=== PATIENT | female | born 1945 | race Caucasian/White ===

== ENCOUNTER 2020-11-15 20:36 | Inpatient (IN) | payer OTHER, SELFPAY ==
--- OUTSIDE RECORDS SUMMARY | 2020-11-15 20:37 | XMS REPORT | Continuity of Care Document ---
:1945 Author Organization [facility] t Address [address] [place] [address] Care Team Providers Name Role Phone Aide MENJIVAR, T Attending Clinician Unavailable Yohan RN Attending Clinician Unavailable Lab, Fam Pob I Attending Clinician Unavailable Problems This patient has no known problems. Allergies, Adverse Reactions, Alerts This patient has no known allergies or adverse reactions. Medications This patient has no known medications. Procedures This patient has no known procedures. Encounters Start End Encounter Admission Attending Care Care Encounter Source Date/Time Date/Time Type Type Clinicians Facility Department ID 2020-07-27 2020-07-27 Letter MEENAKSHI Noble [id number] 00:00:00 00:00:00 (Out) Madison Cabrera [facility] [id number] [facility] [id number] 2020-07-26 2020-07-26 Telephone MEENAKSHI Almanzar [id number] 00:00:00 00:00:00 Eze HENDERSON [id number] [facility] [id number] 2020-07-24 2020-07-24 Laboratory Lab, [facility] [id number] 14:48:41 15:08:41 Only Fam [facility] [id number] [place] [id number] [facility] [id number] [address] One Results This patient has no known results.
[2020-11-15] MEDS ORDERED: ALBUTEROL INHALER 60 PUFF/8 GM IH ONE (21:44)
[2020-11-15 21:50] LABS: Arterial Blood Carboxyhemoglob 8.3 % (0-1.5); Blood Gas Oxyhemoglobin 80.2 % (94-97); Blood O2 Saturation 88.3 % (92-98.5)
[2020-11-15 22:32] LABS: Absolute Lymphocytes (CBC) 0.7 K/uL (0.7-4.9); Basophils % 1.1 % (0-1.3); Hematocrit 50.4 % (36.0-45.0); MPV 8.8 fL (7.6-11.3); RBC Red Blood Cell Count 5.61 M/uL (3.86-4.86)
[2020-11-15 22:33] LABS: Protime INR 1.06
[2020-11-15 22:45] LABS: ALT/SGPT 51 U/L (12-78); AST/SGOT 37 U/L (15-37); Albumin 3.7 g/dL (3.4-5.0); Alkaline Phosphatase 94 U/L (45-117); BUN Blood Urea Nitrogen 11 mg/dL (7-18); Bicarbonate 37 mmol/L (21-32); Bilirubin Direct 0.2 mg/dL (0-0.2); Bilirubin Total 0.5 mg/dL (0.2-1.0); Glucose Level 193 mg/dL (74-106); Magnesium 2.4 mg/dL (1.8-2.4); NT PRO-BNP 2622 pg/mL (<125); Potassium 4.6 mmol/L (3.5-5.1); Protein, Total 7.5 g/dL (6.4-8.2); Sodium Level 136 mmol/L (136-145); Troponin (Emerg Dept Use Only) < 0.02 ng/mL (0.0-0.045)
[2020-11-15] MEDS ORDERED: FUROSEMIDE 20 MG/ 2ML VIAL ONE (23:32)
[2020-11-15 23:39] LABS: Urine Blood NEGATIVE (NEG); Urine Glucose NEGATIVE (NEG); Urine Protein 2+ (NEG); Urine Specific Gravity 1.025 (1.005-1.030); Urine pH 5.5 (5.0-7.0)
[2020-11-16] MEDS ORDERED: AZITHROMYCIN 500 MG INJ IVPB ONE (01:04)
[2020-11-16] MEDS ORDERED: NA CHLORIDE 0.9% 250 ML ONE (01:04)
[2020-11-16] MEDS ORDERED: CEFTRIAXONE/SWI 1gm 1 GM/10 ML SYR ONE (01:04)
--- NOTE | 2020-11-16 01:14 | ER ---
Nurse's Notes [facility] Name: Marcie Paul Age: 75 yrs Sex: Female : 1945 Arrival Date: 11/15/2020 Time: 20:38 Bed 20 Private MD: GENA WEBSTER Diagnosis: Pleural Effusion;CHF Exacerbation;Hypoxia Presentation: 11/15 20:44 Chief complaint: Patient states: SOB for 10 days. Low grade fever at home. She was ll1 exposed to covid, so Dr. Webster started her on medications. + ALMAGUER's. O2 sat 68% RA at home per patient. Coronavirus screen: Client denies travel out of the [place] in the last 14 days. cough unrelated to allergies, difficulty breathing, fatigue, fever, headache, shortness of breath, Client presents with at least one sign or symptom that may indicate coronavirus-19. Standard/surgical mask placed on the client. Ebola Screen: Patient denies travel to an Ebola-affected area in the 21 days before illness onset. 20:44 Method Of Arrival: Wheelchair ll 20:48 Initial Sepsis Screen: Does the patient meet any 2 criteria? RR > 20 per min. No. ll1 Patient's initial sepsis screen is negative. Does the patient have a suspected source of infection? Yes: Productive cough/pneumonia. Risk Assessment: Do you want to hurt yourself or someone else? Patient reports no desire to harm self or others. Onset of symptoms was November 05, 2020. 20:48 Acuity: JOAQUINA 2 ll1 Triage Assessment: 21:25 Respiratory: Onset: The symptoms/episode began/occurred gradually, the patient has mild rr5 shortness of breath. Historical: - Allergies: 20:50 No Known Allergies; ll1 - PMHx: 20:50 Atrial Fib; Diabetes - NIDDM; Myocardial infarction; Hyperlipidemia; Hypertension; ll1 COPD; Hypothyroidism; - PSHx: 20:50 Hysterectomy; Heart stents; Cholecystectomy; ankle; skin CA spot removed from neck; ll1 - Immunization history:: Flu vaccine is not up to date. - Social history:: Smoking status: Patient reports the use of cigarette tobacco products, smokes one-half pack cigarettes per day. Screenin:20 Abuse screen: Denies threats or abuse. Denies injuries from another. Nutritional rr5 screening: No deficits noted. Tuberculosis screening: No symptoms or risk factors identified. Fall Risk IV access (20 points). Mental Status- Oriented to own ability (0 pts). Total Ballard Fall Scale indicates No Risk (0-24 pts). Assessment: 21:25 General: Appears in no apparent distress. uncomfortable, Behavior is calm, cooperative, rr5 appropriate for age. 21:25 Pain: Denies pain. Neuro: Level of Consciousness is awake, alert, obeys commands, rr5 Oriented to person, place, time, situation. Cardiovascular: Capillary refill < 3 seconds Patient's skin is warm and dry. Rhythm is atrial fibrillation. Respiratory: Reports shortness of breath Airway is patent Respiratory effort is even, unlabored, Respiratory pattern is regular, symmetrical, tachypnea Breath sounds with crackles. GI: No signs and/or symptoms were reported involving the gastrointestinal system. : No signs and/or symptoms were reported regarding the genitourinary system. EENT: No signs and/or symptoms were reported regarding the EENT system. Derm: Skin is intact, is healthy with good turgor, Skin temperature is warm. Musculoskeletal: Circulation, motion, and sensation intact. Capillary refill < 3 seconds. 22:29 Reassessment: Patient appears in no apparent distress at this time. Patient is alert, rr5 oriented x 3, equal unlabored respirations, skin warm/dry/pink. Patient states symptoms have improved. 23:30 Reassessment: Patient appears in no apparent distress at this time. Patient and/or rr5 family updated on plan of care and expected duration. Pain level reassessed. Patient is alert, oriented x 3, equal unlabored respirations, skin warm/dry/pink. for CT angio. 11/16 00:20 Reassessment: Patient appears in no apparent distress at this time. Patient is alert, rr5 oriented x 3, equal unlabored respirations, skin warm/dry/pink. awaiting for CT result. positive post lasix output. 01:50 Reassessment: Patient appears in no apparent distress at this time. Patient is alert, rr5 oriented x 3, equal unlabored respirations, skin warm/dry/pink. for admission awaiting for covid result. 03:00 Reassessment: Patient appears in no apparent distress at this time. resting eyes closed rr5 breathing spontaneously with oxygen support at 3 liters via nasal cannula. Vital Signs: 11/15 20:44 BP 155 / 87; Pulse 82; Resp 28; Temp 97.6(O); Pulse Ox 82% on R/A; Weight 86.18 kg; ll1 Height 5 ft. 8 in. (172.72 cm); Pain 310; 20:44 Pulse Ox 91% on 2 lpm NC; ll1 22:24 BP 135 / 89; Pulse 85; Resp 22; Pulse Ox 92% on 2 lpm NC; rr5 23:30 BP 152 / 109; Pulse 80; Resp 24; Pulse Ox 90% on 3 lpm NC; rr5 11/16 00:23 BP 129 / 82; Pulse 73; Resp 25; Pulse Ox 91% on 3 lpm NC; rr5 01:50 BP 143 / 90; Pulse 89; Resp 27; Pulse Ox 93% on 3 lpm NC; rr5 02:30 BP 120 / 88; Pulse 69; Resp 22; Temp 97.9; Pulse Ox 93% on 3 lpm NC; rr5 11/15 20:44 Body Mass Index 28.89 (86.18 kg, 172.72 cm) ll1 ED Course: 11/15 20:38 Patient arrived in ED. am2 20:38 GENA WEBSTER is Private Physician. am2 20:49 Triage completed. ll1 20:51 Arm band placed on Patient placed in an exam room, on a stretcher. ll1 20:55 Nico Thomas MD is Attending Physician. mh7 21:20 Patient has correct armband on for positive identification. Bed in low position. Call rr5 light in reach. athletic monitor on. Pulse ox on. NIBP on. 21:25 Jose Pugh, TIARA is Primary Nurse. rr5 21:30 Oxygen administration via nasal cannula \T\ 2L/min Response to oxygen therapy: symptoms rr5 improved. 21:38 XRAY Chest (1 view) In Process Unspecified. EDMS 22:00 COVID swab sent to lab. Flu and/or RSV swab sent to lab. rr5 22:10 Inserted saline lock: 20 gauge in right forearm, using aseptic technique. Blood rr5 collected. 22:10 First set of blood cultures drawn by me. rr5 22:20 EKG done, by ED staff, reviewed by Nico Thomas MD. rr5 11/16 00:14 CT Chest For PE Angio In Process Unspecified. EDMS 00:26 No provider procedures requiring assistance completed. rr5 01:13 Mauricio Fitzgerald MD is Hospitalizing Provider. [facility] 02:49 Patient admitted, IV remains in place. intact, No redness/swelling at site. rr5 Administered Medications: 11/15 21:40 Drug: Albuterol HFA Inhaler 2 puffs Route: Inhalation; rr5 22:40 Follow up: Response: No adverse reaction rr5 23:19 Drug: Lasix 20 mg Route: IVP; Site: right forearm; rr5 11/16 00:26 Follow up: Response: No adverse reaction rr5 00:50 Drug: Rocephin - (cefTRIAXone) 1 grams Route: IVPB; Infused Over: 30 mins; Site: right rr5 forearm; 01:18 Follow up: Response: No adverse reaction; IV Status: Completed infusion; IV Intake: 49qmqu2 01:20 Dru mg of (AZITHromycin 500 mg, NS 0.9% 250 ml) Route: IVPB; Infused Over: 1 hrs; rr5 Site: right forearm; 02:25 Follow up: Response: No adverse reaction; IV Status: Completed infusion; IV Intake: rr5 250ml Intake: 01:18 IV: 50ml; Total: 50ml. rr5 02:25 IV: 250ml; Total: 300ml. rr5 Output: 00:23 Urine: 250ml (Voided); Total: 250ml. rr5 01:50 Urine: 600ml (Voided); Total: 850ml. rr5 Outcome: 01:13 Decision to Hospitalize by Provider. [facility] 02:49 Admitted to Med/surg accompanied by nurse, via stretcher, room 209, Report called to rr5 navya 02:49 Condition: stable 02:49 Instructed on the need for admit. 03:13 Patient left the ED. rr5 Signatures: Dispatcher [employer] EDMS Kandy Tomlinson am2 Jose Pugh RN RN rr5 Sumanth Martinez RN RN ll1 Nico Thomas MD MD [facility]
--- NOTE | 2020-11-16 01:14 | EDPHYS ---
Physician Documentation [facility] Name: Marcie Paul Age: 75 yrs Sex: Female : 1945 Arrival Date: 11/15/2020 Time: 20:38 Bed 20 Private MD: GENA WEBSTER ED Physician Nico Thomas HPI: 11/15 21:20 This 75 yrs old Female presents to ER via Wheelchair with complaints of mh7 Shortness Of Breath. 21:20 The patient has shortness of breath at rest. Onset: The symptoms/episode began/occurred mh7 1 week(s) ago, and became worse today. Duration: The symptoms are continuous, and are steadily getting worse. The patient's shortness of breath is aggravated by coughing, light activity, is alleviated by nothing. Associated signs and symptoms: Pertinent positives: non-productive cough, fever, Pertinent negatives: chest pain, productive cough, diaphoresis, dizziness, hemoptysis, loss of consciousness, nausea, numbness in extremities, visual changes, vomiting. Severity of symptoms: At their worst the symptoms were moderate today, in the emergency department the symptoms have improved mildly. Historical: - Allergies: 20:50 No Known Allergies; ll1 - PMHx: 20:50 Atrial Fib; Diabetes - NIDDM; Myocardial infarction; Hyperlipidemia; Hypertension; ll1 COPD; Hypothyroidism; - PSHx: 20:50 Hysterectomy; Heart stents; Cholecystectomy; ankle; skin CA spot removed from neck; ll1 - Immunization history:: Flu vaccine is not up to date. - Social history:: Smoking status: Patient reports the use of cigarette tobacco products, smokes one-half pack cigarettes per day. ROS: 21:20 Eyes: Negative for injury, pain, redness, and discharge, ENT: Negative for injury, mh7 pain, and discharge, Neck: Negative for injury, pain, and swelling, Cardiovascular: Negative for chest pain, palpitations, and edema, Abdomen/GI: Negative for abdominal pain, nausea, vomiting, diarrhea, and constipation, Back: Negative for injury and pain, : Negative for injury, bleeding, discharge, and swelling, MS/Extremity: Negative for injury and deformity, Skin: Negative for injury, rash, and discoloration, Neuro: Negative for headache, weakness, numbness, tingling, and seizure, Psych: Negative for depression, anxiety, suicide ideation, homicidal ideation, and hallucinations, Allergy/Immunology: Negative for hives, rash, and allergies, Endocrine: Negative for neck swelling, polydipsia, polyuria, polyphagia, and marked weight changes, Hematologic/Lymphatic: Negative for swollen nodes, abnormal bleeding, and unusual bruising. Exam: 21:20 Constitutional: This is a well developed, well nourished patient who is awake, alert, mh7 and in no acute distress. Head/Face: Normocephalic, atraumatic. Eyes: Pupils equal round and reactive to light, extra-ocular motions intact. Lids and lashes normal. Conjunctiva and sclera are non-icteric and not injected. Cornea within normal limits. Periorbital areas with no swelling, redness, or edema. Neck: Trachea midline, no thyromegaly or masses palpated, and no cervical lymphadenopathy. Supple, full range of motion without nuchal rigidity, or vertebral point tenderness. No Meningismus. Chest/axilla: Normal chest wall appearance and motion. Nontender with no deformity. No lesions are appreciated. Cardiovascular: Regular rate and rhythm with a normal S1 and S2. No gallops, murmurs, or rubs. Normal PMI, no JVD. No pulse deficits. 21:20 Abdomen/GI: Soft, non-tender, with normal bowel sounds. No distension or tympany. No guarding or rebound. No evidence of tenderness throughout. Back: No spinal tenderness. No costovertebral tenderness. Full range of motion. Skin: Warm, dry with normal turgor. Normal color with no rashes, no lesions, and no evidence of cellulitis. MS/ Extremity: Pulses equal, no cyanosis. Neurovascular intact. Full, normal range of motion. Neuro: Awake and alert, GCS 15, oriented to person, place, time, and situation. Cranial nerves II-XII grossly intact. Motor strength 5/5 in all extremities. Sensory grossly intact. Cerebellar exam normal. Normal gait. Psych: Awake, alert, with orientation to person, place and time. Behavior, mood, and affect are within normal limits. 21:20 Respiratory: mild respiratory distress is noted, Respirations: prolonged exhalation, that is mild, Breath sounds: rhonchi, that are moderate, are scattered, Respiratory rate: 28 Vital Signs: 20:44 BP 155 / 87; Pulse 82; Resp 28; Temp 97.6(O); Pulse Ox 82% on R/A; Weight 86.18 kg; ll1 Height 5 ft. 8 in. (172.72 cm); Pain 3/10; 20:44 Pulse Ox 91% on 2 lpm NC; ll1 22:24 BP 135 / 89; Pulse 85; Resp 22; Pulse Ox 92% on 2 lpm NC; rr5 23:30 BP 152 / 109; Pulse 80; Resp 24; Pulse Ox 90% on 3 lpm NC; rr5 11/16 00:23 BP 129 / 82; Pulse 73; Resp 25; Pulse Ox 91% on 3 lpm NC; rr5 01:50 BP 143 / 90; Pulse 89; Resp 27; Pulse Ox 93% on 3 lpm NC; rr5 02:30 BP 120 / 88; Pulse 69; Resp 22; Temp 97.9; Pulse Ox 93% on 3 lpm NC; rr5 11/15 20:44 Body Mass Index 28.89 (86.18 kg, 172.72 cm) ll1 MDM: 01:11 Differential diagnosis: Anemia Anxiety Reaction asthma, Bronchitis CHF exacerbation, mh7 Chronic Obstructive Pulmonary Disease Myocardial Infarction pneumonia, Pneumothorax pulmonary edema, Pulmonary Embolism reactive airway disease. Data reviewed: vital signs, nurses notes, old medical records, lab test result(s), cardiac enzymes, CBC, electrolytes, Flu: urinalysis, EKG, radiologic studies, CT scan, plain films. Data interpreted: Pulse oximetry: on room air is 91 %. Interpretation: hypoxia. Plan: O2 by NC applied. Counseling: I had a detailed discussion with the patient and/or guardian regarding: the historical points, exam findings, and any diagnostic results supporting the discharge/admit diagnosis, lab results, radiology results, the need for further work-up and treatment in the hospital. Response to treatment: the patient's symptoms have markedly improved after treatment. 01:13 Patient medically screened. [facility] 11/15 21:15 Order name: Basic Metabolic Panel; Complete Time: 22:56 [facility] 11/15 21:15 Order name: CBC with Diff; Complete Time: 22:56 [facility] 11/15 21:15 Order name: LFT's; Complete Time: 22:56 [facility] 11/15 21:15 Order name: Magnesium; Complete Time: 22:56 [facility] 11/15 21:15 Order name: NT PRO-BNP; Complete Time: 22:56 [facility] 11/15 21:15 Order name: PT-INR; Complete Time: 22:56 [facility] 11/15 21:15 Order name: Troponin (emerg Dept Use Only); Complete Time: 22:56 [facility] 11/15 21:15 Order name: Blood Culture Adult (2) [facility] 11/15 21:15 Order name: Influenza Screen (a \T\ B); Complete Time: 00:42 [facility] 11/15 21:16 Order name: Lactate; Complete Time: 00:42 [facility] 11/15 21:16 Order name: Procalcitonin; Complete Time: 00:42 [facility] 11/15 21:24 Order name: Arterial Blood Gas; Complete Time: 22:10 [facility] 11/15 23:36 Order name: Urine Dipstick--Ancillary (enter results); Complete Time: 00:42 [facility] 11/15 21:15 Order name: XRAY Chest (1 view) [facility] 11/15 21:15 Order name: EKG; Complete Time: 21:16 [facility] 11/15 21:15 Order name: Cardiac monitoring; Complete Time: 22:18 [facility] 11/15 21:15 Order name: EKG - Nurse/Tech; Complete Time: 22:18 [facility] 11/15 21:15 Order name: IV Saline Lock; Complete Time: 22:18 [facility] 11/15 21:15 Order name: Labs collected and sent; Complete Time: 22:18 [facility] 11/15 21:15 Order name: O2 Per Protocol; Complete Time: 22:18 [facility] 11/15 21:15 Order name: O2 Sat Monitoring; Complete Time: 22:18 [facility] 11/15 21:16 Order name: Urine Dipstick-Ancillary (obtain specimen); Complete Time: 00:26 [facility] 11/15 22:57 Order name: CT Chest For PE Angio [facility] 11/16 01:51 Order name: SARS-COV-2 RT PCR EDMS Administered Medications: 11/15 21:40 Drug: Albuterol HFA Inhaler 2 puffs Route: Inhalation; rr5 22:40 Follow up: Response: No adverse reaction rr5 23:19 Drug: Lasix 20 mg Route: IVP; Site: right forearm; rr5 11/16 00:26 Follow up: Response: No adverse reaction rr5 00:50 Drug: Rocephin - (cefTRIAXone) 1 grams Route: IVPB; Infused Over: 30 mins; Site: right rr5 forearm; 01:18 Follow up: Response: No adverse reaction; IV Status: Completed infusion; IV Intake: [id number] 01:20 Dru mg of (AZITHromycin 500 mg, NS 0.9% 250 ml) Route: IVPB; Infused Over: 1 hrs; rr5 Site: right forearm; 02:25 Follow up: Response: No adverse reaction; IV Status: Completed infusion; IV Intake: rr5 250ml Disposition: 11/16/20 01:13 Hospitalization ordered by Mauricio Fitzgerald for Inpatient Admission. Preliminary diagnosis are Pleural Effusion, CHF Exacerbation, Hypoxia. - Bed requested for Telemetry/MedSurg (Inpatient). - Status is Inpatient Admission. rr5 - Condition is Stable. - Problem is an acute exacerbation. - Symptoms have improved. Signatures: Dispatcher [facility] Em Newby RN RN mw Jose Pugh RN RN rr5 Sumanth Martinez RN RN ll1 Nico Thomas MD MD mh7 Corrections: (The following items were deleted from the chart) 01:10 11/15 21:16 CORONAVIRUS+MR.LAB.BRZ ordered. [facility] 11/16 02:12 01:13 Hospitalization Ordered by Mauricio Fitzgerald MD for Inpatient Admission. Preliminary mw diagnosis is Pleural Effusion; CHF Exacerbation; Hypoxia. Bed requested for Telemetry/MedSurg (Inpatient). Status is Inpatient Admission. Condition is Stable. Problem is an acute exacerbation. Symptoms have improved. mh7 03:13 02:12 11/16/2020 01:13 Hospitalization Ordered by Mauricio Fitzgerald MD for Inpatient rr5 Admission. Preliminary diagnosis is Pleural Effusion; CHF Exacerbation; Hypoxia. Bed requested for Telemetry/MedSurg (Inpatient). Status is Inpatient Admission. Condition is Stable. Problem is an acute exacerbation. Symptoms have improved. mw
[2020-11-16] MEDS ORDERED: NA CHLORIDE 0.9% 50 ML ONE (01:34)
[2020-11-16] MEDS ORDERED: ACETAMINOPHEN 500 MG TAB PO PRN (01:49)
[2020-11-16] MEDS ORDERED: ALBUTEROL 2.5 MG/3 ML NEB SOL NEB PRN (01:49)
[2020-11-16] MEDS ORDERED: MORPHINE 2 MG/ML SYR IV PRN (01:49)
[2020-11-16] MEDS ORDERED: ONDANSETRON 4 MG/2 ML VIAL IV PRN (01:49)
[2020-11-16] MEDS ORDERED: guaiFENesin 100 MG/5 ML UCUP PO PRN (01:57)
[2020-11-16] MEDS ORDERED: HYDRALAZINE HCL 20 MG/ML VIAL IV PRN (01:57)
--- NOTE | 2020-11-16 02:06 | P.HP ---
Certification for Inpatient With expected LOS: >2 Midnights Patient will require the following post-hospital care: None Practitioner: I am a practitioner with admitting privileges, knowledge of patient current condition, hospital course, and medical plan of care. Services: Services provided to patient in accordance with Admission requirements found in Title 42 Section 412.3 of the Code of Federal Regulations Patient History Date of Service: 11/16/20 Reason for admission: SOB History of Present Illness: 75-year-old female with history of COPD on chronic steroids, HTN,DM, HLD, atrial fib previously on anticoagulation but developing tolerance currently on aspirin, follow with Dr. Bryant, CAD status post PCI, diastolic CHF with last echo from 2017 showing EF of 54% but moderate TR and MR and pulmonary hypertension, follows with Cardiology, admitted because of worsening shortness of breath since the last 1 week patient admit to intermittent cough but denies a [place] fever. She denies any cough contact. She admits to worsening but the swelling. She states she is on diuretic but unable to tell wall dose of diuretics she is taking. Also has history of hypothyroidism and currently on levothyroxine. On presentation she was noted with low O2 sats in the 80s on room air. She is satting 90s now with supplemental oxygen. Chest x-ray shows extensive right pleural effusion with compressive atelectasis and possibly right lower lobe infiltrate. She has been admitted for symptomatic pleural effusion CHF exacerbation. ABG shows pCO2 of 74 with a pH of 7.33. Allergies No Known Allergies Allergy (Verified 01/06/17 10:48) Home medications list reviewed: Yes Home Medications: Amiodarone HCl 200 mg PO BID 01/05/17 Atorvastatin Calcium [Lipitor*] 20 mg PO BEDTIME 01/05/17 Glipizide 5 mg PO BID 01/05/17 Metformin HCl 500 mg PO SEECOM 01/05/17 Montelukast [Singulair*] 10 mg PO DAILY 01/05/17 Thyroid,Pork [[place] Thyroid] 15 mg PO SEECOM 01/05/17 Thyroid,Pork [[place] Thyroid] 120 mg PO SEECOM 01/05/17 lisinopriL [Lisinopril] 1 tab PO DAILY 01/05/17 Metoprolol Tartrate [Lopressor*] 25 mg PO BID #60 tab 01/09/17 Benzonatate 200 mg PO Q6HR PRN 02/08/17 Fluticasone [Flonase 50MCG Nasal [place]*] 2 sprays NS BID 02/08/17 Hydroxyzine HCl [Atarax] 10 mg PO BID 02/08/17 Nitroglycerin [Nitrostat*] 1 tab SL SEECOM PRN 02/08/17 Pantoprazole Sodium 40 mg PO DAILY 02/08/17 Selenium 200 mcg PO DAILY PRN 02/08/17 Tramadol HCl [Ultram] 50 mg PO DAILY PRN 02/08/17 Cefuroxime Axetil [Ceftin] 500 mg PO BID #14 tablet 02/11/17 Clopidogrel Bisulfate [Plavix*] 75 mg PO DAILY #30 tablet 02/11/17 Doxycycline Hyclate [Vibramycin] 100 mg PO BID #14 capsule 02/11/17 Fluticasone/Salmeterol [Advair 250-50 Diskus] 1 each IH BID #1 blst.w.dev 02/11/17 Oseltamivir [Tamiflu*] 75 mg PO BID #2 cap 02/11/17 Tiotropium [place] [Spiriva] 18 mcg IH DAILY #30 cap.w.dev 02/11/17 predniSONE [Deltasone*] 10 mg PO SEECOM #16 tab 02/11/17 - Past Medical/Surgical History Diabetic: Yes -: Hypothyroidism -: Hyperlipedemia -: AFIB -: NIDDM -: [place] -: COPD -: heart stents -: Hysterectomy -: Ankle surg -: Cholecystectomy - Social History Smoking Status: Current every day smoker Counseled patient to stop smoking for: more than 10 minutes Smoking therapy provided: Yes Patient receptive to therapy: Yes Alcohol use: No CD- Drugs: No Caffeine use: Yes Place of Residence: Home Review of Systems 10-point ROS is otherwise unremarkable General: Unremarkable Eyes: Unremarkable ENT: Unremarkable Respiratory: Cough, Shortness of Breath Cardiovascular: Orthopnea, Paroxysmal Noc. Dyspnea, Edema Gastrointestinal: Unremarkable Genitourinary: Unremarkable Musculoskeletal: Unremarkable Integumentary: Unremarkable Neurological: Unremarkable Physical Examination - Physical Exam General: Alert, In no apparent distress, Oriented x3, Cooperative, Obese HEENT: Atraumatic, Normocephalic, PERRLA Neck: Supple, 2+ carotid pulse no bruit, JVD not distended Respiratory: Diminished, Crackles/rales Cardiovascular: Regular rate/rhythm, Normal S1 S2, Abnormal S3, Edema, Irregular heart rate/rhythm Gastrointestinal: Normal bowel sounds, Soft and benign, Non-distended, No tenderness, No masses Musculoskeletal: No erythema, Swelling Integumentary: No rashes, No breakdown Neurological: Normal gait, Normal speech, Normal strength at 5/5 x4 extr, Normal tone External genitalia: Edema - Studies Laboratory Data (last 24 hrs) 11/15/20 22:05: PT 12.5, INR 1.06 11/15/20 22:05: WBC 4.7, Hgb 16.3 H, Hct 50.4 H, Plt Count 129 L 11/15/20 22:05: Sodium 136, Potassium 4.6, BUN 11, Creatinine 0.87, Glucose 193 H, Magnesium 2.4, Total Bilirubin 0.5, AST 37, ALT 51, Alkaline Phosphatase 94 Microbiology Data (last 24 hrs): 11/15/20 21:35 Nasopharnyx Influenza Type A Antigen Screen - Final 11/15/20 21:35 Nasopharnyx Influenza Type B Antigen Screen - Final Assessment and Plan - Problems (Diagnosis) (1) Pleural effusion Current Visit: Yes Status: Acute (2) Acute exacerbation of chronic obstructive pulmonary disease Onset Date: 02/10/17 Current Visit: No Status: Acute (3) COPD (chronic obstructive pulmonary disease) Current Visit: No Status: Acute Qualifiers: Emphysema type: unspecified (4) Non-insulin dependent type 2 diabetes mellitus Onset Date: 02/10/17 Current Visit: No Status: Acute (5) Pedal edema Onset Date: 01/05/17 Current Visit: No Status: Acute (6) Atrial fibrillation Onset Date: 02/10/17 Current Visit: No Status: Chronic Qualifiers: Atrial fibrillation type: persistent (7) Hypertension Onset Date: 02/10/17 Current Visit: No Status: Chronic Qualifiers: Hypertension type: essential hypertension Qualified Code(s): I10 - Essential (primary) hypertension - Advance Directives Does patient have a Living Will: No Does patient have a Durable POA for Healthcare: No - Code Status/Comfort Care Code Status: Full Code Physician Review: Patient Assessed, Agree with Above Assessment and Plan Physician Review Additional Text: # compressive right pleural effusion-may be due to CHF -will consult IR for thoracocentesis today -start gentle diureses Obtain fluid for cell counts for analysis # diastolic CHF with acute exacerbation-start Bumex 1 mg Q 12 Monitor intake and output Low salt intake advice Follow daily weight #COPD exacerbation-with mild respiratory acidosis/hypercarbia Start duo nebs Q 6 Would not do more steroids now has expected CO2 retention to improve with management of pleural effusion CO2 retention Continue home regimen #Hypertension-controlled, resume home meds #Diabetes mellitus that resume regimen to insulin sliding scale with Accu-Cheks #DVT prophylaxis-subcutaneous heparin post thoracocentesis next #Disposition possible hospital stay for more than 48 hr. # Advanced directive-discussed with patient she wishes to be full code #Chronic tobacco use-patient still actively smoking, we had to nicotine patch, counseling on cessation. Time Spent Managing Pts Care (In Minutes): 70
[2020-11-16] MEDS ORDERED: D50W 25 GM/50 ML SYRINGE IV PRN (02:07)
[2020-11-16] MEDS ORDERED: GLUCAGON 1 MG/VIAL IM PRN (02:07)
[2020-11-16 03:13] VITALS: BMI 29.7
[2020-11-16 03:32] LABS: Albumin 3.2 g/dL (3.4-5.0); Glucose Level 179 mg/dL (74-106); Protein, Total 6.6 g/dL (6.4-8.2); Troponin I < 0.02 ng/mL (0.0-0.045)
[2020-11-16] MEDS: IPRATROPIUM BROM 0.5MG/2.5ML NEB SCH ×4 (03:50→19:45)
[2020-11-16] MEDS: INSULIN -REGULAR HUMAN 50 UNIT/0.5 ML ML SQ SCH ×4 (07:30→21:09)
--- NOTE | 2020-11-16 07:35 | EKG ---
Test Date: 2020-11-15 Test Time: 22:13:00 Brazing Machine Operator Automatic: RR MEASUREMENT RESULTS: Intervals: Rate: 72 HI: QRSD: 90 QT: 412 QTc: 451 [place]: P: HI: QRS: 156 T: 86 INTERPRETIVE STATEMENTS: Atrial fibrillation Right axis deviation Right ventricular hypertrophy Nonspecific ST abnormality, probably digitalis effect Abnormal ECG Compared to ECG 02/08/2017 09:08:46 Right-axis deviation now present Right ventricular hypertrophy now present ST (T wave) deviation now present Ventricular premature complex(es) no longer present Left posterior fascicular block no longer present Myocardial infarct finding no longer present Electronically Signed On 11-16-20 07:34:13 COMMUNITY LIAISON OFFICER by Amador Bryant
--- NOTE | 2020-11-16 08:00 | RAD REPORT ---
EXAM DESCRIPTION: Uriel Single View11/15/2020 9:37 pm CLINICAL HISTORY: And shortness of breath COMPARISON: 2017 FINDINGS: Moderate right pleural effusion with basilar atelectasis. With mild interstitial pulmonary edema is suspected. The heart is moderately enlarged
[2020-11-16] MEDS ORDERED: PNEUMOCOCCAL VACCINE 0.5 ML IMVAC ONE (09:00)
[2020-11-16] MEDS: HEPARIN 5000 UNIT/ML 1 ML VIAL SQ SCH ×2 (09:00→21:03)
[2020-11-16] MEDS ORDERED: INFLUENZA VACCINE (for 3y+) 0.5 ML DOSE IMVAC ONE (09:00)
[2020-11-16] MEDS: NICOTINE 21 MG/PAT TD SCH (09:00)
[2020-11-16] MEDS ORDERED: CEFTRIAXONE 1 GM/NS 50 ML 1 GM/50 ML BAG IV SCH (09:00)
--- NOTE | 2020-11-16 09:51 | P.PN ---
Date of Service: 11/16/20 Patient seen and examined. She states she feels much better. On lung auscultation, the sounds significantly decreased on the right. Patient scheduled for thoracentesis. Acute on chronic diastolic heart failure. Pleural effusion COPD Atrial fibrillation. Plan: Patient scheduled for thoracentesis today She is on bronchodilators On IV Bumex On amiodarone and metoprolol for AFib.
[2020-11-16] MEDS: lisinopriL 5 MG TAB PO SCH (10:02)
[2020-11-16] MEDS: AMIODARONE HCL 200 MG TAB PO SCH ×2 (10:03→21:14)
[2020-11-16] MEDS: CLOPIDOGREL 75 MG TABLET PO SCH (10:03)
[2020-11-16] MEDS: BUMETANIDE 1 MG/4 ML VIAL IV SCH ×2 (10:04→21:00)
[2020-11-16] MEDS: METOPROLOL TAR 25 MG TAB PO SCH ×2 (10:05→21:00)
--- NOTE | 2020-11-16 10:20 | RAD REPORT ---
EXAM DESCRIPTION: RAD - Chest Single View - 11/16/2020 9:48 am CLINICAL HISTORY: Thoracentesis IMPRESSION: No pneumothorax status post right thoracentesis
[2020-11-16 10:25] LABS: Body Fluid WBC 473 /mm^3
--- NOTE | 2020-11-16 11:18 | RAD REPORT ---
EXAM DESCRIPTION: CT - Chest For Pe Angio - 11/16/2020 3:47 am CLINICAL HISTORY: 75 years Female SOB COMPARISON: None TECHNIQUE: Images were obtained in the axial, sagittal, and coronal planes. Intravenous contrast was administered. 3-D MIP imaging was performed. This exam was performed according to our departmental dose-optimization program which includes use of Automated Exposure Control, adjustment of the mA and/or kV according to patient size and/or use o f iterative reconstruction technique. FINDINGS: No filling defects pulmonary arteries bilaterally. No aortic dissection or dilatation. Enlarged heart. No pericardial effusion. Large right pleural effusion. Trace left pleural effusion. N o adenopathy. Moderate centrilobular emphysema. Increased pulmonary vascularity with thickening of the interlobular septa. Airspace attenuation right lower lobe and right middle lobe consistent with compressive atele ctatic change and infiltrate. Minimal air space attenuation medial left lower lobe likely atelectatic change. No pneumothorax. No abnormality of the abdomen. No acute osseous abnormality. IMPRESSION: No evidence for pulmonary embolus. No aortic dissection or dilatation. Enlarged heart with large right pleural effusion and trace left pleural effusion. Interstitial edema and pulmonary congestion. COPD. Compressive atelectatic change right lower lobe and right middle lobe with possible underlying infilt rate. Electronically signed by: Amber Bradley MD 11/16/2020 12:32 AM OUTSIDE PARTS SALESMAN Due to temporary technical issues with the PACS/Fluency reporting system, reports are being signed by the in house radiologist without review as a courtesy to ensure prompt reporting. The interpreting r adiologist is fully responsible for the content of the report.
[2020-11-16 11:33] LABS: Appearance CLEAR (CLEAR); Body Fluid Source PLEURAL; Color of fluid Yellow (COLORLESS)
--- NOTE | 2020-11-16 12:07 | P.CNS ---
Date of Consult: 11/06/20 Reason for Consult: Pleural effusion COPD exacerbation Chief Complaint: SOB History of Present Illness: Patient is 75 years of age heavy smoker admitted with progressive dyspnea worse over the past 2 weeks active smoker hypoxic hypercapnic respiratory failure history of COPD no change since admission she had right-sided pleural effusion Allergies No Known Allergies Allergy (Verified 01/06/17 10:48) Home Medications: Amiodarone HCl [Cordarone*] 1 tab PO BID 11/16/20 Atorvastatin Calcium [Lipitor*] 1 tab PO BEDTIME 11/16/20 Clopidogrel Bisulfate [Plavix] 1 tab PO DAILY 11/16/20 Doxycycline Hyclate [Vibramycin] 1 tab PO BID 11/16/20 Fluticasone [Flonase 50MCG Nasal [place]*] 2 sprays NS BID 11/16/20 Hydroxyzine HCl [Atarax] 1 tab PO BID 11/16/20 Lisinopril [Zestril] 1 tab PO DAILY 11/16/20 Metformin HCl 2 tab PO SEECOM 11/16/20 Metformin HCl 3 tab PO BEDTIME 11/16/20 Metoprolol Tartrate 1 tab PO BID 11/16/20 Montelukast [Singulair*] 1 tab PO DAILY 11/16/20 Pantoprazole [Protonix Tab*] 1 tab PO DAILY 11/16/20 Thyroid,Pork [[place] Thyroid] 1 tab PO BEDTIME 11/16/20 Thyroid,Pork [[place] Thyroid] 2 tab PO SEECOM 11/16/20 Tiotropium [place] [Spiriva] 1 puff IH DAILY 11/16/20 Tramadol HCl [Ultram] 1 tab PO DAILY PRN 11/16/20 glipiZIDE [Glipizide] 1 tab PO TID 11/16/20 predniSONE [Deltasone*] 1 tab PO DAILY 11/16/20 - Past Medical/Surgical History Diabetic: Yes -: Hypothyroidism -: Hyperlipedemia -: AFIB -: NIDDM -: [place] -: COPD -: heart stents -: Hysterectomy -: Ankle surg -: Cholecystectomy - Family History Father History Unknown: Yes Mother History Unknown: Yes Notes: pt is adopted - Social History Smoking Status: Current every day smoker Alcohol use: No CD- Drugs: No Caffeine use: Yes Place of Residence: Home Review of Systems 10-point ROS is otherwise unremarkable General: Weakness Respiratory: Cough, Shortness of Breath Physical Examination Temp Pulse Resp BP Pulse Ox 97 F 71 20 138/69 92 11/16/20 08:00 11/16/20 10:05 11/16/20 08:00 11/16/20 10:05 11/16/20 08:00 General: Alert, Oriented x3, Mild distress Respiratory: Diminished (Diminished air), Expiratory wheezes Cardiovascular: No edema, Regular rate/rhythm, Normal S1 S2 Gastrointestinal: Normal bowel sounds, Non-distended Laboratory Data (last 24 hrs) 11/15/20 22:05: PT 12.5, INR 1.06 11/15/20 22:05: WBC 4.7, Hgb 16.3 H, Hct 50.4 H, Plt Count 129 L 11/15/20 22:05: Sodium 136, Potassium 4.6, BUN 11, Creatinine 0.87, Glucose 193 H, Magnesium 2.4, Total Bilirubin 0.5, AST 37, ALT 51, Alkaline Phosphatase 94 - Problems (1) Respiratory failure Current Visit: Yes Status: Acute Plan: Patient is 75 years of age admitted with progressive dyspnea suspect that she has severe COPD hypoxic hypercapnic in addition to right basilar effusion thoracentesis has been done NO EVIDENCE OF SEPSIS I have added bronchodilators steroids high risk for cancer may be a malignant effusion change to p.o. Augmentin and prednisone possible discharge she will need long-acting bronchodilators at home evaluate for home O2 Qualifiers: Chronicity: acute on chronic
--- NOTE | 2020-11-16 13:08 | RAD REPORT ---
EXAM DESCRIPTION: US - Thoracentesis w/ US Guide - 11/16/2020 11:18 am CLINICAL HISTORY: Right pleural effusion TECHNIQUE: The risks, benefits alternatives to the procedure were explained to the patient and infor med consent obtained. Skiin ,subcutaneous tissues and pleura anesthetized with lidocaine. Under sonographic guidance, an 8 [place] catheter was placed into the posterior lower right pleural sp prasanna. 1100 milliliters of yellowish fluid removed given to the laboratory. Patient experienced no immediate complication IMPRESSION: Thoracentesis
[2020-11-16] MEDS: predniSONE 20 MG TAB PO SCH ×2 (13:17→21:03)
--- NOTE | 2020-11-16 16:55 | CON ---
Date of Consultation: 11/16/2020 Reason For Consultation: Heart failure. History Of Present Illness: This is a 75-year-old female with history COPD, on chronic steroids, hyp ertension, diabetes, dyslipidemia, atrial fibrillation, coronary artery disease, diastolic heart fail ure. Presented with shortness of breath, orthopnea, lower extremity edema building over a week. Past Medical History: As outlined above in the HPI. Medications: Refer to reconciliation sheet for detailed list. Allergies: NO KNOWN DRUG ALLERGIES. Family History: No premature coronary artery disease or cancer. Social History: Does not smoke or drink. Does not use any drugs. Review of Systems: All systems were reviewed and they were negative except what mentioned in the HPI. Physical Examination: Vital Signs: Temperature is 97.0, pulse 54, breathing 18, blood pressure is 138/69, saturating 90% w ith 3 L. General: Pleasant elderly female, in no distress. Head and Neck: Pupils are equal, reactive to light. Intact eye movements. Positive JVD. No cervic al lymphadenopathy. Neck: Supple. Thyroid is not enlarged. Lungs: Decreased breathing sounds on the right with crackles in both lung juares. No accessory musc le use or muscle retraction. Heart: Regular rate and rhythm. No extra sounds. Abdomen: Soft, nontender. Bowel sounds positive. No organomegaly. No masses or hernia. No rigidi ty or rebound. Extremities: 3+ pitting edema. No clubbing, cyanosis. Intact pulses. Skin: No rashes. Neurologic: Alert, awake, oriented x3. No acute focal deficit appreciated. Investigations: Sodium 136, creatinine 0.87. Troponin less than 0.02 x2. NT-proBNP is 2622. TSH i s 25. White blood cell count is 6.3. Chest x-ray, moderate right pleural effusion with pulmonary ed quinn. Assessment And Plan: 1.Acute on chronic diastolic heart failure exacerbation. Recommend IV diuretics. Continue Bumex 1 mg IV b.i.d. Monitor urine output, daily weight and low-salt diet and to see a set of cardiac enzyme s. 2.Large right pleural effusion. Pulmonary on board for possible thoracentesis. We will follow the patient with you. SR/JAYLENL Voice ID: [id number] Report ID: [id number]
[2020-11-16] MEDS: ARFORMOTEROL TARTRATE 15 MCG/2 ML VIAL.NEB NEB SCH (19:45)
[2020-11-16] MEDS ORDERED: CEFTRIAXONE/SWI 1gm 1 GM/10 ML SYR IV SCH (21:00)
[2020-11-16] MEDS: AMOX/K CLAV 500 MG TAB PO SCH (21:03)
[2020-11-16] MEDS: ATORVASTATIN 20 MG TAB PO SCH (21:03)
--- NOTE | 2020-11-16 21:30 | RAD REPORT ---
EXAM DESCRIPTION: RAD - Chest Single View - 11/16/2020 9:23 pm CLINICAL HISTORY: oxygen desaturation Chest pain. COMPARISON: Chest Single View dated 11/16/2020; Chest Single View dated 11/15/2020; Chest Single Vie w dated 02/10/2017; Chest Single View dated 02/08/2017; Thoracentesis w/ US Guide dated 11/16/2020; Ada st For Pe Angio dated 11/15/2020 FINDINGS: Portable technique limits examination quality. Small bilateral pleural effusions are seen. Mild pulmonary edema suspected. The heart is moderately e nlarged in size. No displaced fractures. IMPRESSION: Moderate CHF versus volume overload pattern.
[2020-11-17] MEDS: IPRATROPIUM BROM 0.5MG/2.5ML NEB SCH ×4 (01:35→19:40)
[2020-11-17 06:08] LABS: Absolute Lymphocytes (CBC) 0.5 K/uL (0.7-4.9); Basophils % 0.5 % (0-1.3); Hematocrit 45.6 % (36.0-45.0); Lymphocytes % 13.4 % (15.3-44.8); MPV 8.9 fL (7.6-11.3); RBC Red Blood Cell Count 5.02 M/uL (3.86-4.86)
[2020-11-17 06:28] LABS: Bilirubin Total 0.4 mg/dL (0.2-1.0); Magnesium 2.2 mg/dL (1.8-2.4); Potassium 4.7 mmol/L (3.5-5.1); Protein, Total 6.3 g/dL (6.4-8.2)
[2020-11-17] MEDS: INSULIN -REGULAR HUMAN 50 UNIT/0.5 ML ML SQ SCH ×4 (07:30→21:00)
--- NOTE | 2020-11-17 07:50 | RAD REPORT ---
EXAM DESCRIPTION: Uriel Single View11/17/2020 6:30 am CLINICAL HISTORY: Shortness of breath COMPARISON: November 16, 2020 FINDINGS: The right pleural effusion has decreased in size status post thoracentesis. Small left pl eural effusion Bilateral interstitial lung opacities. The heart remains enlarged IMPRESSION: These findings probably indicate CHF
[2020-11-17] MEDS: predniSONE 20 MG TAB PO SCH ×2 (08:18→21:33)
[2020-11-17] MEDS: BUMETANIDE 1 MG/4 ML VIAL IV SCH ×2 (08:18→21:36)
[2020-11-17] MEDS: AMOX/K CLAV 500 MG TAB PO SCH (08:18)
[2020-11-17] MEDS: AMIODARONE HCL 200 MG TAB PO SCH ×2 (08:18→21:35)
[2020-11-17] MEDS: CLOPIDOGREL 75 MG TABLET PO SCH (08:19)
[2020-11-17] MEDS: METOPROLOL TAR 25 MG TAB PO SCH ×2 (08:20→21:34)
[2020-11-17] MEDS: HEPARIN 5000 UNIT/ML 1 ML VIAL SQ SCH ×2 (08:20→21:34)
--- NOTE | 2020-11-17 08:20 | ECHO ---
HEIGHT: 5 ft 8 in WEIGHT: 196 lb 0 oz DATE OF STUDY: 11/16/[address]: Mauricio Fitzgerald MD 2-DIMENSIONAL: YES M.MODE: YES DOPPLER: YES COLOR FLOW: YES TDS: NO PORTABLE: NO DEFINITY: NO BUBBLE STUDY: NO DIAGNOSIS: CEREBRAL VASCULAR ACCIDENT CARDIAC HISTORY: CATHERIZATION: SURGERY: PROSTHETIC VALVE: PACEMAKER: MEASUREMENTS (cm) DIASTOLIC (NORMALS) SYSTOLIC (NORMALS) IVSd 1.3 (0.6-1.2) LA Diam 3.8 (1.9-4.0) LVEF 57% LVIDd 4.0 (3.5-5.7) LVIDs 2.8 (2.0-3.5) %FS 30% LVPWd 1.4 (0.6-1.2) Ao Diam 3.1 (2.0-3.7) 2 DIMENSIONAL ASSESSMENT: RIGHT ATRIUM: NORMAL LEFT ATRIUM: NORMAL RIGHT VENTRICLE: NORMAL LEFT VENTRICLE: NORMAL TRICUSPID VALVE: MITRAL VALVE: PULMONIC VALVE: NORMAL AORTIC VALVE: PERICARDIAL EFFUSION: NONE AORTIC ROOT: NORMAL LEFT VENTRICULAR WALL MOTION: NORMAL DOPPLER/COLOR FLOW: MODERATE PULMONARY HYPERTENSION. COMMENTS: NORMAL LEFT VENTRICULAR EJECTION FRACTION 55-60% WITH MILD LEFT VENTRICULAR HYPERTROPHY. NORMAL WALL MOTION. MILD TRICUSPID AND MITRAL REGURGITATION. AT LEAST MILD AORTIC STENOSIS. MODERATE PULMONARY HYPERTENSION WITH RIGHT VENTRICULAR SYSTOLIC PRESSURE OF 50-55 mmHg WITH DIASTOLIC DYSFUNCTION. TECHNOLOGIST: Baron SEAMAN
[2020-11-17] MEDS: NICOTINE 21 MG/PAT TD SCH (08:21)
[2020-11-17] MEDS: lisinopriL 5 MG TAB PO SCH (08:21)
[2020-11-17] MEDS: ARFORMOTEROL TARTRATE 15 MCG/2 ML VIAL.NEB NEB SCH ×2 (08:28→19:40)
--- NOTE | 2020-11-17 12:04 | P.PN ---
Subjective Date of Service: 11/17/20 Chief Complaint: SOB Subjective: Improving (feeling better after thoracentesis, still requring oxygen) Review of Systems 10-point ROS is otherwise unremarkable Physical Examination - Vital Signs Temperature: 97.6 F Blood Pressure: 110/73 Pulse: 61 Respirations: 20 Pulse Ox (%): 93 - Physical Exam General: Alert, In no apparent distress HEENT: Sclerae nonicteric Respiratory: Diminished, Crackles/rales (at bases bilaterally) Cardiovascular: Edema (1+ pitting RLE, 2+ pitting LLE), Irregular heart rate/rhythm Gastrointestinal: Soft and benign, No tenderness Musculoskeletal: No tenderness Neurological: Normal speech, Normal affect Assessment & Plan Physician Review Additional Text: R pleural effusion, s/p thoracentesis acute on chronic Diastolic CHF Acute on Chronic COPD exacerbation HTN DM2 Hypothyroid chronic tobacco use R pleural effusion, s/p thoracentesis acute on chronic Diastolic CHF Acute on Chronic COPD exacerbation -s/p thoracentesis -breathing more comfortably, still requiring O2; may need home O2 -likely due to acute CHF, path negative for malignant cells -continue IV diuresis -cardiology consulted, I/Os, low salt diet -pulmonology consulted, continue nebs / brovana, started on augmentin for concern of parapneumonic effusion Hypothyroidism -pt reports long history, non-functioning, missed a few doses lately due to feeling sick -TSH elevated, needs higher dose HTN DM2 -stable, continue home meds, SSI Dispo: anticipate dc home in ~24hrs Time Spent Managing Pts Care (In Minutes): 35
[2020-11-17] MEDS: ATORVASTATIN 20 MG TAB PO SCH (21:34)
[2020-11-18] MEDS: IPRATROPIUM BROM 0.5MG/2.5ML NEB SCH ×3 (00:25→13:15)
[2020-11-18 06:05] LABS: Absolute Lymphocytes (CBC) 0.7 K/uL (0.7-4.9); Basophils % 0.8 % (0-1.3); Hematocrit 44.1 % (36.0-45.0); Lymphocytes % 15.4 % (15.3-44.8); MPV 8.8 fL (7.6-11.3); RBC Red Blood Cell Count 4.95 M/uL (3.86-4.86)
[2020-11-18 06:17] LABS: Magnesium 2.2 mg/dL (1.8-2.4); Potassium 4.5 mmol/L (3.5-5.1)
[2020-11-18] MEDS: NICOTINE 21 MG/PAT TD SCH (09:00)
[2020-11-18] MEDS ORDERED: ACETAZOLAMIDE 500 MG IV IV SCH ×2 (09:00→12:30)
[2020-11-18] MEDS ORDERED: POTASSIUM CL SA 10 MEQ TAB PO ONE (09:00)
[2020-11-18] MEDS: CLOPIDOGREL 75 MG TABLET PO SCH (09:04)
[2020-11-18] MEDS: INSULIN -REGULAR HUMAN 50 UNIT/0.5 ML ML SQ SCH ×2 (09:04→11:30)
[2020-11-18] MEDS: predniSONE 20 MG TAB PO SCH (09:04)
[2020-11-18] MEDS: lisinopriL 5 MG TAB PO SCH (09:04)
[2020-11-18] MEDS: HEPARIN 5000 UNIT/ML 1 ML VIAL SQ SCH (09:07)
[2020-11-18] MEDS: AMIODARONE HCL 200 MG TAB PO SCH (09:07)
[2020-11-18] MEDS: METOPROLOL TAR 25 MG TAB PO SCH (09:07)
[2020-11-18] MEDS: ARFORMOTEROL TARTRATE 15 MCG/2 ML VIAL.NEB NEB SCH (09:50)
[2020-11-18 09:57] VITALS: O2SAT 91
--- NOTE | 2020-11-18 11:09 | RAD REPORT ---
EXAM DESCRIPTION: RAD - Chest Single View - 11/18/2020 11:01 am CLINICAL HISTORY: SOB, pleural effusion COMPARISON: Portable November 17 TECHNIQUE: AP portable chest image was obtained 11/18/2020 11:01 am . FINDINGS: Chronic interstitial opacification is present matching comparison. No new mass or consolid ation. Moderate right-side pleural effusion again noted and similar to comparison. Minimal left costo phrenic angle blunting could be new minimal effusion or artifact of portable imaging. . Cardiomegaly is present similar to comparison. Central vasculature is slightly improved. No pneumothorax. No acute bony abnormality seen. No acute aortic findings suspected. IMPRESSION: Moderate right pleural effusion not substantially different from comparison. Central pulmonary vasculature has decreased slightly. Cardiomegaly is still present.
[2020-11-18 11:47] LABS: Arterial Blood Carboxyhemoglob 1.4 % (0-1.5); Blood Gas Oxyhemoglobin 90.9 % (94-97); Blood O2 Saturation 93.3 % (92-98.5)
[2020-11-18 14:15] VITALS: BP 134/63; TEMP 96.9
--- NOTE | 2020-11-18 14:40 | P.DS ---
Admission Date: 11/16/20 Discharge Date: 11/18/20 Disposition: ROUTINE DISCHARGE Discharge Condition: GOOD Reason for Admission: SOB Consultations: Pulmonary - Dr. Borden Cardiology - Dr. Chavez Procedures: CXR (11/15): Moderate right pleural effusion with basilar atelectasis. With mild interstitial pulmonary edema is suspected. The heart is moderately enlarged CTA Chest (11/15): No PE. Enlarged heart with large right pleural effusion and trace left pleural effusion. Interstitial edema and pulmonary congestion. COPD. Compressive atelectatic change right lower lobe and right middle lobe with possible underlying infiltrate. U/S Thoracentesis (11/16): 1100 milliliters of yellowish fluid removed given to the laboratory. CXR (11/16): No pneumothorax status post right thoracentesis CXR (11/16): Small bilateral pleural effusions are seen. Mild pulmonary edema suspected. The heart is moderately enlarged in size. No displaced fractures. CXR (11/17): right pleural effusion has decreased in size status post thoracentesis. Small left pleural effusion. Bilateral interstitial lung opacities. CXR (11/18): Moderate R pleural effusion, not substantially different from comparison. Problem List: R pleural effusion, s/p thoracentesis acute on chronic Diastolic CHF Acute on Chronic COPD exacerbation HTN DM2 Hypothyroid chronic tobacco use Brief History of Present Illness: 75yo F, PMH: COPD on chronic steroids, HTN, DM2, HLD, Afib on anticoagulation but developed tolerance currently on aspirin, CAD s/p PCI, chronic D-CHF (last echo 2017 EF:54% moderate TR/MR and pulmonary hypertension. Presented to ED due to worsening SOB over the last 1 week, associated with intermittent cough, but denies fever. Also with worsening of lower extremity swelling. She states she is on diuretic but unable to tell wall dose of diuretics she is taking. Also has history of hypothyroidism and currently on levothyroxine. On presentation she was noted with low O2 sats in the 80s on room air. She is satting 90s now with supplemental oxygen. Chest x-ray shows extensive right pleural effusion with compressive atelectasis and possibly right lower lobe infiltrate. She has been admitted for symptomatic pleural effusion CHF exacerbation. ABG shows pCO2 of 74 with a pH of 7.33. Hospital Course: Patient underwent thoracentesis by radiology with 1100ml removed. She had i mprovement in her breathing. Pulmonology and Cardiology were consulted. Patient was diuresed with IV Bumex. She had improvement of her lower extremity edema and breathing, however she was still requiring 2-3 L nasal cannula. She also had increase in her bicarb, which was partly due to her COPD (chronic), and partly due to loop diuretic use. She was set up with home oxygen and discharged home to continue Diamox and avoid loop diuretics for now - per pulmonology recommendations. Her TSH was noted to be 25 and free T4: 0.18. She stated she was treated with armour thyroid and was advised to f/u with PCP in the next week. She was given a short course of prednisone and to continue her Trelegy inhaler at home. She is to f/u with Dr. Borden in the next week, she may need outpatient non-invasive ventilator for chronic CO2 retention. Pleural fluid was not infectious and serologies are still pending at time of discharge. Vital Signs/Physical Exam: Temp Pulse Resp BP Pulse Ox 97.1 F 67 20 133/63 91 11/18/20 08:00 11/18/20 09:07 11/18/20 08:00 11/18/20 09:07 11/18/20 08:00 General: Alert, In no apparent distress HEENT: Sclerae nonicteric Respiratory: Diminished (at bases bilaterally; non-labored on 2 L NC) Cardiovascular: Edema (1+ RLE, 2+ LLE), Irregular heart rate/rhythm Gastrointestinal: Soft and benign, No tenderness Musculoskeletal: No tenderness Integumentary: No rashes Neurological: Normal speech, Normal affect Laboratory Data at Discharge: WBC 4.6 K/uL (4.3-10.9) D 11/18/20 05:37 Hgb 14.5 g/dL (12.0-15.0) 11/18/20 05:37 Hct 44.1 % (36.0-45.0) 11/18/20 05:37 Plt Count 116 K/uL (152-406) L 11/18/20 05:37 PT 12.5 SECONDS (9.5-12.5) 11/15/20 22:05 INR 1.06 11/15/20 22:05 Sodium 137 mmol/L (136-145) 11/18/20 05:37 Potassium 4.5 mmol/L (3.5-5.1) 11/18/20 05:37 BUN 18 mg/dL (7-18) 11/18/20 05:37 Creatinine 0.95 mg/dL (0.55-1.3) 11/18/20 05:37 Glucose 211 mg/dL (74-106) H 11/18/20 05:37 Magnesium 2.2 mg/dL (1.8-2.4) 11/18/20 05:37 Total Bilirubin 0.4 mg/dL (0.2-1.0) 11/17/20 05:42 AST 23 U/L (15-37) 11/17/20 05:42 ALT 38 U/L (12-78) 11/17/20 05:42 Alkaline Phosphatase 73 U/L (45-117) 11/17/20 05:42 Troponin I < 0.02 ng/mL (0.0-0.045) 11/16/20 05:46 Home Medications: Amiodarone HCl [Cordarone*] 1 tab PO BID 11/16/20 Atorvastatin Calcium [Lipitor*] 1 tab PO BEDTIME 11/16/20 Clopidogrel Bisulfate [Plavix] 1 tab PO DAILY 11/16/20 Fluticasone [Flonase 50MCG Nasal [place]*] 2 sprays NS BID 11/16/20 Hydroxyzine HCl [Atarax] 1 tab PO BID 11/16/20 Lisinopril [Zestril] 1 tab PO DAILY 11/16/20 Metformin HCl 2 tab PO SEECOM 11/16/20 Metformin HCl 3 tab PO BEDTIME 11/16/20 Metoprolol Tartrate 1 tab PO BID 11/16/20 Montelukast [Singulair*] 1 tab PO DAILY 11/16/20 Pantoprazole [Protonix Tab*] 1 tab PO DAILY 11/16/20 Thyroid,Pork [[place]ne Thyroid] 1 tab PO BEDTIME 11/16/20 Thyroid,Pork [[place] Thyroid] 2 tab PO SEECOM 11/16/20 Tiotropium [place] [Spiriva] 1 puff IH DAILY 11/16/20 Tramadol HCl [Ultram] 1 tab PO DAILY PRN 11/16/20 glipiZIDE [Glipizide] 1 tab PO TID 11/16/20 acetaZOLAMIDE [Diamox*] 250 mg PO DAILY 30 Days #30 tab 11/18/20 predniSONE [Deltasone*] 10 mg PO BID 7 Days #14 tab 11/18/20 New Medications: predniSONE [Deltasone*] 10 mg PO BID 7 Days #14 tab acetaZOLAMIDE [Diamox*] 250 mg PO DAILY 30 Days #30 tab Patient Discharge Instructions: Follow up with Dr. Borden in 1-2 weeks. Follow up with PCP and Cardiology in the near future. Continue Trelegy inhaler. New prescriptions on discharge: Diamox (Acetazolamide) 250mg once a day (for your fluid). Prednisone 10mg twice a day for 7 days. Diet: ADA Activity: Ad manuel Followup: Cayetano Borden MD [ACTIVE - CAN ADMIT] - Amador Bryant MD [ACTIVE - CAN ADMIT] - Trey Raman MD [Primary Care Provider] - Time spent managing pt's care (in minutes): 40
--- NOTE | 2020-11-18 14:52 | P.PN ---
Subjective Date of Service: 11/18/20 Chief Complaint: COPD exacerbation Subjective: Improving (Patient is doing well has now home oxygen no new complaints status post thoracentesis) Review of Systems General: Weakness Respiratory: Shortness of Breath Physical Examination - Vital Signs Temperature: 96.9 F Blood Pressure: 134/63 Pulse: 63 Respirations: 20 Pulse Ox (%): 94 - Physical Exam General: Alert, Oriented x3 Respiratory: Diminished Cardiovascular: No edema, Normal S1 S2 Assessment & Plan - Problems (Diagnosis) (1) Respiratory failure Status: Acute Plan: Patient has chronic respiratory failure secondary to COPD is also hypercapnic with elevated bicarbonate advice patient to continue using a trilogy discharged home on low-dose prednisone and Diamox ovoid loop diuretics patient does have a lymphocytic predominant effusion on the right side status post thoracentesis chemistries pending no evidence of an infection in the pleural fluid are malignancy if the symptoms continue to persist despite optimal bronchodilator therapy may consider noninvasive ventilator as an outpatient Qualifiers: Chronicity: acute on chronic Physician Review: Patient Assessed, Agree with Above Assessment and Plan
[2020-11-18] MEDS ORDERED: acetaZOLAMIDE 250 MG TAB PO SCH (21:00)
--- NOTE | 2020-11-22 11:32 | PN ---
Date of Progress Note: 11/17/2020 Ms. Paul is 75, who was admitted to Dr. Salguero and seen by Dr. Chavez for COPD, hypertension, atri al fibrillation, coronary artery disease, diastolic congestive heart failure, diabetes, and dyslipide jg. She has a large black pleural effusion. Her TSH was 25 and that needs to be dealt with. Pulmo nary consultation has been noted. The patient has been diuresing. She is on bronchodilator, prednis one, antibiotic. Home oxygen is being considered. No further cardiac workup at this point. Echocar diogram is pending. She is improved since admission. She can go home from our standpoint, and we wi ll see her in the office in the next 2 weeks. NORA/BENTLEY Voice ID: [id number] Report ID: [id number]
--- NOTE | 2020-12-03 20:30 | P.OP ---
Date of Service: 12/17/20 (R thoracentesis) Findings and Operative Technique PTis 73 AW R sided effusion. Thoracentesis was done using US guidance, Safe T centesis catheter. 1 l Straw colored fluid was drained. Pt tolerated procedure well Informed consent was obtained- risk bleeding , infectionand lung collapse
== END 2020-11-18 14:41 | disposition home or self-care (01) | DRG 291 ==
LOC: ER 20:36 → ERHOLD 11-16 02:03 → 2ND 11-16 02:44
PROVIDERS: ADMIT Internal Medicine; ATTEND Hospitalist
PROC: 0W993ZZ Drainage of Right Pleural Cavity, Percutaneous Approach (ICD-10-PCS; principal; 2020-11-16)
PROC: 5A09457 Assistance with Respiratory Ventilation, 24-96 Consecutive Hours, Continuous Positive Airway Pressure (ICD-10-PCS; 2020-11-18)
DX: I11.0 Hypertensive heart disease with heart failure (principal); J96.21 Acute and chronic respiratory failure with hypoxia; J96.22 Acute and chronic respiratory failure with hypercapnia; I48.19 Other persistent atrial fibrillation; I50.33 Acute on chronic diastolic (congestive) heart failure; J43.9 Emphysema, unspecified; E78.5 Hyperlipidemia, unspecified; I25.10 Atherosclerotic heart disease of native coronary artery without angina pectoris; E11.9 Type 2 diabetes mellitus without complications; F17.210 Nicotine dependence, cigarettes, uncomplicated; E03.9 Hypothyroidism, unspecified; I25.2 Old myocardial infarction; Z90.710 Acquired absence of both cervix and uterus; Z95.5 Presence of coronary angioplasty implant and graft; Z90.49 Acquired absence of other specified parts of digestive tract; Z79.890 Hormone replacement therapy; Z79.84 Long term (current) use of oral hypoglycemic drugs; Z79.899 Other long term (current) drug therapy; Z79.02 Long term (current) use of antithrombotics/antiplatelets; Z79.52 Long term (current) use of systemic steroids; Z20.828 Contact with and (suspected) exposure to other viral communicable diseases
CPT/HCPCS: 32555; 36415; 71045; 71275; 80048; 80053; 80076; 81003; 82040; 82805; 82947; 83605; 83615; 83735; 83880; 84145; 84155; 84439; 84443; 84484; 85025; 85610; 87015; 87040; 87070; 87102; 87116; 87206; 87804; 88108; 88305; 89050; 93005; 93306; 96365; 96367; 96375; 99285; J0456; J0696; J1120; J1644; J1940; J7050; J7512; J7605; Q9967; U0003

== ENCOUNTER 2021-04-05 08:08 | Day surgery (SDC) | payer OTHER ==
[2021-02-23 14:05] VITALS: BMI 26.6
[2021-02-23 14:55] LABS: Absolute Lymphocytes (CBC) 1.6 K/uL (0.7-4.9); Basophils % 1.4 % (0-1.3); Hematocrit 42.9 % (36.0-45.0); Lymphocytes % 25.3 % (15.3-44.8); MPV 8.7 fL (7.6-11.3); RBC Red Blood Cell Count 4.51 M/uL (3.86-4.86)
[2021-02-23 15:10] LABS: BUN Blood Urea Nitrogen 9 mg/dL (7-18); Bicarbonate 31 mmol/L (21-32); Glucose Level 61 mg/dL (74-106); Potassium 4.2 mmol/L (3.5-5.1); Sodium Level 146 mmol/L (136-145)
[2021-02-23 15:16] LABS: Protime INR 0.97
--- NOTE | 2021-02-24 17:03 | EKG ---
Test Date: 2021-02-23 Test Time: 13:23:51 Appeals Board Referee: RIAZ MEASUREMENT RESULTS: Intervals: Rate: 81 CT: QRSD: 82 QT: 350 QTc: 406 Snyder: P: CT: QRS: 107 T: 50 INTERPRETIVE STATEMENTS: Atrial fibrillation Rightward axis Septal infarct, age undetermined Abnormal ECG Compared to ECG 11/15/2020 22:13:00 Myocardial infarct finding now present Right ventricular hypertrophy no longer present ST (T wave) deviation no longer present Electronically Signed On 02-24-21 17:00:40 CDT by Amador Bryant
--- NOTE | 2021-04-02 10:46 | EKG ---
Test Date: 2021-04-02 Test Time: 09:30:24 Construction Lineman: JOSIAS MEASUREMENT RESULTS: Intervals: Rate: 115 DE: QRSD: 88 QT: 322 QTc: 445 [place]: P: DE: QRS: 107 T: 73 INTERPRETIVE STATEMENTS: Atrial fibrillation with rapid ventricular response Rightward axis Abnormal ECG Compared to ECG 02/23/2021 13:23:51 Myocardial infarct finding no longer present Electronically Signed On 04-02-21 10:46:30 CDT by Amador Bryant
[2021-04-02 11:11] LABS: Absolute Lymphocytes (CBC) 1.1 K/uL (0.7-4.9); BUN Blood Urea Nitrogen 15 mg/dL (7-18); Basophils % 0.5 % (0-1.3); Bicarbonate 28 mmol/L (21-32); Glucose Level 156 mg/dL (74-106); Hematocrit 41.1 % (36.0-45.0); Lymphocytes % 18.7 % (15.3-44.8); MPV 9.5 fL (7.6-11.3); Potassium 3.9 mmol/L (3.5-5.1); RBC Red Blood Cell Count 4.24 M/uL (3.86-4.86); Sodium Level 144 mmol/L (136-145)
[2021-04-02 11:15] LABS: Protime INR 1.14
--- NOTE | 2021-04-02 11:18 | RAD REPORT ---
EXAM DESCRIPTION: Uriel Pa And Lat (2 Views)04/02/2021 10:45 am CLINICAL HISTORY: Preop for cardiac catheterization COMPARISON: October 2020 FINDINGS: Small bilateral pleural effusions with mild bibasilar atelectasis. Upper lobe vessels are prominent indicative of pulmonary venous hypertension. The heart is mildly to moderately enlarged.
[2021-04-05] MEDS ORDERED: NA CHLORIDE 0.9% 500 ML ONE (08:35)
[2021-04-05] MEDS ORDERED: ATROPINE SULF 1 MG/10 ML SYR IV ONE (09:54)
[2021-04-05] MEDS ORDERED: MIDAZOLAM HCL 2 MG/2 ML INJ ONE (09:54)
[2021-04-05] MEDS ORDERED: NA CHLORIDE 0.9% 0 ML ONE (09:54)
[2021-04-05] MEDS ORDERED: FENTANYL CITR 100 MCG/2 ML ONE (09:54)
[2021-04-05] MEDS ORDERED: HEPA 1000U/500MLS 1,000 UNIT/500 ML BAG IV ONE (10:28)
[2021-04-05 11:50] VITALS: TEMP 97.1
[2021-04-05 12:48] VITALS: BP 128/67; O2SAT 96
--- NOTE | 2021-04-05 13:02 | OP ---
Date of Procedure: 04/05/2021 Surgeon: Amador Bryant MD Program Production Specialist: Mr. Melquiades Gomes. Procedures: Left heart catheterization with selective coronary arteriogram. Indication: Abnormal stress test, chest pain, coronary artery disease. Procedure In Detail: Ms. Paul is 75, was brought to the label drier today as an outpatient, prepped and draped in routine sterile fashion. Given Versed and fentanyl for sedation. A 6-Portuguese sheath in troduced in the right common femoral artery successfully. That was done using the Seldinger techniqu e and 10 mL of Xylocaine. Beulah catheter left and right were used to do the heart catheterization. She was found to have a completely occluded RCA with collaterals to the PDA and the posterolateral from the circ and LAD. Her LAD stent and circumflex stents were all open. Left main was normal. e patient tolerated the procedure well. There were no complications. Total blood loss was 5 mL. Final Diagnosis: Severe coronary artery disease. Plan: Plan is for medical therapy to continue. An Angio-Seal was used to close the right groin. An giography there was normal. She will be at bedrest for 2 hours and go home, and she will see me in t he office in 2 weeks. Anesthesia: Total conscious sedation was 45 minutes. NORA/BENTLEY Voice ID: [id number] Report ID: [id number]
== END 2021-04-05 11:40 | disposition home or self-care (01) ==
LOC: CCL 08:08
DX: I25.10 Atherosclerotic heart disease of native coronary artery without angina pectoris (principal); I25.82 Chronic total occlusion of coronary artery; I48.91 Unspecified atrial fibrillation; I35.0 Nonrheumatic aortic (valve) stenosis; I10 Essential (primary) hypertension; E78.5 Hyperlipidemia, unspecified; E11.9 Type 2 diabetes mellitus without complications; Z95.5 Presence of coronary angioplasty implant and graft; Z87.891 Personal history of nicotine dependence; Z20.822 Contact with and (suspected) exposure to COVID-19
CPT/HCPCS: 93005; 85025 ×2; 80048 ×2; 36415 ×2; 85610 ×2; 82947 ×2; 85730 ×2; 71046; 93454; U0003 ×2; C1893; C1760; J2250; J3010; J7040; J1644; J0583

== ENCOUNTER 2021-09-01 12:22 | Inpatient (IN) | payer OTHER ==
--- NOTE | 2021-09-01 13:25 | RAD REPORT ---
EXAM DESCRIPTION: RAD - Chest Single View - 09/01/2021 1:18 pm CLINICAL HISTORY: SOB Chest pain. COMPARISON: Chest Pa And Lat (2 Views) dated 04/02/2021; Chest Single View dated 11/18/2020; Chest Sin gle View dated 11/17/2020; Chest Single View dated 11/16/2020 FINDINGS: Portable technique limits examination quality. Mild pulmonary edema is suspected. Moderate right pleural effusion and small left pleural. The heart moderately enlarged. No displaced fractures. IMPRESSION: Moderate CHF versus volume overload pattern.
[2021-09-01 13:36] LABS: Protime INR 1.09
[2021-09-01 13:50] LABS: ALT/SGPT 16 U/L (12-78); AST/SGOT 12 U/L (15-37); Albumin 3.7 g/dL (3.4-5.0); Alkaline Phosphatase 80 U/L (45-117); BUN Blood Urea Nitrogen 8 mg/dL (7-18); Bicarbonate 37 mmol/L (21-32); Bilirubin Direct 0.2 mg/dL (0-0.2); Bilirubin Total 0.5 mg/dL (0.2-1.0); Glucose Level 199 mg/dL (74-106); Magnesium 1.7 mg/dL (1.8-2.4); NT PRO-BNP 5805 pg/mL (<125); Protein, Total 7.4 g/dL (6.4-8.2); Sodium Level 141 mmol/L (136-145); Troponin (Emerg Dept Use Only) < 0.02 ng/mL (0.0-0.045)
[2021-09-01] MEDS ORDERED: FUROSEMIDE 20 MG/ 2ML VIAL ONE (13:52)
[2021-09-01] MEDS ORDERED: LEVALBUTEROL 1.25 MG/3 ML NEB ONE (13:52)
[2021-09-01 14:10] LABS: Absolute Lymphocytes (CBC) 0.6 K/uL (0.7-4.9); Hematocrit 41.3 % (36.0-45.0); Lymphocytes % 14.2 % (15.3-44.8); MPV 8.8 fL (7.6-11.3); RBC Red Blood Cell Count 4.52 M/uL (3.86-4.86)
--- NOTE | 2021-09-01 15:02 | EDPHYS ---
Physician Documentation [facility] Name: Marcie Paul Age: 75 yrs Sex: Female : 1945 Arrival Date: 09/01/2021 Time: 12:22 Bed 18 Private MD: SHAWANDA Physician Eze Guardado HPI: 09/01 12:49 This 75 yrs old Female presents to ER via Wheelchair with complaints of jmm Shortness Of Breath. 12:49 The patient has shortness of breath at rest. Onset: The symptoms/episode began/occurred jmm gradually, 2 day(s) ago. Duration: The symptoms are continuous. The patient's shortness of breath is aggravated by nothing, is alleviated by nothing. Associated signs and symptoms: Pertinent negatives: fever. The patient has experienced similar episodes in the past. Historical: - Allergies: 12:53 No Known Allergies; jl7 - Home Meds: 12:53 [place] Thyroid 120 mg Oral tab 3 tabs in the morning [Active]; montelukast 10 mg Oral jl7 tab 1 tab once daily [Active]; metformin take 500mg 2 tabs morning and 500mg 3 tabs at night Oral tab [Active]; metoprolol tartrate 25 mg Oral tab 1 tab 2 times per day [Active]; Glipizide Oral 5mg in the morning and at night [Active]; hydrochlorothiazide 12.5 mg Oral cap 1 cap once daily [Active]; atorvastatin 20 mg oral tab [Active]; pantoprazole 40 mg Oral TbEC 1 tab once daily [Active]; lisinopril 5 mg Oral tab once daily [Active]; Plavix 75 mg Oral tab 1 tab once daily [Active]; aspirin 325 mg Oral tab [Active]; Betamethasone Valerate Topical [Active]; Flonase Nasal for seasonal allergies [Active]; Spiriva with HandiHaler 18 mcg inhalation CpDv [Active]; Advair Diskus 250-50 mcg/dose Inhl dsdv [Active]; Ventolin Nebulizer [Active]; - PMHx: 12:53 Atrial Fib; COPD; Diabetes - NIDDM; Hyperlipidemia; Hypertension; Hypothyroidism; jl7 Myocardial infarction; - Immunization history:: Adult Immunizations up to date. - Social history:: Smoking status: Patient reports the use of cigarette tobacco products, smokes one-half pack cigarettes per day. ROS: 12:49 Constitutional: Negative for fever, chills, and weight loss, Cardiovascular: Negative [facility] for chest pain, palpitations, and edema. 12:49 Respiratory: Positive for shortness of breath. 12:49 All other systems are negative. Exam: 12:49 Constitutional: This is a well developed, well nourished patient who is awake, alert, jmm and in no acute distress. Head/Face: atraumatic. Eyes: EOMI, no conjunctival erythema appreciated ENT: Moist Mucus Membranes Neck: Trachea midline, Supple Chest/axilla: Normal chest wall appearance and motion. Cardiovascular: Regular rate and rhythm. No edema appreciated Abdomen/GI: Non distended, soft 12:49 Skin: General appearance color normal MS/ Extremity: Moves all extremities, no obvious deformities appreciated, no edema noted to the lower extremities 12:49 Respiratory: mild respiratory distress is noted, Respirations: labored breathing, that is mild, Breath sounds: rales, that are moderate, are heard diffusely. 12:49 Neuro: Orientation: is normal, Mentation: is normal, Motor: is normal. 12:49 Psych: Behavior/mood is pleasant, cooperative. Vital Signs: 12:52 BP 130 / 62; Pulse 88; Resp 19; Temp 97.1; Pulse Ox 87% on R/A; Weight 81.65 kg; Height jl7 5 ft. 8 in. (172.72 cm); Pain 0/10; 13:33 BP 109 / 70; Pulse 75; Pulse Ox 98% on 5 lpm NC; ap3 14:33 BP 121 / 84; Pulse 79; Pulse Ox 91% on 4 lpm NC; ap3 15:15 BP 110 / 95; Pulse 111; Pulse Ox 93% on 4 lpm NC; ap3 16:31 BP 111 / 66; Pulse 69; Pulse Ox 95% on 4 lpm NC; ap3 16:31 BP 121 / 42; Pulse 71; Pulse Ox 95% on 3 lpm NC; ap3 12:52 Body Mass Index 27.37 (81.65 kg, 172.72 cm) jl7 MDM: 12:57 Patient medically screened. nolan 14:59 Data reviewed: vital signs, nurses notes. Counseling: I had a detailed discussion with sonu the patient and/or guardian regarding: the historical points, exam findings, and any diagnostic results supporting the discharge/admit diagnosis, lab results, radiology results, the need for further work-up and treatment in the hospital. ED course: I discussed the patient with PATRICK Salazar whom accepted the patient to Dr. Salguero's service. . 09/01 12:49 Order name: Basic Metabolic Panel; Complete Time: 14:03 [facility] 09/01 12:49 Order name: CBC with Diff; Complete Time: 14:16 [facility] 09/01 12:49 Order name: LFT's; Complete Time: 14:03 [facility] 09/01 12:49 Order name: Magnesium; Complete Time: 14:03 [facility] 09/01 12:49 Order name: NT PRO-BNP; Complete Time: 14:03 [facility] 09/01 12:49 Order name: PT-INR; Complete Time: 13:49 [facility] 09/01 12:49 Order name: Troponin (emerg Dept Use Only); Complete Time: 14:03 [facility] 09/01 13:12 Order name: Blood Culture Adult (2) ap3 09/01 13:12 Order name: Lactate; Complete Time: 13:49 3 09/01 13:47 Order name: SARS-COV-2 RT PCR; Complete Time: 14:45 [facility] 09/01 16:00 Order name: Lipid Profile [facility] 09/01 16:00 Order name: Basic Metabolic Panel [facility] 09/01 16:00 Order name: Basic Metabolic Panel [facility] 09/01 12:49 Order name: XRAY Chest (1 view); Complete Time: 13:33 [facility] 09/01 12:49 Order name: EKG; Complete Time: 12:49 [facility] 09/01 12:49 Order name: EKG - Nurse/Tech; Complete Time: 12:58 [facility] 09/01 12:49 Order name: IV Saline Lock; Complete Time: 13:18 [facility] 09/01 12:49 Order name: Labs collected and sent; Complete Time: 13:18 [facility] 09/01 12:49 Order name: O2 Per Protocol; Complete Time: 12:57 [facility] 09/01 16:00 Order name: NT PRO-BNP [facility] 09/01 16:00 Order name: NT PRO-BNP [facility] 09/01 16:00 Order name: 60g Consistent Carbohydrate (ADA 1800/2000) [facility] 09/01 16:00 Order name: T4 Free [facility] 09/01 16:00 Order name: Thyroid Stimulating Hormone [facility] 09/01 16:00 Order name: Troponin I [facility] 09/01 20:22 Order name: Glucose, Ancillary Testing [facility] 09/01 12:49 Order name: O2 Sat Monitoring; Complete Time: 12:57 [facility] Administered Medications: 13:32 Drug: Lasix (furosemide) 20 mg Route: IVP; Site: right wrist; ap3 13:32 Drug: Xopenex (levalbuterol) (3) 1.25 mg Route: Inhalation; ap3 Disposition: 09/02 07:57 Co-signature as Attending Physician, Eze Guardado MD I agree with the assessment and nolan plan of care. Disposition Summary: 09/01/21 15:02 Hospitalization Ordered Hospitalization Status: Inpatient Admission [facility] Provider: Maximus Salguero Location: Telemetry/MedSurg (Inpatient) jm Condition: Stable jm Problem: an acute exacerbation jm Symptoms: are unchanged [facility] Bed/Room Type: Standard [facility] Room Assignment: [id number](09/01/21 20:33) rd1 Diagnosis - Acute on chronic combined systolic (congestive) and diastolic (congestive) heart [facility] failure Forms: - Medication Reconciliation Form [facility] - SBAR form [facility] Signatures: Dispatcher [employer] SHAWANDAWV Eze Guardado MD MD cha Mickail, Joel, PA PA [facility] Ana María Perez RN RN jl7 Kandy Jerome RN RN ap3 Corie Orozco RN RN rd1 Corrections: (The following items were deleted from the chart) 09/01 12:58 12:53 Home Meds: metoprolol 50mg BID; jl7 jl7 13:48 12:50 CORONAVIRUS+MRVishalLAB.BRZ ordered. [facility] 20:33 15:02 jmm rd1
--- NOTE | 2021-09-01 15:02 | ER ---
Nurse's Notes [facility] Name: Marcie Paul Age: 75 yrs Sex: Female : 1945 Arrival Date: 09/01/2021 Time: 12:22 Bed 18 Private MD: Diagnosis: Acute on chronic combined systolic (congestive) and diastolic (congestive) heart failure Presentation: 09/01 12:52 Chief complaint: Patient states: Shortness of breath, reports O2 at home this morning jl7 was 58%. Coronavirus screen: Vaccine status: Patient reports receiving the 2nd dose of the covid vaccine. Pfizer cough unrelated to allergies, shortness of breath, Client presents with at least one sign or symptom that may indicate coronavirus-19. Standard/surgical mask placed on the client. Provider contacted for isolation considerations. Ebola Screen: No symptoms or risks identified at this time. Initial Sepsis Screen: Does the patient meet any 2 criteria? No. Patient's initial sepsis screen is negative. Does the patient have a suspected source of infection? No. Patient's initial sepsis screen is negative. Risk Assessment: Do you want to hurt yourself or someone else? Patient reports no desire to harm self or others. Onset of symptoms is unknown. Care prior to arrival: None. 12:52 Method Of Arrival: Wheelchair jl7 12:52 Acuity: JOAQUINA 2 jl7 Triage Assessment: 12:53 General: Appears in no apparent distress. uncomfortable, Behavior is calm, cooperative, jl7 appropriate for age. Pain: Denies pain. Respiratory: Reports shortness of breath cough that is productive, x years Onset: The symptoms/episode began/occurred gradually, the patient has moderate shortness of breath. Historical: - Allergies: 12:53 No Known Allergies; jl7 - Home Meds: 12:53 [place] Thyroid 120 mg Oral tab 3 tabs in the morning [Active]; montelukast 10 mg Oral jl7 tab 1 tab once daily [Active]; metformin take 500mg 2 tabs morning and 500mg 3 tabs at night Oral tab [Active]; metoprolol tartrate 25 mg Oral tab 1 tab 2 times per day [Active]; Glipizide Oral 5mg in the morning and at night [Active]; hydrochlorothiazide 12.5 mg Oral cap 1 cap once daily [Active]; atorvastatin 20 mg oral tab [Active]; pantoprazole 40 mg Oral TbEC 1 tab once daily [Active]; lisinopril 5 mg Oral tab once daily [Active]; Plavix 75 mg Oral tab 1 tab once daily [Active]; aspirin 325 mg Oral tab [Active]; Betamethasone Valerate Topical [Active]; Flonase Nasal for seasonal allergies [Active]; Spiriva with HandiHaler 18 mcg inhalation CpDv [Active]; Advair Diskus 250-50 mcg/dose Inhl dsdv [Active]; Ventolin Nebulizer [Active]; - PMHx: 12:53 Atrial Fib; COPD; Diabetes - NIDDM; Hyperlipidemia; Hypertension; Hypothyroidism; jl7 Myocardial infarction; - Immunization history:: Adult Immunizations up to date. - Social history:: Smoking status: Patient reports the use of cigarette tobacco products, smokes one-half pack cigarettes per day. Screenin:33 Abuse screen: Denies threats or abuse. Nutritional screening: No deficits noted. ap3 Tuberculosis screening: No symptoms or risk factors identified. Fall Risk No fall in past 12 months (0 pts). No secondary diagnosis (0 pts). IV access (20 points). Ambulatory Aid- Crutches/Cane/Walker (15 pts). Gait- Weak (10 pts.). Mental Status- Oriented to own ability (0 pts). Total Ballard Fall Scale indicates High Risk Score (45 or more points). Fall prevention measures have been instituted. Side Rails Up X 2 Placed Close to Nursing Station Frequent Obs/Assessments Occuring As available patient and family educated on Fall Prevention Program and Strategies. Assessment: 13:00 General: Appears distressed, Behavior is cooperative, appropriate for age. Pain: Denies ap3 pain. Neuro: Level of Consciousness is awake, alert, obeys commands, Oriented to person, place, time, situation, Appropriate for age Speech is normal. Cardiovascular: Denies chest pain, Rhythm is atrial fibrillation. Respiratory: Airway is patent Respiratory effort is labored, Breath sounds with crackles bilaterally. Parent/caregiver reports the patient having shortness of breath. 13:45 Reassessment: patient provided with bedside commode. ap3 14:33 Reassessment: Patient and/or family updated on plan of care and expected duration. Pain ap3 level reassessed. Patient is alert, oriented x 3, equal unlabored respirations, skin warm/dry/pink. 21:11 Reassessment: report given to Nehemias MENJIVAR. sj1 Vital Signs: 12:52 BP 130 / 62; Pulse 88; Resp 19; Temp 97.1; Pulse Ox 87% on R/A; Weight 81.65 kg; Height jl7 5 ft. 8 in. (172.72 cm); Pain 0/10; 13:33 BP 109 / 70; Pulse 75; Pulse Ox 98% on 5 lpm NC; ap3 14:33 BP 121 / 84; Pulse 79; Pulse Ox 91% on 4 lpm NC; ap3 15:15 BP 110 / 95; Pulse 111; Pulse Ox 93% on 4 lpm NC; ap3 16:31 BP 111 / 66; Pulse 69; Pulse Ox 95% on 4 lpm NC; ap3 16:31 BP 121 / 42; Pulse 71; Pulse Ox 95% on 3 lpm NC; ap3 12:52 Body Mass Index 27.37 (81.65 kg, 172.72 cm) jl7 ED Course: 12:22 Patient arrived in ED. as 12:48 Armen Gallo PA is PHCP. m 12:48 Eze Guardado MD is Attending Physician. jmm 12:53 Triage completed. jl7 12:53 Arm band placed on right wrist. jl7 12:57 Kandy Jerome, TIARA is Primary Nurse. ap3 13:00 Inserted saline lock: 20 gauge in right wrist, using aseptic technique. ap3 13:17 XRAY Chest (1 view) In Process Unspecified. EDMS 13:33 Patient has correct armband on for positive identification. Bed in low position. Call ap3 light in reach. Side rails up X2. Pulse ox on. NIBP on. Door closed. Noise minimized. 15:01 Maximus Salguero is Hospitalizing Provider. jmm 17:15 Admitting physician to see patient. ap3 Administered Medications: 13:32 Drug: Lasix (furosemide) 20 mg Route: IVP; Site: right wrist; ap3 13:32 Drug: Xopenex (levalbuterol) (3) 1.25 mg Route: Inhalation; ap3 Outcome: 15:02 Decision to Hospitalize by Provider. jmm 21:42 Patient left the ED. 1 Signatures: Dispatcher [employer] Armen Judd PA PA jmm Martinez, Amelia as Leal, Jahala, RN RN jl7 Kandy Jerome RN RN ap3 Brittanie Paul RN RN sj1 Corrections: (The following items were deleted from the chart) 12:58 12:53 Home Meds: metoprolol 50mg BID; jl7 jl7
[2021-09-01] MEDS ORDERED: LABETALOL 20 MG/4ML SYRINGE IV PRN (15:52)
[2021-09-01] MEDS ORDERED: HYDROCODONE/APAP 5/325 MG TAB PO PRN (15:55)
[2021-09-01] MEDS ORDERED: ONDANSETRON 4 MG/2 ML VIAL IV PRN (15:59)
[2021-09-01] MEDS ORDERED: ACETAMINOPHEN 500 MG TAB PO PRN (15:59)
[2021-09-01] MEDS ORDERED: TRAMADOL HCL 50 MG TAB PO PRN (15:59)
[2021-09-01] MEDS ORDERED: THYROID PORK 180 MG PO SCH (16:00)
[2021-09-01] MEDS ORDERED: D50W 25 GM/50 ML SYRINGE IV PRN (16:02)
[2021-09-01] MEDS ORDERED: GLUCAGON 1 MG/VIAL IM PRN (16:02)
--- NOTE | 2021-09-01 16:05 | P.HP ---
Certification for Inpatient Patient admitted to: Inpatient With expected LOS: >2 Midnights Patient will require the following post-hospital care: None Practitioner: I am a practitioner with admitting privileges, knowledge of patient current condition, hospital course, and medical plan of care. Services: Services provided to patient in accordance with Admission requirements found in Title 42 Section 412.3 of the Code of Federal Regulations Patient History Date of Service: 09/01/21 Reason for admission: SOB History of Present Illness: Patient is a 75-year-old female with a past medical history significant for hypothyroidism, DM 2,AIBF, HLD, GERD, COPD, nicotine dependence, [place] who presents with complaint of shortness of breath has been ongoing for the past 2 days. Patient reported that she is on O2 therapy at night at home. Patient denies any other signs or symptoms. Symptoms are aggravated by exertion relieved by nothing. Patient decided to present to the hospital due to worsening symptoms. Allergies No Known Allergies Allergy (Verified 04/02/21 10:19) Home Medications: Amiodarone HCl [Cordarone*] 1 tab PO BID 11/16/20 Atorvastatin Calcium [Lipitor*] 1 tab PO BEDTIME 11/16/20 Clopidogrel Bisulfate [Plavix] 1 tab PO DAILY 11/16/20 Fluticasone [Flonase 50MCG Nasal [place]*] 2 sprays NS BID 11/16/20 Hydroxyzine HCl [Atarax] 1 tab PO BID 11/16/20 Lisinopril [Zestril] 1 tab PO DAILY 11/16/20 Metformin HCl 2 tab PO SEECOM 11/16/20 Metformin HCl 3 tab PO BEDTIME 11/16/20 Metoprolol Tartrate 1 tab PO BID 11/16/20 Montelukast [Singulair*] 1 tab PO DAILY 11/16/20 Pantoprazole [Protonix Tab*] 1 tab PO DAILY 11/16/20 Thyroid,Pork [[place] Thyroid] 1 tab PO BEDTIME 11/16/20 Thyroid,Pork [[place] Thyroid] 2 tab PO SEECOM 11/16/20 Tiotropium [place] [Spiriva] 1 puff IH DAILY 11/16/20 Tramadol HCl [Ultram] 1 tab PO DAILY PRN 11/16/20 glipiZIDE [Glipizide] 1 tab PO TID 11/16/20 acetaZOLAMIDE [Diamox*] 250 mg PO DAILY 30 Days #30 tab 11/18/20 predniSONE [Deltasone*] 10 mg PO BID 7 Days #14 tab 11/18/20 - Past Medical/Surgical History Diabetic: Yes -: Hypothyroidism -: Hyperlipedemia -: AFIB -: NIDDM -: [place] -: COPD -: heart stents -: Hysterectomy -: Ankle surg -: Cholecystectomy - Family History Mother Notes: pt is adopted - Social History Smoking Status: Current every day smoker Counseled patient to stop smoking for: less than 10 minutes Smoking therapy provided: Yes Patient receptive to therapy: Yes Alcohol use: No CD- Drugs: No Caffeine use: Yes Review of Systems General: Malaise, As per HPI, Unremarkable Eyes: Unremarkable ENT: Unremarkable Respiratory: Shortness of Breath, SOB with Excertion Cardiovascular: Unremarkable Gastrointestinal: Unremarkable Genitourinary: Unremarkable Musculoskeletal: Unremarkable Integumentary: Unremarkable Neurological: Unremarkable Lymphatics: Unremarkable Physical Examination - Physical Exam General: Alert, In no apparent distress, Mild distress HEENT: Atraumatic, PERRLA, Mucous membr. moist/pink, EOMI, Sclerae nonicteric Neck: Supple, 2+ carotid pulse no bruit, No LAD, Without JVD or thyroid abnormality Respiratory: Diminished, Expiratory wheezes Cardiovascular: Regular rate/rhythm, Normal S1 S2 Capillary refill: <2 Seconds Gastrointestinal: Normal bowel sounds, No tenderness Musculoskeletal: No tenderness Integumentary: No rashes Neurological: Normal gait, Normal speech, Normal strength at 5/5 x4 extr, Normal tone, Normal affect Lymphatics: No axilla or inguinal lymphadenopathy External genitalia: Deferred Rectal: Deferred - Studies Laboratory Data (last 24 hrs) 09/01/21 13:09: PT 12.5, INR 1.09 09/01/21 13:09: WBC 4.30, Hgb 13.3, Hct 41.3, Plt Count 147 L 09/01/21 13:09: Sodium 141, Potassium 4.0, BUN 8, Creatinine 0.64, Glucose 199 H, Magnesium 1.7 L D, Total Bilirubin 0.5, AST 12 L, ALT 16, Alkaline P hosphatase 80 Assessment and Plan - Plan --Acute on chronic COPD exacerbation. Continue Neb treatment with albuterol. Continue O2 therapy and home medications. --Acute respiratory failure with hypoxia. Continue current treatment regimen. --Hypothyroidism. Continue home medications. --Hypertension. Stable. Continue home medication. --Hx of Afib. Continue amiodaron --GERD. Continue Protonix. --Nicotine dependence. Patient counseled on tobacco cessation. Refused nicotine patch. --DM2. BS monitoring with sliding scale insulin. --HLD. Continue statin. --History of TN. Continue aspirin, Plavix and statin --DVT prophylaxis with heparin subQ I have had discussion about advanced directives with the patient during this hospital admission. Addressed code status and goals of care. Spent more than 30 minutes. Case discussed withpatient and nurse. The following document was completed using voice recognition software. This can produce dishwasher preparer errors that can at times significantly distort words and phrases. Please interpret any aspect of the note that is nonsensical in light of this fact. Discharge Plan: Home Plan to discharge in: 48 Hours - Advance Directives Does patient have a Living Will: No Does patient have a Durable POA for Healthcare: No - Code Status/Comfort Care Code Status Assessed: Yes Code Status: Full Code Physician Review: Patient Assessed, Agree with Above Assessment and Plan Critical Care: No
[2021-09-01] MEDS: INSULIN -REGULAR HUMAN 50 UNIT/0.5 ML ML SQ SCH ×2 (16:30→20:25)
[2021-09-01] MEDS: FUROSEMIDE 40 MG/4 ML VIAL IV SCH (17:00)
[2021-09-01 17:09] LABS: Troponin I < 0.02 ng/mL (0.0-0.045)
[2021-09-01 17:25] VITALS: BMI 30.9
[2021-09-01] MEDS: METOPROLOL TAR 25 MG TAB PO SCH (20:18)
[2021-09-01] MEDS: ATORVASTATIN 20 MG TAB PO SCH (20:25)
[2021-09-01] MEDS: HEPARIN 5000 UNIT/ML 1 ML VIAL SQ SCH (20:26)
[2021-09-01] MEDS: predniSONE 10 MG TAB PO SCH (20:26)
[2021-09-01] MEDS: AMIODARONE HCL 200 MG TAB PO SCH (20:26)
[2021-09-01] MEDS ORDERED: HEPARIN 5000 UNIT/ML 1 ML VIAL ONE (20:46)
[2021-09-01] MEDS ORDERED: AMIODARONE HCL 200 MG TAB ONE (20:47)
[2021-09-01] MEDS ORDERED: ATORVASTATIN 20 MG TAB ONE (20:47)
[2021-09-01] MEDS ORDERED: predniSONE 10 MG TAB ONE (20:47)
[2021-09-01] MEDS ORDERED: INSULIN -REGULAR HUMAN 50 UNIT/0.5 ML ML ONE (20:48)
[2021-09-01] MEDS ORDERED: HOME MED 1 EA UNK (Hydroxyzine Hcl [Atarax] 10 MG Tablet) PO SCH (21:00)
[2021-09-01] MEDS ORDERED: HOME MED 1 EA UNK (Thyroid,Pork [Armour Thyroid] 60 MG Tablet) PO SCH (21:00)
[2021-09-02 03:59] LABS: Absolute Lymphocytes (CBC) 0.6 K/uL (0.7-4.9); Basophils % 0.7 % (0-1.3); Hematocrit 38.5 % (36.0-45.0); Lymphocytes % 13.7 % (15.3-44.8); MPV 8.4 fL (7.6-11.3); RBC Red Blood Cell Count 4.21 M/uL (3.86-4.86)
[2021-09-02 04:19] LABS: BUN Blood Urea Nitrogen 10 mg/dL (7-18); Bicarbonate 40 mmol/L (21-32); Glucose Level 162 mg/dL (74-106); HDL Cholesterol 68 mg/dL (40-60); LDL Cholesterol, Calculated 61 (<130); NT PRO-BNP 4568 pg/mL (<125); Potassium 3.8 mmol/L (3.5-5.1); Sodium Level 145 mmol/L (136-145)
[2021-09-02] MEDS ORDERED: Magnesium Sulfate 2gm IVPB 2 G/50 ML BAG IV ONE (08:00)
[2021-09-02] MEDS: ASPIRIN 81 MG CHEWABLE TABLET PO SCH (08:47)
[2021-09-02] MEDS: CLOPIDOGREL 75 MG TABLET PO SCH (08:47)
[2021-09-02] MEDS: lisinopriL 20 MG TAB PO SCH (08:47)
[2021-09-02] MEDS: AMIODARONE HCL 200 MG TAB PO SCH ×2 (08:47→20:52)
[2021-09-02] MEDS: FUROSEMIDE 40 MG/4 ML VIAL IV SCH ×2 (08:47→17:17)
[2021-09-02] MEDS: METOPROLOL TAR 25 MG TAB PO SCH ×2 (08:47→20:50)
[2021-09-02] MEDS: PANTOPRAZOLE 40MG TABLET PO SCH (08:47)
[2021-09-02] MEDS: predniSONE 10 MG TAB PO SCH ×2 (08:47→20:52)
[2021-09-02] MEDS: HEPARIN 5000 UNIT/ML 1 ML VIAL SQ SCH ×2 (08:48→20:52)
[2021-09-02] MEDS: INSULIN -REGULAR HUMAN 50 UNIT/0.5 ML ML SQ SCH ×4 (08:50→20:52)
[2021-09-02] MEDS: MONTELUKAST 10 MG TAB PO SCH (08:55)
[2021-09-02] MEDS ORDERED: TIOTROPIUM 5 SPRAYS/INHALER IH SCH (09:00)
[2021-09-02] MEDS ORDERED: POTASSIUM 25 MEQ EFFERV TAB PO ONE (09:00)
--- NOTE | 2021-09-02 16:36 | P.PN ---
Subjective Date of Service: 09/02/21 Chief Complaint: SOB Patient states she feels better than yesterday. She reports some shortness of breath. Physical Examination - Vital Signs Temperature: 96.9 F Blood Pressure: 112/55 Pulse: 61 Respirations: 20 Pulse Ox (%): 91 - Physical Exam General: Alert, In no apparent distress, Oriented x3 HEENT: Mucous membr. moist/pink Neck: JVD not distended Respiratory: Expiratory wheezes (Mild scattered inspiratory wheezes.), Other (No crackles) Cardiovascular: Regular rate/rhythm, Edema (Bilateral lower extremities), Systolic murmur Gastrointestinal: Soft and benign, Non-distended, No tenderness Musculoskeletal: No clubbing, No swelling Assessment And Plan - Current Problems (Diagnosis) (1) Acute on chronic diastolic heart failure Current Visit: Yes Status: Acute (2) Tobacco use Current Visit: Yes Status: Acute (3) Acute and chronic respiratory failure with hypoxia Current Visit: Yes Status: Acute (4) Acute exacerbation of chronic obstructive pulmonary disease Onset Date: 02/10/17 Current Visit: No Status: Acute (5) Hypertension Onset Date: 02/10/17 Current Visit: No Status: Chronic Qualifiers: Hypertension type: essential hypertension Qualified Code(s): I10 - Essential (primary) hypertension (6) Type 2 diabetes mellitus Current Visit: No Status: Chronic Qualifiers: Diabetes mellitus shelter insulin use: with shelter use Diabetes mellitus complication status: without complication Qualified Code(s): E11.9 - Type 2 diabetes mellitus without complications; Z79.4 - [facility] (current) use of insulin - Plan Increase steroid dose. Scheduled bronchodilators. IV Lasix for CHF exacerbation. Cardiology input appreciated. Echocardiogram report critical aortic stenosis. Monitor blood pressure closely. Dr. Chavez input appreciated. Patient will require aortic valve surgery. Patient will need to be transferred if she does not become compensated for CHF. Smoking cessation advised. Continue amiodarone for atrial fibrillation. Pulmonary consult. Physician Review: Patient Assessed, Agree with Above Assessment and Plan
--- NOTE | 2021-09-02 19:02 | CON ---
Date of Consultation: 09/02/2021 Reason For Consultation: Shortness of breath. History Of Present Illness: This is a 75-year-old female with history of diabetes, AFib, hyperlipide jg, acid reflux, COPD, presented with shortness of breath, lower extremity edema, orthopnea and she takes oxygen at home and symptoms are getting worse. Past Medical History: As outlined above in HPI. Medications: Refer to reconciliation sheet for detailed list. Allergies: NO KNOWN DRUG ALLERGIES. Family History: No premature coronary artery disease or cancer. Social History: She is a smoker, half to 1 pack per day. Does not drink, use any drugs. Review of Systems: All systems reviewed and they were negative except for what mentioned in the HPI. Physical Examination: Vital Signs: Reviewed. Head and Neck: Pupils are equal, reactive to light. Intact eye movements. No JVD. No cervical lym phadenopathy. Neck: Supple. Thyroid is not enlarged. Lungs: Decreased breathing sounds with faint crackles on the bases. No accessory muscle use or musc le retraction. Heart: Irregular with a loud systolic ejection murmur in the aortic area suggestive of severe , la te peaking. Abdomen: Soft, nontender. Bowel sounds positive. No organomegaly. No masses or hernia. No rigidi ty or rebound. Extremities: Edema bilaterally. No clubbing or cyanosis. Intact pulses. Skin: No rash. Neurologic: Alert, awake, oriented x3. No acute focal deficits appreciated. Investigations: Creatinine is 0.46. Troponin is negative. NT-proBNP is 4568. Assessment And Recommendations: 1.Severe aortic valve stenosis by physical exam and stat echocardiogram showed a severe aortic valve stenosis, likely the cause of her heart failure symptoms. Recommend IV diuresis very gently if her blood pressure allows and we will start the workup for transcatheter aortic valve replacement for thi s patient. As such, she is going to require to have a coronary angiogram prior to proceeding with th e valve replacement. 2.Atrial fibrillation, seems to be stable. Continue amiodarone and anticoagulants. SR/MODL Voice ID: [id number] Report ID: [id number]
[2021-09-02] MEDS: ATORVASTATIN 20 MG TAB PO SCH (20:52)
[2021-09-02] MEDS: FLUTICASONE 50MCG NASAL SPRAY NAS SCH (20:57)
[2021-09-03 06:27] LABS: Absolute Lymphocytes (CBC) 0.7 K/uL (0.7-4.9); Basophils % 0.8 % (0-1.3); Hematocrit 37.2 % (36.0-45.0); Lymphocytes % 14.2 % (15.3-44.8); MPV 8.5 fL (7.6-11.3); RBC Red Blood Cell Count 4.09 M/uL (3.86-4.86)
[2021-09-03] MEDS ORDERED: THYROID PORK 60 MG PO SCH (06:30)
[2021-09-03 06:39] LABS: Potassium 3.9 mmol/L (3.5-5.1)
[2021-09-03] MEDS ORDERED: POTASSIUM CL SA 10 MEQ TAB PO ONE (07:18)
[2021-09-03] MEDS: INSULIN -REGULAR HUMAN 50 UNIT/0.5 ML ML SQ SCH ×4 (07:30→20:26)
--- NOTE | 2021-09-03 07:54 | ECHO ---
HEIGHT: 5 ft 4 in WEIGHT: 180 lb 0.119 oz DATE OF STUDY: 09/02/[address]: Joaquim Chavez 2-DIMENSIONAL: YES M.MODE: YES DOPPLER: YES COLOR FLOW: YES TDS: NO PORTABLE: NO DEFINITY: NO BUBBLE STUDY: NO DIAGNOSIS: CARDIAC FAILURE CARDIAC HISTORY: CATHERIZATION: YES SURGERY: NO PROSTHETIC VALVE: NO PACEMAKER: NO MEASUREMENTS (cm) DIASTOLIC (NORMALS) SYSTOLIC (NORMALS) IVSd 1.3 (0.6-1.2) LA Diam 2.9 (1.9-4.0) LVEF 55-60% LVIDd 4.1 (3.5-5.7) LVIDs 3.0 (2.0-3.5) %FS 28% LVPWd 1.3 (0.6-1.2) Ao Diam 2.8 (2.0-3.7) 2 DIMENSIONAL ASSESSMENT: RIGHT ATRIUM: NORMAL LEFT ATRIUM: NORMAL RIGHT VENTRICLE: NORMAL LEFT VENTRICLE: NORMAL TRICUSPID VALVE: MITRAL VALVE: MITRAL ANNULAR CALCIFICATION PULMONIC VALVE: AORTIC VALVE: PERICARDIAL EFFUSION: NONE AORTIC ROOT: NORMAL LEFT VENTRICULAR WALL MOTION: NORMAL DOPPLER/COLOR FLOW: SEE BELOW. COMMENTS: NORMAL LEFT VENTRICULAR EJECTION FRACTION 55-60% WITH NORMAL WALL MOTION. SEVERE AORTIC VALVE STENOSIS. MEAN GRADIENT 46 mmHg. AORTIC VALVE AREA OF 0.48 CENTIMETERS SQUARED. SEVERE PULMONARY HYPERTENSION. RIGHT VENTRICULAR SYSTOLIC PRESSURE >60 mmHg. MILD MITRAL AND TRICUSPID REGURGITATION. TECHNOLOGIST: Karen OLIVO
[2021-09-03] MEDS: METOPROLOL TAR 25 MG TAB PO SCH ×2 (08:19→20:25)
[2021-09-03] MEDS: MONTELUKAST 10 MG TAB PO SCH (08:19)
[2021-09-03] MEDS: AMIODARONE HCL 200 MG TAB PO SCH ×2 (08:20→20:25)
[2021-09-03] MEDS: PANTOPRAZOLE 40MG TABLET PO SCH (08:20)
[2021-09-03] MEDS: CLOPIDOGREL 75 MG TABLET PO SCH (08:20)
[2021-09-03] MEDS: ASPIRIN 81 MG CHEWABLE TABLET PO SCH (08:20)
[2021-09-03] MEDS: predniSONE 10 MG TAB PO SCH (08:20)
[2021-09-03] MEDS: FUROSEMIDE 40 MG/4 ML VIAL IV SCH ×2 (08:21→17:00)
[2021-09-03] MEDS: FLUTICASONE 50MCG NASAL SPRAY NAS SCH ×2 (08:21→21:00)
[2021-09-03] MEDS: HEPARIN 5000 UNIT/ML 1 ML VIAL SQ SCH ×2 (08:22→20:24)
[2021-09-03] MEDS: lisinopriL 20 MG TAB PO SCH (08:22)
[2021-09-03] MEDS ORDERED: METHYLPREDNISOLONE 40 MG INJ IV SCH (12:00)
[2021-09-03] MEDS: ARFORMOTEROL TARTRATE 15 MCG/2 ML VIAL.NEB NEB SCH ×2 (12:17→20:19)
--- NOTE | 2021-09-03 12:18 | P.CNS ---
Date of Consult: 09/03/21 Reason for Consult: Shortness of breath Chief Complaint: SOB History of Present Illness: Patient is 75 years of age metabolic syndrome with COPD active smoker resented with worsening dyspnea she has oxygen at home ran out of her Trelegy about a week ago not doing any better Allergies No Known Allergies Allergy (Verified 04/02/21 10:19) Home Medications: Amiodarone HCl [Cordarone*] 1 tab PO BID 11/16/20 Atorvastatin Calcium [Lipitor*] 1 tab PO BEDTIME 11/16/20 Clopidogrel Bisulfate [Plavix] 1 tab PO DAILY 11/16/20 Fluticasone [Flonase 50MCG Nasal [place]*] 2 sprays NS BID 11/16/20 Hydroxyzine HCl [Atarax] 1 tab PO BID 11/16/20 Lisinopril [Zestril] 1 tab PO DAILY 11/16/20 Metformin HCl 2 tab PO SEECOM 11/16/20 Metformin HCl 3 tab PO BEDTIME 11/16/20 Metoprolol Tartrate 1 tab PO BID 11/16/20 Montelukast [Singulair*] 1 tab PO DAILY 11/16/20 Pantoprazole [Protonix Tab*] 1 tab PO DAILY 11/16/20 Thyroid,Pork [[place] Thyroid] 1 tab PO BEDTIME 11/16/20 Thyroid,Pork [[place] Thyroid] 2 tab PO SEECOM 11/16/20 Tiotropium [place] [Spiriva] 1 puff IH DAILY 11/16/20 Tramadol HCl [Ultram] 1 tab PO DAILY PRN 11/16/20 glipiZIDE [Glipizide] 1 tab PO TID 11/16/20 acetaZOLAMIDE [Diamox*] 250 mg PO DAILY 30 Days #30 tab 11/18/20 predniSONE [Deltasone*] 10 mg PO BID 7 Days #14 tab 11/18/20 - Past Medical/Surgical History Diabetic: Yes -: Hypothyroidism -: Hyperlipedemia -: AFIB -: NIDDM -: NC -: COPD -: heart stents -: Hysterectomy -: Ankle surg -: Cholecystectomy - Family History Mother Notes: pt is adopted - Social History Smoking Status: Current every day smoker Alcohol use: No CD- Drugs: No Caffeine use: Yes Review of Systems 10-point ROS is otherwise unremarkable General: Weakness Respiratory: Cough, Shortness of Breath Physical Examination Temp Pulse Resp BP Pulse Ox 97.7 F 65 18 144/76 H 93 09/03/21 11:53 09/03/21 11:53 09/03/21 11:53 09/03/21 11:53 09/03/21 11:53 General: Alert, Oriented x3, Mild distress Respiratory: Diminished (Diminished air entry on the right side), Expiratory wheezes Cardiovascular: No edema, Regular rate/rhythm, Irregular heart rate/rhythm Gastrointestinal: Normal bowel sounds, Soft and benign - Problems (1) CHF (congestive heart failure) Onset Date: 02/10/17 Current Visit: No Status: Acute Plan: Patient is 75 years of age admitted with severe shortness of breath also has underlying COPD still continues to smoke patient has severe aortic stenosis associated pulmonary hypertension also has a significant right-sided pleural effusion bicarb is elevated suspect is due to underlying severe COPD I ordered an arterial blood gas optimize bronchodilation she is was not taking Trelegy at home BNP is elevated I have ordered arterial blood gases bilateral decubitus of the chest and ultrasound possible thoracentesis hold Plavix patient is in atrial fibrillation Qualifiers: Heart failure type: diastolic
[2021-09-03] MEDS: IPRATROPIUM BROM 0.5MG/2.5ML NEB SCH ×2 (14:00→20:19)
[2021-09-03 14:31] LABS: Arterial Blood Carboxyhemoglob 1.7 % (0-1.5); Blood Gas Oxyhemoglobin 82.1 % (94-97); Blood O2 Saturation 84.6 % (92-98.5)
[2021-09-03] MEDS: ALBUTEROL 2.5 MG/3 ML NEB SOL NEB PRN (14:37)
--- NOTE | 2021-09-03 16:37 | P.PN ---
Subjective Date of Service: 09/03/21 Chief Complaint: SOB No major changes from yesterday. Physical Examination - Vital Signs Temperature: 96.9 F Blood Pressure: 118/60 Pulse: 60 Respirations: 21 Pulse Ox (%): 93 - Physical Exam General: Alert, In no apparent distress, Oriented x3 Neck: Supple, JVD not distended Respiratory: Diminished, Expiratory wheezes Cardiovascular: Regular rate/rhythm, Normal S1 S2, Edema (Lower extremities) Gastrointestinal: Soft and benign, Non-distended, No tenderness Musculoskeletal: No swelling Integumentary: No erythema Neurological: Normal strength at 5/5 x4 extr Assessment And Plan - Current Problems (Diagnosis) (1) Acute on chronic diastolic heart failure Current Visit: Yes Status: Acute (2) Tobacco use Current Visit: Yes Status: Acute (3) Acute and chronic respiratory failure with hypoxia Current Visit: Yes Status: Acute (4) Acute exacerbation of chronic obstructive pulmonary disease Onset Date: 02/10/17 Current Visit: No Status: Acute (5) Hypertension Onset Date: 02/10/17 Current Visit: No Status: Chronic Qualifiers: Hypertension type: essential hypertension Qualified Code(s): I10 - Essential (primary) hypertension (6) Type 2 diabetes mellitus Current Visit: No Status: Chronic Qualifiers: 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 Continue IV Lasix for CHF exacerbation. Case discussed with cardiology-Dr. Chavez Echocardiogram report critical aortic stenosis. Monitor blood pressure closely. Patient will require aortic valve surgery. Patient will need to be transferred if she does not become compensated for CHF. Pulmonary input appreciated. Thoracentesis ordered for pleural effusion. Hopefully that will improve her oxygen requirement in her shortness of breath. Smoking cessation advised. Continue amiodarone for atrial fibrillation. Continue management as inpatient.
--- NOTE | 2021-09-03 17:27 | RAD REPORT ---
EXAM DESCRIPTION: RAD - Chest Lateral Decubitus - 09/03/2021 5:03 pm CLINICAL HISTORY: Pleural effusion FINDINGS: Moderate mostly layering right pleural effusion
--- NOTE | 2021-09-03 17:32 | RAD REPORT ---
EXAM DESCRIPTION: US - Chest - 09/03/2021 4:12 pm CLINICAL HISTORY: Pleural effusion COMPARISON: September 01, 2021 chest x-ray FINDINGS: Moderate right pleural effusion. IMPRESSION: Moderate right pleural effusion
[2021-09-03] MEDS: predniSONE 20 MG TAB PO SCH (20:25)
[2021-09-03] MEDS: ATORVASTATIN 20 MG TAB PO SCH (20:25)
[2021-09-03] MEDS: THYROID PORK 60 MG PO SCH (20:29)
[2021-09-04] MEDS: IPRATROPIUM BROM 0.5MG/2.5ML NEB SCH ×4 (02:40→20:05)
[2021-09-04 05:19] LABS: Absolute Lymphocytes (CBC) 0.4 K/uL (0.7-4.9); Basophils % 0.7 % (0-1.3); Hematocrit 37.1 % (36.0-45.0); Lymphocytes % 13.3 % (15.3-44.8); MPV 8.9 fL (7.6-11.3); RBC Red Blood Cell Count 4.11 M/uL (3.86-4.86)
[2021-09-04 05:44] LABS: BUN Blood Urea Nitrogen 17 mg/dL (7-18); Glucose Level 158 mg/dL (74-106); Potassium 3.6 mmol/L (3.5-5.1); Sodium Level 143 mmol/L (136-145)
[2021-09-04 05:46] LABS: Bicarbonate > 45 mmol/L (21-32)
[2021-09-04] MEDS ORDERED: POTASSIUM CL SA 10 MEQ TAB PO ONE (06:30)
[2021-09-04] MEDS: THYROID PORK 120 MG PO SCH (06:43)
[2021-09-04] MEDS: INSULIN -REGULAR HUMAN 50 UNIT/0.5 ML ML SQ SCH ×4 (07:30→20:21)
[2021-09-04] MEDS: ASPIRIN 81 MG CHEWABLE TABLET PO SCH (07:57)
[2021-09-04] MEDS: MONTELUKAST 10 MG TAB PO SCH (07:58)
[2021-09-04] MEDS: PANTOPRAZOLE 40MG TABLET PO SCH (07:58)
[2021-09-04] MEDS: AMIODARONE HCL 200 MG TAB PO SCH ×2 (07:58→20:21)
[2021-09-04] MEDS: METOPROLOL TAR 25 MG TAB PO SCH ×2 (07:58→20:20)
[2021-09-04] MEDS: predniSONE 20 MG TAB PO SCH ×2 (07:58→20:20)
[2021-09-04] MEDS: lisinopriL 20 MG TAB PO SCH (07:59)
[2021-09-04] MEDS: ARFORMOTEROL TARTRATE 15 MCG/2 ML VIAL.NEB NEB SCH ×2 (08:00→20:05)
[2021-09-04] MEDS: HEPARIN 5000 UNIT/ML 1 ML VIAL SQ SCH (08:43)
[2021-09-04] MEDS: FUROSEMIDE 40 MG/4 ML VIAL IV SCH (09:00)
[2021-09-04] MEDS: FLUTICASONE 50MCG NASAL SPRAY NAS SCH ×2 (09:00→20:19)
[2021-09-04] MEDS: ALBUTEROL 2.5 MG/3 ML NEB SOL NEB PRN ×2 (13:50→20:05)
--- NOTE | 2021-09-04 16:08 | P.PN ---
Subjective Date of Service: 09/04/21 Chief Complaint: SOB No major changes from yesterday. Patient states she feels better today. She is still maintained on 4 L oxygen by nasal canula. Physical Examination - Vital Signs Temperature: 98 F Blood Pressure: 122/75 Pulse: 82 Respirations: 20 Pulse Ox (%): 92 - Physical Exam General: Alert, In no apparent distress, Oriented x3 HEENT: Mucous membr. moist/pink Neck: JVD not distended Respiratory: Diminished (On the right.), Other (No wheezes or crackles.) Cardiovascular: Normal S1 S2, Irregular heart rate/rhythm Gastrointestinal: Soft and benign, Non-distended Musculoskeletal: No tenderness Integumentary: No rashes Neurological: Normal strength at 5/5 x4 extr Assessment And Plan - Current Problems (Diagnosis) (1) Acute on chronic diastolic heart failure Current Visit: Yes Status: Acute (2) Tobacco use Current Visit: Yes Status: Acute (3) Acute and chronic respiratory failure with hypoxia Current Visit: Yes Status: Acute (4) Acute exacerbation of chronic obstructive pulmonary disease Onset Date: 02/10/17 Current Visit: No Status: Acute (5) Hypertension Onset Date: 02/10/17 Current Visit: No Status: Chronic Qualifiers: Hypertension type: essential hypertension Qualified Code(s): I10 - Essential (primary) hypertension (6) Type 2 diabetes mellitus Current Visit: No Status: Chronic Qualifiers: Diabetes mellitus terminal worker insulin use: with terminal worker use Diabetes mellitus complication status: without complication Qualified Code(s): E11.9 - Type 2 diabetes mellitus without complications; Z79.4 - halfway (current) use of insulin - Plan Continue steroid Scheduled bronchodilators. Patient with significant metabolic alkalosis. Could be a combination of hypercapnia and contraction alkalosis. Case discussed with cardiology-Dr. Chavez Change Lasix to Diamox Echocardiogram report critical aortic stenosis. Monitor blood pressure closely on diuresis. Patient will require aortic valve surgery. This will be an outpatient arrangements if patient stabilizes. Pulmonary input appreciated. Chest ultrasound shows right moderate pleural effusion. Thoracentesis ordered for pleural effusion. Hopefully that will improve her oxygen requirement in her shortness of breath. Smoking cessation advised. Continue amiodarone for atrial fibrillation. Continue management as inpatient. Physician Review: Patient Assessed, Agree with Above Assessment and Plan
--- NOTE | 2021-09-04 19:58 | CON ---
Date of Consultation: 09/04/2021 Subjective: Seen by bedside. She is doing clinically better. Speaking full sentences. Still short of breath, but with significant improving. Review of Systems: There is some shortness of breath. No chest pain. No nausea, vomiting, or diarrhea. No abdominal p ain. All other systems reviewed are negative. Physical Examination: Vital Signs: Temperature is 98.0, pulse 82, breathing 18, blood pressure is 122/75, saturating 91% w ith oxygen. General: Pleasant elderly female, no apparent distress. Head and Neck: Pupils are equal, reactive to light. Intact eye movements. Positive JVD. No cervic al lymphadenopathy. Neck is supple. Thyroid is not enlarged. Lungs: Clear to auscultation bilaterally. No rhonchi, rales, or crackles. No accessory muscle use. Heart: Irregular with aortic systolic murmur. Abdomen: Soft, nontender. Bowel sounds positive. No organomegaly. No hernia or masses. No rigidi ty or rebound. Extremities: Positive edema bilaterally. No clubbing or cyanosis. Intact pulses. Skin: No rash. Neurologic: Alert, awake, oriented x3. No focal deficits appreciated. Investigations: Her CO2 level is 45, BUN 17, creatinine 0.47. Assessment And Recommendations: 1.Severe aortic valve stenosis with acute decompensated congestive heart failure. Her filling press ures are very high by echo. Her right ventricular systolic pressure was more than 60. Due to the el evated CO2, I recommend to stop the IV Lasix and switch it to IV Diamox 250 mg IV q.12 hours. Carefu lly monitor BUN, creatinine, electrolytes, and CO2 level. This patient will need an aortic valve rep lacement. I discussed with her that we will plan to do a transcatheter aortic valve replacement on h er as soon as she is clinically stable and before able to discharge her from the hospital, we will ar range for this as an outpatient shortly after discharge, as I see that she is clinically improving sl owly. 2.Acute respiratory failure due to decompensated heart failure and severe aortic valve stenosis and a component of chronic obstructive pulmonary disease, improving slightly. Change the Lasix to Diamox . SR/MODL Voice ID: [id number] Report ID: [id number]
[2021-09-04] MEDS: ATORVASTATIN 20 MG TAB PO SCH (20:19)
[2021-09-04] MEDS: acetaZOLAMIDE 250 MG TAB PO SCH (20:21)
[2021-09-04] MEDS: THYROID PORK 60 MG PO SCH (20:22)
[2021-09-05] MEDS: IPRATROPIUM BROM 0.5MG/2.5ML NEB SCH ×4 (02:40→20:00)
[2021-09-05 05:02] LABS: Absolute Lymphocytes (CBC) 0.4 K/uL (0.7-4.9); Basophils % 0.1 % (0-1.3); Lymphocytes % 11.9 % (15.3-44.8); MPV 8.7 fL (7.6-11.3); RBC Red Blood Cell Count 4.07 M/uL (3.86-4.86)
[2021-09-05 05:27] LABS: BUN Blood Urea Nitrogen 15 mg/dL (7-18); Glucose Level 209 mg/dL (74-106); Magnesium 2.1 mg/dL (1.8-2.4); Potassium 3.6 mmol/L (3.5-5.1); Sodium Level 140 mmol/L (136-145)
[2021-09-05] MEDS: THYROID PORK 120 MG PO SCH (05:27)
[2021-09-05 05:28] LABS: Bicarbonate 42 mmol/L (21-32)
[2021-09-05] MEDS ORDERED: POTASSIUM CL SA 10 MEQ TAB PO ONE (05:31)
[2021-09-05] MEDS: predniSONE 20 MG TAB PO SCH ×2 (07:15→20:41)
[2021-09-05] MEDS: AMIODARONE HCL 200 MG TAB PO SCH ×2 (07:15→20:41)
[2021-09-05] MEDS: PANTOPRAZOLE 40MG TABLET PO SCH (07:15)
[2021-09-05] MEDS: acetaZOLAMIDE 250 MG TAB PO SCH ×2 (07:15→20:40)
[2021-09-05] MEDS: lisinopriL 20 MG TAB PO SCH (07:15)
[2021-09-05] MEDS: METOPROLOL TAR 25 MG TAB PO SCH ×2 (07:16→20:40)
[2021-09-05] MEDS: FLUTICASONE 50MCG NASAL SPRAY NAS SCH ×2 (07:17→20:42)
[2021-09-05] MEDS: ASPIRIN 81 MG CHEWABLE TABLET PO SCH (07:18)
[2021-09-05] MEDS: INSULIN -REGULAR HUMAN 50 UNIT/0.5 ML ML SQ SCH ×4 (07:18→20:42)
[2021-09-05] MEDS: MONTELUKAST 10 MG TAB PO SCH (07:21)
[2021-09-05] MEDS: ARFORMOTEROL TARTRATE 15 MCG/2 ML VIAL.NEB NEB SCH ×2 (08:35→20:00)
[2021-09-05] MEDS: ALBUTEROL 2.5 MG/3 ML NEB SOL NEB PRN ×2 (08:35→13:25)
--- NOTE | 2021-09-05 10:07 | P.PN ---
Subjective Date of Service: 09/05/21 Chief Complaint: SOB Subjective: Improving (Patient is doing better awaiting thoracentesis tomorrow/patient has an episode of bleeding from the heparin infusion that has been stopped) Review of Systems General: Weakness Respiratory: Shortness of Breath Physical Examination - Vital Signs Temperature: 97.7 F Blood Pressure: 123/63 Pulse: 70 Respirations: 18 Pulse Ox (%): 96 - Physical Exam General: Oriented x3 Respiratory: Diminished Assessment & Plan - Problems (Diagnosis) (1) CHF (congestive heart failure) Onset Date: 02/10/17 Current Visit: No Status: Acute Plan: Patient admitted with COPD and congestive heart failure secondary to diastolic dysfunction she has severe aortic stenosis we will repeat chest x-ray today scheduled for thoracentesis tomorrow Heparin stopped due to bleeding patient has chronic hypoxemia hypercapnia add spironolactone titrate sat to 90% repeat ABGs older adult social work specialist consult for noninvasive ventilator Qualifiers: Heart failure type: diastolic Heart failure chronicity: acute on chronic Qualified Code(s): I50.33 - Acute on chronic diastolic (congestive) heart failure (2) Chronic respiratory failure Current Visit: Yes Status: Acute Plan: Patient has chronic respiratory failure due to COPD and also has underlying presumed diastolic dysfunction may qualify for a noninvasive ventilator not suitable for BiPAP hopefully will prevent readmissions from COPD Qualifiers: Respiratory failure complication: hypoxia and hypercapnia Qualified Code(s): J96.11 - Chronic respiratory failure with hypoxia; J96.12 - Chronic respiratory failure with hypercapnia Physician Review: Patient Assessed, Agree with Above Assessment and Plan
[2021-09-05] MEDS: SPIRONOLACTONE 25 MG TABLET PO SCH ×2 (11:58→20:40)
--- NOTE | 2021-09-05 13:15 | RAD REPORT ---
EXAM DESCRIPTION: RAD - Chest Single View - 09/05/2021 12:38 pm CLINICAL HISTORY: Pleural effusion COMPARISON: Decubitus September 03 imaging, portable September 01 imaging TECHNIQUE: AP portable chest image was obtained 09/05/2021 12:38 pm . FINDINGS: Moderate-sized pleural effusion is still present. No change when dating back to September 01 imaging. No large left pleural effusion. Lung parenchyma matches comparison. Heart and vasculature re main prominent. No pneumothorax. No acute bony abnormality seen. No acute aortic findings suspected. IMPRESSION: Moderate right-sided pleural effusion stable from comparison imaging.
--- NOTE | 2021-09-05 15:48 | P.PN ---
Subjective Date of Service: 09/05/21 Chief Complaint: SOB Patient report feeling much better. She is still requiring 4 L oxygen by nasal canula. Lower extremity edema has improved. Physical Examination - Vital Signs Temperature: 98 F Blood Pressure: 120/74 Pulse: 72 Respirations: 18 Pulse Ox (%): 97 - Physical Exam General: Alert, In no apparent distress, Obese Neck: JVD not distended Respiratory: Diminished (Bilateral. No wheezes or rales.) Cardiovascular: Normal S1 S2, Edema (Trace bilateral lower extremity edema), Irregular heart rate/rhythm Gastrointestinal: Soft and benign, Non-distended, No tenderness Musculoskeletal: No swelling Integumentary: Other (Bilateral lower extremity venostasis dermatitis) Neurological: Normal strength at 5/5 x4 extr Assessment And Plan - Current Problems (Diagnosis) (1) Acute on chronic diastolic heart failure Current Visit: Yes Status: Acute (2) Tobacco use Current Visit: Yes Status: Acute (3) Acute and chronic respiratory failure with hypoxia Current Visit: Yes Status: Acute (4) Acute exacerbation of chronic obstructive pulmonary disease Onset Date: 02/10/17 Current Visit: No Status: Acute (5) Hypertension Onset Date: 02/10/17 Current Visit: No Status: Chronic Qualifiers: Hypertension type: essential hypertension Qualified Code(s): I10 - Essential (primary) hypertension (6) Type 2 diabetes mellitus Current Visit: No Status: Chronic Qualifiers: Diabetes mellitus mcfp insulin use: with manager long term care use Diabetes mellitus complication status: without complication Qualified Code(s): E11.9 - Type 2 diabetes mellitus without complications; Z79.4 - manager long term care (current) use of insulin - Plan Continue steroid Scheduled bronchodilators. Patient with significant metabolic alkalosis. Could be a combination of hypercapnia and contraction alkalosis. Contain Diamox. Patient is also started on Aldactone. Echocardiogram report critical aortic stenosis. Monitor blood pressure closely on diuresis. Patient will require aortic valve surgery. This will be an outpatient arrangement with Dr. Chavez. Pulmonary input appreciated. Chest ultrasound shows right moderate pleural effusion. Thoracentesis ordered for pleural effusion. Hopefully that will improve her oxygen requirement in her shortness of breath. Thoracentesis to be attempted tomorrow. Dr. Borden and is also considering outpatient noninvasive ventilator. Smoking cessation advised. Continue amiodarone for atrial fibrillation. Continue management as inpatient. Physician Review: Patient Assessed, Agree with Above Assessment and Plan
[2021-09-05] MEDS: ATORVASTATIN 20 MG TAB PO SCH (20:40)
[2021-09-05] MEDS: THYROID PORK 60 MG PO SCH (20:41)
[2021-09-06] MEDS: IPRATROPIUM BROM 0.5MG/2.5ML NEB SCH ×3 (02:00→13:42)
[2021-09-06 04:02] LABS: Absolute Lymphocytes (CBC) 0.4 K/uL (0.7-4.9); Basophils % 0.6 % (0-1.3); Hematocrit 37.6 % (36.0-45.0); Lymphocytes % 9.1 % (15.3-44.8); MPV 8.8 fL (7.6-11.3); RBC Red Blood Cell Count 4.13 M/uL (3.86-4.86)
[2021-09-06 04:25] LABS: ALT/SGPT 26 U/L (12-78); AST/SGOT 15 U/L (15-37); Albumin 3.4 g/dL (3.4-5.0); Alkaline Phosphatase 67 U/L (45-117); BUN Blood Urea Nitrogen 20 mg/dL (7-18); Bicarbonate 38 mmol/L (21-32); Bilirubin Total 0.9 mg/dL (0.2-1.0); Glucose Level 205 mg/dL (74-106); Potassium 4.1 mmol/L (3.5-5.1); Protein, Total 6.6 g/dL (6.4-8.2); Sodium Level 140 mmol/L (136-145)
[2021-09-06] MEDS: THYROID PORK 120 MG PO SCH (06:36)
[2021-09-06 07:28] VITALS: BP 116/70; TEMP 97.7
[2021-09-06] MEDS: INSULIN -REGULAR HUMAN 50 UNIT/0.5 ML ML SQ SCH ×2 (07:30→11:30)
[2021-09-06] MEDS: ARFORMOTEROL TARTRATE 15 MCG/2 ML VIAL.NEB NEB SCH (08:00)
[2021-09-06 08:54] VITALS: O2SAT 95
[2021-09-06] MEDS: FLUTICASONE 50MCG NASAL SPRAY NAS SCH (09:00)
[2021-09-06] MEDS: AMIODARONE HCL 200 MG TAB PO SCH (10:53)
[2021-09-06] MEDS: METOPROLOL TAR 25 MG TAB PO SCH (10:53)
[2021-09-06] MEDS: predniSONE 20 MG TAB PO SCH (10:53)
[2021-09-06] MEDS: PANTOPRAZOLE 40MG TABLET PO SCH (10:53)
[2021-09-06] MEDS: lisinopriL 20 MG TAB PO SCH (10:53)
[2021-09-06] MEDS: acetaZOLAMIDE 250 MG TAB PO SCH (10:54)
[2021-09-06] MEDS: ASPIRIN 81 MG CHEWABLE TABLET PO SCH (10:54)
[2021-09-06] MEDS: MONTELUKAST 10 MG TAB PO SCH (10:55)
[2021-09-06] MEDS: SPIRONOLACTONE 25 MG TABLET PO SCH (10:55)
--- NOTE | 2021-09-06 10:57 | RAD REPORT ---
EXAM DESCRIPTION: US - Thoracentesis w/ US Guide - 09/06/2021 10:09 am CLINICAL HISTORY: Pleural effusion COMPARISON: Portable chest September 05 TECHNIQUE: The patient presents for ultrasound-guided right-sided thoracentesis for previously diagn osed pleural effusion. The procedure, risks and alternatives were discussed with the patient in [facility]. Oral and written consent were obtained. Time out procedure was performed. The patient had no co ntraindicated allergy or medication history. Patient's anticoagulation regimen was evaluated and deem ed adequate for thoracentesis. Preliminary sonographic evaluation identified posterolateral right lower chest access site. The skin and deeper tissues were anesthetized with 1 percent lidocaine. Under direct sonographic visualizati on, a thoracentesis catheter was advanced into the right pleural cavity. Approximately 15 mL of fluid was withdrawn for laboratory studies. Approximately 1 liter of pleural fluid was removed prior to ca theter removal. Direct pressure was obtained at the puncture site to obtain hemostasis. Sterile morfin ge placed to the puncture site. Postprocedure chest film was obtained. The patient was transferred back to the floor for continued ca re. IMPRESSION: Ultrasound-guided right-sided thoracentesis as detailed. Approximately 15 mL of fluid retained for requested laboratory studies. 1 liter of fluid was removed.
--- NOTE | 2021-09-06 10:58 | RAD REPORT ---
EXAM DESCRIPTION: RAD - Chest Single View - 09/06/2021 10:50 am CLINICAL HISTORY: Post Thoracentesis COMPARISON: Portable chest September 05 TECHNIQUE: AP portable chest image was obtained 09/06/2021 10:50 am . FINDINGS: No right-sided pneumothorax is identified. Right-sided pleural effusion has been reduced s ignificantly. No new or progressive lung parenchymal finding. Heart size is stable. IMPRESSION: Post thoracentesis chest film shows no pneumothorax.
--- NOTE | 2021-09-06 12:26 | PN ---
The patient was admitted to Dr. Salguero on 09/01/[address] Dr. Chavez has s een the patient. She has severe aortic stenosis. She has COPD. She has atrial fibrillation. She h as dyslipidemia. She is now on Diamox, inhalers, Aldactone, amiodarone, aspirin, lisinopril, prednis one, and Lipitor. Her Diamox is being given IV. She sounds clear today. She still has aortic steno sis murmur. Has no edema. I will discuss the case further with Dr. Salguero and Dr. Chavez. I think she can go home and have a TAVR done as an outpatient. I will discuss also with Dr. Chavez the use o f anticoagulants on her considering she is on amiodarone for her AFib. NORA/BENTLEY Voice ID: [id number] Report ID: [id number]
--- NOTE | 2021-09-06 13:51 | P.DS ---
Admission Date: 09/01/21 Discharge Date: 09/06/21 Disposition: ROUTINE DISCHARGE Discharge Condition: FAIR Reason for Admission: SOB - Problems (1) Acute on chronic diastolic heart failure Current Visit: Yes Status: Acute (2) Tobacco use Current Visit: Yes Status: Acute (3) Acute and chronic respiratory failure with hypoxia Current Visit: Yes Status: Acute (4) Acute exacerbation of chronic obstructive pulmonary disease Onset Date: 02/10/17 Current Visit: No Status: Acute (5) Hypertension Onset Date: 02/10/17 Current Visit: No Status: Chronic Qualifiers: Hypertension type: essential hypertension Qualified Code(s): I10 - Essential (primary) hypertension (6) Type 2 diabetes mellitus Current Visit: No Status: Chronic Qualifiers: Diabetes mellitus usp insulin use: with usp use Diabetes mellitus complication status: without complication Qualified Code(s): E11.9 - Type 2 diabetes mellitus without complications; Z79.4 - halfway (current) use of insulin Brief History of Present Illness: 75-year-old female with a past medical history significant for hypothyroidism, DM 2,AIBF, HLD, GERD, COPD, nicotine dependence, MD presented with complaint of shortness of breath that had been ongoing for the 2 days. She is on O2 therapy at night at home. Patient decided to present to the hospital due to worsening symptoms. Chest x-ray done in the emergency department demonstrated moderate CHF versus volume overload department. Patient was requiring up to 4 L of oxygen by nasal cannula compared to a baseline of 2 L. she was admitted for further management. Hospital Course: Patient admitted to the medical floor and treated for CHF exacerbation with IV Lasix. She developed contraction alkalosis. Lasix was changed to Diamox. His respiratory condition improved significantly with treatment. She was also treated for COPD exacerbation with steroids and bronchodilators. Bronchodilator use included Arfomoterol, albuterol and ipratropium nebulizers. Patient seen in consultation by pulmonary chest ultrasound was done which showed moderate right pleural effusion. Thoracentesis was done about 1 L of fluid drained. Echocardiogram demonstrated severe to critical aortic stenosis. Patient seen in consultation by cardiology recommend aortic valve replacement. Patient to follow with Dr. Bryant for arrangement for TAVR. Patient has clinically improved. Oxygen weaned to baseline 2 L and she is quite functional with it. She is discharged to continue Diamox for diuresis. Vital Signs/Physical Exam: Temp Pulse Resp BP Pulse Ox 97.7 F 59 18 116/70 95 09/06/21 07:27 09/06/21 07:27 09/06/21 07:27 09/06/21 07:27 09/06/21 07:27 General: Alert, In no apparent distress, Oriented x3 HEENT: Mucous membr. moist/pink Neck: JVD not distended Respiratory: Clear to auscultation bilaterally, Normal air movement Cardiovascular: No edema, Regular rate/rhythm, Normal S1 S2 Gastrointestinal: Soft and benign, Non-distended Musculoskeletal: No swelling Integumentary: No breakdown Neurological: Normal strength at 5/5 x4 extr Lymphatics: No axilla or inguinal lymphadenopathy Laboratory Data at Discharge: WBC 3.90 K/uL (4.3-10.9) L D 09/06/21 03:34 Hgb 12.0 g/dL (12.0-15.0) 09/06/21 03:34 Hct 37.6 % (36.0-45.0) 09/06/21 03:34 Plt Count 108 K/uL (152-406) L 09/06/21 03:34 PT 12.5 SECONDS (9.5-12.5) 09/01/21 13:09 INR 1.09 09/01/21 13:09 Sodium 140 mmol/L (136-145) 09/06/21 03:34 Potassium 4.1 mmol/L (3.5-5.1) 09/06/21 03:34 BUN 20 mg/dL (7-18) H 09/06/21 03:34 Creatinine 0.54 mg/dL (0.55-1.3) L 09/06/21 03:34 Glucose 205 mg/dL (74-106) H 09/06/21 03:34 Magnesium 2.1 mg/dL (1.8-2.4) 09/05/21 04:13 Total Bilirubin 0.9 mg/dL (0.2-1.0) 09/06/21 03:34 AST 15 U/L (15-37) 09/06/21 03:34 ALT 26 U/L (12-78) 09/06/21 03:34 Alkaline Phosphatase 67 U/L (45-117) 09/06/21 03:34 Troponin I < 0.02 ng/mL (0.0-0.045) 09/01/21 16:31 Triglycerides 66 mg/dL (<150) 09/02/21 03:21 Cholesterol 142 mg/dL (<200) 09/02/21 03:21 HDL Cholesterol 68 mg/dL (40-60) H 09/02/21 03:21 Cholesterol/HDL Ratio 2.09 09/02/21 03:21 Home Medications: Amiodarone HCl [Cordarone*] 1 tab PO BID 11/16/20 Atorvastatin Calcium [Lipitor*] 1 tab PO BEDTIME 11/16/20 Clopidogrel Bisulfate [Plavix] 1 tab PO DAILY 11/16/20 Fluticasone [Flonase 50MCG Nasal [place]*] 2 sprays NS BID 11/16/20 Hydroxyzine HCl [Atarax] 1 tab PO BID 11/16/20 Lisinopril [Zestril] 1 tab PO DAILY 11/16/20 Metformin HCl 2 tab PO SEECOM 11/16/20 Metformin HCl 3 tab PO BEDTIME 11/16/20 Metoprolol Tartrate 1 tab PO BID 11/16/20 Montelukast [Singulair*] 1 tab PO DAILY 11/16/20 Pantoprazole [Protonix Tab*] 1 tab PO DAILY 11/16/20 Thyroid,Pork [[place] Thyroid] 1 tab PO BEDTIME 11/16/20 Thyroid,Pork [[place] Thyroid] 2 tab PO SEECOM 11/16/20 Tiotropium [place] [Spiriva] 1 puff IH DAILY 11/16/20 Tramadol HCl [Ultram] 1 tab PO DAILY PRN 11/16/20 glipiZIDE [Glipizide] 1 tab PO TID 11/16/20 acetaZOLAMIDE [Diamox*] 250 mg PO DAILY 30 Days #30 tab 11/18/20 Fluticasone/Salmeterol [Advair 250-50 Diskus] 1 each IH BID #60 disk.w.dev 08/27 12/17 Spironolactone [Aldactone*] 25 mg PO BID #60 tab 09/06/21 predniSONE [Prednisone*] 20 mg PO BID #15 tab 09/06/21 New Medications: Fluticasone/Salmeterol [Advair 250-50 Diskus] 1 each IH BID #60 disk.w.dev Spironolactone [Aldactone*] 25 mg PO BID #60 tab predniSONE [Prednisone*] 20 mg PO BID #15 tab Diet: ADA Activity: Fall precautions Followup: Cayetano Borden MD [ACTIVE - CAN ADMIT] - 1-2 Weeks Amador Bryant MD [Primary Care Provider] - 1-2 Weeks Time spent managing pt's care (in minutes): 40
--- NOTE | 2021-09-06 14:23 | RAD REPORT ---
EXAM DESCRIPTION: RAD - Chest Single View - 09/06/2021 1:50 pm CLINICAL HISTORY: Post Thoracentesis COMPARISON: September 06 TECHNIQUE: AP portable chest image was obtained 09/06/2021 1:50 pm in inspiration and expiration. FINDINGS: Chest imaging was performed approximately 3 hours after thoracentesis. There is no right-s ided pneumothorax. Pleural and parenchymal findings are stable from the immediate post thoracentesis examination. Stable cardiac silhouette. IMPRESSION: The post thoracentesis 3 hour examination shows no pneumothorax.
[2021-09-06 16:56] LABS: Appearance CLEAR (CLEAR); Body Fluid Source PLEURAL; Color of fluid Yellow (COLORLESS)
[2021-09-06 16:57] LABS: Body Fluid WBC 18 /mm^3
== END 2021-09-06 14:50 | disposition home or self-care (01) | DRG 291 ==
LOC: ER 12:22 → ERHOLD 15:47 → 4TH 21:04
PROVIDERS: ADMIT Internal Medicine; ATTEND Internal Medicine
PROC: 0W993ZZ Drainage of Right Pleural Cavity, Percutaneous Approach (ICD-10-PCS; principal; 2021-09-06)
DX: I11.0 Hypertensive heart disease with heart failure (principal); I50.33 Acute on chronic diastolic (congestive) heart failure; J96.21 Acute and chronic respiratory failure with hypoxia; J96.22 Acute and chronic respiratory failure with hypercapnia; J44.1 Chronic obstructive pulmonary disease with (acute) exacerbation; J91.8 Pleural effusion in other conditions classified elsewhere; E87.3 Alkalosis; E11.9 Type 2 diabetes mellitus without complications; E78.5 Hyperlipidemia, unspecified; K21.9 Gastro-esophageal reflux disease without esophagitis; E03.9 Hypothyroidism, unspecified; I48.91 Unspecified atrial fibrillation; I35.0 Nonrheumatic aortic (valve) stenosis; I25.2 Old myocardial infarction; F17.210 Nicotine dependence, cigarettes, uncomplicated; Z95.5 Presence of coronary angioplasty implant and graft; Z20.822 Contact with and (suspected) exposure to COVID-19
CPT/HCPCS: 32555; 36415; 71045; 71046; 76604; 80048; 80053; 80061; 80076; 82805; 82945; 82947; 83605; 83615; 83735; 83880; 84157; 84439; 84443; 84484; 85025; 85610; 87015; 87040; 87102; 87116; 87206; 88108; 88305; 89050; 93005; 93306; 96374; 99285; J1644; J1940; J3475; J7512; J7605; U0003

== ENCOUNTER 2022-04-15 12:04 | Inpatient (IN) | payer OTHER ==
--- OUTSIDE RECORDS SUMMARY | 2022-04-15 12:07 | XMS REPORT | Continuity of Care Document ---
:1945 Author Organization [facility] t Address [address] [place] [address] Care Team Providers Name Role Phone Kathy Attending Clinician Unavailable Ricarda Walsh Attending Clinician Unavailable LORRAINE Corrigan Attending Clinician Unavailable Antonia HARVEY Attending Clinician Unavailable Deborah Noble RN Attending Clinician Unavailable Yohan MENJIVAR Attending Clinician Unavailable VASHTI Attending Clinician Unavailable Lab, Fam Pob I Attending Clinician Unavailable Vashti PETERS Attending Clinician Physician, Primary or Family Admitting Clinician Unavailabl e Kathy Admitting Clinician Unavailable Ricarda Walsh Admitting Clinician Unavailable Payers Payer Name Policy Type Policy Number Effective Date Expiration Date S jennifer [employer] MEDICARE ADV [id number] 2015 00:00:00 Problems This patient has no known problems. Allergies, Adverse Reactions, Alerts Allergy Allergy Status Severity Reaction(s) Onset Inactive Treating Comm ents Source Name Type Date Date Clinician rivaroxa DA Active U ORGAN [facility] ban FAILURE/INTE 3-28 Graciela r RNAL 00:00: Matthews BLEEDING 00 [facility] No Known DA Active U 2020-11 [facility] Allergie 1-16 Clear s 00:00: Matthews 00 [facility] No Known DA Active U [facility] Allergie 2-13 Clear s 00:00: Matthews 00 [facility] NO KNOWN Drug Active Univers ALLERGIE Class ity of S [facility] Social History Social Habit Start Date Stop Date Quantity Comments Source [facility] to SARS-CoV-2 Not sure Un iversity [facility] Smoking Status Start Date Stop Date Source Unknown if ever smoked [facility] Medications This patient has no known medications. Procedures Procedure Date / Time Performed Performing Clinician Steve hill [id number] 2021-12-15 00:00:00 IKE MCKEON [facility] [id number] 2021-12-15 00:00:[address] [facility] [id number] 2021-12-15 00:00:[address] [facility] [id number] 2021-10-12 00:00:[address] [facility] Encounters Start End Encounter Admission Attending Care Care Encounter Source Date/Time Date/Time Type Type Clinicians Facility Department ID 2022-04-22 Inpatient EL Raslan, [facility] OUTD [id number] [facility] 14:00:00 Joaquim 99 [facility] 2022-02-21 Inpatient Raslan, [facility] OUTD [id number] [facility] 13:00:00 Joaquim [id number] [facility] 2021-12-13 Inpatient EL Raslan, [facility] OUTD [id number] [facility] 11:00:00 Joaquim [id number] [facility] 2021-12-01 Inpatient EL Raslan, [facility] OUTD [id number] [facility] 11:30:00 Joaquim [id number] [facility] 2021-11-30 Inpatient EL Raslan, [facility] OUTD [id number] [facility] 11:00:00 Joaquim [id number] [facility] 2022-02-23 2022-02-23 Outpatient EL Raslan, [facility] OUTD [id number] [facility] 05:22:00 05:22:00 Joaquim [id number] [facility] 2022-02-23 2022-02-23 Outpatient EL Raslan, HCACL [facility] [id number] [facility] 05:22:00 05:22:00 Joaquim 18 [facility] 2021-12-15 2021-12-15 Inpatient EL Raslan, [facility] INTE.02 [id number] [facility] 13:49:00 17:00:00 Joaquim [id number] [facility] 2021-12-15 2021-12-15 Inpatient EL Raslan, [facility] INTE.02 [id number] [facility] 13:49:00 17:00:00 Joaquim 97 [facility] 2021-10-12 2021-10-13 Inpatient VLAD Walsh [facility] [id number] [facility] 11:11:00 13:26:00 Linh [id number] [facility] 2021-10-12 2021-10-13 Inpatient VLAD Walsh [facility] [id number] [facility] 11:11:00 13:26:00 Linh 22 [facility] 2021-10-08 2021-10-08 Outpatient VLAD Walsh [facility] 3DAY [id number] [facility] 09:00:00 23:00:00 Linh [id number] [facility] 2021-09-13 2021-09-13 Outpatient VLAD Corrigan [facility] [id number] [facility] 10:27:00 10:27:00 Brina [id number] [facility] 2021-09-13 2021-09-13 Outpatient VLAD Corrigan, [facility] [id number] [facility] 10:27:00 10:27:00 Olartieke 88 [facility] 2021-01-27 2021-01-27 Outpatient Jb HARVEY [facility] [id number] Univers 14:30:00 14:30:00 JAYMIE [id number] [facility] 2021-01-27 2021-01-27 Outpatient Jb HARVEY [facility] [id number] Univers 14:30:00 14:30:00 JAYMIE [facility] 2021-01-06 2021-01-06 Outpatient [facility] [id number] Univers 13:10:00 13:10:00 [id number] [facility] 2021-01-06 2021-01-06 Outpatient Jb HARVEY [facility] [id number] Univers 13:10:00 13:10:00 JAYMIE [facility] 2020-07-27 2020-07-27 Letter MEENAKSHI Noble [id number] 00:00:00 00:00:00 (Out) [place] [facility] [id number] [facility] 4.2.7.2.686 [id number] 2020-07-27 2020-07-27 Letter MEENAKSHI Noble [id number] Univers 00:00:00 00:00:00 (Out) [place] [facility] [id number] it y of HOSPITAL 4.2.7.2.686 Jameel as [id number] [address] 2020-07-26 2020-07-26 Telephone MEENAKSHI Almanzar 1.2.840.114 [id number] Univers 00:00:00 00:00:00 Eze BANEGASY 350.1.13.10 it y of [facility] 4.2.7.2.686 Jameel as [phone] [address] 2020-07-26 2020-07-26 Telephone MEENAKSHI Almanzar 1.2.840.114 [id number] 00:00:00 00:00:00 Eze BANEGASY 350.1.13.10 [facility] 4.2.7.2.686 [id number] 2020-07-24 2020-07-24 Outpatient R VASHTI [facility] [id number] Univers 16:40:00 16:40:00 MELISSA [facility] 2020-07-24 2020-07-24 Laboratory Lab, [facility] Fam Po I [facility] 1.2. [id number] [id number] Univers 14:48:41 15:08:41 Only Melissa [place] 350.1.13.10 ity [facility] 4.2.7.2.686 Jameel as Professio [phone] Id dical [address] 2020-07-24 2020-07-24 Laboratory Lab, [facility] 1.2.840.114 [id number] 14:48:41 15:08:41 Only Fam Pob I Health 350.1.13.10 [place] 4.2.7.2.686 Professio [id number] nal [facility] [address] 2020-07-24 2020-07-24 Outpatient R [facility] [id number] Univers 15:00:00 15:00:00 [id number] [facility] Results Test Description Test Time Test Comments Results Result Comments Source GLUCOSE BEDSIDE 2022-02-23 11:14:00 Test Item Value Reference Range Interpretation Comme nts GLUCOSE BEDSIDE (test code = 104 MG/DL 70-110 N Performed by certified 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 [facility]) [facility] GLUCOSE [id number] 08:19:00 Test Item Value Reference Range Interpretation Comments GLUCOSE BEDSIDE (test 54 MG/DL 70-110 L [facility] med by certified code = GLUBED) 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 [facility] Novel Coronavirus 2019 [id number] 01:47:00 Test Item Value Reference Range Interpretation Comments Novel Coronavirus Negative Negative Positive r esults are 2019 Inhouse (test indicativ e of the presence code = COVNONPUI) ofSARS-CoV -2 RNA, clinical correlation wit h patient historyand othe r diagnostic info rmation is necessary to determinepatien t infection status. Positiv e results do not rule out bacterial infection or co -infection with other viru ses. Negative result s do not preclude SARS-C oV-2 infection andsh ould not be used as the tian e basis for patient managementdecis ions. Negative result s must be combined with otherclinical observations, p atient history, and epidemiological information . Detection of SARS-CoV-2 RNA may be affe cted bysample collec tion methods, storag e conditions, and /or stageof infection. Cuca l RNA mutations, vacc inations, antiviraltherap eutics, antibiotics, chemotherapeuti c orimmunosuppres evan drugs have not been e valuated for effectson d etection. Results are for the identification of SARS-CoV-2 RNA usingreal-time (RT) polymerase patrick n reaction (PCR) technolog yfor the qualitative det ection of nucleic acids f rom [id number] v irus and diagnosis of SA RS-CoV-2 virusinfection. It is an Emergency Use Authorization ( EUA) testauthorized by the U.S. FDA. BASIC METABOLIC [id number] 14:18:00 Test Item Value Reference Range Interpretation Comments SODIUM (test code = NA) 143 mEq/L 134-147 N POTASSIUM (test code = 3.9 mEq/L 3.4-5.0 N K) CHLORIDE (test code = 109 mEq/L 100-108 H CL) CARBON DIOXIDE (test 28 mEq/l 21-33 N code = CO2) ANION GAP (test code = 10 0-20 N GAP) GLUCOSE (test code = 107 mg/dL 70-110 N GLU) BLOOD UREA NITROGEN 8 mg/dL 7-18 N (test code = BUN) GLOMERULAR FILTRATION 81.8 70-80 H Units of measure = RATE (test code = GFR) ml/mi n/1.73 m2 CREATININE (test code = 0.7 mg/dL 0.6-1.3 N CREAT) CALCIUM (test code = 9.8 mg/dL 8.0-10.5 N CA) PROTHROMBIN [id number] 14:09:00 Test Item Value Reference Range Interpretation Comments PROTHROMBIN TIME 13.6 SECONDS 9.3-12.9 H PATIENT (test code = PTP) INTERNATIONAL NORMAL 1.2 0.8-1.2 N TARGET RATIO (test code = INR BY IN DICATION INR) Indication INR1. Prophyl axis of venous thrombos is 2.0 - 3. 0 (orthopedic darya linh), Prophylaxis of venous thrombos is (other than hig h-risk surgery), Atiya tment of Deep Vein Thrombosis/Pulm onary Embolism, Preve ntion of systemic emb olism - Tissue heart va lves, Acute Myocardia l Infarction (to prevent systemic embo lism), Valvular heart disease, Atri al Fibrillation, Bileaflet mecha nical valve in aortic position.2. Mec hanical prosthetic valv es (high risk), 2.5 - 3.5 Presence of Lupus Anticoagu lant or Antiphospholi pid Antibodies, Pre vention of systemic e mbolism - Acute Myocard ial Infarction (t o prevent recurre nt infarct). CBC W/AUTO [id number] 14:01:00 Test Item Value Reference Range Interpretation Comments WHITE BLOOD CELL (test code = 4.3 x10 3/uL 4.5-11.0 L WBC) RED BLOOD CELL (test code = 4.24 x10 6/uL 3.54-5.02 N RBC) HEMOGLOBIN (test code = HGB) 12.5 g/dL 11.0-15.0 N HEMATOCRIT (test code = HCT) 42.3 % 33.0-45.0 N MEAN CELL VOLUME (test code = 99.8 fL 81.0-99.0 H MCV) MEAN CELL HGB (test code = MCH) 29.5 pg 27.0-33.0 N MEAN CELL HGB CONCETRATION 29.6 g/dL 33.0-37.0 L (test code = MCHC) RED CELL DISTRIBUTION WIDTH CV 14.9 % 11.5-14.5 H (test code = RDW) PLATELET COUNT (test code = 153 x10 3/uL 150-400 N PLT) NEUTROPHIL % (test code = NT%) 63.4 % 56.0-77.0 N LYMPHOCYTE % (test code = LY%) 22.1 % 14.0-32.0 N NEUTROPHIL # (test code = NT#) 2.75 x10 3/uL 2.0-7.6 N LYMPHOCYTE # (test code = LY#) 0.96 x10 3/uL 1.0-3.8 L MANUAL DIFF REQUIRED (test code NO = MDIFF) RED CELL DISTRIBUTION WIDTH SD 55.3 fL 37.0-54.0 H (test code = RDW-SD) MEAN PLATELET VOLUME (test code 10.7 fL 7.0-9.0 H = MPV) IMMATURE GRANULOCYTE % (test 0.2 % 0.0-2.0 N code = IG%) MONOCYTE % (test code = MO%) 12.2 % 4.8-9.0 H EOSINOPHIL % (test code = EO%) 1.2 % 0.3-3.7 N BASOPHIL % (test code = BA%) 0.9 % 0.0-2.0 N NUCLEATED RBC % (test code = 0.0 % 0-0 N NRBC%) IMMATURE GRANULOCYTE # (test 0.01 x10 3/uL 0.00-0.03 N code = IG#) MONOCYTE # (test code = MO#) 0.53 x10 3/uL 0.1-0.8 N EOSINOPHIL # (test code = EO#) 0.05 x10 3/uL 0.0-0.2 N BASOPHIL # (test code = BA#) 0.04 x10 3/uL 0.0-0.2 N NUCLEATED RBC # (test code = 0.00 x10 3/uL 0.0-0.1 N NRBC#) GLUCOSE [id number] 12:17:00 Test Item Value Reference Range Interpretation Comments GLUCOSE BEDSIDE (test 87 MG/DL 70-110 N Perfor med by certified code = GLUBED) 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 [facility] GLUCOSE [id number] 11:15:00 Test Item Value Reference Range Interpretation Comments GLUCOSE BEDSIDE (test 52 MG/DL 70-110 L Perfor med by certified code = GLUBED) 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 [facility] [id number] 10:33:00 Test Item Value Reference Range Interpretation Comments ACT-ISTAT (test code 374 SEC 74-137 H Perform ed by certified = ACTI) 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 [facility] GLUCOSE [id number] 09:14:00 Test Item Value Reference Range Interpretation Comments GLUCOSE BEDSIDE (test 71 MG/DL 70-110 N Perfor med by certified code = GLUBED) 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 [facility] GLUCOSE [id number] 08:39:00 Test Item Value Reference Range Interpretation Comments GLUCOSE BEDSIDE (test 82 MG/DL 70-110 N Perfor med by certified code = GLUBED) 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 [facility] GLUCOSE [id number] 07:55:00 Test Item Value Reference Range Interpretation Comments GLUCOSE BEDSIDE (test 51 MG/DL 70-110 L Perfor med by certified code = GLUBED) 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 [facility] GLUCOSE [id number] 07:48:00 Test Item Value Reference Range Interpretation Comments GLUCOSE BEDSIDE (test 48 MG/DL 70-110 L Perfor med by certified code = GLUBED) 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 [facility] - XR CHEST 1 [id number] 00:00:00 [facility] 1945 Sex: F FAX: Joaquim Sainz MD [phone] [place]: St: ADM Name: MIKAEL HALL [facility] : 1945 Age/S: 76/F [address] [place] [address] Blvd Unit #: [id number] Loc: [place] [address] Phys: Joaquim Chavez MD Acct: [id number] Dis Date:Status: ADM IN PHONE #: [phone] Exam Date: 12/15/2021 1238 FAX #: [phone] Reason: S/P WATCHMAN EXAMS: CPT CODE: [id number] XR CHEST 1 V 72370 PROCEDURE INFORMATION: Exam: XR Chest Exam date and time: 12/15/2021 11:48 AM Age: 76 years old Clinical indication: Condition or disease; Other: Watchman; Additional info: S/P watchman TECHNIQUE: Imaging protocol: XR of the chest. Views: 1 view. COMPARISON: DX XR CHEST 2 V 12/13/2021 12:38 PM FINDINGS: Lungs: Increased right lower lobe consolidation and effusion. Pleural spaces: Unremarkable. No pleural effusion. No pneumothorax. Heart/Mediastinum: Cardiomegaly. Bones/joints: No acute osseous abnormality. Other findings: Mild congestive change. IMPRESSION: 1. Increased right lower lobe consolidation and effusion. 2. Mild congestive change. at 3632 Reported and signed by: Richmond Duggan M.D. CC: Joaquim Chavez MD Technologist: RT Francisco(R) Trnscrd Date/Time/By: 12/15/2021 (5021) : By: [email or web address] Orig Print D/T: S: 12/15/2021 (6767) PAGE 1 Signed ReportNovel Coronavirus 2019 [id number] 08:49:00 Test Item Value Reference Range Interpretation Comments Novel Coronavirus Negative Negative Positive r esults are 2019 Inhouse (test indicativ e of the presence code = COVNONPUI) ofSARS-CoV -2 RNA, clinical correlation wit h patient historyand othe r diagnostic info rmation is necessary to determinepatien t infection status. Positiv e results do not rule out bacterial infection or co -infection with other viru ses. Negative result s do not preclude SARS-C oV-2 infection andsh ould not be used as the tian e basis for patient managementdecis ions. Negative result s must be combined with otherclinical observations, p atient history, and epidemiological information . Detection of SARS-CoV-2 RNA may be affe cted bysample collec tion methods, storag e conditions, and /or stageof infection. Cuca l RNA mutations, vacc inations, antiviraltherap eutics, antibiotics, chemotherapeuti c orimmunosuppres evan drugs have not been e valuated for effectson d etection. Results are for the identification of SARS-CoV-2 RNA usingreal-time (RT) polymerase patrick n reaction (PCR) technolog yfor the qualitative det ection of nucleic acids f rom [id number] v irus and diagnosis of SA RS-CoV-2 virusinfection. It is an Emergency Use Authorization ( EUA) testauthorized by the U.S. FDA. BASIC METABOLIC [id number] 12:48:00 Test Item Value Reference Range Interpretation Comments SODIUM (test code = NA) 140 mEq/L 134-147 N POTASSIUM (test code = 4.5 mEq/L 3.4-5.0 N K) CHLORIDE (test code = 106 mEq/L 100-108 N CL) CARBON DIOXIDE (test 30 mEq/l 21-33 N code = CO2) ANION GAP (test code = 9 0-20 N GAP) GLUCOSE (test code = 100 mg/dL 70-110 N GLU) BLOOD UREA NITROGEN 8 mg/dL 7-18 N (test code = BUN) GLOMERULAR FILTRATION 97.7 70-80 H Units of measure = RATE (test code = GFR) ml/mi n/1.73 m2 CREATININE (test code = 0.6 mg/dL 0.6-1.3 N CREAT) CALCIUM (test code = 9.9 mg/dL 8.0-10.5 N CA) [id number] 12:48:00 Test Item Value Reference Range Interpretation Comments PREALBUMIN (test code = PREALB) 18.0 mg/dL 16.0-40.0 N PROTHROMBIN [id number] 12:32:00 Test Item Value Reference Range Interpretation Comments PROTHROMBIN TIME 12.9 SECONDS 9.3-12.9 N PATIENT (test code = PTP) INTERNATIONAL NORMAL 1.2 0.8-1.2 N TARGET RATIO (test code = INR BY IN DICATION INR) Indication INR1. Prophyl axis of venous thrombos is 2.0 - 3. 0 (orthopedic darya linh), Prophylaxis of venous thrombos is (other than hig h-risk surgery), Atiya tment of Deep Vein Thrombosis/Pulm onary Embolism, Preve ntion of systemic emb olism - Tissue heart va lves, Acute Myocardia l Infarction (to prevent systemic embo lism), Valvular heart disease, Atri al Fibrillation, Bileaflet mecha nical valve in aortic position.2. Mec hanical prosthetic valv es (high risk), 2.5 - 3.5 Presence of Lupus Anticoagu lant or Antiphospholi pid Antibodies, Pre vention of systemic e mbolism - Acute Myocard ial Infarction (t o prevent recurre nt infarct). CBC W/AUTO [id number] 12:26:00 Test Item Value Reference Range Interpretation Comments WHITE BLOOD CELL (test code = 4.3 x10 3/uL 4.5-11.0 L WBC) RED BLOOD CELL (test code = 4.33 x10 6/uL 3.54-5.02 N RBC) HEMOGLOBIN (test code = HGB) 13.1 g/dL 11.0-15.0 N HEMATOCRIT (test code = HCT) 43.1 % 33.0-45.0 N MEAN CELL VOLUME (test code = 99.5 fL 81.0-99.0 H MCV) MEAN CELL HGB (test code = MCH) 30.3 pg 27.0-33.0 N MEAN CELL HGB CONCETRATION 30.4 g/dL 33.0-37.0 L (test code = MCHC) RED CELL DISTRIBUTION WIDTH CV 15.9 % 11.5-14.5 H (test code = RDW) RED CELL DISTRIBUTION WIDTH SD 59.3 fL 37.0-54.0 H (test code = RDW-SD) PLATELET COUNT (test code = 119 x10 3/uL 150-400 L PLT) MEAN PLATELET VOLUME (test code 10.7 fL 7.0-9.0 H = MPV) NEUTROPHIL % (test code = NT%) 65.4 % 56.0-77.0 N IMMATURE GRANULOCYTE % (test 0.2 % 0.0-2.0 N code = IG%) LYMPHOCYTE % (test code = LY%) 19.6 % 14.0-32.0 N MONOCYTE % (test code = MO%) 13.8 % 4.8-9.0 H EOSINOPHIL % (test code = EO%) 0.5 % 0.3-3.7 N BASOPHIL % (test code = BA%) 0.5 % 0.0-2.0 N NUCLEATED RBC % (test code = 0.0 % 0-0 N NRBC%) NEUTROPHIL # (test code = NT#) 2.80 x10 3/uL 2.0-7.6 N IMMATURE GRANULOCYTE # (test 0.01 x10 3/uL 0.00-0.03 N code = IG#) LYMPHOCYTE # (test code = LY#) 0.84 x10 3/uL 1.0-3.8 L MONOCYTE # (test code = MO#) 0.59 x10 3/uL 0.1-0.8 N EOSINOPHIL # (test code = EO#) 0.02 x10 3/uL 0.0-0.2 N BASOPHIL # (test code = BA#) 0.02 x10 3/uL 0.0-0.2 N NUCLEATED RBC # (test code = 0.00 x10 3/uL 0.0-0.1 N NRBC#) MANUAL DIFF REQUIRED (test code NO = MDIFF) - XR CHEST 2 [id number] 00:00:00 [facility]: MIKAEL H[place] : 1945 Sex: F FAX: Joaquim Sainz MD [phone] [place]: St: PRE Name: MIKAEL HALL [facility] [place] : 1945 Age/S: 76/F [address] [place] [address] Unit #: [id number] Loc: [place] [address] Phys: Joaquim Chavez MD Acct: [id number] Dis Date:Status[place] [facility] [place] #: [phone] Exam Date: 12/13/2021 1336 FAX #: [phone] Reason: PREOP EXAMS: CPT CODE: [id number] XR CHEST 2 V [id number] PROCEDURE INFORMATION: Exam: XR Chest Exam date and time: 12/13/2021 12:38 PM Age: 76 years old Clinical indication: Screening exam; Pre-operative exam; Cardiovascular screening; Additional info: Preop TECHNIQUE: Imaging protocol: XR of the chest. Views: 2 views. PA and Lateral COMPARISON: DX XR CHEST 2 V 10/08/2021 10:12 AM FINDINGS: Lungs: Small layering right pleural effusion with underlying airspace disease. Heart/Mediastinum: Heart is borderline in size. Prosthetic aortic valve is seen. Vasculature: There is atherosclerotic calcification of the aorta. Bones/joints: No gross acute findings. IMPRESSION: Smalllayering right pleural effusion with underlying airspace disease. at 1423 Reported and signed by: Jens Maxwell D.O. CC: Joaquim Chavez MD Technologist: Marah Barrera RT(R) Trnscrd Date/Time/By: 12/13/2021 (4790) : By: [email or web address] Orig Print D/T: S: 12/13/2021 (3902) PAGE 1 Signed ReportGLUCOSE [id number] 09:11:00 Test Item Value Reference Range Interpretation Comments GLUCOSE BEDSIDE (test 183 MG/DL 70-110 H Perfor med by certified code = GLUBED) 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 [facility] COMPREHENSIVE METABOLIC [id number] 04:34:00 Test Item Value Reference Range Interpretation Comments SODIUM (test code = NA) 141 mEq/L 134-147 N POTASSIUM (test code = 4.2 mEq/L 3.4-5.0 N K) CHLORIDE (test code = 107 mEq/L 100-108 N CL) CARBON DIOXIDE (test 29 mEq/l 21-33 N code = CO2) ANION GAP (test code = 9 0-20 N GAP) GLUCOSE (test code = 127 mg/dL 70-110 H GLU) BLOOD UREA NITROGEN 14 mg/dL 7-18 N (test code = BUN) GLOMERULAR FILTRATION 120.9 70-80 H Units of measure = RATE (test code = GFR) ml/mi n/1.73 m2 CREATININE (test code = 0.5 mg/dL 0.6-1.3 L CREAT) TOTAL PROTEIN (test 6.2 g/dL 6.4-8.2 L code = PROT) ALBUMIN (test code = 3.40 g/dL 3.4-5.0 N ALB) CALCIUM (test code = 9.8 mg/dL 8.0-10.5 N CA) BILIRUBIN TOTAL (test 0.40 mg/dL 0.0-1.0 N code = BILT) SGOT/AST (test code = 23 IUnit/L 15-37 N AST) SGPT/ALT (test code = 12 IUnit/L 30-65 L ALT) ALKALINE PHOSPHATASE 63 IUnit/L 20-125 N TOTAL (test code = ALKP) CBC W/AUTO [id number] 04:17:00 Test Item Value Reference Range Interpretation Comments WHITE BLOOD CELL (test code = 8.3 x10 3/uL 4.5-11.0 N WBC) RED BLOOD CELL (test code = 4.17 x10 6/uL 3.54-5.02 N RBC) HEMOGLOBIN (test code = HGB) 12.3 g/dL 11.0-15.0 N HEMATOCRIT (test code = HCT) 39.4 % 33.0-45.0 N MEAN CELL VOLUME (test code = 94.5 fL 81.0-99.0 N MCV) MEAN CELL HGB (test code = MCH) 29.5 pg 27.0-33.0 N MEAN CELL HGB CONCETRATION 31.2 g/dL 33.0-37.0 L (test code = MCHC) RED CELL DISTRIBUTION WIDTH CV 15.3 % 11.5-14.5 H (test code = RDW) RED CELL DISTRIBUTION WIDTH SD 53.3 fL 37.0-54.0 N (test code = RDW-SD) PLATELET COUNT (test code = 138 x10 3/uL 150-400 L PLT) MEAN PLATELET VOLUME (test code 11.0 fL 7.0-9.0 H = MPV) NEUTROPHIL % (test code = NT%) 79.9 % 56.0-77.0 H IMMATURE GRANULOCYTE % (test 0.4 % 0.0-2.0 N code = IG%) LYMPHOCYTE % (test code = LY%) 8.9 % 14.0-32.0 L MONOCYTE % (test code = MO%) 10.6 % 4.8-9.0 H EOSINOPHIL % (test code = EO%) 0.0 % 0.3-3.7 L BASOPHIL % (test code = BA%) 0.2 % 0.0-2.0 N NUCLEATED RBC % (test code = 0.0 % 0-0 N NRBC%) NEUTROPHIL # (test code = NT#) 6.65 x10 3/uL 2.0-7.6 N IMMATURE GRANULOCYTE # (test 0.03 x10 3/uL 0.00-0.03 N code = IG#) LYMPHOCYTE # (test code = LY#) 0.74 x10 3/uL 1.0-3.8 L MONOCYTE # (test code = MO#) 0.88 x10 3/uL 0.1-0.8 H EOSINOPHIL # (test code = EO#) 0.00 x10 3/uL 0.0-0.2 N BASOPHIL # (test code = BA#) 0.02 x10 3/uL 0.0-0.2 N NUCLEATED RBC # (test code = 0.00 x10 3/uL 0.0-0.1 N NRBC#) MANUAL DIFF REQUIRED (test code NO = MDIFF) GLUCOSE [id number] 00:10:00 Test Item Value Reference Range Interpretation Comments GLUCOSE BEDSIDE (test 313 MG/DL 70-110 H Perfor med by certified code = GLUBED) 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 [facility] GLUCOSE [id number] 18:05:00 Test Item Value Reference Range Interpretation Comments GLUCOSE BEDSIDE (test 207 MG/DL 70-110 H Perfor med by certified code = GLUBED) 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 [facility] GLUCOSE [id number] 12:42:00 Test Item Value Reference Range Interpretation Comments GLUCOSE BEDSIDE (test 158 MG/DL 70-110 H Perfor med by certified code = GLUBED) 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 [facility] [id number] 11:19:00 Test Item Value Reference Range Interpretation Comments ACT-ISTAT (test code 362 SEC 74-137 H Perform ed by certified = ACTI) 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 [facility] GLUCOSE [id number] 08:33:00 Test Item Value Reference Range Interpretation Comments GLUCOSE BEDSIDE (test 86 MG/DL 70-110 N Perfor med by certified code = GLUBED) 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 Positiv e results do not rule out bacterial infection or co -infection with other viru ses. Negative result s do not preclude SARS-C oV-2 infection andsh ould not be used as the tian e basis for patient managementdecis ions. Negative result s must be combined with otherclinical observations, p atient history, and epidemiological information . Detection of SARS-CoV-2 RNA may be affe cted bysample collec tion methods, storag e conditions, and /or stageof infection. Cuca l RNA mutations, vacc inations, antiviraltherap eutics, antibiotics, chemotherapeuti c orimmunosuppres evan drugs have not been e valuated for effectson d etection. Results are for the identification of SARS-CoV-2 RNA usingthe [employer] M2000 Sy stem under the FDA Emergen cy UseAuthorizatio n. The testing is perf ormed by personneltradomi d in the procedures for the Fitzgerald M2000 molecular diagnostic SARS-CoV-2 assa y in vitro. B-TYPE NATRIURETIC [id number] 11:08:00 Test Item Value Reference Range Interpretation Comments B-TYPE NATRIURETIC PEPTIDE (test 260.0 PG/ML 0-100 H code = BNP) BASIC METABOLIC [id number] 10:45:00 Test Item Value Reference Range Interpretation Comments SODIUM (test code = NA) 140 mEq/L 134-147 N POTASSIUM (test code = 3.9 mEq/L 3.4-5.0 N K) CHLORIDE (test code = 109 mEq/L 100-108 H CL) CARBON DIOXIDE (test 25 mEq/l 21-33 N code = CO2) ANION GAP (test code = 10 0-20 N GAP) GLUCOSE (test code = 67 mg/dL 70-110 L GLU) BLOOD UREA NITROGEN 11 mg/dL 7-18 N (test code = BUN) GLOMERULAR FILTRATION 98.0 70-80 H Units of measure = RATE (test code = GFR) ml/mi n/1.73 m2 CREATININE (test code = 0.6 mg/dL 0.6-1.3 N CREAT) CALCIUM (test code = 9.9 mg/dL 8.0-10.5 N CA) [id number] 10:45:00 Test Item Value Reference Range Interpretation Comments ALBUMIN (test code = ALB) 3.70 g/dL 3.4-5.0 N PROTHROMBIN [id number] 10:37:00 Test Item Value Reference Range Interpretation Comments PROTHROMBIN TIME 11.8 SECONDS 9.3-12.9 N PATIENT (test code = PTP) INTERNATIONAL NORMAL 1.1 0.8-1.2 N TARGET RATIO (test code = INR BY IN DICATION INR) Indication INR1. Prophyl axis of venous thrombos is 2.0 - 3. 0 (orthopedic darya linh), Prophylaxis of venous thrombos is (other than hig h-risk surgery), Atiya tment of Deep Vein Thrombosis/Pulm onary Embolism, Preve ntion of systemic emb olism - Tissue heart va lves, Acute Myocardia l Infarction (to prevent systemic embo lism), Valvular heart disease, Atri al Fibrillation, Bileaflet mecha nical valve in aortic position.2. Mec hanical prosthetic valv es (high risk), 2.5 - 3.5 Presence of Lupus Anticoagu lant or Antiphospholi pid Antibodies, Pre vention of systemic e mbolism - Acute Myocard ial Infarction (t o prevent recurre nt infarct). CBC W/AUTO [id number] 10:29:00 Test Item Value Reference Range Interpretation Comments WHITE BLOOD CELL (test code = 6.8 x10 3/uL 4.5-11.0 N WBC) RED BLOOD CELL (test code = 4.47 x10 6/uL 3.54-5.02 N RBC) HEMOGLOBIN (test code = HGB) 12.9 g/dL 11.0-15.0 N HEMATOCRIT (test code = HCT) 43.0 % 33.0-45.0 N MEAN CELL VOLUME (test code = 96.2 fL 81.0-99.0 N MCV) MEAN CELL HGB (test code = MCH) 28.9 pg 27.0-33.0 N MEAN CELL HGB CONCETRATION 30.0 g/dL 33.0-37.0 L (test code = MCHC) RED CELL DISTRIBUTION WIDTH CV 15.9 % 11.5-14.5 H (test code = RDW) RED CELL DISTRIBUTION WIDTH SD 56.4 fL 37.0-54.0 H (test code = RDW-SD) PLATELET COUNT (test code = 157 x10 3/uL 150-400 N PLT) MEAN PLATELET VOLUME (test code 10.6 fL 7.0-9.0 H = MPV) NEUTROPHIL % (test code = NT%) 71.0 % 56.0-77.0 N IMMATURE GRANULOCYTE % (test 0.1 % 0.0-2.0 N code = IG%) LYMPHOCYTE % (test code = LY%) 17.6 % 14.0-32.0 N MONOCYTE % (test code = MO%) 9.7 % 4.8-9.0 H EOSINOPHIL % (test code = EO%) 1.2 % 0.3-3.7 N BASOPHIL % (test code = BA%) 0.4 % 0.0-2.0 N NUCLEATED RBC % (test code = 0.0 % 0-0 N NRBC%) NEUTROPHIL # (test code = NT#) 4.84 x10 3/uL 2.0-7.6 N IMMATURE GRANULOCYTE # (test 0.01 x10 3/uL 0.00-0.03 N code = IG#) LYMPHOCYTE # (test code = LY#) 1.20 x10 3/uL 1.0-3.8 N MONOCYTE # (test code = MO#) 0.66 x10 3/uL 0.1-0.8 N EOSINOPHIL # (test code = EO#) 0.08 x10 3/uL 0.0-0.2 N BASOPHIL # (test code = BA#) 0.03 x10 3/uL 0.0-0.2 N NUCLEATED RBC # (test code = 0.00 x10 3/uL 0.0-0.1 N NRBC#) MANUAL DIFF REQUIRED (test code NO = MDIFF) - XR CHEST 2 [id number] 00:00:00 [facility] 1945 Sex: F FAX: Joaquim Sainz MD [phone] [place]: [address]: PRE Name: MIKAEL HALL [facility] : 1945 Age/S: 75/F [address] [place] [address] Blvd Unit #: [id number] Loc: [place] [address] Phys: Joaquim Chavez MD Acct: [id number] Dis Date:Status: PRE SDC PHONE #: [phone] Exam Date: 10/08/2021 1027 FAX #: [phone] Reason: PREOP EXAMS: CPT CODE: [id number] XR CHEST 2 V 29616 PROCEDURE INFORMATION: Exam: XR Chest Exam date and time: 10/08/2021 10:12 AM Age: 75 years old Clinical indication: Pre-operative exam; Cardiovascular screening and respiratory screening exam; Additional info: Preop TECHNIQUE: Imaging protocol: XR of the chest. Views: 2 views. PA and Lateral COMPARISON: CT HEART W CN ART/GRAFTS 09/13/2021 11:16 AM FINDINGS: Lungs: Right base atelectasis/infiltrate is unchanged. No focal opacity within left lung. Pleural spaces: Small right pleural effusion is unchanged. No left pleural fluid. Heart/Mediastinum: The heart size is normal. Vasculature: Aortic arch calcifications are present. Bones/joints: No acute abnormality. IMPRESSION: 1. Stable small right pleural effu heraclio and right base atelectasis/infiltrate. 2. No new finding. at 1340 Reported and signed by: Anival Stewart M.D. CC: Joaquim Chavez MD Technologist: RT Mildred(R) Trnscrd Date/Time/By: 10/08/2021 (1340) : By: [email or web address] Orig Print D/T: S: 10/08/2021 (1340) PAGE 1 Signed ReportCOVID 19 Asymptomatic IH [id number] 12:58:00 Test Item Value Reference Range Interpretation Comments COVID 19 Asymptomatic Negative Negative A nega tive result is IH AG (test code = presumpti ve and should COVNONPUIAG) be confirmedwit h an FDA authorized mole cular assay, if neces drew forpatient dimitri gement.A positive result does not rule out co-inf ections withother patho gens.This test detects michael th viable (live) and non-viable,SARS -CoV, and SARS-CoV-2. Ольга t performance dep ends on theamount of vi bryant (antigen) in th e sample.This ольга t has not been FDA cleare d or approved; the t est hasbeen authori zed by FDA under an Em ergency Use Authorizati on(EUA) for use by labo ratories certified under the CLIA thatmeet the requirements to perform moderate, high or waivedcomplexit y tests. 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 [facility]) Med Ctr GLOMERULAR FILTRATION 65 ML/MIN Perfor med by certified RATE POC (test code = operat or at [place] [facility]) Med CtrPrevious ly reported result : 65 ML/MINEdited by : INFCE on 09/13/21:947375 1118: GFRBED previously repo rted as: 65 ML/MIN - CT ANGIO [id number] 00:00:00 [facility] 1945 Sex: F Name: MIKAEL HALL [facility] : 1945 Age/S: 75 / F [address] [place] [address] Bl Unit #: [id number] Loc: [place] [address] Phys: Brina Corrigan [employer] Acct: [id number] Dis Date: Status: REG CLI PHONE #: [phone] Exam Date: 09/13/2021 1138 FAX #: [phone] Reason: AORTIC VALVE STENOSIS EXAMS: CPT CODE: [id number] CT ANGIO CHEST [address] [place] OCEDURE INFORMATION: Exam: CTA Chest With Contrast Exam date and time: 09/13/2021 11:16 AM Age: 75 years old Clinical indication: Pain; Other: * chest pain, shortness of breath TECHNIQUE: Imaging protocol: Computed tomographic angiography of the chest with contrast. 3D rendering (Not supervised by radiologist): MIP and/or 3D reconstructed images were created by the technologist. Radiation optimization: All CT scans at this facilityuse at least one of these dose optimization techniques: automated exposure control; mAand/or kV adjustment per patient size (includes targeted exams where dose is matched to clinical indication); or iterative reconstruction. Contrast material: ISO; Contrast volume: 100 ml; Contrast route: INTRAVENOUS (IV); CT Radiation Dose: DLP = 1626.4 mGy-cm COMPARISON: CR XR CHEST 1V 01/12/2015 5:59 AM FINDINGS: Pulmonary arteries: Mild cardiomegaly with ectatic pulmonary arteries. Aorta: Moderate aortic root calcification with djvo-sw-bxsswgnq thoracic aortic calcifications is seen. Lungs: Mild bilateral pulmonary emphysema with mild atelectatic changes in the middle lobe and the right lower lobe. Minimal atelectatic changes in the left lower lobe. Pleural spaces: Tvpq-iu-ytcjuomnobvscurq right pleural effusion. Heart: There is atherosclerotic calcification of the coronary arteries. Mild mitral annular calcification is seen. Lymph nodes: Small mediastinal no rebeca. Bones/joints: Age related degenerative changes. No acute fracture. Soft tissues: Unremarkable. IMPRESSION: 1. Mild cardiomegaly with pulmonary hypertension. 2. Coronary artery disease. 3. Moderate aortic root calcification with gyvs-li-ucefkcgu thoracic aortic. 4. Noqu-bw-blndkduw layering right pleural effusion. PROCEDURE INFORMATION: Exam: CTA Heart and Coronary Arteries; TAVR PlanningExam date and time: 09/13/2021 11:16 AM Age: 75 years old PAGE 1 Signed Report (CONTINUED) Name: MIKAEL HALL [facility] : 1945 Age/S: 75 / F [address] [place] [address] Unit #: [id number] Loc: [place] [address] Phys: Brina Corrigan [facility] Acct: [id number] Dis Date: Status: REG CLI PHONE #: [phone] Exam Date: 09/13/20211137 FAX #: [phone] Reason: AORTIC VALVE STENOSIS EXAMS: CPT CODE: [id number] CT ANGIO CHEST 69991 <Continued> Clinical indication: Pain; Other: * TECHNIQUE: Imaging protocol: CTA heart, coronary arteries and bypass grafts (when present) with contrast material including 3D image postprocessing (including evaluation of cardiac structure and morphology, assessment of cardiac function, and evaluation of venous structures, if performed). Exam performed for transcatheter aortic valve replacement (TAVR) planning. 3D rendering (Not supervised by radiologist): MIP and/or 3D reconstructed images were created by the technologist. Acquisition mode: A prospective trigger or retrospective gating technique was used according to site specific protocol. Scanner: A minimum of 64 slice or g reater coverage CT scanner was used according to site location. Radiation optimization: All CT scans at this facility use at least one of these dose optimization techniques: automated exposure control; mA and/or kV adjustment per patient size (includes targeted examswhere dose is matched to clinical indication); or iterative reconstruction. Contrast material: ISO; Contrast volume: 100 ml; Contrast route: INTRAVENOUS (IV); Pharmacological intervention: None. Other technique: 3D renderinD reconstructed images were created, reviewed and saved. COMPARISON: CR XR CHEST 1V 01/12/2015 5:59 AM FINDINGS: Estimated root/annulus diameters are as follows: Aortic annulus diameter: 2.5 cm Sinus of Valsalva diameter: 3.7 cm Sinotubular junction diameter: 3 cm Right cusp height (to RCA takeoff): 1.8 cm Left cusp height (to Left main takeoff): 1.5 cm Estimated aortic diameters are as follows: Mid ascending aorta: 3.4 cm Mid transversearch: 2.7 cm Descending thoracic aorta at the level of the pulmonary arteries: 2.7 cm IMPRESSION: Aortic root measurements as above. PROCEDURE INFORMATION: Exam: CTA Abdomen and Pelvis With Contrast PAGE 2 Signed Report (CONTINUED) Name: MIKAEL HALL [facility] [place] : 1945 Age/S: 75 / F [address] [place] [address] Blvd Unit#: [id number] Loc: [place] [address] Phys: Brina Corrigan [employer] Acct: [id number] Dis Date: Status: JUAN HINOJOSA PHONE #: [phone] Exam Date: 09/13/2021 1131 FAX #: [phone] Reason: AORTIC VALVE STENOSIS EXAMS: CPT CODE: [id number] CT ANGIO CHEST [address]105 <Continued> Exam date and time: 09/13/2021 11:16 AM Age: 75 years old Clinical indication: Pain; Other: * TECHNIQUE: Imaging protocol: Computed tomographic angiography of the abdomen and pelvis with contrast material. 3D rendering (Not supervised by radiologist): MIP and/or 3D reconstructed images were created by the technologist. Radiation optimization: All CT scans at this facility use at least one of these dose optimization techniques: automated exposure control; mA and/or kV adjustm ent per patient size (includes targeted exams where dose is matched to clinical indication); or iterative reconstruction. Contrast material: ISO; Contrast volume: 100 ml; Contrast route: INTRAVENOUS (IV); COMPARISON: CR XR CHEST 1V 01/12/2015 5:59 AM FINDINGS: Estimated aortoiliac/iliofemoral arterial diameters are as follows: Abdominal aorta just below the renal arteries: 2.2 cm Distal abdominal aorta at iliac bifurcation: 2.5 cm Right common iliac artery: 1.6 cm Left common iliac artery: 1.3 cm Right common femoral artery: 0.8 cm Left common femoral artery: 1 cm There is atherosclerotic calcifi cation of the aorta. Aneurysmal infrarenal abdominal aorta is seen measuring 3.2 cm. Bfix-io-dgquyptd atherosclerotic calcifications are seen involving the major pelvic arteries. There appears to be moderate atherosclerotic narrowing at the origin of the left common iliac artery and mlnp-mu-iuslgtyw atherosclerotic narrowing at the origin of the right common iliac artery. No vascular occlusion is seen. Celiac trunk and mesenteric arteries: No occlusion or significant stenosis. Renal arteries: No occlusion. Mild right and moderate left atherosclerotic changes. Liver: Slightly irregular liver margin is seen, no discrete mass. Gallbladder and bile ducts: Prior cholecystectomy. Pancreas: No mass. Spleen: Unremarkable. Adrenal glands: Moderate thickening of bilateral adrenal glands. Kidneys and ureters: Unremarkable. Stomach and bowel: No obstruction. Appendix: No evidence of appendicitis. PAGE 3 Signed Report (CONTINUED) Name: [facility]EL [facility]ALL [facility] : 1945 Age/S: 75 /F [address] [place] [address] Blvd Unit #: [id number] Loc: [place] [address] Phys: Brina Corrigan Acct: [id number] Dis Date: Status: REG CLI PHONE #: [phone] Exam Date: 09/13/2021 1138 FAX #: [phone] Reason: AORTIC VALVESTENOSIS EXAMS: CPT CODE: [id number] CT ANGIO CHEST 15379 <Continued> Intraperitoneal space: Trace pelvic free fluid from unknown etiology. Lymph nodes: No enlarged lymph nodes. Urinary bladder: Bladder is not well distended limiting its evaluation. Reproductive: Prior hysterectomy. Bones/joints: Age related degenerative changes. No acute fracture. Mild anterolisthesis at L5-S1 with bilateral pars defect. Soft tissues: Upper anterior abdominal wall prior hernia mesh repair changes. Mild body wall edema. IMPRESSION: 1. Aneurysmal infrarenal abdominal aorta is seen measuring 3.2 cm. Obpu-zb-wedxvfvx atherosclerotic calcifications are seen involving the major pelvic art eries without occlusion. There appears to be moderate atherosclerotic narrowing at the origin of the left common iliac artery and ibdm-az-uvlmhdqh atherosclerotic narrowing at the origin of the right common iliac artery. No vascular occlusion is seen. 2. Slightly irregular liver margin is seen, which may represent early cirrhosis. 3. Moderate thickening of bilateral adrenal glands, suggestive of adrenal hyperplasia. 4. Trace pelvic free fluid from unknown etiology. at 1533 Reported and signed by: Jens Maxwell D.O. CC: Brina Corrigan Technologist:RT Hiram(R)(CT) CTDI: DLP: Trnscb Date/Time: 09/13/2021 (1533) [id number] Orig Print D/T: S: 09/13/2021 (3554) PAGE 4 Signed Report- CTA ABD PEL W [id number] 00:00:00[facility] [place] : 1945 Sex: F Name: MIKAEL HALL [facility] [place] : 1945 Age/S: 75 / F [address] [place] [address] Blvd Unit #: [id number] Loc: [place] [address] Phys: Brina Corrigan [employer] Acct: [id number] Dis Date: Status: REG CLI PHONE #: [phone] Exam Date: 09/13/2021 1138 FAX #: [phone] Reason: AORTIC VALVE STENOSIS EXAMS: CPT CODE: [id number] CTA ABD PEL W CONT [address] [place] OCEDURE INFORMATION: Exam: CTA Chest With Contrast Exam date and time: 09/13/2021 11:16 AM Age: 75 years old Clinical indication: Pain; Other: * chest pain, shortness of breath TECHNIQUE: Imaging protocol: Computed tomographic angiography of the chest with contrast. 3D rendering (Not supervised by radiologist): MIP and/or 3D reconstructed images were created by the technologist. Radiation optimization: All CT scans at this facilityuse at least one of these dose optimization techniques: automated exposure control; mAand/or kV adjustment per patient size (includes targeted exams where dose is matched to clinical indication); or iterative reconstruction. Contrast material: ISO; Contrast volume: 100 ml; Contrast route: INTRAVENOUS (IV); CT Radiation Dose: DLP = 1626.4 mGy-cm COMPARISON: CR XR CHEST 1V 01/12/2015 5:59 AM FINDINGS: Pulmonary arteries: Mild cardiomegaly with ectatic pulmonary arteries. Aorta: Moderate aortic root calcification with ywhu-vu-gqxoxoum thoracic aortic calcifications is seen. Lungs: Mild bilateral pulmonary emphysema with mild atelectatic changes in the middle lobe and the right lower lobe. Minimal atelectatic changes in the left lower lobe. Pleural spaces: Utgc-tj-xbjxhstumwkpcywy right pleural effusion. Heart: There is atherosclerotic calcification of the coronary arteries. Mild mitral annular calcification is seen. Lymph nodes: Small mediastinal no rebeca. Bones/joints: Age related degenerative changes. No acute fracture. Soft tissues: Unremarkable. IMPRESSION: 1. Mild cardiomegaly with pulmonary hypertension. 2. Coronary artery disease. 3. Moderate aortic root calcification with ncgb-re-zrlssmaj thoracic aortic. 4. Cmri-fh-ibsdbhoe layering right pleural effusion. PROCEDURE INFORMATION: Exam: CTA Heart and Coronary Arteries; TAVR PlanningExam date and time: 09/13/2021 11:16 AM Age: 75 years old PAGE 1 Signed Report (CONTINUED) Name: MIKAEL HALL [facility] : 1945 Age/S: 75 / F [address] [place] [address] Blvd Unit #: [id number] Loc: [place] [address] Phys: Brina Corrigan [employer] Acct: [id number] Dis Date: Status: REG CLI PHONE #: [phone] Exam Date: 09/13/2021 1138 FAX #: [phone] Reason: AORTIC VALVE STENOSIS EXAMS: CPT CODE: [id number] CTA ABD PEL W CONT [id number] <Continued> Clinical indication: Pain; Other: * TECHNIQUE: Imaging protocol: CTA heart, coronary arteries and bypass grafts (when present) with contrast material including 3D image postprocessing (including evaluation of cardiac structure and morphology, assessment of cardiac function, and evaluation of venous structures, if performed). Exam performed for transcatheter aortic valve replacement (TAVR) planning. 3D rendering (Not supervised by radiologist): MIP and/or 3D reconstructed images were created by the technologist. Acquisition mode: A prospective trigger or retrospective gating technique was used according to site specific protocol. Scanner: A minimum of [address] slice or greater coverage [address] scanner was used according to site location. Radiation optimization: All CT scans at this facility use at least one of these dose optimization techniques: automated exposure control; mA and/or kV adjustment per patient size (includes targeted examswhere dose is matched to clinical indication); or iterative reconstruction. Contrast material: ISO; Contrast volume: 100 ml; Contrast route: INTRAVENOUS (IV); Pharmacological intervention: None. Other technique: 3D renderinD reconstructed images were created, reviewed and saved. COMPARISON: CR XR CHEST 1V 01/12/2015 5:59 AM FINDINGS: Estimated root/annulus diameters are as follows: Aortic annulus diameter: 2.5 cm Sinus of Valsalva diameter: 3.7 cm Sinotubular junction diameter: 3 cm Right cusp height (to RCA takeoff): 1.8 cm Left cusp height (to Left main takeoff): 1.5 cm Estimated aortic diameters are as follows: Mid ascending aorta: 3.4 cm Mid transversearch: 2.7 cm Descending thoracic aorta at the level of the pulmonary arteries: 2.7 cm IMPRESSION: Aortic root measurements as above. PROCEDURE INFORMATION: Exam: CTA Abdomen and Pelvis With Contrast PAGE 2 Signed Report (CONTINUED) Name: MIKAEL HALL [facility] : 1945 Age/S: 75 / F [address] [place] [address] Blvd Unit#: [id number] Loc: [place] [address] Phys: Brina Corrigan [employer] Acct: [id number] Dis Date: Status: JUAN Kelly MICAELA PHONE #: [phone] Exam Date: 09/13/2021 1138 FAX #: [phone] Reason: AORTIC VALVE STENOSIS EXAMS: CPT CODE: [id number] CTA ABD PEL W CONT [id number] <Continued> Exam date and time: 09/13/2021 11:16 AM Age: 75 years old Clinical indication: Pain; Other: * TECHNIQUE: Imaging protocol: Computed tomographic angiography of the abdomen and pelvis with contrast material. 3D rendering (Not supervised by radiologist): MIP and/or 3D reconstructed images were created by the technologist. Radiation optimization: All CT scans at this facility use at least one of these dose optimization techniques: automated exposure control; mA and/or kV adjustm ent per patient size (includes targeted exams where dose is matched to clinical indication); or iterative reconstruction. Contrast material: ISO; Contrast volume: 100 ml; Contrast route: INTRAVENOUS (IV); COMPARISON: CR XR CHEST 1V 01/12/2015 5:59 AM FINDINGS: Estimated aortoiliac/iliofemoral arterial diameters are as follows: Abdominal aorta just below the renal arteries: 2.2 cm Distal abdominal aorta at iliac bifurcation: 2.5 cm Right common iliac artery: 1.6 cm Left common iliac artery: 1.3 cm Right common femoral artery: 0.8 cm Left common femoral artery: 1 cm There is atherosclerotic calcifi cation of the aorta. Aneurysmal infrarenal abdominal aorta is seen measuring 3.2 cm. Ukej-zp-nwteqmhk atherosclerotic calcifications are seen involving the major pelvic arteries. There appears to be moderate atherosclerotic narrowing at the origin of the left common iliac artery and fkoa-ui-ztpfxajs atherosclerotic narrowing at the origin of the right common iliac artery. No vascular occlusion is seen. Celiac trunk and mesenteric arteries: No occlusion or significant stenosis. Renal arteries: No occlusion. Mild right and moderate left atherosclerotic changes. Liver: Slightly irregular liver margin is seen, no discrete mass. Gallbladder and bile ducts: Prior cholecystectomy. Pancreas: No mass. Spleen: Unremarkable. Adrenal glands: Moderate thickening of bilateral adrenal glands. Kidneys and ureters: Unremarkable. Stomach and bowel: No obstruction. Appendix: No evidence of appendicitis. PAGE 3 Signed Report (CONTINUED) Name: MIKAEL HALL [facility] : 1945 Age/S: 75 /F [address] [place] [address] Unit #: [id number] Loc: [place] [address] Phys: Brina Corrigan [employer] Acct: [id number] Dis Date: Status: REG CLI PHONE #: [phone] Exam Date: 09/13/2021 1138 FAX #: [phone] Reason: AORTIC VALVESTENOSIS EXAMS: CPT CODE: [id number] CTA ABD PEL W CONT 34976 <Continued> Intraperitoneal space: Trace pelvic free fluid from unknown etiology. Lymph nodes: No enlarged lymph nodes. Urinary bladder: Bladder is not well distended limiting its evaluation. Reproductive: Prior hysterectomy. Bones/joints: Age related degenerative changes. No acute fracture. Mild anterolisthesis at L5-S1 with bilateral pars defect. Soft tissues: Upper anterior abdominal wall prior hernia mesh repair changes. Mild body wall edema. IMPRESSION: 1. Aneurysmal infrarenal abdominal aorta is seen measuring 3.2 cm. Pdvx-ro-tbfrvlkt atherosclerotic calcifications are seen involving the major pelvic art eries without occlusion. There appears to be moderate atherosclerotic narrowing at the origin of the left common iliac artery and ulqx-kl-ldmoiuqv atherosclerotic narrowing at the origin of the right common iliac artery. No vascular occlusion is seen. 2. Slightly irregular liver margin is seen, which may represent early cirrhosis. 3. Moderate thickening of bilateral adrenal glands, suggestive of adrenal hyperplasia. 4. Trace pelvic free fluid from unknown etiology. at 1533 Reported and signed by: Jens Maxwell D.O. CC: Brina Corrigan Technologist:Willy Perrin RT(R)(CT) CTDI: DLP: Trnscb Date/Time: 09/13/2021 (1533) [email or web address] Orig Print D/T: S: 09/13/2021 (4750) PAGE 4 Signed Report- CTA HEART W CN ART/GRAFTS 2021-09-13 00:00:00 [facility] 1945 Sex: F Name: MIKAEL HALL [facility] : 1945 Age/S: 75 / F [address] [place] [address] Unit #: [id number] Loc: [place] [address] Phys: Brina Corrigan Acct: [id number] Dis Date: Status: REG CLI PHONE #: [phone] Exam Date: 09/13/2021 1138 FAX #: [phone] Reason: EXAMS: CPT CODE: [id number] CTA HEART W CN ART/GRAFTS [id number] PROCEDURE INFORMATION: Exam: CTA Chest With Contrast Exam date and time: 09/13/2021 11:16 AM Age: 75 years old Clinical indication: Pain; Other: * chest pain, shortness of breath TECHNIQUE: Imaging protocol: Computed tomographic angiography of the chest with contrast. 3D rendering (Not supervised by radiologist): MIP and/or 3D reconstructed images were created by the technologist. Radiation optimization: All CT scans at this facilityuse at least one of these dose optimization techniques: automated exposure control; mAand/or kV adjustment per patient size (includes targeted exams where dose is matched to clinical indication); or iterative reconstruction. Contrast material: ISO; Contrast volume: 100 ml; Contrast route: INTRAVENOUS (IV); CT Radiation Dose: DLP = 1626.4 mGy-cm COMPARISON: CR XR CHEST 1V 01/12/2015 5:59 AM FINDINGS: Pulmonary arteries: Mild cardiomegaly with ectatic pulmonary arteries. Aorta: Moderate aortic root calcification with ewfg-nw-kbtslrpv thoracic aortic calcifications is seen. Lungs: Mild bilateral pulmonary emphysema with mild atelectatic changes in the middle lobe and the right lower lobe. Minimal atelectatic changes in the left lower lobe. Pleural spaces: Hwkz-rf-lbzpfymjnquwwhqh right pleural effusion. Heart: There is atherosclerotic calcification of the coronary arteries. Mild mitral annular calcification is seen. Lymph nodes: Small mediastinal no rebeca. Bones/joints: Age related degenerative changes. No acute fracture. Soft tissues: Unremarkable. IMPRESSION: 1. Mild cardiomegaly with pulmonary hypertension. 2. Coronary artery disease. 3. Moderate aortic root calcification with vwah-nd-kthcszaf thoracic aortic. 4. Oroh-yp-vztidmrz layering right pleural effusion. PROCEDURE INFORMATION: Exam: CTA Heart and Coronary Arteries; TAVR PlanningExam date and time: 09/13/2021 11:16 AM Age: 75 years old PAGE 1 Signed Report (CONTINUED) Name: MIKAEL HALL [facility] [place] : 1945 Age/S: 75 / F [address] [place] [address] Unit #: [id number] Loc: [place] [address] Phys: Brina Corrigan [facility] Acct: [id number] Dis Date: Status: REG CLI PHONE #: [phone] Exam Date: 09/13/2021 1138 FAX #: [phone] Reason: EXAMS: CPT CODE: [id number] CTA HEART W CN ART/GRAFTS 52529 <Continued> Clinical indication: Pain; Other: * TECHNIQUE: Imaging protocol: CTA heart, coronary arteries and bypass grafts (when present) with contrast material including 3D image postprocessing (including evaluation of cardiac structure and morphology, assessment of cardiac function, and evaluation of venous structures, if performed). Exam performed for transcatheter aortic valve replacement (TAVR) planning. 3D rendering (Not supervised by radiologist): MIP and/or 3D reconstructed images were created by the technologist. Acquisition mode: A prospective trigger or retrospective gating technique was used according to site specific protocol. Scanner: A minimum of [address] slice or greater coverage [address] scanner was used according to site location. Radiation optimization: All CT scans at this facility use at least one of these dose optimization techniques: automated exposure control; mA and/or kV adjustment per patient size (includes targeted examswhere dose is matched to clinical indication); or iterative reconstruction. Contrast material: ISO; Contrast volume: 100 ml; Contrast route: INTRAVENOUS (IV); Pharmacological intervention: None. Other technique: 3D renderinD reconstructed images were created, reviewed and saved. COMPARISON: CR XR CHEST 1V 01/12/2015 5:59 AM FINDINGS: Estimated root/annulus diameters are as follows: Aortic annulus diameter: 2.5 cm Sinus of Valsalva diameter: 3.7 cm Sinotubular junction diameter: 3 cm Right cusp height (to RCA takeoff): 1.8 cm Left cusp height (to Left main takeoff): 1.5 cm Estimated aortic diameters are as follows: Mid ascending aorta: 3.4 cm Mid transversearch: 2.7 cm Descending thoracic aorta at the level of the pulmonary arteries: 2.7 cm IMPRESSION: Aortic root measurements as above. PROCEDURE INFORMATION: Exam: CTA Abdomen and Pelvis With Contrast PAGE 2 Signed Report (CONTINUED) Name: EROS HALLRIA [facility] Atul Matthesw : 1945 Age/S: 75 / F [address] [place] [address] Blvd Unit#: [id number] Loc: [place] [address] Phys: Brina Corrigan [employer] Acct: [id number] Dis Date: Status: JUAN HINOJOSA PHONE #: [phone] Exam Date: 09/13/2021 1138 FAX #: [phone] Reason: EXAMS: CPT CODE: [id number] CTA HEART W CN ART/GRAFTS 55513 <Continued> Exam date and time: 09/13/2021 11:16 AM Age: 75 years old Clinical indication: Pain; Other: * TECHNIQUE: Imaging protocol: Computed tomographic angiography of the abdomen and pelvis with contrast material. 3D rendering (Not supervised by radiologist): MIP and/or 3D reconstructed images were created by the technologist. Radiation optimization: All CT scans at this facility use at least one of these dose optimization techniques: automated exposure control; mA and/or kV adjustment per patient size (includes targeted exams where dose is matched to clinical indication); or iterative reconstruction. Contrast material: ISO; Contrast volume: 100 ml; Contrast route: INTRAVENOUS (IV); COMPARISON: CR XR CHEST 1V 01/12/2015 5:59 AM FINDINGS: Estimated aortoiliac/iliofemoral arterial diameters are as follows: Abdominal aorta just below the renal arteries: 2.2 cm Distal abdominal aorta at iliac bifurcation: 2.5 cm Right common iliac artery: 1.6 cm Left common iliac artery: 1.3 cm Right common f emoral artery: 0.8 cm Left common femoral artery: 1 cm There is atherosclerotic calcification of the aorta. Aneurysmal infrarenal abdominal aorta is seen measuring 3.2 cm. Jbfn-ec-vhavuoqh atherosclerotic calcifications are seen involving the major pelvic arteries. There appears to be moderate atherosclerotic narrowing at the origin of the left common iliac artery and zjvw-kv-kjabqypb atherosclerotic narrowing at the origin of the right common iliac artery. No vascular occlusion is seen. Celiac trunk and mesenteric arteries: No occlusion or significant stenosis. Renal arteries: No occlusion. Mild right and moderate left atherosclerotic changes. Liver: Slightly irregular liver margin is seen, no discrete mass. Gallbladder and bile ducts: Prior cholecystectomy. Pancreas: No mass. Spleen: Unremarkable. Adrenal glands: Moderate thickening of bilateral adrenal glands. Kidneys and ureters: Unremarkable. Stomach and bowel: No obstruction. Appendix: No evidence of appendicitis. PAGE 3 Signed Report (CONTINUED) Name: MIKAEL HALL [facility] Atul Matthews : 1945 Age/S: 75 /F [address] [place] [address] Unit #: [id number] Loc: [facility] [place] [address] Phys: Brina Corrigan Acct: [id number] Dis Date: Status: REG CLI PHONE #: [phone] Exam Date: 09/13/2021 1138 FAX #: [phone] Reason: EXAMS: CPT CODE: [id number] CTA HEART W CN ART/GRAFTS 21279 <Continued> Intraperitoneal space: Trace pelvic free fluid from unknown etiology. Lymph nodes: No enlarged lymph nodes. Urinary bladder: Bladder is not well distended limiting its evaluation. Reproductive: Prior hysterectomy. Bones/joints: Age related degenerative changes. No acute fracture. Mild anterolisthesis at L5-S1 with bilateral pars defect. Soft tissues: Upper anterior abdominal wall prior hernia mesh repair changes. Mild body wall edema. IMPRESSION: 1. Aneurysmal infrarenal abdominal aorta is seen measuring 3.2 cm. Vzge-zl-whbqlomf atherosclerotic calcifications are seen involving the major pelvic arteries without occlusion. There appears to be moderate atherosclerotic narrowing at the origin of the left common iliac artery and mwkq-es-mqdokueb atherosclerotic narrowing at the origin of the right common iliac artery. No vascular occlusion is seen. 2. Sli ghtly irregular liver margin is seen, which may represent early cirrhosis. 3. Moderate thickening of bilateral adrenal glands, suggestive of adrenal hyperplasia. 4. Trace pelvic free fluid from unknown etiology. at 1533 Reported and signed by: Jens Maxwell D.O. CC: Brina Corrigan Technologist:Willy Perrin, RT(R)(CT) CTDI: DLP: Trnscb Date/Time: 09/13/2021 (153) [id number] Orig Print D/T: S: 09/13/2021 (1534) PAGE 4 Signed Report
[2022-04-15] MEDS ORDERED: LEVALBUTEROL 1.25 MG/3 ML NEB ONE (13:21)
[2022-04-15] MEDS ORDERED: FUROSEMIDE 20 MG/ 2ML VIAL ONE (13:21)
[2022-04-15] MEDS ORDERED: METHYLPREDNISOLONE 125 MG INJ ONE (13:21)
--- NOTE | 2022-04-15 13:36 | RAD REPORT ---
EXAM DESCRIPTION: RAD - Chest Single View - 04/15/2022 1:13 pm CLINICAL HISTORY: SOB COMPARISON: Portable August 2021, August 2001 ultrasound guided thoracentesis TECHNIQUE: AP portable chest image was obtained 04/15/2022 1:13 pm . FINDINGS: Right base opacification is present obscuring the right heart border and right hemidiaphra gm. Residual or recurrent right pleural effusion is most likely. This could be loculated. Left costop hrenic angle blunting is present and may be a minimal left-sided pleural effusion. Left lung field and upper right lung field clear of peripheral mass or consolidation. Heart size is n ormal, similar to comparison imaging. No acute vascular engorgement or other acute CHF/volume overloa d findings. No pneumothorax. No acute bony abnormality seen. No acute aortic findings suspected. IMPRESSION: Moderate-sized residual or recurrent right pleural effusion. Loculation cannot be exclud ed. Acute lung parenchymal process is not seen. Failure or volume overload not suspected.
[2022-04-15 13:58] LABS: Protime INR 1.29
[2022-04-15 13:59] LABS: Absolute Lymphocytes (CBC) 0.5 K/uL (0.7-4.9); Hematocrit 30.1 % (36.0-45.0); Lymphocytes % 15.6 % (15.3-44.8); MPV 8.8 fL (7.6-11.3); RBC Red Blood Cell Count 3.43 M/uL (3.86-4.86)
[2022-04-15 14:10] LABS: Urine Blood Negative (Negative); Urine Glucose Negative (Negative); Urine Protein Negative (Negative); Urine pH 7.5 (5.0-7.0)
[2022-04-15 14:14] LABS: Albumin 3.1 g/dL (3.4-5.0); Bilirubin Direct 0.4 mg/dL (0-0.2); Bilirubin Total 0.9 mg/dL (0.2-1.0); Potassium 3.1 mmol/L (3.5-5.1); Protein, Total 6.3 g/dL (6.4-8.2); Troponin High Sensitivity 21.8 pg/mL (<58.9)
[2022-04-15 14:16] LABS: Magnesium 0.9 mg/dL (1.8-2.4)
[2022-04-15 14:51] LABS: Blood Gas Oxyhemoglobin 86.3 % (94-97); Blood O2 Saturation 89.2 % (92-98.5)
[2022-04-15 14:56] LABS: Urine Bacteria 20-50 /HPF (<20); Urine RBC <5 /HPF (NONE SEEN)
[2022-04-15] MEDS ORDERED: POTASSIUM 25 MEQ EFFERV TAB ONE (15:07)
--- NOTE | 2022-04-15 16:21 | ER ---
Nurse's Notes [facility] Name: Marcie Paul Age: 76 yrs Sex: Female : 1945 Arrival Date: 04/15/2022 Time: 12:04 Bed 17 Private MD: Diagnosis: Chronic combined systolic (congestive) and diastolic (congestive) heart failure;COPD/ Chronic obstructive pulmonary disease with (acute) exacerbation;Chronic atrial fibrillation Presentation: 04/15 12:20 Chief complaint: Patient states: she was sent over from her providers office for low ap3 O2. Patient states she wears 2-3 liters of O2 at home, however when she went to the Dr. this morning she didn't take any oxygen with her. Patient also reports right sided rib pain on inspiration. Patients SPo2 on arrival to the ED was 84% on room air. Nurse placed patient on 3liters nasal canula, and patients o2 responded well by increasing to 96%. Coronavirus screen: At this time, the client does not indicate any symptoms associated with coronavirus-19. Ebola Screen: No symptoms or risks identified at this time. Initial Sepsis Screen: Does the patient meet any 2 criteria? No. Patient's initial sepsis screen is negative. Does the patient have a suspected source of infection? No. Patient's initial sepsis screen is negative. Risk Assessment: Do you want to hurt yourself or someone else? Patient reports no desire to harm self or others. Onset of symptoms was April 15, 2022. 12:20 Method Of Arrival: Ambulatory ap3 12:20 Acuity: JOAQUINA 3 ap3 Triage Assessment: 12:27 General: Appears in no apparent distress. distressed, Behavior is calm, cooperative. ap3 Pain: Complains of pain in right lateral anterior chest. Neuro: Level of Consciousness is awake, alert, obeys commands, Oriented to person, place, time, situation, Gait is steady, Speech is normal. Cardiovascular: Patient's skin is warm and dry. Respiratory: Reports shortness of breath Airway is patent Respiratory effort is even, unlabored, Onset: The symptoms/episode began/occurred today, the patient has mild shortness of breath. Historical: - Allergies: 12:23 Xarelto; ap3 12:23 Tape; ap3 - Home Meds: 13:55 Advair Diskus 250-50 mcg/dose Inhl dsdv [Active]; Crozet Thyroid 120 mg Oral tab 3 tabs nunes in the morning [Active]; aspirin 325 mg Oral tab [Active]; atorvastatin 20 mg Oral tab [Active]; Betamethasone Valerate Topical [Active]; Flonase Nasal for seasonal allergies [Active]; Glipizide Oral 5mg in the morning and at night [Active]; hydrochlorothiazide 12.5 mg Oral cap 1 cap once daily [Active]; lisinopril 5 mg Oral tab once daily [Active]; metformin take 500mg 2 tabs morning and 500mg 3 tabs at night Oral tab [Active]; metoprolol 50mg BID [Active]; metoprolol tartrate 25 mg Oral tab 1 tab 2 times per day [Active]; montelukast 10 mg Oral tab 1 tab once daily [Active]; pantoprazole 40 mg Oral TbEC 1 tab once daily [Active]; Plavix 75 mg Oral tab 1 tab once daily [Active]; Spiriva with HandiHaler 18 mcg inhalation CpDv [Active]; Ventolin Nebulizer [Active]; - PMHx: 12:23 Atrial Fib; COPD; Diabetes - NIDDM; Hyperlipidemia; Hypertension; Hypothyroidism; ap3 Myocardial infarction; - Immunization history:: Client reports receiving the 2nd dose of the Covid vaccine. - Social history:: Smoking status: Patient/guardian denies using tobacco, Stopped _ months ago .5. Screenin:28 Abuse screen: Denies threats or abuse. Nutritional screening: No deficits noted. ap3 Tuberculosis screening: No symptoms or risk factors identified. 13:54 Fall Risk nunes Assessment: 13:54 Cardiovascular: Rhythm is regular. Respiratory: Airway is patent Breath sounds are nunes diminished bilaterally. Vital Signs: 12:04 Pulse Ox 84% on R/A; ap3 12:20 BP 115 / 64; Pulse 99; Temp 97.7; Pulse Ox 97% on 3 lpm NC; Weight 72.57 kg; Height 5 ap3 ft. 7 in. (170.18 cm); 14:50 BP 116 / 60; Pulse 87; Resp 19; Pulse Ox 96% on 2 lpm NC; nunes 12:20 Body Mass Index 25.06 (72.57 kg, 170.18 cm) ap3 ED Course: 12:04 Patient arrived in ED. ds1 12:22 Triage completed. ap3 12:27 Page, Eze, PA is PHCP. cp 12:27 Rosie Pinto MD is Attending Physician. cp 12:28 Arm band placed on left wrist. ap3 13:06 Caty Virgen, TIARA is Primary Nurse. nunes 13:15 XRAY Chest (1 view) In Process Unspecified. EDMS 13:51 Influenza Screen (A Sent. nunes 13:54 Patient has correct armband on for positive identification. Bed in low position. nunes 13:54 No provider procedures requiring assistance completed. Inserted saline lock: 20 gauge nunes in right wrist, using aseptic technique. 16:19 Maximus Salguero is Hospitalizing Provider. cp Administered Medications: 13:51 Drug: Lasix (furosemide) 20 mg Route: IVP; Site: right wrist; nunes 14:10 Follow up: Response: No adverse reaction nunes 13:52 Drug: Xopenex (levalbuterol) (3) 1.25 mg Route: Inhalation; nunes 13:52 Drug: SOLU-Medrol (methylPrednisoLONE) 125 mg Route: IVP; Site: right wrist; nunes 14:10 Follow up: Response: No adverse reaction nunes 15:06 Drug: Potassium Effervescent Tablet 50 mEq Route: PO; nunes 17:11 Follow up: Response: No adverse reaction nunes Medication: 12:28 VIS not applicable for this client. ap3 Outcome: 16:20 Decision to Hospitalize by Provider. cp 23:12 Patient left the ED. tw5 Signatures: Dispatcher [employer] EDUT Kirsty Everett ds1 Eze Zhu PA PA cp Kandy Jerome RN RN ap3 Grace Schwartz tw5 Caty Virgen RN RN nunes Corrections: (The following items were deleted from the chart) 12:23 12:20 BP 115 / 64; Pulse 99bpm; Pulse Ox 97%; Temp 97.7F; 72.57 kg; Height 5 ft. 7 in.; ap3 BMI: 25.0; ap3
--- NOTE | 2022-04-15 16:21 | EDPHYS ---
Physician Documentation [facility] Name: Marcie Paul Age: 76 yrs Sex: Female : 1945 Arrival Date: 04/15/2022 Time: 12:04 Bed 17 Private MD: ED Physician Rosie Pinto HPI: 04/15 12:45 This 76 yrs old Female presents to ER via Ambulatory with complaints of Shortness Of cp Breath. 12:45 The patient has shortness of breath at rest. cp 12:45 Onset: The symptoms/episode began/occurred gradually, and became worse today. cp 12:45 Duration: The symptoms are continuous, and are steadily getting worse. The patient's cp shortness of breath is aggravated by light activity, talking. Associated signs and symptoms: Pertinent positives: right side lower chest pain, Pertinent negatives: diaphoresis, dizziness, fever. Severity of symptoms: in the emergency department the symptoms are unchanged despite home interventions. Historical: - Allergies: 12:23 Xarelto; ap3 12:23 Tape; ap3 - Home Meds: 13:55 Advair Diskus 250-50 mcg/dose Inhl dsdv [Active]; [place] Thyroid 120 mg Oral tab 3 tabs nunes in the morning [Active]; aspirin 325 mg Oral tab [Active]; atorvastatin 20 mg Oral tab [Active]; Betamethasone Valerate Topical [Active]; Flonase Nasal for seasonal allergies [Active]; Glipizide Oral 5mg in the morning and at night [Active]; hydrochlorothiazide 12.5 mg Oral cap 1 cap once daily [Active]; lisinopril 5 mg Oral tab once daily [Active]; metformin take 500mg 2 tabs morning and 500mg 3 tabs at night Oral tab [Active]; metoprolol 50mg BID [Active]; metoprolol tartrate 25 mg Oral tab 1 tab 2 times per day [Active]; montelukast 10 mg Oral tab 1 tab once daily [Active]; pantoprazole 40 mg Oral TbEC 1 tab once daily [Active]; Plavix 75 mg Oral tab 1 tab once daily [Active]; Spiriva with HandiHaler 18 mcg inhalation CpDv [Active]; Ventolin Nebulizer [Active]; - PMHx: 12:23 Atrial Fib; COPD; Diabetes - NIDDM; Hyperlipidemia; Hypertension; Hypothyroidism; ap3 Myocardial infarction; - Immunization history:: Client reports receiving the 2nd dose of the Covid vaccine. - Social history:: Smoking status: Patient/guardian denies using tobacco, Stopped _ months ago .5. ROS: 12:50 Constitutional: Negative for body aches, chills, fever, poor PO intake. cp 12:50 Eyes: Negative for injury, pain, redness, and discharge. cp 12:50 ENT: Negative for drainage from ear(s), ear pain, sore throat, difficulty swallowing, difficulty handling secretions. 12:50 Cardiovascular: Positive for chest pain, of the right lower chest, edema, Negative for palpitations. 12:50 Respiratory: Positive for shortness of breath, at rest. 12:50 Abdomen/GI: Negative for abdominal pain, vomiting, diarrhea, constipation. 12:50 : Negative for urinary symptoms. 12:50 Skin: Negative for rash. 12:50 Neuro: Negative for altered mental status, dizziness, headache, syncope, weakness. 12:50 All other systems are negative. Exam: 12:55 Constitutional: The patient appears in no acute distress, alert, awake, cp non-diaphoretic, non-toxic, well developed, well nourished, uncomfortable. 12:55 Head/Face: Normocephalic, atraumatic. cp 12:55 Eyes: Periorbital structures: appear normal, Conjunctiva: normal, no exudate, no injection, Sclera: no appreciated abnormality, Lids and lashes: appear normal, bilaterally. 12:55 ENT: External ear(s): are unremarkable, Nose: is normal, Mouth: Lips: moist, Oral mucosa: pink and intact, moist, Posterior pharynx: Airway: no evidence of obstruction, patent. 12:55 Neck: ROM/movement: is normal, is supple, without pain, no range of motions limitations. 12:55 Chest/axilla: Inspection: normal, Palpation: crepitus, is not appreciated, tenderness, that is mild, of the right lower lateral chest wall. 12:55 Cardiovascular: Rate: normal, Rhythm: irregular, Edema: ankle edema, that is mild, JVD: is not appreciated. 12:55 Respiratory: the patient does not display signs of respiratory distress, Respirations: labored breathing, that is mild, shallow respirations, that is mild, Breath sounds: decreased breath sounds, that are severe, are heard in the right posterior middle lobe and right posterior lower lobe, throughout, stridor, is not appreciated, wheezing: is not appreciated. 12:55 Abdomen/GI: Inspection: abdomen appears normal, Palpation: abdomen is soft and non-tender, in all quadrants, rebound tenderness, is not appreciated, voluntary guarding, is not appreciated, involuntary guarding, is not appreciated. 12:55 Back: CVA tenderness, is absent. 12:55 Skin: cellulitis, is not appreciated. cp 12:55 Neuro: Orientation: to person, place \T\ time. Mentation: is normal, Motor: moves all fours, strength is normal, Sensation: is normal. 14:42 ECG was reviewed by the Attending Physician. cp Vital Signs: 12:04 Pulse Ox 84% on R/A; ap3 12:20 BP 115 / 64; Pulse 99; Temp 97.7; Pulse Ox 97% on 3 lpm NC; Weight 72.57 kg; Height 5 ap3 ft. 7 in. (170.18 cm); 14:50 BP 116 / 60; Pulse 87; Resp 19; Pulse Ox 96% on 2 lpm NC; nunes 12:20 Body Mass Index 25.06 (72.57 kg, 170.18 cm) ap3 MDM: 13:00 Differential diagnosis: CHF exacerbation, Myocardial Infarction pneumonia, pulmonary cp edema, Pulmonary Embolism Sepsis Unstable Angina. 13:08 Patient medically screened. cp 16:20 Data reviewed: vital signs, nurses notes, lab test result(s), EKG, radiologic studies, cp plain films. 16:20 Test interpretation: by ED physician or midlevel provider: ECG, plain radiologic cp studies. Counseling: I had a detailed discussion with the patient and/or guardian regarding: the historical points, exam findings, and any diagnostic results supporting the discharge/admit diagnosis, lab results, radiology results, the need for further work-up and treatment in the hospital. Physician consultation: Maximus Salguero was called at 16:15, was contacted at 16:15, regarding admission, to the telemetry unit. patient's condition. 04/15 12:36 Order name: Basic Metabolic Panel; Complete Time: 14:31 cp 04/15 14:32 Interpretation: Normal except: K 3.1; CL 97; CO2 35; GLUC 141; CRE 0.53. 04/15 12:36 Order name: CBC with Diff; Complete Time: 14:31 04/15 14:32 Interpretation: Normal except: WBC 2.9; RBC 3.43; HGB 9.9; HCT 30.1; MCV 87.7; PLT 124; cp RDW 15.5; LYMA 0.5. 04/15 12:36 Order name: LFT's; Complete Time: 14:31 04/15 14:55 Interpretation: Normal except: BILID 0.4; TP 6.3; ALB 3.1; A/G 1.0. 04/15 12:36 Order name: Magnesium; Complete Time: 14:31 04/15 12:36 Order name: NT PRO-BNP; Complete Time: 14:31 04/15 14:32 Interpretation: Abnormal: NT PRO-BNP 6466. 04/15 12:36 Order name: PT-INR; Complete Time: 14:00 04/15 14:00 Interpretation: Reviewed. 04/15 12:36 Order name: Troponin HS; Complete Time: 14:31 04/15 12:36 Order name: Influenza Screen (a \T\ B); Complete Time: 16:15 04/15 12:38 Order name: Urine Microscopic Only; Complete Time: 16:15 04/15 12:41 Order name: Influenza Screen (A ; Complete Time: 16:15 [facility] 04/15 14:10 Order name: Urine Dipstick-Ancillary; Complete Time: 14:31 [facility] 04/15 14:33 Order name: ABG; Complete Time: 16:15 04/15 15:00 Order name: Urine Culture [facility] 04/15 12:36 Order name: XRAY Chest (1 view); Complete Time: 14:00 04/15 14:01 Interpretation: Report reviewed. 04/15 12:36 Order name: EKG; Complete Time: 12:37 04/15 12:36 Order name: Cardiac monitoring; Complete Time: 13:52 04/15 12:36 Order name: EKG - Nurse/Tech; Complete Time: 14:50 04/15 12:36 Order name: IV Saline Lock; Complete Time: 13:52 04/15 12:36 Order name: Labs collected and sent; Complete Time: 13:52 04/15 12:36 Order name: O2 Per Protocol; Complete Time: 13:52 cp 04/15 12:36 Order name: O2 Sat Monitoring; Complete Time: 13:53 cp 04/15 12:38 Order name: Urine Dipstick-Ancillary (obtain specimen); Complete Time: 14:10 04/15 21:24 Order name: Glucose, Ancillary Testing EDMS EC:42 Rate is 89 beats/min. Rhythm is irregular. QRS interval is normal. QT interval is cp normal. T waves are Inverted in leads V2, V3, V4. Interpreted by me. Reviewed by me. Administered Medications: 13:51 Drug: Lasix (furosemide) 20 mg Route: IVP; Site: right wrist; nunes 14:10 Follow up: Response: No adverse reaction nunes 13:52 Drug: Xopenex (levalbuterol) (3) 1.25 mg Route: Inhalation; nunes 13:52 Drug: SOLU-Medrol (methylPrednisoLONE) 125 mg Route: IVP; Site: right wrist; nunes 14:10 Follow up: Response: No adverse reaction nunes 15:06 Drug: Potassium Effervescent Tablet 50 mEq Route: PO; nunes 17:11 Follow up: Response: No adverse reaction nunes Disposition Summary: 04/15/22 16:20 Hospitalization Ordered Hospitalization Status: Observation cp Provider: Maximus Salguero cp Location: Telemetry/MedSurg (observation) cp Condition: Stable cp Problem: an acute exacerbation cp Symptoms: have improved cp Bed/Room Type: Standard cp Room Assignment: [facility](04/15/22 20:35) mw Diagnosis - Chronic combined systolic (congestive) and diastolic (congestive) heart failure cp - COPD/ Chronic obstructive pulmonary disease with (acute) exacerbation cp - Chronic atrial fibrillation cp Forms: - Medication Reconciliation Form cp - SBAR form cp Signatures: Dispatcher [employer] EDMS Em Newby RN RN mw Page, Corey, PA PA cp Prokisch, Amanda, RN RN ap3 Caty Virgen RN RN nunes Corrections: (The following items were deleted from the chart) 20:35 16:20 cp mw
[2022-04-15] MEDS ORDERED: ACETAMINOPHEN 500 MG TAB PO PRN (17:48)
[2022-04-15 18:45] VITALS: BMI 25.8
--- NOTE | 2022-04-15 19:05 | P.HP ---
Certification for Inpatient Patient admitted to: Observation With expected LOS: <2 Midnights Practitioner: I am a practitioner with admitting privileges, knowledge of patient current condition, hospital course, and medical plan of care. Services: Services provided to patient in accordance with Admission requirements found in Title 42 Section 412.3 of the Code of Federal Regulations Patient History Date of Service: 04/15/22 Reason for admission: Shortness of breath History of Present Illness: 76-year-old woman with a history of COPD, pleural effusion, chronic atrial fibrillation presented to the emergency department with a complaint of progressive shortness of breath of 2 weeks duration. Patient stated she used her nebulizers without significant improvement. At baseline she uses oxygen by nasal cannula only during the night but she has to use it throughout the day and increased the flow to 2.5 L/min. She states that she quit smoking 2 weeks ago and her increased shortness of breath correlates with the time she stopped smoking. Chest x-ray done in the emergency department report increased right pleural effusion. Patient noted to be hypoxic on arrival to the ED. She was given a dose of IV Lasix and briefly put on BiPAP but she did not tolerate it. She does not meet criteria for sepsis. She denies productive cough. Patient is admitted for further management. Allergies No Known Allergies Allergy (Verified 04/02/21 10:19) Home Medications: Amiodarone HCl [Cordarone*] 1 tab PO BID 11/16/20 Atorvastatin Calcium [Lipitor*] 1 tab PO BEDTIME 11/16/20 Clopidogrel Bisulfate [Plavix] 1 tab PO DAILY 11/16/20 Fluticasone [Flonase 50MCG Nasal [place]*] 2 sprays NS BID 11/16/20 Hydroxyzine HCl [Atarax] 1 tab PO BID 11/16/20 Lisinopril [Zestril] 1 tab PO DAILY 11/16/20 Metformin HCl 2 tab PO SEECOM 11/16/20 Metformin HCl 3 tab PO BEDTIME 11/16/20 Metoprolol Tartrate 1 tab PO BID 11/16/20 Montelukast [Singulair*] 1 tab PO DAILY 11/16/20 Pantoprazole [Protonix Tab*] 1 tab PO DAILY 11/16/20 Thyroid,Pork [[place] Thyroid] 1 tab PO BEDTIME 11/16/20 Thyroid,Pork [[place] Thyroid] 2 tab PO SEECOM 11/16/20 Tiotropium [place] [Spiriva] 1 puff IH DAILY 11/16/20 Tramadol HCl [Ultram] 1 tab PO DAILY PRN 11/16/20 glipiZIDE [Glipizide] 1 tab PO TID 11/16/20 acetaZOLAMIDE [Diamox*] 250 mg PO DAILY 30 Days #30 tab 11/18/20 Fluticasone/Salmeterol [Advair 250-50 Diskus] 1 each IH BID #60 disk.w.dev 09/06/21 Spironolactone [Aldactone*] 25 mg PO BID #60 tab 09/06/21 predniSONE [Prednisone*] 20 mg PO BID #15 tab 09/06/21 - Past Medical/Surgical History Has patient received pneumonia vaccine in the past: Yes Diabetic: Yes -: Hypothyroidism -: Hyperlipedemia -: AFIB -: NIDDM -: RI -: COPD -: heart stents -: Hysterectomy -: Ankle surg -: Cholecystectomy - Family History Mother -: Hypertension Notes: pt is adopted - Social History Smoking Status: Former smoker Alcohol use: No CD- Drugs: No Caffeine use: No Review of Systems Other: Patient denies any fever. She endorsed right chest pain worse with deep breathing. Except as documented, all other systems reviewed and negative. Physical Examination - Physical Exam General: Alert, In no apparent distress, Oriented x3 HEENT: PERRLA, Mucous membr. moist/pink, Sclerae nonicteric Neck: Supple, JVD not distended Respiratory: Diminished (On the right lower region.), Expiratory wheezes (Mild scattered wheezes) Cardiovascular: No edema, Normal S1 S2, Irregular heart rate/rhythm Gastrointestinal: Normal bowel sounds, Soft and benign, Non-distended, No tenderness Musculoskeletal: No swelling, No tenderness Integumentary: No rashes, No erythema, No cyanosis Neurological: Normal speech, Normal strength at 5/5 x4 extr, Cranial nerves 3-12 intact Lymphatics: No axilla or inguinal lymphadenopathy - Studies Laboratory Data (last 24 hrs) 04/15/22 13:35: PT 14.3 H, INR 1.29 04/15/22 13:35: WBC 2.9 L, Hgb 9.9 L, Hct 30.1 L, Plt Count 124 L 04/15/22 13:35: Sodium 138, Potassium 3.1 L, BUN 11, Creatinine 0.53 L, Glucose 141 H, Magnesium 0.9 L* D, Total Bilirubin 0.9, AST 18, ALT 17, Alkaline Phosphatase 58 Microbiology Data (last 24 hrs): 04/15/22 13:30 Nasopharnyx Influenza Type A Antigen Screen - Final 04/15/22 13:30 Nasopharnyx Influenza Type B Antigen Screen - Final Assessment and Plan - Problems (Diagnosis) (1) Acute and chronic respiratory failure with hypoxia Current Visit: No Status: Acute (2) Acute exacerbation of chronic obstructive pulmonary disease Onset Date: 02/10/17 Current Visit: No Status: Acute (3) Acute on chronic diastolic heart failure Current Visit: No Status: Acute (4) Hypothyroidism Onset Date: 02/10/17 Current Visit: No Status: Acute (5) Non-insulin dependent type 2 diabetes mellitus Onset Date: 02/10/17 Current Visit: No Status: Acute (6) Atrial fibrillation Onset Date: 02/10/17 Current Visit: No Status: Chronic Qualifiers: Atrial fibrillation type: persistent - Plan Place patient under observation. She will be treated with scheduled nebulizers, IV steroid. No indication for antibiotic at this time. We will also treat for CHF exacerbation with IV Lasix and pleural effusion. Continue home medications for CAD. Continue amiodarone. Noted patient is not on anticoagulation. Validate and reconcile other home medications. Titrate oxygen. Patient will need home oxygen requirement assessment on discharge. She also reports impaired mobility. Will consult physical therapy to evaluate. - Advance Directives Does patient have a Living Will: No Does patient have a Durable POA for Healthcare: No
[2022-04-15] MEDS ORDERED: D50W 25 GM/50 ML SYRINGE IV PRN (19:16)
[2022-04-15] MEDS ORDERED: GLUCAGON 1 MG/VIAL IM PRN (19:16)
[2022-04-15] MEDS: IPRATROPIUM BROM 0.5MG/2.5ML NEB SCH (19:40)
[2022-04-15] MEDS: ALBUTEROL 2.5 MG/3 ML NEB SOL NEB SCH (19:40)
[2022-04-15] MEDS ORDERED: ALBUTEROL 2.5 MG/3 ML NEB SOL ONE (19:44)
[2022-04-15] MEDS ORDERED: IPRATROPIUM BROM 0.5MG/2.5ML ONE (19:44)
[2022-04-15] MEDS: INSULIN -REGULAR HUMAN 50 UNIT/0.5 ML ML SQ SCH (21:00)
[2022-04-15] MEDS ORDERED: INSULIN -REGULAR HUMAN 50 UNIT/0.5 ML ML ONE (21:25)
[2022-04-15] MEDS: METHYLPREDNISOLONE 40 MG INJ IV SCH (23:29)
[2022-04-15] MEDS ORDERED: MAGNESIUM 50% 3 GM in NA CHLORIDE 0.9% 100 ML IV ONE (23:46)
[2022-04-16] MEDS ORDERED: MAGNESIUM SULFATE 1 gm IVPB 1 GM/100 ML BAG IV ONE
[2022-04-16] MEDS: ALBUTEROL 2.5 MG/3 ML NEB SOL NEB SCH ×4 (02:30→19:55)
[2022-04-16] MEDS: IPRATROPIUM BROM 0.5MG/2.5ML NEB SCH ×4 (02:33→19:55)
[2022-04-16 05:53] LABS: Absolute Lymphocytes (CBC) 0.2 K/uL (0.7-4.9); Hematocrit 28.8 % (36.0-45.0); MPV 9.2 fL (7.6-11.3); RBC Red Blood Cell Count 3.25 M/uL (3.86-4.86)
[2022-04-16 06:03] LABS: Phosphorus 3.7 mg/dL (2.5-4.9); Potassium 3.4 mmol/L (3.5-5.1)
[2022-04-16] MEDS: METHYLPREDNISOLONE 40 MG INJ IV SCH ×3 (06:21→16:46)
[2022-04-16 06:44] LABS: Blood Morphology Comment NOT SEEN (NOT SEEN); Platelet Estimate ADEQ; White Blood Cell Scan OK (OK)
[2022-04-16] MEDS ORDERED: POTASSIUM CL SA 10 MEQ TAB PO ONE (09:00)
[2022-04-16] MEDS: INSULIN -REGULAR HUMAN 50 UNIT/0.5 ML ML SQ SCH ×4 (09:04→21:51)
[2022-04-16] MEDS: ENOXAPARIN 40 MG/0.4 ML SQ SCH (09:05)
[2022-04-16] MEDS: FUROSEMIDE 40 MG/4 ML VIAL IV SCH ×2 (09:05→16:46)
--- NOTE | 2022-04-16 11:07 | EKG ---
Test Date: 2022-04-15 Test Time: 14:36:46 Circuit Breaker Supervisor: DONOVAN MEASUREMENT RESULTS: Intervals: Rate: 89 SC: QRSD: 86 QT: 342 QTc: 416 [place]: P: SC: QRS: 127 T: 14 INTERPRETIVE STATEMENTS: Atrial fibrillation with a competing junctional pacemaker with premature ventricular or aberrantly conducted complexes Right axis deviation Anterior infarct, age undetermined T wave abnormality, consider lateral ischemia Abnormal ECG Compared to ECG 09/01/2021 12:57:19 Ventricular premature complex(es) now present T-wave abnormality now present Possible ischemia now present Myocardial infarct finding still present Electronically Signed On 04-16-22 11:06:45 CDT by Amador Bryant
--- NOTE | 2022-04-16 15:25 | P.PN ---
Subjective Date of Service: 04/16/22 Chief Complaint: Shortness of breath Patient states she feels better but significantly short of breath with exertion. No fever. Physical Examination - Vital Signs Temperature: 97.9 F Blood Pressure: 127/59 Pulse: 89 Respirations: 18 Pulse Ox (%): 93 - Physical Exam General: Alert, In no apparent distress, Oriented x3 HEENT: Mucous membr. moist/pink Neck: JVD not distended Respiratory: Diminished (Right lower base), Other (No wheezes or rhonchi) Cardiovascular: No edema, Regular rate/rhythm, Normal S1 S2 Gastrointestinal: Normal bowel sounds, Soft and benign, Non-distended, No tenderness Musculoskeletal: No swelling Integumentary: No rashes, No erythema, No cyanosis Neurological: Normal strength at 5/5 x4 extr - Studies Microbiology Data (last 24 hrs): 04/15/22 13:30 Nasopharnyx Influenza Type A Antigen Screen - Final 04/15/22 13:30 Nasopharnyx Influenza Type B Antigen Screen - Final Assessment And Plan - Current Problems (Diagnosis) (1) Acute and chronic respiratory failure with hypoxia Current Visit: No Status: Acute (2) Acute exacerbation of chronic obstructive pulmonary disease Onset Date: 02/10/17 Current Visit: No Status: Acute (3) Acute on chronic diastolic heart failure Current Visit: No Status: Acute (4) Hypothyroidism Onset Date: 02/10/17 Current Visit: No Status: Acute (5) Non-insulin dependent type 2 diabetes mellitus Onset Date: 02/10/17 Current Visit: No Status: Acute (6) Atrial fibrillation Onset Date: 02/10/17 Current Visit: No Status: Chronic Qualifiers: Atrial fibrillation type: persistent - Plan Patient desaturated to 86% on 3 L of oxygen by nasal cannula. She is quite decompensated with regards to COPD. Right-sided pleural effusion may be contributing to the hypoxia. We will keep her asking patient and continue scheduled nebulizers, IV steroid and IV Lasix. Reassess oxygen requirement within the next 1 to 2 days. Patient may need to wear oxygen continuously. Continue home medications for CAD. Continue amiodarone. Noted patient is not on anticoagulation. Titrate oxygen. Seen by PT and patient did well with ambulation.
[2022-04-17] MEDS: ALBUTEROL 2.5 MG/3 ML NEB SOL NEB SCH ×4 (01:30→20:20)
[2022-04-17] MEDS: IPRATROPIUM BROM 0.5MG/2.5ML NEB SCH ×4 (01:30→20:20)
[2022-04-17] MEDS: METHYLPREDNISOLONE 40 MG INJ IV SCH ×3 (01:46→11:30)
[2022-04-17 04:42] LABS: Absolute Lymphocytes (CBC) 0.2 K/uL (0.7-4.9); Hematocrit 29.1 % (36.0-45.0); Lymphocytes % 3.6 % (15.3-44.8); MPV 9.2 fL (7.6-11.3); RBC Red Blood Cell Count 3.28 M/uL (3.86-4.86)
[2022-04-17 04:55] LABS: Potassium 3.6 mmol/L (3.5-5.1)
[2022-04-17] MEDS: FUROSEMIDE 40 MG/4 ML VIAL IV SCH ×2 (08:12→16:30)
[2022-04-17] MEDS: ENOXAPARIN 40 MG/0.4 ML SQ SCH (08:12)
[2022-04-17] MEDS: INSULIN -REGULAR HUMAN 50 UNIT/0.5 ML ML SQ SCH ×4 (08:12→20:58)
--- NOTE | 2022-04-17 11:24 | P.PN ---
Subjective Date of Service: 04/17/22 Chief Complaint: Shortness of breath Patient diuresing well with the Lasix. She states her breathing is much better No fever. Physical Examination - Vital Signs Temperature: 98.2 F Blood Pressure: 142/73 Pulse: 92 Respirations: 18 Pulse Ox (%): 98 - Physical Exam General: Alert, In no apparent distress, Oriented x3 HEENT: Mucous membr. moist/pink Neck: JVD not distended Respiratory: Clear to auscultation bilaterally, Normal air movement, Other (Mild scattered wheezes) Cardiovascular: Normal S1 S2, Edema (Bilateral lower extremities), Irregular heart rate/rhythm Gastrointestinal: Soft and benign, Non-distended Musculoskeletal: No tenderness Integumentary: No cyanosis Neurological: Normal strength at 5/5 x4 extr - Studies Microbiology Data (last 24 hrs): 04/15/22 14:00 Clean Catch Urine Prosperity Count - Final <10,000 CFU/ML. 04/15/22 14:00 Clean Catch Urine - Final MIXED MARCIE. Assessment And Plan - Current Problems (Diagnosis) (1) Acute and chronic respiratory failure with hypoxia Current Visit: No Status: Acute (2) Acute exacerbation of chronic obstructive pulmonary disease Onset Date: 02/10/17 Current Visit: No Status: Acute (3) Acute on chronic diastolic heart failure Current Visit: No Status: Acute (4) Hypothyroidism Onset Date: 02/10/17 Current Visit: No Status: Acute (5) Non-insulin dependent type 2 diabetes mellitus Onset Date: 02/10/17 Current Visit: No Status: Acute (6) Atrial fibrillation Onset Date: 02/10/17 Current Visit: No Status: Chronic Qualifiers: Atrial fibrillation type: persistent - Plan Repeat chest x-ray reviewed. Right-sided pleural effusion has improved. Patient desaturated with 3 L of oxygen with ambulation. continue scheduled nebulizers, IV steroid and IV Lasix. Reassess oxygen saturation with ambulation tomorrow Patient may need to wear oxygen continuously. Continue home medications for CAD. Continue amiodarone. Noted patient is not on anticoagulation. Titrate oxygen. Seen by PT and patient did well with ambulation.
--- NOTE | 2022-04-17 11:45 | RAD REPORT ---
EXAM DESCRIPTION: RAD - Chest Single View - 04/17/2022 11:08 am CLINICAL HISTORY: Follow up pleural effusion COMPARISON: Single view 04/15/2022, portable 09/06/2021, CT chest 11/15/2020 TECHNIQUE: AP portable chest image was obtained 04/17/2022 11:08 am . FINDINGS: Right base pleural effusion and atelectasis pattern have not changed since April 15. Left co stophrenic angle blunting is present and minimal left pleural effusion could be present. No progressi ve left pleural finding suspected. Imaged lung juares are stable. Heart size is prominent with normal size upper lobe vasculature. No pneumothorax. No acute bony abnormality seen. No acute aortic findin gs suspected. IMPRESSION: Right base pleural effusion and atelectasis are stable.
[2022-04-18] MEDS: IPRATROPIUM BROM 0.5MG/2.5ML NEB SCH ×3 (01:50→14:00)
[2022-04-18] MEDS: ALBUTEROL 2.5 MG/3 ML NEB SOL NEB SCH ×3 (01:50→14:00)
[2022-04-18 04:27] LABS: Potassium 3.3 mmol/L (3.5-5.1)
[2022-04-18] MEDS: INSULIN -REGULAR HUMAN 50 UNIT/0.5 ML ML SQ SCH ×3 (07:30→16:22)
[2022-04-18] MEDS ORDERED: predniSONE 20 MG TAB PO SCH (09:00)
[2022-04-18] MEDS: ENOXAPARIN 40 MG/0.4 ML SQ SCH (09:28)
[2022-04-18 09:43] VITALS: O2SAT 94
--- NOTE | 2022-04-18 12:22 | ECHO ---
HEIGHT: 5 ft 7 in WEIGHT: 165 lb 0 oz DATE OF STUDY: 04/18/[address]: silas madsen 2-DIMENSIONAL: YES M.MODE: YES DOPPLER: YES COLOR FLOW: YES TDS: PORTABLE: DEFINITY: BUBBLE STUDY: DIAGNOSIS: CONGESTIVE HEART FAILURE EXACERBATION CARDIAC HISTORY: CATHERIZATION: YES SURGERY: YES PROSTHETIC VALVE: AORTIC VALVE REPAIR PACEMAKER: MEASUREMENTS (cm) DIASTOLIC (NORMALS) SYSTOLIC (NORMALS) IVSd 0.9 (0.6-1.2) LA Diam 4.6 (1.9-4.0) LVEF 76% LVIDd 4.3 (3.5-5.7) LVIDs 2.4 (2.0-3.5) %FS 45% LVPWd 1.2 (0.6-1.2) Ao Diam 2.3 (2.0-3.7) 2 DIMENSIONAL ASSESSMENT: RIGHT ATRIUM: NORMAL LEFT ATRIUM: DILATED RIGHT VENTRICLE: NORMAL LEFT VENTRICLE: NORMAL TRICUSPID VALVE: NORMAL MITRAL VALVE: MITRAL ANNULAR CALCIFICATION PULMONIC VALVE: NORMAL AORTIC VALVE: STENOITC PERICARDIAL EFFUSION: NONE AORTIC ROOT: NORMAL LEFT VENTRICULAR WALL MOTION: DECREASED LEFT VENTRICULAR COMPLIANCE. DOPPLER/COLOR FLOW: MODERATE AORTIC STENOSIS 1.3 CENTIMETERS SQUARED. COMMENTS: MODERATE AORTIC STENOSIS - 1.3 CENTIMETERS SQUARED. MITRAL ANNULAR CALCIFICATION. LEFT ATRIAL ENLARGEMENT. DIASTOLIC DYSFUNCTION. TECHNOLOGIST: AMEE SEAMAN
--- NOTE | 2022-04-18 15:13 | P.DS ---
Admission Date: 04/16/22 Discharge Date: 04/18/22 Reason for Admission: Shortness of breath - Problems (1) Acute and chronic respiratory failure with hypoxia Current Visit: No Status: Acute (2) Acute exacerbation of chronic obstructive pulmonary disease Onset Date: 02/10/17 Current Visit: No Status: Acute (3) Acute on chronic diastolic heart failure Current Visit: No Status: Acute (4) Hypothyroidism Onset Date: 02/10/17 Current Visit: No Status: Acute (5) Non-insulin dependent type 2 diabetes mellitus Onset Date: 02/10/17 Current Visit: No Status: Acute (6) Atrial fibrillation Onset Date: 02/10/17 Current Visit: No Status: Chronic Qualifiers: Atrial fibrillation type: persistent Brief History of Present Illness: 76-year-old woman with a history of COPD, pleural effusion, chronic atrial fibrillation presented to the emergency department with a complaint of progressive shortness of breath of 2 weeks duration. Patient stated she used her nebulizers without significant improvement. At baseline she uses oxygen by nasal cannula only during the night but she has to use it throughout the day and increased the flow to 2.5 L/min. She states that she quit smoking 2 weeks ago and her increased shortness of breath correlates with the time she stopped smoking. Chest x-ray done in the emergency department report increased right pleural effusion. Patient noted to be hypoxic on arrival to the ED. She was given a dose of IV Lasix and briefly put on BiPAP but she did not tolerate it. She did not meet criteria for sepsis. She denied productive cough. Patient was admitted for further management. Hospital Course: Patient admitted to the medical floor and treated with IV Lasix. She diuresed well. Repeat chest x-ray showed significant improvement in the right-sided pleural effusion. She was requiring up to 3 L oxygen by nasal cannula. Patient also treated with scheduled nebulizers, and IV steroid for COPD exacerbation Continued home medications for CAD and atrial fibrillation. Status post watchman procedure. She stated a watchman procedure did not heal well saw her wreath inspector wanted her to continue anticoagulation Patient states she takes Eliquis which is resumed. Seen by PT and patient did well with ambulation. She stated she was initially using oxygen only during sleep but now needing oxygen continuously. She is prescribed oxygen for continuous use on discharge. Vital Signs/Physical Exam: Temp Pulse Resp BP Pulse Ox 96.9 F 108 H 18 135/62 95 05/23/22 12:00 04/18/22 12:00 04/18/22 12:00 04/18/22 12:00 04/18/22 12:00 General: Alert, In no apparent distress, Oriented x3 HEENT: Normocephalic, Mucous membr. moist/pink Neck: Supple, JVD not distended Respiratory: Clear to auscultation bilaterally, Normal air movement Cardiovascular: Normal S1 S2, Edema (1+ bilateral lower extremity edema), Irregular heart rate/rhythm Capillary refill: <2 Seconds Gastrointestinal: Normal bowel sounds, Soft and benign, Non-distended, No tenderness Musculoskeletal: No tenderness Integumentary: No rashes, No cyanosis Neurological: Normal strength at 5/5 x4 extr Laboratory Data at Discharge: WBC 6.4 K/uL (4.3-10.9) D 04/17/22 04:29 Hgb 9.4 g/dL (12.0-15.0) L 04/17/22 04:29 Hct 29.1 % (36.0-45.0) L 04/17/22 04:29 Plt Count 128 K/uL (152-406) L 04/17/22 04:29 PT 14.3 SECONDS (9.5-12.5) H 04/15/22 13:35 INR 1.29 04/15/22 13:35 Sodium 138 mmol/L (136-145) 04/18/22 03:33 Potassium 3.3 mmol/L (3.5-5.1) L 04/18/22 03:33 BUN 19 mg/dL (7-18) H 04/18/22 03:33 Creatinine 0.52 mg/dL (0.55-1.3) L 04/18/22 03:33 Glucose 130 mg/dL (74-106) H 04/18/22 03:33 Phosphorus 3.7 mg/dL (2.5-4.9) 04/16/22 05:29 Magnesium 2.0 mg/dL (1.8-2.4) D 04/16/22 05:29 Total Bilirubin 0.9 mg/dL (0.2-1.0) 04/15/22 13:35 AST 18 U/L (15-37) 04/15/22 13:35 ALT 17 U/L (12-78) 04/15/22 13:35 Alkaline Phosphatase 58 U/L (45-117) 04/15/22 13:35 Home Medications: Amiodarone HCl [Cordarone*] 1 tab PO BID 11/16/20 Atorvastatin Calcium [Lipitor*] 1 tab PO BEDTIME 11/16/20 Clopidogrel Bisulfate [Plavix] 1 tab PO DAILY 11/16/20 Fluticasone [Flonase 50MCG Nasal [place]*] 2 sprays NS BID 11/16/20 Metformin HCl 2 tab PO SEECOM 11/16/20 Metformin HCl 3 tab PO BEDTIME 11/16/20 Metoprolol Tartrate 1 tab PO BID 11/16/20 Montelukast [Singulair*] 1 tab PO DAILY 11/16/20 Pantoprazole [Protonix Tab*] 1 tab PO DAILY 11/16/20 Thyroid,Pork [[place] Thyroid] 1 tab PO BEDTIME 11/16/20 Thyroid,Pork [[place] Thyroid] 2 tab PO SEECOM 11/16/20 Tiotropium [place] [Spiriva] 1 puff IH DAILY 11/16/20 Tramadol HCl [Ultram] 1 tab PO DAILY PRN 11/16/20 glipiZIDE [Glipizide] 1 tab PO TID 11/16/20 acetaZOLAMIDE [Diamox*] 250 mg PO DAILY 30 Days #30 tab 11/18/20 Fluticasone/Salmeterol [Advair 250-50 Diskus] 1 each IH BID #60 disk.w.dev 09/06/21 Spironolactone [Aldactone*] 25 mg PO BID #60 tab 09/06/21 Albuterol Neb [Proventil 0.083% Neb Soln] 2.5 mg NEB [id number] #120 amp 04/18/22 Apixaban [Eliquis] 5 mg PO BID #60 tablet 04/18/22 predniSONE [Prednisone*] 20 mg PO BID #15 tab 04/18/22 New Medications: Albuterol Neb [Proventil 0.083% Neb Soln] 2.5 mg NEB [id number] #120 amp Apixaban [Eliquis] 5 mg PO BID #60 tablet predniSONE [Prednisone*] 20 mg PO BID #15 tab Diet: ADA Activity: Ad manuel Followup: Trey Raman MD [Primary Care Provider] - 1 Week Time spent managing pt's care (in minutes): 37
[2022-04-18 17:08] VITALS: BP 152/74; TEMP 97
== END 2022-04-18 16:00 | disposition home or self-care (01) | DRG 190 ==
LOC: ER 12:04 → INTOOBSV 17:31 → OBSVTOIN 17:31 → ERHOLD 17:31 → 2ND 21:24 → OBSVTOIN 04-16 15:07
PROVIDERS: ADMIT Internal Medicine; ATTEND Internal Medicine
DX: J44.1 Chronic obstructive pulmonary disease with (acute) exacerbation (principal); I50.33 Acute on chronic diastolic (congestive) heart failure; I48.19 Other persistent atrial fibrillation; I11.0 Hypertensive heart disease with heart failure; E03.9 Hypothyroidism, unspecified; E78.5 Hyperlipidemia, unspecified; E11.9 Type 2 diabetes mellitus without complications; I25.10 Atherosclerotic heart disease of native coronary artery without angina pectoris; Z95.5 Presence of coronary angioplasty implant and graft; I25.2 Old myocardial infarction; Z20.822 Contact with and (suspected) exposure to COVID-19
CPT/HCPCS: 36415; 71045; 80048; 80076; 81003; 81015; 82805; 82947; 83036; 83735; 83880; 84100; 84132; 84484; 85025; 85610; 87086; 87088; 87804; 93005; 93306; 94640; 94660; 94760; 96374; 96375; 97116; 97161; 99284; G0378; J1650; J1815; J1940; J2920; J2930; J3475; J7512; U0003

== ENCOUNTER 2022-11-20 14:04 | Emergency (ER) | payer OTHER ==
--- OUTSIDE RECORDS SUMMARY | 2022-11-20 14:07 | XMS REPORT | Continuity of Care Document ---
:1945 Author Organization [facility] t Address [address] [place] [address] Care Team Providers Name Role Phone Joaquim Chavez Attending Clinician Unavailable Jose Cruz Walsh Attending Clinician Unavailable Brina Corrigan Attending Clinician Unavailable JAYMIE HARVEY Attending Clinician Unavailable Madison Noble RN Attending Clinician Unavailable Yohan MENJIVAR, Eze Attending Clinician Unavailable MELISSA KINGSTON Attending Clinician Unavailable Lab, Adc Fam Pob I Attending Clinician Unavailable Melissa Clayton Attending Clinician Physician, No Primary or Family Admitting Clinician UnavailTrey Monique Admitting Clinician Unavailable Joaquim Chavez Admitting Clinician Unavailable Jose Cruz Walsh Admitting Clinician Unavailable Payers Payer Name Policy Type Policy Number Effective Date Expiration Date S ource [employer] MEDICARE ADV [id number] 2015 00:00:00 Problems This patient has no known problems. Allergies, Adverse Reactions, Alerts Allergy Allergy Status Severity Reaction(s) Onset Inactive Treating Comm ents Source Name Type Date Date Clinician rivaroxa DA Active U ORGAN [facility] ban FAILURE/INTE 3-28 Graciela r RNAL 00:00: Carrillo BLEEDING [facility] No Known DA Active U 2020-11 [facility] Allergie 1-16 Clear s 00:00: Carrillo 00 [facility] No Known DA Active U [facility] Allergie 2-13 Clear s 00:00: Carrillo 00 [facility] NO KNOWN Drug Active Univers ALLERGIE Class ity of S [facility] Social History Social Habit Start Date Stop Date Quantity Comments Source [facility] to SARS-CoV-2 Not sure [facility] Smoking Status Start Date Stop Date Source [facility] Medications This patient has no known medications. Procedures Procedure Date / Time Performed Performing Clinician Sour e [id number] 2021-12-15 00:00:00 RASSRonaldo MCKEON [facility] [id number] 2021-12-15 00:00:00 RASSRonaldo [facility] [id number] 2021-12-15 00:00:00 RASSRonaldo [facility] [id number] 2021-10-12 [facility] En[facility] Start End Encounter Admission Attending Care Care Encounter Source Date/Time Date/Time Type Type Clinicians Facility Department ID 2022-04-27 2022-04-27 Outpatient EL Kathy, [facility] OUTD [id number] [facility] 05:08:00 05:08:00 Joaquim 99 [facility] 2022-04-27 2022-04-27 Outpatient EL Kathy, [facility]L [facility] [id number] [facility] 05:08:00 05:08:00 Joaquim [id number] [facility] 2022-02-23 2022-02-23 Inpatient EL Rasjaqueline, [facility] OUTD [id number] [facility] 05:22:00 05:22:00 Joaquim 18 [facility] 2021-12-15 2021-12-15 Inpatient EL Raslan, [facility] INTE.02 [id number] [facility] 13:49:00 17:00:00 Joaquim 97 [facility] 2021-10-12 2021-10-13 Inpatient EL Vaniale, [facility] INTE [id number] [facility] 11:11:00 13:26:00 Linh 22 [facility] 2021-10-08 2021-10-08 Outpatient EL Savitabarble, [facility] 3DAY [id number] [facility] 09:00:00 23:00:00 Linh 23 [facility] 2021-09-13 2021-09-13 Outpatient EL Shekhar, [facility]L [facility] [id number] [facility] 10:27:00 10:27:00 Brina Abril [facility] 2021-01-27 2021-01-27 Outpatient Jb WES [facility] [id number] Univers 14:30:00 14:30:00 JAYMIE crawley [facility] 2021-01-06 2021-01-06 Outpatient Jb WES [facility] [id number] Univers 13:10:00 13:10:00 JAYMIE crawley [facility] 2020-07-27 2020-07-27 Letter MEENAKSHI Noble [id number] Univers 00:00:00 00:00:00 (Out) Madison Cabrera [place] [id number] [facility] 4.2.7.2.686 Jameel as [phone] [address] 2020-07-27 2020-07-27 Letter MEENAKSHI Noble [id number] 00:00:00 00:00:00 (Out) Madison Cabrera [place] [id number] [facility] 4.2.7.2.686 [id number] 2020-07-26 2020-07-26 Telephone MEENAKSHI Almanzar [id number] [facility] 00:00:00 00:00:00 Eze BANEGASY 350.1.13.10 [facility] 4.2.7.2.686 Jameel as [phone] [address] 2020-07-26 2020-07-26 Telephone MEENAKSHI Almanzar [id number] 00:00:00 00:00:00 Eze BANEGASY 350.1.13.10 [facility] 4.2.7.2.686 [id number] 2020-07-24 2020-07-24 Outpatient Jb KINGSTON [facility] [id number] Univers 16:40:00 16:40:00 MELISSA crawley [facility] 2020-07-24 2020-07-24 Laboratory Lab, Adc Fam Pob I [facility] 1.2. [id number] Univers 14:48:41 15:08:41 Only Melissa [place] 350.1.13.10 [facility] [place] 4.2.7.2.686 Jameel as Professio [phone] Ca dical nal [address] 2020-07-24 2020-07-24 Laboratory Lab, [facility] 1.2.840.114 [id number] 14:48:41 15:08:41 Only Fam Pob I [facility] 350.1.13.10 [place] 4.2.7.2.686 Professio [phone] nal [address] Results Test Description Test Time Test Comments Results Result Comments Source Novel Coronavirus 2019 Inhouse 2022-04-23 02:30:00 Test Item Value Reference Range Interpretation Comme nts Novel Coronavirus 2018 Negative Negative Posit yolis results are indicative of the Inhouse (test code = presenc e ezIQNR-AyU-3 RNA, clinical COVNONPUI) correlation wit h patient historyand other diagnosti c information is necessary to de terminepatient infection status. Positiv e results do not rule outbacterial in fection or co-infection with other viru ses. Negative results do not preclude SA RS-CoV-2 infection andshould not b e used as the sole basis for patient man agementdecisions. Negative result s must be combined with otherclinical o bservations, patient history, and ep idemiologicalinformation. Detection of SA RS-CoV-2 RNA may be affected bysamp le collection methods, storage conditi ons, and/or stageof infection. Cuca l RNA mutations, vaccinations, a ntiviraltherapeutics, antibiotics, ch emotherapeutic orimmunosuppres evan drugs have not been evaluated for e ffectson detection. Results are for the identification of SARS-CoV-2 RNA usingreal-time (RT) polymerase patrick n reaction (PCR) technologyfor t he qualitative detection of nucleic acid s from xfxHTGJ-WlC-4 virus and diagn osis of SARS-CoV-2 virusinfection. It is an Emergency Use Authorization ( EUA) testauthorized by the U.S. FDA. BASIC METABOLIC [id number] 15:17:00 Test Item Value Reference Range Interpretation Comments SODIUM (test code = NA) 139 mEq/L 134-147 N POTASSIUM (test code = 4.3 mEq/L 3.4-5.0 N K) CHLORIDE (test code = 98 mEq/L 100-108 L CL) CARBON DIOXIDE (test 34 mEq/l 21-33 H code = CO2) ANION GAP (test code = 11 0-20 N GAP) GLUCOSE (test code = 312 mg/dL 70-110 H GLU) BLOOD UREA NITROGEN 16 mg/dL 7-18 N (test code = BUN) GLOMERULAR FILTRATION 81.8 70-80 H Units of measure = RATE (test code = GFR) ml/mi n/1.73 m2 CREATININE (test code = 0.7 mg/dL 0.6-1.3 N CREAT) CALCIUM (test code = 10.2 mg/dL 8.0-10.5 N CA) CBC W/AUTO [id number] 15:14:00 Test Item Value Reference Range Interpretation Comments WHITE BLOOD CELL (test code = 7.1 x10 3/uL 4.5-11.0 WBC) RED BLOOD CELL (test code = 4.04 x10 6/uL 3.54-5.02 N RBC) HEMOGLOBIN (test code = HGB) 11.5 g/dL 11.0-15.0 N HEMATOCRIT (test code = HCT) 37.8 % 33.0-45.0 N MEAN CELL VOLUME (test code = 93.6 fL 81.0-99.0 N MCV) MEAN CELL HGB (test code = MCH) 28.5 pg 27.0-33.0 N MEAN CELL HGB CONCETRATION 30.4 g/dL 33.0-37.0 L (test code = MCHC) RED CELL DISTRIBUTION WIDTH CV 14.5 % 11.5-14.5 N (test code = RDW) RED CELL DISTRIBUTION WIDTH SD 49.3 fL 37.0-54.0 N (test code = RDW-SD) PLATELET COUNT (test code = 160 x10 3/uL 150-400 N PLT) MEAN PLATELET VOLUME (test code 11.0 fL 7.0-9.0 H = MPV) NEUTROPHIL % (test code = NT%) 86.7 % 56.0-77.0 H IMMATURE GRANULOCYTE % (test 0.6 % 0.0-2.0 N code = IG%) LYMPHOCYTE % (test code = LY%) 5.9 % 14.0-32.0 L MONOCYTE % (test code = MO%) 6.2 % 4.8-9.0 N EOSINOPHIL % (test code = EO%) 0.6 % 0.3-3.7 N BASOPHIL % (test code = BA%) 0.0 % 0.0-2.0 N NUCLEATED RBC % (test code = 0.0 % 0-0 N NRBC%) NEUTROPHIL # (test code = NT#) 6.12 x10 3/uL 2.0-7.6 N IMMATURE GRANULOCYTE # (test 0.04 x10 3/uL 0.00-0.03 H code = IG#) LYMPHOCYTE # (test code = LY#) 0.42 x10 3/uL 1.0-3.8 L MONOCYTE # (test code = MO#) 0.44 x10 3/uL 0.1-0.8 N EOSINOPHIL # (test code = EO#) 0.04 x10 3/uL 0.0-0.2 N BASOPHIL # (test code = BA#) 0.00 x10 3/uL 0.0-0.2 N NUCLEATED RBC # (test code = 0.00 x10 3/uL 0.0-0.1 N NRBC#) MANUAL DIFF REQUIRED (test code NO = MDIFF) PROTHROMBIN [id number] 15:14:00 Test Item Value Reference Range Interpretation Comments PROTHROMBIN TIME 15.4 SECONDS 9.3-12.9 H PATIENT (test code = PTP) INTERNATIONAL NORMAL 1.4 0.8-1.2 H TARGET INR BY RATIO (test code = INDICATIO N Indication INR) INR1. Prophylax is of venous thrombos is 2.0 - 3.0 (orthoped ic surgery), Proph ylaxis of venous throm bosis (other than hig h-risk surgery), Treat ment of Deep Vein Thrombosis/Pulm onary Embolism, Preve ntion of systemic emb olism - Tissue heart va lves, Acute Myocardia l Infarction (to prevent systemic emboli sm), Valvular heart disease, Atrial Fibrillation, Bileaflet mecha nical valve in aortic position.2. Mec hanical prosthetic valv es (high risk), 2. 5 - 3.5 Presence of Lup us Anticoagulant o r Antiphospholipi d Antibodies, Pre vention of systemic emb olism - Acute Myocardia l Infarction (to prevent recurrent infar ct). GLUCOSE [id number] 11:14:00 Test Item Value Reference Range Interpretation Comments GLUCOSE BEDSIDE (test 104 MG/DL 70-110 N Perfor med by certified code = GLUBED) spike 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 [facility] GLUCOSE [id number] 08:19:00 Test Item Value Reference Range Interpretation Comments GLUCOSE BEDSIDE (test 54 MG/DL 70-110 L Perfor med by certified code = GLUBED) spike 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 [facility] Novel Coronavirus 2019 [id number] 01:47:00 Test Item Value Reference Range Interpretation [...] det ection of nucleic acids f rom mbbNNGZ-FgS-2 v irus and diagnosis of SA RS-CoV-2 virusinfection. It is an Emergency Use Authorization ( EUA) testauthorized by the U.S. FDA. BASIC METABOLIC [id number] 14:18:00 Test Item Value Reference Range Interpretation [...] = 9.8 mg/dL 8.0-10.5 N CA) PROTHROMBIN [id number] 14:09:00 Test Item Value Reference Range Interpretation Comments PROTHROMBIN TIME 13.6 SECONDS 9.3-12.9 H PATIENT (test code = PTP) INTERNATIONAL NORMAL 1.2 0.8-1.2 N TARGET INR BY RATIO (test code = INDICATIO N Indication INR) INR1. Prophylax is of venous thrombos is 2.0 - 3.0 (orthoped ic surgery), Proph ylaxis of venous throm bosis (other than hig h-risk surgery), Treat ment of Deep Vein Thrombosis/Pulm onary Embolism, Preve ntion of systemic emb olism - Tissue heart va lves, Acute Myocardia l Infarction (to prevent systemic emboli sm), Valvular heart disease, Atrial Fibrillation, Bileaflet mecha nical valve in aortic position.2. Mec hanical prosthetic valv es (high risk), 2. 5 - 3.5 Presence of Lup us Anticoagulant o r Antiphospholipi d Antibodies, Pre vention of systemic emb olism - Acute Myocardia l Infarction (to prevent recurrent infar ct). CBC W/AUTO [id number] 14:01:00 Test Item Value Reference Range Interpretation [...] 0.00 x10 3/uL 0.0-0.1 N NRBC#) GLUCOSE [id number] 12:17:00 Test Item Value Reference Range Interpretation Comments GLUCOSE BEDSIDE (test 87 MG/DL 70-110 N Perfor med by certified code = GLUBED) spike 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 [facility] GLUCOSE [id number] 11:15:00 Test Item Value Reference Range Interpretation Comments GLUCOSE BEDSIDE (test 52 MG/DL 70-110 L Perfor med by certified code = GLUBED) spike 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 [facility] [id number] 10:33:00 Test Item Value Reference Range Interpretation Comments ACT-ISTAT (test code 374 SEC 74-137 H Perform ed by certified = ACTI) spike 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 [facility] GLUCOSE [id number] 09:14:00 Test Item Value Reference Range Interpretation Comments GLUCOSE BEDSIDE (test 71 MG/DL 70-110 N Perfor med by certified code = GLUBED) spike 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 [facility] GLUCOSE [id number] 08:39:00 Test Item Value Reference Range Interpretation Comments GLUCOSE BEDSIDE (test 82 MG/DL 70-110 N Perfor med by certified code = GLUBED) spike 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 [facility] GLUCOSE [id number] 07:55:00 Test Item Value Reference Range Interpretation Comments GLUCOSE BEDSIDE (test 51 MG/DL 70-110 L Perfor med by certified code = GLUBED) spike 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 [facility] GLUCOSE [id number] 07:48:00 Test Item Value Reference Range Interpretation Comments GLUCOSE BEDSIDE (test 48 MG/DL 70-110 L Perfor med by certified code = GLUBED) spike 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 [facility] - XR CHEST 1 [id number] 00:00:00 [facility] 1945 Sex: F FAX: Joaquim Sainz MD [phone] [place]: St: ADM Name: MIKAEL PAUL [facility] [place] : 1945 Age/S: 76/F [address] [place] [address] Unit #: [id number] Loc: [place] [address] Phys: Joaquim Chavez MD Acct: [id number] Dis Date: Status: ADM IN PHONE #: [phone] Exam Date: 12/15/2021 1237 FAX #: [phone] 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 2. Mildcongestive change. at 6760 Reported and signed by: Richmond Duggan M.D. CC: Joaquim Chavez MD Technologist: RT Francisco(R)Trnscrd Date/Time/By: 12/15/2021 (1944) : By: [email or web address] Orig Print D/T: S: 12/15/2021 (4664) PAGE 1Signed ReportNovel Coronavirus 2019 [id number] 08:49:00 Test Item Value Reference Range Interpretation [...] det ection of nucleic acids f rom xqaSJGK-PbU-9 v irus and diagnosis of SA RS-CoV-2 virusinfection. It is an Emergency Use Authorization ( EUA) testauthorized by the U.S. FDA. BASIC METABOLIC [id number] 12:48:00 Test Item Value Reference Range Interpretation [...] code = 9.9 mg/dL 8.0-10.5 N CA) [id number] 12:48:00 Test Item Value Reference Range Interpretation Comments PREALBUMIN (test code = PREALB) 18.0 mg/dL 16.0-40.0 N PROTHROMBIN [id number] 12:32:00 Test Item Value Reference Range Interpretation Comments PROTHROMBIN TIME 12.9 SECONDS 9.3-12.9 N PATIENT (test code = PTP) INTERNATIONAL NORMAL 1.2 0.8-1.2 N TARGET INR BY RATIO (test code = INDICATIO N Indication INR) INR1. Prophylax is of venous thrombos is 2.0 - 3.0 (orthoped ic surgery), Proph ylaxis of venous throm bosis (other than hig h-risk surgery), Treat ment of Deep Vein Thrombosis/Pulm onary Embolism, Preve ntion of systemic emb olism - Tissue heart va lves, Acute Myocardia l Infarction (to prevent systemic emboli sm), Valvular heart disease, Atrial Fibrillation, Bileaflet mecha nical valve in aortic position.2. Mec hanical prosthetic valv es (high risk), 2. 5 - 3.5 Presence of Lup us Anticoagulant o r Antiphospholipi d Antibodies, Pre vention of systemic emb olism - Acute Myocardia l Infarction (to prevent recurrent infar ct). CBC W/AUTO [id number] 12:26:00 Test Item Value Reference Range Interpretation [...] NO = MDIFF) - XR CHEST 2 [id number] 00:00:00 [facility] : 1945 Sex: F FAX: Joaquim Sainz MD [phone] [place]: St: PRE Name: MIKAEL PAUL [facility] : 1945 Age/S: 76/F [address] [place] [address] Unit #: [id number] Loc: [place] [address] Phys: Joaquim Chavez MD Acct: [id number] Dis Date: Status: PRE [facility] PHONE #: [phone] Exam Date: 12/13/2021 1336 FAX #: Reason: PREOP EXAMS: CPT CODE: [id number] XR CHEST 2 V 37685 PROCEDURE INFORMATION: Exam: XR Chest Exam date [...] aorta. Bones/joints: No gross acute findings. IMPRESSION: Small layering right pleural effusion with underlying airspace disease. at 1423 Reported and signed by: Jens Maxwell D.O. CC: Joaquim Chavez MD Technologist: Marah Barrera RT(R) Trnsdgiorgio Date/Time/By: 12/13/2021 (7261) : By: [email or web address] Orig Print D/T: S: 12/13/2021 (5347) PAGE 1 Signed ReportGLUCOSE BEDSIDE 2021-10-25 09:11:00 Test Item Value Reference Range Interpretation Comments GLUCOSE BEDSIDE (test 183 MG/DL 70-110 H Perfor med by certified code = GLUBED) spike 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 [facility] COMPREHENSIVE METABOLIC [id number] 04:34:00 Test Item Value Reference Range Interpretation [...] TOTAL (test code = ALKP) CBC W/AUTO [id number] 04:17:00 Test Item Value Reference Range Interpretation [...] REQUIRED (test code NO = MDIFF) GLUCOSE [id number] 00:10:00 Test Item Value Reference Range Interpretation Comments GLUCOSE BEDSIDE (test 313 MG/DL 70-110 H Perfor med by certified code = GLUBED) spike 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 [facility] GLUCOSE [id number] 18:05:00 Test Item Value Reference Range Interpretation Comments GLUCOSE BEDSIDE (test 207 MG/DL 70-110 H Perfor med by certified code = GLUBED) spike 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 [facility] GLUCOSE [id number] 12:42:00 Test Item Value Reference Range Interpretation Comments GLUCOSE BEDSIDE (test 158 MG/DL 70-110 H Perfor med by certified code = GLUBED) spike 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 [facility] [id number] 11:19:00 Test Item Value Reference Range Interpretation Comments ACT-ISTAT (test code 362 SEC 74-137 H Perform ed by certified = ACTI) spike 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 [facility] GLUCOSE [id number] 08:33:00 Test Item Value Reference Range Interpretation Comments GLUCOSE BEDSIDE (test 86 MG/DL 70-110 N Perfor med by certified code = GLUBED) spike 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 [facility] Novel Coronavirus 2019 [id number] 22:03:00 Test Item Value Reference Range Interpretation [...] for the identification of SARS-CoV-2 RNA usingthe Sevar Consult M2000 Sy stem under the FDA Emergen cy UseAuthorizatio n. The testing is perf ormed by personneljessica d in the procedures for the Fitzgerald M2000 molecular diagnostic SARS-CoV-2 assa y in vitro. B-TYPE NATRIURETIC [id number] 11:08:00 Test Item Value Reference Range Interpretation Comments B-TYPE NATRIURETIC PEPTIDE (test 260.0 PG/ML 0-100 H code = BNP) BASIC METABOLIC [id number] 10:45:00 Test Item Value Reference Range Interpretation [...] code = 9.9 mg/dL 8.0-10.5 N CA) [id number] 10:45:00 Test Item Value Reference Range Interpretation Comments ALBUMIN (test code = ALB) 3.70 g/dL 3.4-5.0 N PROTHROMBIN [id number] 10:37:00 Test Item Value Reference Range Interpretation Comments PROTHROMBIN TIME 11.8 SECONDS 9.3-12.9 N PATIENT (test code = PTP) INTERNATIONAL NORMAL 1.1 0.8-1.2 N TARGET INR BY RATIO (test code = INDICATIO N Indication INR) INR1. Prophylax is of venous thrombos is 2.0 - 3.0 (orthoped ic surgery), Proph ylaxis of venous throm bosis (other than hig h-risk surgery), Treat ment of Deep Vein Thrombosis/Pulm onary Embolism, Preve ntion of systemic emb olism - Tissue heart va lves, Acute Myocardia l Infarction (to prevent systemic emboli sm), Valvular heart disease, Atrial Fibrillation, Bileaflet mecha nical valve in aortic position.2. Mec hanical prosthetic valv es (high risk), 2. 5 - 3.5 Presence of Lup us Anticoagulant o r Antiphospholipi d Antibodies, Pre vention of systemic emb olism - Acute Myocardia l Infarction (to prevent recurrent infar ct). CBC W/AUTO [id number] 10:29:00 Test Item Value Reference Range Interpretation [...] NO = MDIFF) - XR CHEST 2 [id number] 00:00:00 [facility] 1945 Sex: F FAX: Joaquim Sainz MD [phone] [place]: AUNDREA St: PRE Name: MIKAEL PAUL [facility] : 1945 Age/S: 75/F [address] [place] [address] Bl Unit #: [id number] Loc: [place] [address] Phys: Joaquim Chavez MD Acct: [id number] Dis Date: Status: PRE SDC PHONE #: [phone] Exam Date: 10/08/2021 1027 FAX #: Reason: PREOP EXAMS: CPT CODE: [id number] XR CHEST 2 V 00484 PROCEDURE INFORMATION: Exam:XR Chest Exam date and time: 10/08/2021 10:12 AM Age: 75 years old Clinical indication: Pre-operative exam; Cardiovascular screening and respiratory screening exam; Additional info: Preop TECHNIQUE: Colette ging protocol: XR of the chest. Views: 2 views. PA and Lateral COMPARISON: CT HEART W CN ART/GRAFTS 09/13/2021 11:16 AM FINDINGS: Lungs: Right base atelectasis/infiltrate is unchanged. No focal opacitywithin left lung. Pleural spaces: Small right pleural effusion is unchanged. No left pleural fluid. H eart/Mediastinum: The heart size is normal. Vasculature: Aortic arch calcifications are present. Bones/joints: No acute abnormality. IMPRESSION: 1. Stable small right pleural effusion and right base atelectasis/infiltrate. 2. No new finding. at 1340 Reported and signed by: Anival Stewart M.D. CC: Joaquim Chavez MD Technologist: RT Mildred(R) Trnscrd Date/Time/By: 10/08/2021 (1340) : By: [email or web address] Orig Print D/T: S: 10/08/2021 (4470) PAGE 1 Signed ReportCOVID 19 Asymptomatic IH [id number] 12:58:00 Test Item Value Reference Range Interpretation [...] or waivedcomplexit y tests. CREATININE W ESTIMATED [id number] 11:18:00 Test Item Value Reference Range Interpretation Comments BEDSIDE CREATININE 0.9 MG/DL 0.6-1.3 N Performed by certified (test code = spike 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 [facility] GLOMERULAR FILTRATION 65 ML/MIN Perfor med by certified RATE POC (test code = operat or at [place] GFRBED) Med CtrPrevious ly reported result : 65 ML/MINEdited by : INFCE on 09/13/21:956896 1118: GFRBED pr eviously reported as: 65 ML/MIN - CT ANGIO [id number] 00:00:00 [facility] 1945 Sex: F Name: MIKAEL PAUL [facility] : 1945 Age/S: 75 / F [address] [place] [address] Unit #: [id number] Loc: [place] [address] Phys: Brina Corrigan YEAST TENDER Acct: [id number] Dis Date: Status: REG CLI PHONE #: [phone] Exam Date: 09/13/2021 1138 FAX #: [phone] Reason: AORTIC VALVE STENOSIS EXAMS: CPT CODE: [id number] CT ANGIO CHEST 03690 PROCEDURE INFORMATION: Exam: CTA Chest With Contrast Exam date and time: 09/13/2021 11:16 AM Age: 75 years old Clinical indication: Pain; Other: * chest pain, shortness of breath TECHNIQUE: Imaging protocol: Computed tomographic angiography of the chest withcontrast. 3D rendering (Not supervised by radiologist): MIP and/or 3D reconstructed images were created by the technologist. Radiation optimization: All CT scans at this facility use at least one of these dose optimization techniques: automated exposure control; mA and/or kV adjustment per patient size (includes targeted exams where dose is matched to clinical indication); or iterative reconstruction . Contrast material: ISO; Contrast volume: 100 ml; Contrast route: INTRAVENOUS (IV); CT Radiation Dose: DLP = 1626.4 mGy-cm COMPARISON: CR XR CHEST 1V 01/12/2015 5:59 AM FINDINGS: Pulmonary arteries: Mild cardiomegaly with ectatic pulmonary arteries. Aorta: Moderate aortic root calcification with mild-to- moderate thoracic aortic calcifications is seen. Lungs: Mild bilateral pulmonary emphysema with mild atelectatic changes in the middle lobe and the right lower lobe. Minimal atelectatic changes in the left lower lobe. Pleural spaces: Creb-zf-dyjfmtaz layering right pleural effusion. Heart: There is a therosclerotic calcification of the coronary arteries. Mild mitral annular calcification is seen. Lymph nodes: Small mediastinal nodes. Bones/joints: Age related degenerative changes. No acute fracture. Soft tissues: Unremarkable. IMPRESSION: 1. Mild cardiomegaly with pulmonary hypertension. 2. Coronary artery disease. 3. Moderate aortic root calcification with mzmf-ho-lebginze thoracic aortic. 4. Yxqs-eq-ovvjgmzs layering right pleural effusion. PROCEDURE INFORMATION: Exam: CTA Heart and Coronary Arteries; TAVR Planning Exam date and time: 09/13/2021 11:16 AM Age: 75 years old PAGE 1 Signed Report (CONTINUED) Name: MIKAEL PAUL [facility] : 1945 Age/S: 75/ F [address] [place] [address] Unit #: [id number] Loc: [place] [address] Phys: Brina Corrigan [facility] Acct: [id number] Dis Date: Status: REG CLI PHONE #: [phone] Exam Date: 09/13/20211137 FAX #: [phone] Reason: AORTIC VALVE STENOSIS EXAMS: CPT CODE: [id number] CT ANGIO CHEST 16132 (Continued) Clinical indication: Pain; Other: * TECHNIQUE: Imaging [...] is matched to clinical indication); or iterative reconstructio n. Contrast material: ISO; Contrast volume: 100 ml; Contrast route: INTRAVENOUS (IV); Pharmacological intervention: None. Other technique: 3D renderinD reconstructed images were created, reviewed and saved. COMPARISON: CR XR CHEST 1V 01/12/2015 5:59 AM FINDINGS: Estimated root/annulus diameters are as follows: Aortic annulus diameter: 2.5 cm Sinus of Valsalva diameter: 3.7 cm Sinotubular junctiondiameter: 3 cm Right cusp height (to RCA takeoff): 1.8 cm Left cusp height (to Left main takeoff): 1.5 cm Estimated aortic diameters are as follows: Mid ascending aorta: 3.4 cm Mid transverse arch: 2.7cm Descending thoracic aorta at the level of the pulmonary arteries: 2.7 cm IMPRESSION: Aortic root m easurements as above. PROCEDURE INFORMATION: Exam: CTA Abdomen and Pelvis With Contrast PAGE 2 Signed Report (CONTINUED) Name: MIKAEL PAUL [facility] Pollock : 1945 Age/S: 75 / F [address] [place] [address] Blvd Unit #: [id number] Loc: [place] [address] Phys: Brina Corrigan [employer] Acct: [id number] Dis Date: Status: REG CLI PHONE #: [phone] Exam Date: 09/13/2021 1133 FAX#: [phone] Reason: AORTIC VALVE STENOSIS EXAMS: CPT CODE: [id number] CT ANGIO CHEST 42697 (Continued) Exam date and time: 09/13/2021 11:16 AM Age: 75 years old Clinical indication: Pain; Other: *TECHNIQUE: Imaging protocol: Computed tomographic angiography of the [...] 100 ml; Contrast route: INTRAVENOUS (IV); COMPARISON: CRXR CHEST 1V 01/12/2015 5:59 AM FINDINGS: Estimated [...] abdominal aorta is seen measuring 3.2 cm. Jgwq-hg-trvxiydv atherosclerotic calci fications are seen involving the major pelvic arteries. There appears to be moderate atheroscleroticnarrowing at the origin of the left common iliac artery and nokw-mv-xhugxbkn atherosclerotic narrowing at the origin of the right common iliac artery. No vascular occlusion is seen. Celiac trunk and mesenteric arteries: No occlusion or significant stenosis. Renal arteries: No occlusion. Mild right andmoderate left atherosclerotic changes. Liver: Slightly irregular liver margin is seen, no discrete mass. Gallbladder and bile ducts: Prior cholecystectomy. Pancreas: No mass. Spleen: Unremarkable. Adrenal glands: Moderate thickening of bilateral adrenal glands. Kidneys and ureters: Unremarkable. Stomach and bowel: No obstruction. Appendix: No evidence of appendicitis. PAGE 3 Signed Report (CONTINUED)Name: MIKAEL PAUL [facility] Atul Carrillo : 1945 Age/S: 75 / F [address] [place] [address] Blvd Unit #: [id number] Loc: [place] [address] Phys: Brina Corrigan Acct: [id number] Dis Date: Status: REG CLI PHONE #: [phone] Exam Date: 09/13/2021 1138 FAX #: [phone] Reason: AORTIC VALVE STENOSIS EXAMS: CPT CODE: [id number] CT ANGIO CHEST 82148 (Continued) Intraperitoneal space: Trace pelvic free fluid from [...] abdominal aorta is seen measuring 3.2 cm. Ikvs-ps-sfgibral atherosclerotic calcifications are seen involving the major pelvic arteries without occlusion. There appears to be moderate atherosclerotic narrowing at the origin of the left common iliac artery and oftm-ou-ueedylgf atherosclerotic narrowing at the origin of the right common iliac artery. No vascular occlusion is seen. 2. Slightly irregular liver margin is seen, which may represent early cirrhosis. 3. Moderate thickening of bilateral adrenal glands, suggestive of adrenal hyperplasia. 4. Trace pelvic free fluidfrom unknown etiology. at 1533 Reported and signed by: Jens Maxwell D.O. CC: Brina Corrigan Technologist:Willy Perrin RT(R)(CT) CTDI: DLP: Trnscb Date/Time: 09/13/2021 (1533) [email or web address] Orig Print D/T: S: 09/13/2021 (1534) PAGE 4 Signed Report- CTA ABD PEL W [id number] 00:00:00 [facility] ATUL CARRILLOName: MIKAEL PAUL : 1945 Sex: F Name: MIKAEL PAUL [facility] Atul Carrillo : 1945 Age/S: 75 / F [address] [place] [address] Blvd Unit #: [id number] Loc: [place] [address] Phys: MaxwellnajmasergioBrina [employer] Acct: [id number] Dis Date: Status: REG CLI PHONE #: [phone] Exam Date: 09/13/2021 1138 FAX #: [phone] Reason: AORTIC VALVE STENOSIS EXAMS: CPT CODE: [id number] CTA ABD PEL W CONT 68342 PROCEDURE INFORMATION: Exam: CTA Chest With Contrast [...] at this facility use at least one ofthese dose optimization techniques: automated exposure control; mA and/or kV adjustment per patient size (includes targeted exams where dose is matched to clinical indication); or iterative reconstructi on. Contrast material: ISO; Contrast volume: 100 ml; Contrast route: INTRAVENOUS (IV); CT RadiationDose: DLP = 1626.4 mGy-cm COMPARISON: CR XR CHEST 1V 01/12/2015 5:59 AM FINDINGS: Pulmonary arteries:Mild cardiomegaly with ectatic pulmonary arteries. Aorta: Moderate aortic root calcification with mil a-fx-bvsyvatj thoracic aortic calcifications is seen. Lungs: Mild bilateral pulmonary emphysema withmild atelectatic changes in the middle lobe and the right lower lobe. Minimal atelectatic changes inthe left lower lobe. Pleural spaces: Xlmj-oo-glszdeyc layering right pleural effusion. Heart: There is atherosclerotic calcification of the coronary arteries. Mild mitral annular calcification is seen.Lymph nodes: Small mediastinal nodes. Bones/joints: Age related degenerative changes. No acute fracture. Soft tissues: Unremarkable. IMPRESSION: 1. Mild cardiomegaly with pulmonary hypertension. 2. Coronary artery disease. 3. Moderate aortic root calcification with vmpj-ns-reafzuyl thoracic aortic. 4.Mnsz-jj-xtsffkbs layering right pleural effusion. PROCEDURE INFORMATION: Exam: CTA Heart and Coronary Arteries; TAVR Planning Exam date and time: 09/13/2021 11:16 AM Age: 75 years old PAGE 1 Signed Report (CONTINUED) Name: MIKAEL PAUL [facility] : 1945 Age/S: 75 / F [address] [place] [address] Blvd Unit #: [id number] Loc: [place] [address] Phys: Brina Corrigan [facility] Acct: [id number] Dis Date: Status: REG CLI PHONE #: [phone] Exam Date: 09/13/2021 1138 FAX #: [phone] Reason: AORTIC VALVE STENOSIS EXAMS: CPT CODE: [id number] CTA ABD PEL W CONT 97726 (Continued) Clinical indication: Pain; Other: * TECHNIQUE: Imaging [...] automated exposure control; mA and/or kV adjustment perpatient size (includes targeted exams where dose is matched to clinical indication); or iterative rec onstruction. Contrast material: ISO; Contrast volume: 100 ml; Contrast route: INTRAVENOUS (IV); Pharmacological intervention: None. Other technique: 3D renderinD reconstructed images were created, reviewed and saved. COMPARISON: CR XR CHEST V 01/12/2015 5:59 AM FINDINGS: Estimated root/annulus diameters [...] PAGE 2 Signed Report (CONTINUED) Name: MIKAEL PAUL [facility] : 1945 Age/S: 75 / F [address] [place] [address] Blvd Unit #: [id number] Loc: [place] [address] Phys: Brina Corrigan [employer] Acct: [id number] Dis Date: Status: REG CLI PHONE #: [phone] Exam Date: 09/13/2021 1132 FAX #: [phone] Reason: AORTIC VALVE STENOSIS EXAMS: CPT CODE: [id number] CTA ABD [facility] [address] (Continued) Exam date and time: 09/13/2021 11:16 AM Age: 75 years old Clinical indication: Pain; Other: * TECHNIQUE: Imaging protocol: Computed tomographic angiography of the abdomen and pelvis with contrast material. 3D rendering (Not supervised by radiologist): MIP and/or 3D reconstructedimages were created by the technologist. Radiation optimization: All CT scans at this facility use at least one of these dose optimization techniques: automated exposure control; mA and/or kV adjustment per patient size (includes targeted exams where dose is matched to clinical indication); or iterative reconstruction. Contrast material: ISO; Contrast volume: 100 ml; Contrast route: INTRAVENOUS (IV);COMPARISON: CR XR CHEST 1V 01/12/2015 5:59 AM FINDINGS: Estimated aortoiliac/iliofemoral arterial diameters are as follows: Abdominal aorta just below the renal arteries: 2.2 cm Distal abdominal aortaat iliac bifurcation: 2.5 cm Right common iliac artery: 1.6 cm Left common iliac artery: 1.3 cm Right common femoral artery: 0.8 cm Left common femoral artery: 1 cm There is atherosclerotic calcification of the aorta. Aneurysmal infrarenal abdominal aorta is seen measuring 3.2 cm. Utvl-vb-rfjbeofy atherosclerotic calcifications are seen involving the major pelvic arteries. There appears to be moderate atherosclerotic narrowing at the origin of the left common iliac artery and akmx-wq-ldulmtqa atherosclerotic narrowing at the origin of the [...] PAGE 3 Signed Report (CONTINUED) Name: MIKAEL PAUL [facility] : 1945 Age/S: 75 / F [address] [place] [address] Unit #: [id number] Loc: [place] [address] Phys: Brina Corrigan [facility] Acct: [id number] Dis Date: Status: REG CLI PHONE #: [phone] Exam Date: 09/13/2021 113 FAX #: [phone] Reason: AORTIC VALVE STENOSIS EXAMS: CPT CODE: [id number] CTA ABD PEL W CONT 57304 (Continued) Intraperitoneal space: Trace pelvic free fluid from unknown etiology. Lymph nodes: No enlarged lymph nodes. Urinary bladder: Bladder is not well distended limiting its evaluation. Reproductive: Prior hysterectomy. Bones/joints: Age related degenerative changes. No acute fracture. Mild anterolisthesis at L5-S1 with bilateral pars defect. Soft tissues: Upper anterior abdominal wall prior hernia mesh repair changes. Mildbody wall edema. IMPRESSION: 1. Aneurysmal infrarenal abdominal aorta is seen measuring 3.2 cm. Gjok-rj-moexzfib atherosclerotic calcifications are seen involving the major pelvic arteries without occlusion. There appears to be moderate atherosclerotic narrowing at the origin of the left common iliac artery and hfpr-of-wzwpmkzn atherosclerotic narrowing at the origin of the right common iliac artery.No vascular occlusion is seen. 2. Slightly irregular liver margin is seen, which may represent early cirrhosis. 3. Moderate thickening of bilateral adrenal glands, suggestive of adrenal hyperplasia. 4. Trace pelvic free fluid from unknown etiology. at 1533 Reported and signed by: Jens Maxwell D.O. CC: Brina Corrigan Technologist:Willy Perrin, RT(R)(CT) CTDI: DLP: Trnscb Date/Time: 09/13/2021 (1532) [email or web address] Orig Print D/T: S: 09/13/2021 (7085) PAGE 4 Signed Report- CTA HEART W CN [id number] 00:00:00 [facility] 1945 Sex: F Name: MIKAEL PAUL [facility] : 1945 Age/S: 75 / F [address] [place] [address] Blvd Unit #: [id number] Loc: [place] [address] Phys: Brina Corrigan Acct: [id number] Dis Date: Status: REG CLI PHONE #: [phone] Exam Date: 09/13/2021 1138 FAX #: [phone] Reason: EXAMS: CPT CODE: [id number] CTA HEART W CN ART/GRAFTS 19649 PROCEDURE INFORMATION: Exam: CTA Chest With Contrast Exam date and time: 09/13/2021 11:16 AM Age: 75 years old Clinical indication: Pain; Other: * chest pain, shortnessof breath TECHNIQUE: Imaging protocol: Computed tomographic angiography of the chest with contrast. 3D rendering (Not supervised by radiologist): MIP and/or 3D reconstructed images were created by the technologist. Radiation optimization: All CT scans at this facility use at least one of these dose optimization techniques: automated exposure control; mA and/or kV adjustment per patient size (includestargeted exams where dose is matched to clinical indication); or iterative reconstruction. Contrast material: ISO; Contrast volume: 100 ml; Contrast route: INTRAVENOUS (IV); CT Radiation Dose: DLP = 1626.4 mGy-cm COMPARISON: CR XR CHEST 1V 01/12/2015 5:59 AM FINDINGS: Pulmonary arteries: Mild cardiomegaly with ectatic pulmonary arteries. Aorta: Moderate aortic root calcification with hjyv-tv-xyelwctgwlegvpkx aortic calcifications is seen. Lungs: Mild bilateral pulmonary emphysema with mild atelectatic changes in the middle lobe and the right lower lobe. Minimal atelectatic changes in the left lower lobe. Pleural spaces: Ksjw-tv-jmvjherb layering right pleural effusion. Heart: There is atherosclerotic calcification of the coronary arteries. Mild mitral annular calcification is seen. Lymph nodes: Small mediastinal nodes. Bones/joints: Age related degenerative changes. No acute fracture. Soft tissues: Unremarkable. IMPRESSION: 1. Mild cardiomegaly with pulmonary hypertension. 2. Coronary artery disease. 3. Moderate aortic root calcification with lsqa-ov-zhgjdxte thoracic aortic. 4. Yikj-ez-yuagfzhb layering right pleural effusion. PROCEDURE INFORMATION: Exam: CTA Heartand Coronary Arteries; TAVR Planning Exam date and time: 09/13/2021 11:16 AM Age: 75 years old PAGE 1 Signed Report (CONTINUED) Name: MIKAEL PAUL [facility] : 1945 Age/S: 75 / F [address] [place] [address] Unit #: [id number] Loc: [place] [address] Phys: Brina Corrigan YE[employer]ER Acct: [id number] Dis Date: Status: REG CLI PHONE #: [phone] Exam Date: 09/13/2021 1138 FAX #: [phone] Reason: EXAMS: CPT CODE: [id number] CTA HEART W CN ART/GRAFTS 87919 (Continued) Clinical indication: Pain; Other: * TECHNIQUE: Imaging [...] 3.7 cm Sinotubular junction diameter: 3 cm Rightcusp height (to RCA takeoff): 1.8 cm Left cusp height (to Left main takeoff): 1.5 cm Estimated aortic diameters are as follows: Mid ascending aorta: 3.4 cm Mid transverse arch: 2.7 cm Descending thoracic aorta at the level of the pulmonary arteries: 2.7 cm IMPRESSION: Aortic root measurements as above. PROCEDURE INFORMATION: Exam: CTA Abdomen and Pelvis With Contrast PAGE 2 Signed Report (CONTINUED) Name: MIKAEL PAUL [facility] Poll[place] : 1945 Age/S: 75 / F [address] [place] [address] Unit #: [id number] Loc: [facility] [place] [address] Phys: Brina Corrigan Acct: [id number] Dis Date: Status: JUAN CLCam PHONE #: [phone] Exam Date: 09/13/2021 1138 FAX #: [phone] Reason: EXAMS: CPT CODE: [id number] CTA HEART W CN ART/GRAFTS 71041 (Continued) Exam date and time: 09/13/2021 11:16 AM [...] abdominal aorta is seen measuring 3.2 cm. Mmua-sz-nufxmbvi atherosclerotic calcifications are seen involving the major pelvic arteries. There appears to be moderate atherosclerotic narrowing at the origin of the left common iliac artery and iaat-ja-ycnrdmqx atherosclerotic narrowing at the origin of the right common iliac artery. No vascular occlusion is seen. Celiac trunk and mesenteric arteries: No occlusion or significant stenosis. Renal arteries: No occlusion. Mild right and moderate left atherosclerotic changes. Liver: Slightly irregular liver margin is seen, no discrete mass. Gallbladder and bile ducts:Prior cholecystectomy. Pancreas: No mass. Spleen: Unremarkable. Adrenal glands: Moderate thickeningof bilateral adrenal glands. Kidneys and ureters: Unremarkable. Stomach and bowel: No obstruction. Appendix: No evidence of appendicitis. PAGE 3 Signed Report (CONTINUED) Name: MIKAEL PAUL [facility] Poll[place] : 1945 Age/S: 75 / F [address] [place] [address] Unit #: [id number] Loc: [place] [address] Phys: PreethisergioBrina PETERS Acct: [id number] Dis Date: Status: REG CLI PHONE #: [phone] Exam Date: 09/13/2021 113 FAX #: [phone] Reason: EXAMS: CPT CODE: [id number] CTA HEART W CN [id number] (Continued) Intraperitoneal space: Trace pelvic free fluid from unknown etiology. Lymph nodes:No enlarged lymph nodes. Urinary bladder: Bladder is not well distended limiting its evaluation. Reproductive: Prior hysterectomy. Bones/joints: Age related degenerative changes. No acute fracture. Mild anterolisthesis at L5-S1 with bilateral pars defect. Soft tissues: Upper anterior abdominal wall prior hernia mesh repair changes. Mild body wall edema. IMPRESSION: 1. Aneurysmal infrarenal abdominalaorta is seen measuring 3.2 cm. Mwco-rw-qfdmlggi atherosclerotic calcifications are seen involving the major pelvic arteries without occlusion. There appears to be moderate atherosclerotic narrowing atthe origin of the left common iliac artery and nbuw-wz-hncbtrxd atherosclerotic narrowing at the origin of the [...] Hiram(R)(CT) CTDI: DLP: Trnscb Date/Time: 09/13/2021 (1533) [email or web address] Orig Print D/T: S: 09/13/2021 (8934) PAGE 4 Signed Report
--- NOTE | 2022-11-20 15:17 | ER ---
Nurse's Notes [facility] Name: Marcie Paul Age: 77 yrs Sex: Female : 1945 Arrival Date: 11/20/2022 Time: 14:06 Bed 13 Private MD: Diagnosis: Oblique Femur fracture - left;Fall (on) (from) other stairs and steps Presentation: 11/20 14:10 Chief complaint: EMS states: toned out for fall at home, pt denies hitting head or LOC, eh3 landed on L knee and c/o pain in L knee. Coronavirus screen: Vaccine status: Patient reports receiving the 2nd dose of the covid vaccine. Ebola Screen: No symptoms or risks identified at this time. Initial Sepsis Screen: Does the patient meet any 2 criteria? No. Patient's initial sepsis screen is negative. Does the patient have a suspected source of infection? No. Patient's initial sepsis screen is negative. Risk Assessment: Do you want to hurt yourself or someone else? Patient reports no desire to harm self or others. Onset of symptoms was November 20, 2022. 14:10 Method Of Arrival: EMS: [facility] 3 14:10 Acuity: JOAQUINA 2 3 14:10 Care prior to arrival: Medication(s) given: Normal saline infusion, 500 mL, 100 mcg eh3 Fentanyl. Triage Assessment: 14:10 General: Appears distressed, uncomfortable, Behavior is cooperative, appropriate for 3 age. Pain: Complains of pain in left knee Pain does not radiate. Pain currently is 10 out of 10 on a pain scale. Quality of pain is described as sharp, Pain began 1 hour ago. Is continuous, Alleviated by nothing. Aggravated by repositioning, Noted to be resistant to movement. EENT: No signs and/or symptoms were reported regarding the EENT system. Neuro: Level of Consciousness is awake, alert, obeys commands, Oriented to person, place, time, situation. Cardiovascular: Capillary refill < 3 seconds Patient's skin is warm and dry. Respiratory: Airway is patent Respiratory effort is even, unlabored, Respiratory pattern is regular, symmetrical. GI: No signs and/or symptoms were reported involving the gastrointestinal system. Abdomen is round. : No signs and/or symptoms were reported regarding the genitourinary system. Derm: Wound noted small scrape on left knee. Musculoskeletal: Circulation, motion, and sensation intact. Range of motion: limited in left knee. Historical: - Allergies: 14:25 Tape; eh3 14:25 Xarelto; eh3 - Home Meds: 14:25 Advair Diskus 250-50 mcg/dose Inhl dsdv [Active]; [place] Thyroid 120 mg Oral tab 3 tabs eh3 in the morning [Active]; aspirin 325 mg Oral tab [Active]; atorvastatin 20 mg Oral tab [Active]; Betamethasone Valerate Topical [Active]; Flonase Nasal for seasonal allergies [Active]; Glipizide Oral 5mg in the morning and at night [Active]; hydrochlorothiazide 12.5 mg Oral cap 1 cap once daily [Active]; lisinopril 5 mg Oral tab once daily [Active]; metformin take 500mg 2 tabs morning and 500mg 3 tabs at night Oral tab [Active]; metoprolol 50mg BID [Active]; metoprolol tartrate 25 mg Oral tab 1 tab 2 times per day [Active]; montelukast 10 mg Oral tab 1 tab once daily [Active]; pantoprazole 40 mg Oral TbEC 1 tab once daily [Active]; Plavix 75 mg Oral tab 1 tab once daily [Active]; Spiriva with HandiHaler 18 mcg inhalation CpDv [Active]; Ventolin Nebulizer [Active]; - PMHx: 14:25 Atrial Fib; COPD; Diabetes - NIDDM; Hyperlipidemia; Hypertension; Hypothyroidism; eh3 Myocardial infarction; - Immunization history:: Adult Immunizations up to date. - Social history:: Smoking status: Patient/guardian denies using tobacco. Screenin:10 [facility] ED Fall Risk Assessment (Adult) History of falling in the last 3 months, eh3 including since admission Yes- single mechanical fall (1 pt) Confusion or Disorientation No (0 pts) Intoxicated or Sedated No (0 pts) Impaired Gait Yes (1 pt) Mobility Assist Device Used No (0 pt) Altered Elimination No (0 pt) Score/Fall Risk Level 0 - 2 = Low Risk Oriented to surroundings, Maintained a safe environment, Educated pt \T\ family on fall prevention, incl call for assistance when getting out of bed, Assessed \T\ reinforced patient's understanding of fall precautions, Hourly rounding (assess needs \T\ fall precautionary measures) done. Abuse screen: Denies threats or abuse. Denies injuries from another. Nutritional screening: No deficits noted. Tuberculosis screening: No symptoms or risk factors identified. Assessment: 14:10 Reassessment: No changes from previously documented assessment. See triage assessment. 3 Vital Signs: 14:10 BP 100 / 74; Pulse 83; Resp 31; Pulse Ox 79% on 4 lpm NC; Weight 70.31 kg; Height 5 ft. eh3 8 in. (172.72 cm); Pain 10/10; 14:59 BP 167 / 73; Pulse 87; Pulse Ox 90% on 4 lpm NC; kb 14:10 Body Mass Index 23.57 (70.31 kg, 172.72 cm) 3 Vitals: 14:10 Cardiac Rhythm Assessment Irregular. 3 ED Course: 14:06 Patient arrived in ED. kj1 14:08 [facility]C [facility] kb 14:08 Eze Guardado MD is Attending Physician. kb 14:10 Arm band placed on. 3 14:10 Patient has correct armband on for positive identification. Client placed on continuous 3 cardiac and pulse oximetry monitoring. NIBP monitoring applied. Door closed. Noise minimized. 14:10 Maintain EMS IV. Dressing intact. Good blood return noted. Site clean \T\ dry. Gauge \T\ 3 site: 20g LAC. 14:21 Mylene Arzola, RN is Primary Nurse. 3 14:25 Triage completed. eh3 15:24 Femur Left XRAY In Process Unspecified. EDMS 15:24 Tib Fib Left XRAY In Process Unspecified. EDMS Administered Medications: 14:59 Not Given (Physician Discretion): fentaNYL (PF) 25 mcg IVP once kb Outcome: 15:16 ER care complete, transfer ordered by . kb 16:28 Patient left the ED. mm9 Signatures: Dispatcher [employer] EDMS Sandra Her FNP-C FNP-Ckb [place], Kandis kj1 Mylene Arzola, RN RN 3 Ashley Martinez mm9
--- NOTE | 2022-11-20 15:17 | EDPHYS ---
Physician Documentation [facility] Name: Marcie Paul Age: 77 yrs Sex: Female : 1945 Arrival Date: 11/20/2022 Time: 14:06 Bed 13 Private MD: ED Physician Eze Guardado HPI: 11/20 14:51 This 77 yrs old Female presents to ER via EMS with complaints of leg pain. kb 14:51 The patient presents with decreased range of motion, an injury, pain, swelling, kb tenderness. The complaints affect the left leg. Context: The problem was sustained at home, resulted from the patient falling, while walking, the patient is not able to bear weight, the patient is not able to ambulate, Problem is a result from a previous injury: No. Onset: The symptoms/episode began/occurred just prior to arrival. Modifying factors: The symptoms are alleviated by nothing. the symptoms are aggravated by movement. Associated signs and symptoms: Pertinent positives: swelling, Pertinent negatives calf tenderness, fever, nausea, numbness, rash, tingling, vomiting, warmth, weakness. Treatment prior to arrival includes: no previous treatment. Severity of symptoms: At their worst the symptoms were moderate, severe, in the emergency department the symptoms are unchanged. The patient has not experienced similar symptoms in the past. The patient has not recently seen a physician. Pt reports she was walking out of the kitchen and missed a step down causing her to fall to left knee. c/o pain to entire left leg, except hip, worse in the knee. Historical: - Allergies: 14:25 Tape; eh3 14:25 Xarelto; eh3 - Home Meds: 14:25 Advair Diskus 250-50 mcg/dose Inhl dsdv [Active]; [place] Thyroid 120 mg Oral tab 3 tabs eh3 in the morning [Active]; aspirin 325 mg Oral tab [Active]; atorvastatin 20 mg Oral tab [Active]; Betamethasone Valerate Topical [Active]; Flonase Nasal for seasonal allergies [Active]; Glipizide Oral 5mg in the morning and at night [Active]; hydrochlorothiazide 12.5 mg Oral cap 1 cap once daily [Active]; lisinopril 5 mg Oral tab once daily [Active]; metformin take 500mg 2 tabs morning and 500mg 3 tabs at night Oral tab [Active]; metoprolol 50mg BID [Active]; metoprolol tartrate 25 mg Oral tab 1 tab 2 times per day [Active]; montelukast 10 mg Oral tab 1 tab once daily [Active]; pantoprazole 40 mg Oral TbEC 1 tab once daily [Active]; Plavix 75 mg Oral tab 1 tab once daily [Active]; Spiriva with HandiHaler 18 mcg inhalation CpDv [Active]; Ventolin Nebulizer [Active]; - PMHx: 14:25 Atrial Fib; COPD; Diabetes - NIDDM; Hyperlipidemia; Hypertension; Hypothyroidism; eh3 Myocardial infarction; - Immunization history:: Adult Immunizations up to date. - Social history:: Smoking status: Patient/guardian denies using tobacco. ROS: 14:53 Constitutional: Negative for fever, chills, and weight loss. kb 14:53 MS/extremity: Positive for injury or acute deformity, decreased range of motion, pain, swelling, tenderness. 14:53 All other systems are negative. Exam: 14:53 Constitutional: This is a well developed, well nourished patient who is awake, alert, kb and in no acute distress. Head/Face: Normocephalic, atraumatic. ENT: Moist Mucous membranes Cardiovascular: Regular rate and rhythm with a normal S1 and S2. No gallops, murmurs, or rubs. No pulse deficits. Abdomen/GI: Soft, non-tender. No distention Skin: Warm, dry with normal turgor. Normal color. Neuro: Awake and alert, GCS 15, oriented to person, place, time, and situation. Moves all extremities. Normal gait. Psych: Awake, alert, with orientation to person, place and time. Behavior, mood, and affect are within normal limits. 14:53 Respiratory: the patient does not display signs of respiratory distress, Respirations: normal, Breath sounds: rhonchi, that are mild, are located in both bases. 14:53 Musculoskeletal/extremity: Extremities: grossly normal except: noted in the left knee: decreased ROM, pain, swelling, tenderness, ROM: limited active range of motion due to pain, in the left knee, Circulation is intact in all extremities. Sensation intact. Weight bearing: is unable to bear weight. Vital Signs: 14:10 BP 100 / 74; Pulse 83; Resp 31; Pulse Ox 79% on 4 lpm NC; Weight 70.31 kg; Height 5 ft. eh3 8 in. (172.72 cm); Pain 10/10; 14:59 BP 167 / 73; Pulse 87; Pulse Ox 90% on 4 lpm NC; kb 14:10 Body Mass Index 23.57 (70.31 kg, 172.72 cm) eh3 MDM: 14:09 Patient medically screened. kb 14:54 Data reviewed: vital signs, nurses notes. Data interpreted: Pulse oximetry: on 4L(s) kb per nasal canula, home o2 is 90 %. Interpretation: borderline. 14:59 Counseling: I had a detailed discussion with the patient and/or guardian regarding: the kb historical points, exam findings, and any diagnostic results supporting the discharge/admit diagnosis, radiology results, the need to transfer to another facility, [facility] does not immediately have the required specialist. ED course: Pt normally wears 2-3L O2 at home at all times which keeps O2 sat 93-94%. States she has had some bronchitis symptoms lately. Pt is 90-92% on 4L currently. Will give neb treatment and solumedrol. 15:15 ED course: Pt accepted to [place] without conference by Dr Servin. . kb 11/20 15:01 Order name: CBC with Diff; Complete Time: 16:20 kb 11/20 15:01 Order name: Basic Metabolic Panel kb 11/20 14:17 Order name: Femur Left XRAY; Complete Time: 15:51 kb 11/20 14:17 Order name: Tib Fib Left XRAY; Complete Time: 15:51 kb 11/20 15:01 Order name: IV Start; Complete Time: 19:42 kb Administered Medications: 14:59 Not Given (Physician Discretion): fentaNYL (PF) 25 mcg IVP once kb Disposition Summary: 11/20/22 15:16 Transfer Ordered Transfer Location: [facility] Reason: Higher level of care kb Condition: Stable kb Problem: new kb Symptoms: are unchanged kb Accepting Physician: Dr Servin(11/20/22 16:28) mm9 Diagnosis - Oblique Femur fracture - left kb - Fall (on) (from) other stairs and steps kb Forms: - Medication Reconciliation Form kb - SBAR form kb Signatures: Dispatcher [employer] EDMS Sandra Her, HOTEL ASSISTANT GENERAL MANAGER-C HOTEL ASSISTANT GENERAL MANAGER-CkMylene Alegre, TIARA RN eh3 Ashley Martinez mm9 Corrections: (The following items were deleted from the chart) 16:28 15:16 Dr Gareth leyva mm9
--- NOTE | 2022-11-20 15:30 | RAD REPORT ---
EXAM DESCRIPTION: RAD - Tib Fib Left - 11/20/2022 3:22 pm CLINICAL HISTORY: PAIN COMPARISON: No comparisons FINDINGS: Diffuse osteopenia is noted. No fracture is seen.
--- NOTE | 2022-11-20 15:30 | RAD REPORT ---
EXAM DESCRIPTION: RAD - Femur Left - 11/20/2022 3:22 pm CLINICAL HISTORY: PAIN COMPARISON: No comparisons FINDINGS: Oblique fracture is present involving the distal left femur. Mild displacement.
[2022-11-20] MEDS ORDERED: MORPHINE 4 MG/ML SYR ONE (15:45)
[2022-11-20] MEDS ORDERED: ONDANSETRON 4 MG/2 ML VIAL ONE (15:45)
[2022-11-20] MEDS ORDERED: ALBUTEROL 2.5 MG/3 ML NEB SOL ONE (15:45)
[2022-11-20] MEDS ORDERED: IPRATROPIUM BROM 0.5MG/2.5ML ONE (15:45)
[2022-11-20] MEDS ORDERED: METHYLPREDNISOLONE 125 MG INJ ONE (15:48)
[2022-11-20 16:13] LABS: Absolute Lymphocytes (CBC) 0.5 K/uL (0.7-4.9); Hematocrit 31.2 % (36.0-45.0); Lymphocytes % 7.2 % (15.3-44.8); MCV 87.1 fL (80-100); MPV 8.2 fL (7.6-11.3); RBC Red Blood Cell Count 3.57 M/uL (3.86-4.86)
[2022-11-20 16:30] LABS: Potassium 4.4 mmol/L (3.5-5.1)
[2022-11-20 16:33] VITALS: BP 167/73; O2SAT 90
== END 2022-11-20 16:28 | disposition short-term general hospital (02) ==
LOC: ER 14:04
DX: S72.8X2A Other fracture of left femur, initial encounter for closed fracture (principal); W10.9XXA Fall (on) (from) unspecified stairs and steps, initial encounter; I10 Essential (primary) hypertension; E11.9 Type 2 diabetes mellitus without complications; I48.91 Unspecified atrial fibrillation; Z88.8 Allergy status to other drugs, medicaments and biological substances; Z91.048 Other nonmedicinal substance allergy status; Z79.01 Long term (current) use of anticoagulants; Z79.82 Long term (current) use of aspirin
CPT/HCPCS: 85025; 80048; 36415; 73552; 73590; J7613; J7644; J2930; J2405; 99283

== ENCOUNTER 2023-06-01 10:05 | Inpatient (IN) | payer OTHER ==
--- OUTSIDE RECORDS SUMMARY | 2023-06-01 10:11 | XMS REPORT | Continuity of Care Document ---
:1945 Author Organization [facility] t Address [address] [facility]. [address] [place] [address] Care Team Providers Name Role Phone Trey Raman MD Primary Care Physician ESTEBAN SCRUGGS Attending Clinician Unavailable Kelsey Anderson Attending Clinician ESTEPHANIA SUE Attending Clinician Unavailable ALFREDO TORO Attending Clinician Unavailable Joaquim Chavez Attending Clinician Unavailable Jose Cruz Walsh Attending Clinician Unavailable Brina Corrigan Attending Clinician Unavailable JAYMIE HARVEY Attending Clinician Unavailable Madison Noble RN Attending Clinician Unavailable Eze Almanzar RN Attending Clinician Unavailable BRUNILDA KINGSTON Attending Clinician Unavailable Lab, Adc Fam Pob I Attending Clinician Unavailable Brunilda Clayton Attending Clinician ESTEPHANIA SUE Admitting Clinician Unavailable Physician, No Primary or Family Admitting Clinician UnavailTrey Monique Admitting Clinician Unavailable Joaquim Chavez Admitting Clinician Unavailable Jose Cruz Walsh Admitting Clinician Unavailable Payers Payer Name Policy Type Policy Number Effective Date Expiration Date S ource [employer] MEDICARE PPO [id number] 2021 00:00:00 [employer] MEDICARE ADV [id number] 2015 00:00:00 Problems This patient has no known problems. Allergies, Adverse Reactions, Alerts Allergy Allergy Status Severity Reaction(s) Onset Inactive Treating Comm ents Source Name Type Date Date Clinician Ryan Portilloi Active [place] ban ty to 12-05 Health adverse 00:00: reaction 00 s rivaroxa DA Active U ORGAN [facility] ban FAILURE/INTE 02-21 Graciela r RNAL 00:00: Matthews BLEEDING 00 [facility] No Known DA Active U 2020-11 [facility] Allergie 1-16 Clear s 00:00: Matthews 00 [facility] No Known DA Active U [facility] Allergie 2-13 Clear s 00:00: Matthews 00 [facility] NO KNOWN Drug Active Univers ALLERGIE Class ity of [facility] Social History Social Habit Start Date Stop Date Quantity Comments Source Exposure to SARS-CoV-2 2022-12-23 2023-01-02 Not sure [facility] (event) 00:00:00 11:20:00 Sex Assigned At [birth year] [facility] 00:00:00 00:00:00 Smoking Status Start Date Stop Date Source Tobacco smoking consumption unknown [facility] Medications Ordered Filled Start Stop Current Ordering Indication Dosage Frequency Signature Comments Components Source Medication Medication Date Date Medication? Clinician (SIG) Name Name yeni 2022- No [id number] 1{tbl} Q6H Take 1 UT en-codeine 12-05 tablet by Stephie [facility] (TYLENOL/CO 00:00: 05:59 mouth DEINE #3) 00 :00 every 6 300-30 MG (six) tablet hours if needed for severe pain for up to 10 days. Procedures Procedure Date / Time Performed Performing Clinician Steve hill [id number] 2021-12-15 00:00:00 IKE [facility] [id number] 2021-12-15 00:00:00 IKE [facility] [id number] 2021-12-15 00:00:00 IKE [facility] [id number] 2021-10[facility]12 [facility] Start End Encounter Admission Attending Care Care Encounter Source Date/Time Date/Time Type Type Clinicians Facility Department ID 2023-02-21 Outpatient [facility] [id number] [place] 14:06:[id number] [facility] 2022-12-21 Outpatient [facility] [id number] [place] 08:16:[id number] [facility] 2022-12-05 Outpatient [facility] [id number] [place] 11:06:[id number] [facility] 2022-12-04 Outpatient [facility] [id number] [place] 20:59:[id number] [facility] 2022-11-29 Outpatient [facility] [id number] [place] 10:32:10 [id number] Health 2023-02-27 2023-02-27 Outpatient STEVE [facility] [id number] [place] 10:30:00 10:30:00 ESTEBAN Health 2023-02-27 2023-02-27 Outpatient [facility] [id number] [place] 10:30:00 10:30:00 Health 2023-01-02 2023-01-02 Office Steve [facility] [id number] [place] 10:30:00 12:38:[address] 350.1.13.58 Health 9.2.7.2.686 [id number] 2023-01-02 2023-01-02 Outpatient [facility] [id number] [place] 10:30:00 10:30:00 Health 2022-12-05 2022-12-05 Office Roseanne, TIFFANIE 6414 [id number] [id number] [place] 10:30:00 11:54:[address] 350.1.13.58 Health 9.2.7.2.686 [id number] 1 2022-11-20 2022-11-25 Inpatient Mel SUE, [facility] MED 2359 [facility] 22:32:00 16:55:00 ESTEPHANIA 2022-11-22 2022-11-22 Outpatient CORTEZ, [facility] [id number] [place] 09:00:00 09:00:00 ALFREDO Health 2022-04-27 2022-04-27 Outpatient VLAD Chavez [facility] [id number] [facility] 05:08:00 05:08:00 Joaquim 99 [facility] 2022-04-27 2022-04-27 Outpatient VLAD Chavez [facility] [id number] [facility] 05:08:00 05:08:00 Joaquim [id number] [facility] 2022-02-23 2022-02-23 Inpatient VLAD Chavez, [facility] OUTD [id number] [facility] 05:22:00 05:22:00 Joaquim 18 [facility] 2021-12-15 2021-12-15 Inpatient VLAD Chavez, [facility] INTE.02 [id number] [facility] 13:49:00 17:00:00 Joaquim 97 [facility] 2021-10-12 2021-10-13 Inpatient VLAD Walsh, [facility] INTE [id number] [facility] 11:11:00 13:26:00 Linh 22 [facility] 2021-10-08 2021-10-08 Outpatient VLAD Walsh, MIKECL 3DAY [id number] [facility] 09:00:00 23:00:00 Linh 23 [facility] 2021-09-13 2021-09-13 Outpatient MIKE GrubbsCL [facility] [id number] [facility] 10:27:00 10:27:00 Brina 88 [facility] 2021-01-27 2021-01-27 [facility] [id number] Univers 14:30:00 14:30:00 [facility] 2021-01-06 2021-01-06 [facility] [id number] Univers 13:10:00 13:10:00 [facility] 2020-07-27 2020-07-27 Letter MEENAKSHI Noble [id number] 00:00:00 00:00:00 (Out) Madison HENDERSON 350.1.13.10 [facility] 4.2.7.2.686 [id number] 2020-07-27 2020-07-27 Letter MEENAKSHI Noble 1.2.840.114 [id number] [facility] 00:00:00 00:00:00 (Out) Madison HENDERSON 350.1.13.10 it y of HOSPITAL 4.2.7.2.686 Jameel as [id number] [address] 2020-07-26 2020-07-26 Telephone MEENAKSHI Almanzar 1.2.840.114 [id number] 00:00:00 00:00:00 Eze [facility]ERSON 350.1.13.10 HOSPITAL 4.2.7.2.686 [id number] 2020-07-26 2020-07-26 Telephone MEENAKSHI Almanzar 1.2.840.114 [id number] [facility] 00:00:00 00:00:00 Eze HENDERSON 350.1.13.10 it y of HOSPITAL 4.2.7.2.686 Jameel as [id number] [address] 2020-07-24 2020-07-24 Outpatient R ELIDA [facility] [id number] Univers 16:40:00 16:40:00 BRUNILDA crawley [facility] 2020-07-24 2020-07-24 Laboratory Lab, [facility] 1.2.840.114 [id number] 14:48:41 15:08:41 Only Fam Pob I Health 350.1.13.10 [place] 4.2.7.2.686 Professio [id number] [place] [id number] [address] 2020-07-24 2020-07-24 Laboratory Lab, [facility] Fam Pob I [facility] 1.2. 840.114 [id number] Univers 14:48:41 15:08:41 Only Brunilda [place] Tammie 350.1.13.10 ity of [place] 4.2.7.2.686 Jameel as Professio [id number] Oh dical nal [address] [place] [address] One Results Test Description Test Time Test Comments Results Result Comments Source Novel Coronavirus 2019 Inhouse 2022-04-23 02:30:00 Test Item Value Reference Range Interpretation Comme nts Novel Coronavirus 2018 Negative Negative Posit yolis results are indicative of the Inhouse (test code = presenc e nhPPZR-LiX-9 RNA, clinical COVNONPUI) correlation wit h patient [...] qualitative detection of nucleic acid s from vuvGPHC-KzT-1 virus and diagn osis of SARS-CoV-2 virusinfection. It is an Emergency Use Authorization ( EUA) testauthorized by the U.S. FDA. BASIC METABOLIC [id number] 15:17:00 Test Item Value Reference Range Interpretation [...] 10.2 mg/dL 8.0-10.5 N CA) CBC W/AUTO [id number] 15:14:00 Test Item Value Reference Range Interpretation [...] REQUIRED (test code NO = MDIFF) PROTHROMBIN [id number] 15:14:00 Test Item Value Reference Range Interpretation [...] Infarction (to prevent recurrent infar ct). 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 It is an Emergency Use Authorization ( EUA) testauthorized by the U.S. FDA. BASIC METABOLIC [id number] 14:18:00 Test Item Value Reference Range Interpretation [...] = 9.8 mg/dL 8.0-10.5 N CA) PROTHROMBIN [id number] 14:09:00 Test Item Value Reference Range Interpretation [...] (to prevent recurrent infar ct). 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 [facility] [id number] 10:33:00 Test Item Value Reference Range Interpretation Comments ACT-ISTAT (test code 374 SEC 74-137 H Perform ed by certified = ACTI) 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 [facility] GLUCOSE [id number] 09:14:00 Test Item Value Reference Range Interpretation Comments GLUCOSE BEDSIDE (test 71 MG/DL 70-110 N Perfor med by certified code = GLUBED) 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 - XR CHEST 1 [id number] 00:00:00 [facility] 1945 Sex: F FAX: Joaquim Sainz MD [phone] [place]: St: ADM Name: MRACIE PAUL [facility] : 1945 Age/S:76/F [address] [place] [address] Unit #: [id number] Loc: [place] [address] Phys: Joaquim Chavez MD Acct: [id number] Dis Date: Status: ADM IN PHONE #: [phone] Exam Date: 12/15/2021 1238 FAX #: [phone] Reason: S/P WATCHMAN EXAMS: CPT CODE: [id number] XR CHEST 1 V 04186 PROCEDURE INFORMATION: Exam: XR Chest Exam date [...] and effusion. 2. Mild congestive change. at 2052 Reported and signed by: Richmond Duggan M.D. CC: Joaquim Chavez MD Technologist: Denise Santana RT(R) Trnscrd Date/Time/By: 12/15/2021 (9168) : By: [email or web address] Orig Print D/T: S: 12/15/2021 (0840) PAGE 1 Signed ReportNovel Coronavirus 2019 [id number] 08:49:00 Test Item Value Reference Range Interpretation [...] of SARS-CoV-2 RNA usingreal-time (RT) polymerase patrick ko reaction (PCR) technolog yfor the qualitative det ection of nucleic acids f rom wnzVDBK-TzH-7 v irus and diagnosis of SA RS-CoV-2 virusinfection. It is an Emergency Use Authorization ( EUA) testauthorized by the U.S. FDA. BASIC METABOLIC [id number] 12:48:00 Test Item Value Reference Range Interpretation [...] code = 9.9 mg/dL 8.0-10.5 N CA) [id number] 12:48:00 Test Item Value Reference Range Interpretation Comments PREALBUMIN (test code = PREALB) 18.0 mg/dL 16.0-40.0 N PROTHROMBIN [id number] 12:32:00 Test Item Value Reference Range Interpretation [...] (to prevent recurrent infar ct). CBC W/AUTO [id number] 12:26:00 Test Item Value Reference Range Interpretation [...] NO = MDIFF) - XR CHEST 2 [id number] 00:00:00 [facility] 1945 Sex: F FAX: Joaquim Sainz MD [phone] [place]: St: PRE Name: MARCIE PAUL [facility] : 1945 Age/S: 76/F [address] [place] [address] Unit #: [id number] Loc: [place] [address] Phys: Joaquim Chavez MD Acct: [id number] Dis Date: Status: [facility] PHONE #: [phone] Exam Date: 12/13/2021 1336 FAX #: Reason: PREOP EXAMS: CPT CODE: [id number] XR CHEST 2 V 32653 PROCEDURE INFORMATION: Exam: XR Chest Exam date and time: 12/13/2021 12:38 PM Age: 76 years old Clinical indication: Screening exam; Pre-operative exam; Cardiovascular screening; Additional info: Preop TECHNIQUE: Imaging protocol:XR of the chest. Views: 2 views. PA and Lateral COMPARISON: DX XR CHEST 2 V 10/08/2021 10:12 AM FINDINGS: Lungs: Small layering right pleural effusion with underlying airspace disease. Heart/Mediastinum: Heart is borderline in size. Prosthetic aortic valve is seen. Vasculature: There is atherosclerotic calcification of the aorta. Bones/joints: No gross acute findings. IMPRESSION: Small layering rightpleural effusion with underlying airspace disease. at 1423 Reported and signed by: Jens Maxwell D.O. 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 [facility] GLUCOSE [id number] 18:05:00 Test Item Value Reference Range Interpretation Comments GLUCOSE BEDSIDE (test 207 MG/DL 70-110 H Perfor med by certified code = GLUBED) 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 [facility] GLUCOSE [id number] 12:42:00 Test Item Value Reference Range Interpretation Comments GLUCOSE BEDSIDE (test 158 MG/DL 70-110 H Perfor med by certified code = GLUBED) 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 Novel Coronavirus 2019 [id number] 22:03:00 Test Item Value Reference Range Interpretation [...] for the identification of SARS-CoV-2 RNA usingthe Fitzgerald M2000 Sy stem under the FDA Emergen cy UseAuthorizatio n. The testing is perf ormed by personneltraine d in the procedures for the Fitzgerald M2000 molecular diagnostic SARS-CoV-2 assa y in vitro. B-TYPE NATRIURETIC [id number] 11:08:00 Test Item Value Reference Range Interpretation Comments B-TYPE NATRIURETIC PEPTIDE (test 260.0 PG/ML 0-100 H code = BNP) BASIC METABOLIC [id number] 10:45:00 Test Item Value Reference Range Interpretation [...] code = 9.9 mg/dL 8.0-10.5 N CA) [id number] 10:45:00 Test Item Value Reference Range Interpretation Comments ALBUMIN (test code = ALB) 3.70 g/dL 3.4-5.0 N PROTHROMBIN [id number] 10:37:00 Test Item Value Reference Range Interpretation [...] (to prevent recurrent infar ct). CBC W/AUTO [id number] 10:29:00 Test Item Value Reference Range Interpretation [...] NO = MDIFF) - XR CHEST 2 [id number] 00:00:00 [facility] 1945 Sex: F FAX: Joaquim Sainz MD [phone] [place]: St: PRE Name: MARCIE PAUL [facility] [place] : 1945 Age/S: 75/F [address] [place] [address] Unit #: [id number] Loc: [place] [address] Phys: Joaquim Chavez MD Acct: [id number] Dis Date: Status: [facility] PHONE #: [phone] Exam Date: 10/08/2021 [facility] FAX #: [phone] Reason: PREOP EXAMS: CPT CODE: [id number] XR CHEST 2 V 75135 PROCEDURE INFORMATION: Exam: XR Chest Exam date and time: 10/08/2021 10:12 AM Age: 75 years old Clinical indication: Pre-operative exam; Cardiovascular screening and respiratory screening exam; Additional info: Preop TECHNIQUE: Im aging protocol: XR of the chest. Views: 2 views. PA and Lateral COMPARISON: CT HEART W CN ART/PKJMRN2909/13/2021 11:16 AM FINDINGS: Lungs: Right base atelectasis/infiltrate [...] PAGE 1 Signed ReportCOVID 19 Asymptomatic IH [id number] 12:58:00 Test Item Value Reference Range Interpretation [...] or waivedcomplexit y tests. CREATININE W ESTIMATED [id number] 11:18:00 Test Item Value Reference Range Interpretation Comments BEDSIDE CREATININE 0.9 MG/DL 0.6-1.3 N Performed by certified (test code = 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 GLOMERULAR FILTRATION 65 ML/MIN Perfor med by certified RATE POC (test code = operat or at [place] GFRBED) Med CtrPrevious ly reported result : 65 ML/MINEdited by : INFCE on 09/13/21:700519 1118: GFRBED pr eviously reported as: 65 ML/MIN - CT ANGIO [id number] 00:00:00 [facility] 1945 Sex: F Name: MARCIE PAUL [facility] : 1945 Age/S: 75 / F [address] [place] [address] Blvd Unit #: [id number] Loc: [place] [address] Phys: Brina Corrigan [facility] Acct: [id number] Dis Date: Status: REG CLI PHONE #: [phone] Exam Date: 09/13/2021 1138 FAX #: [phone] Reason: AORTIC VALVE STENOSIS EXAMS: CPT CODE: [id number] CT ANGIO CHEST 42685 PROCEDURE INFORMATION: Exam: CTA Chest With Contrast [...] arteries. Aorta: Moderate aortic root calcification with pgsm-lp-feqgsvuu thoracic aortic calcifications is seen. Lungs: Mild bilateral pulmonary emphysema with mild atelectatic changes in the middle lobe and the right lower lobe. Minimal atelectatic changes in theleft lower lobe. Pleural spaces: Iuqc-bc-gnuykodd layering right pleural effusion. Heart: There is at herosclerotic calcification of the coronary arteries. Mild mitral annular calcification is seen. Lymph nodes: Small mediastinal nodes. Bones/joints: Age related degenerative changes. No acute fracture.Soft tissues: Unremarkable. IMPRESSION: 1. Mild cardiomegaly with pulmonary hypertension. 2. Coronary artery disease. 3. Moderate aortic root calcification with jvpk-hh-azmgvftx thoracic aortic. 4. Zbfl-yd-fhpihdcw layering right pleural effusion. PROCEDURE INFORMATION: Exam:CTA Heart and Coronary Arteries; TAVR Planning Exam date and time: 09/13/2021 11:16 AM Age: 75 yearsold PAGE 1 Signed Report (CONTINUED) Name: MARCIE PAUL [facility] : 1945 Age/S: 75 / F [address] [place] [address] Blvd Unit #: [id number] Loc: [place] [address] Phys: Brina Corrigan [facility] Acct: [id number] Dis Date: Status: REG CLI PHONE #: [phone] Exam Date: 09/13/2021 1130 FAX #: [phone] Reason: AORTIC VALVE STENOSIS EXAMS: CPT CODE: [id number] CT ANGIO CHEST 60065 (Continued) Clinical indication: Pain; Other: * TECHNIQUE: [...] 3D renderinD reconstructed images were created, reviewed andsaved. COMPARISON: CR XR CHEST 1V 01/12/2015 5:59 [...] Contrast PAGE 2 Signed Report (CONTINUED) Name: MARCIE PAUL [facility] [place] : 1945 Age/S: 75 / F [address] [place] [address] Unit #: [id number] Loc: [place] [address] Phys: Brina Corrigan [employer] Acct: [id number] Dis Date: Status: REG CLI PHONE #: [phone] Exam Date: 09/13/2021 1138 FAX #: [phone] Reason: AORTIC VALVE STENOSIS EXAMS: CPT CODE: [id number] CT ANGIO CHEST 89983 (Continued) Exam date and time: 09/13/2021 11:16 AM Age: 75 years old Clinical indication: Pain; Other: * TECHNIQUE: Imaging protocol: Computed tomographic angiography of the abdomen and pelvis with contrast material. 3D rendering (Not supervised by radiologist): MIP and/or 3D reconstructed images were createdby the technologist. Radiation optimization: All CT scans at this facility use at least one of thesedose optimization techniques: automated exposure control; mA and/or [...] 2.2 cm Distal abdominal aorta at iliac bifurcation:2.5 cm Right common iliac artery: 1.6 cm Left common iliac artery: 1.3 cm Right common femoral artery: 0.8 cm Left common femoral artery: 1 cm There is atherosclerotic calcification of the aorta. Aneurysmal infrarenal abdominal aorta is seen measuring 3.2 cm. Bgwf-ra-akkkwgrc atherosclerotic calcifications are seen involving the major pelvic arteries. There appears to be moderate atherosclerotic narrowing at the origin of the left common iliac artery and xnwx-hr-esycpsut atherosclerotic narrowing at the origin of the right common iliac artery. No vascular occlusion is seen. Celiac trunk and mesenteric arteries: No occlusion or significant stenosis. Renal arteries: No occlusion. Mild right and moderate left atherosclerotic changes. Liver: Slightly irregular liver margin is seen, no discrete mass.Gallbladder and bile ducts: Prior cholecystectomy. Pancreas: No mass. Spleen: Unremarkable. Adrenal glands: Moderate thickening of bilateral adrenal glands. Kidneys and ureters: Unremarkable. Stomach and bowel: No obstruction. Appendix: No evidence of appendicitis. PAGE 3 Signed Report (CONTINUED) Name: MARCIE PAUL [facility] : 1945 Age/S: 75 / F [address] [place] [address] Unit #: [id number] Loc: [place] [address] Phys: MaxwellnajmaMagdy hillsylvester [facility] Acct: [id number] Dis Date: Status: REG [place] #: [phone] Exam Date: 09/13/2021 113 FAX #: [phone] Reason: AORTIC VALVE STENOSIS EXAMS: CPT CODE: [id number] CT ANGIO CHEST 69107 (Continued) Intraperitoneal space: Trace pelvic free fluid from unknown etiology. Lymph nodes: No enlarged lymph nodes. Urinary bladder: Bladder is not well distended limiting its evaluation. Reproductive: Prior hysterectomy. Bones/joints: Age related degenerative changes. No acute fracture. Mild anterolisthesis at L5-S1 with bilateral pars defect. Softtissues: Upper anterior abdominal wall prior hernia mesh repair changes. Mild body wall edema. IMPRES JAIME: 1. Aneurysmal infrarenal abdominal aorta is seen measuring 3.2 cm. Eqbu-eh-rwsbwcrx atherosclerotic calcifications are seen involving the major pelvic arteries without occlusion. There appears nicol moderate atherosclerotic narrowing at the origin of the left common iliac artery and qqqy-aa-rslyqehi atherosclerotic narrowing at the origin of the right common iliac artery. No vascular occlusion is seen. 2. Slightly irregular liver margin is seen, which may represent early cirrhosis. 3. Moderatethickening of bilateral adrenal glands, suggestive of adrenal hyperplasia. 4. Trace pelvic free fluid from unknown etiology. at 1533 Reported and signed by: Jens Maxwell D.O. CC: Brina Corrigan Technologist:Willy Perrin RT(R)(CT) CTDI: DLP: Trnscb Date/Time: 09/13/2021 (1533) [email or web address] Orig Print D/T: S: 09/13/2021 (8139) PAGE 4 Signed Report- CTA ABD PEL W [id number] 00:00:00 [facility] : 1945 Sex: F Name: MARCIE PAUL [facility] [place] : 1945 Age/S: 75 / F [address] [place] [address] Unit #: [id number] Loc: [facility] [place] [address] Phys: Brina Corrigan Acct: [id number] Dis Date: Status: REG CLI PHONE #: [phone] Exam Date: 09/13/2021 1138 FAX #: [phone] Reason: AORTIC VALVE STENOSIS EXAMS: CPT CODE: [id number] CTA ABD PEL W CONT 69146 PROCEDURE INFORMATION: Exam: CTA Chest With Contrast [...] scans at this facility use at least oneof these dose optimization techniques: automated exposure control; mA and/or kV adjustment per patient size (includes targeted exams where dose is matched to clinical indication); or iterative reconstr uction. Contrast material: ISO; Contrast volume: 100 ml; Contrast route: INTRAVENOUS (IV); CT Radiation Dose: DLP = 1626.4 mGy-cm COMPARISON: CR XR CHEST 1V 01/12/2015 5:59 AM FINDINGS: Pulmonary arteries: Mild cardiomegaly with ectatic pulmonary arteries. Aorta: Moderate aortic root calcification with ppjb-sz-yazekqwi thoracic aortic calcifications is seen. Lungs: Mild bilateral pulmonary emphysema with mild atelectatic changes in the middle lobe and the right lower lobe. Minimal atelectatic changesin the left lower lobe. Pleural spaces: Thuj-bh-ppkqyvri layering right pleural effusion. Heart: There is atherosclerotic calcification of the coronary arteries. Mild mitral annular calcification is seen. Lymph nodes: Small mediastinal nodes. Bones/joints: Age related degenerative changes. No acute fracture. Soft tissues: Unremarkable. IMPRESSION: 1. Mild cardiomegaly with pulmonary hypertension. 2. Coronary artery disease. 3. Moderate aortic root calcification with nsqa-on-xjaozfkz thoracic aortic.4. Lecs-dy-dejvggmt layering right pleural effusion. PROCEDURE INFORMATION: Exam: CTA Heart and Coronary Arteries; TAVR Planning Exam date and time: 09/13/2021 11:16 AM Age: 75 years old PAGE 1 Signed Report (CONTINUED) Name: MARCIE PAUL [facility] [place] : 1945 Age/S: 75 / F [address] [place] [address] Unit #: [id number] Loc: [facility] [place] [address] Phys: Brina Corrigan Acct: [id number] Dis Date: Status: REG CLI PHONE #: [phone] Exam Date: 09/13/2021 1138 FAX #: [phone] Reason: AORTIC VALVE STENOSIS EXAMS: CPT CODE: [id number] CTA ABD PEL W CONT 54338 (Continued) Clinical indication: Pain; Other: * TECHNIQUE: [...] of 64 slice or greater coverage CT scannerwas used according to site location. Radiation optimization: All CT scans at this facility use at least one of these dose optimization techniques: automated exposure control; mA and/or kV adjustment per patient size (includes targeted exams where dose is matched to clinical indication); or iterative re construction. Contrast material: ISO; Contrast volume: 100 ml; Contrast route: INTRAVENOUS (IV); Pharmacological intervention: None. Other technique: 3D renderinD reconstructed images were created,reviewed and saved. COMPARISON: CR XR CHEST 1V 01/12/2015 5:59 AM FINDINGS: Estimated root/annulus diameters are as follows: Aortic annulus diameter: 2.5 cm Sinus of Valsalva diameter: 3.7 cm Sinotubular junction diameter: 3 cm Right cusp height (to RCA takeoff): 1.8 cm Left cusp height (to Left maintakeoff): 1.5 cm Estimated aortic diameters are as follows: Mid ascending aorta: 3.4 cm Mid transverse arch: 2.7 cm Descending thoracic aorta at the level of the pulmonary arteries: 2.7 cm IMPRESSION:Aortic root measurements as above. PROCEDURE INFORMATION: Exam: CTA Abdomen and Pelvis With Contrast PAGE 2 Signed Report (CONTINUED) Name: EROS PAULRIA [facility] Hyun Matthews :1945 Age/S: 75 / F [address] [place] [address] Unit #: [id number] Loc: [facility] [place] [address] Phys: Brina Corrigan [employer] Acct: [id number] Dis Date: Status: REG CLI PHONE #: [phone] Exam Date: 09/13/2021 1138 FAX #: [phone] Reason: AORTIC VALVE STENOSIS EXAMS: CPT CODE: [id number] CTA ABD PEL W CONT 56020 (Continued) Exam date and time: 09/13/2021 11:16 AM Age: 75 years old Clinical indication:Pain; Other: * TECHNIQUE: Imaging protocol: Computed tomographic angiography of the abdomen and pelvis with contrast material. 3D rendering (Not supervised by radiologist): MIP and/or 3D reconstructed images were created by the technologist. Radiation optimization: All CT scans at this facility use atleast one of these dose optimization techniques: automated exposure control; mA and/or kV adjustmentper patient size (includes targeted exams where dose is matched to clinical indication); or iterative reconstruction. Contrast material: ISO; Contrast volume: 100 ml; Contrast route: INTRAVENOUS (IV); COMPARISON: CR XR CHEST 1V 01/12/2015 5:59 AM FINDINGS: Estimated aortoiliac/iliofemoral arterial diameters are as follows: Abdominal aorta just below the renal arteries: 2.2 cm Distal abdominal aorta atiliac bifurcation: 2.5 cm Right common iliac artery: 1.6 cm Left common iliac artery: 1.3 cm Right common femoral artery: 0.8 cm Left common femoral artery: 1 cm There is atherosclerotic calcification of the aorta. Aneurysmal infrarenal abdominal aorta is seen measuring 3.2 cm. Cgrl-xl-dmdmwyrk atherosclerotic calcifications are seen involving the major pelvic arteries. There appears to be moderate atherosclerotic narrowing at the origin of the left common iliac artery and jvdt-bn-dmbzsxxl atherosclerotic narrowing at the origin of the right common iliac artery. No vascular occlusion is seen. Celiac trunk and mesenteric arteries: No occlusion or significant stenosis. Renal arteries: No occlusion. Mild right and moderate left atherosclerotic changes. Liver: Slightly irregular liver margin is seen,no discrete mass. Gallbladder and bile ducts: Prior cholecystectomy. Pancreas: No mass. Spleen: Unremarkable. Adrenal glands: Moderate thickening of bilateral adrenal glands. Kidneys and ureters: Unremarkable. Stomach and bowel: No obstruction. Appendix: No evidence of appendicitis. PAGE 3 Signed Report (CONTINUED) Name: MARCIE PAUL [facility] Hyun Matthews : 1945 Age/S: 75 / F [address] [place] [address] Blvd Unit #: [id number] Loc: [facility] [place] [address] Phys: Brina Corrigan Acct: [id number] Dis Date: Status: REG CLI PHONE #: [phone] Exam Date: 09/13/2021 1132 FAX #: [phone] Reason: AORTICVALVE STENOSIS EXAMS: CPT CODE: [id number] CTA ABD PEL W CONT 21781 (Continued) Intraperitoneal space: Trace pelvic free fluid [...] abdominal aorta is seen measuring 3.2 cm. Pkpi-bw-vvanbidc atherosclerotic calcifications are seen involving the major pelvic arteries without occlusion. There appears to be moderate atherosclerotic narrowing at the origin of the left common iliac artery and kvel-qq-malyrvqz atherosclerotic narrowing at the origin of the right common iliac artery. No v ascular occlusion is seen. 2. Slightly irregular liver margin is seen, which may represent early cirrhosis. 3. Moderate thickening of bilateral adrenal glands, suggestive of adrenal hyperplasia. 4. Trace pelvic free fluid from unknown etiology. at 1533 Reported and signed by: Jens Maxwell D.O. CC: Brina Corrigan Technologist:Willy Perrin, RT(R)(CT) CTDI: DLP: Trnscb Date/Time: 09/13/2021 (1532) [id number] Orig Print D/T: S: 09/13/2021 (1534) PAGE 4 Signed Report- CTA HEART W CN [id number] 00:00:00 [facility] HYUN SMYRNA MILLSName: MARCIE PAUL : 1945 Sex: F Name: MARCIE PAUL [facility] [place] : 1945 Age/S: 75 / F [address] [place] [address] Blvd Unit #: [id number] Loc: [place] [address] Phys: Brina Corrigan [employer] Acct: [id number] Dis Date: Status: REG CLI PHONE #: [phone] Exam Date: 09/13/2021 1131 FAX #: [phone] Reason: EXAMS: CPT CODE: [id number] CTA HEART W CN ART/GRAFTS 59670 PROCEDURE INFORMATION: Exam: CTA Chest With Contrast Exam date and time: 09/13/2021 11:16 AM Age: 75 years old Clinical indication: Pain; Other: * chest pain, shortness of breath TECHNIQUE: Imaging protocol: Computed tomographic angiography of the chest with contrast.3D rendering (Not supervised by radiologist): MIP and/or 3D reconstructed images were created by the technologist. Radiation optimization: All CT scans at this facility use at least one of these dose optimization techniques: automated exposure control; mA and/or kV adjustment per patient size (includes targeted exams where dose is matched to clinical indication); or iterative reconstruction. Contrastmaterial: ISO; Contrast volume: 100 ml; Contrast route: INTRAVENOUS (IV); CT Radiation Dose: DLP = 1626.4 mGy-cm COMPARISON: CR XR CHEST 1V 01/12/2015 5:59 AM FINDINGS: Pulmonary arteries: Mild cardiomegaly with ectatic pulmonary arteries. Aorta: Moderate aortic root calcification with mtyw-kn-ayfhhlvufgevsnpf aortic calcifications is seen. Lungs: Mild bilateral pulmonary emphysema with mild atelectatic changes in the middle lobe and the right lower lobe. Minimal atelectatic changes in the left lower lobe. Pleural spaces: Uojf-uu-bbymjoum layering right pleural effusion. Heart: There is atherosclerotic calcification of the coronary arteries. Mild mitral annular calcification is seen. Lymph nodes: Small mediastinal nodes. Bones/joints: Age related degenerative changes. No acute fracture. Soft tissues: Unremarkable. IMPRESSION: 1. Mild cardiomegaly with pulmonary hypertension. 2. Coronary artery disease. 3. Moderate aortic root calcification with xjew-va-sdozahpy thoracic aortic. 4. Tnpa-xr-ctbrssug layering right pleural effusion. PROCEDURE INFORMATION: Exam: CTA Heartand Coronary Arteries; TAVR Planning Exam date and time: 09/13/2021 11:16 AM Age: 75 years old PAGE 1 Signed Report (CONTINUED) Name: MARCIE PAUL [facility] Hyun Matthews : 1945 Age/S: 75 / F [address] [place] [address] Unit #: [id number] Loc: [facility] [address] Phys: Brina Corrigan [facility] Acct: [id number] Dis Date: Status: REG CLI PHONE #: [phone] Exam Date: 09/13/2021 1138 FAX #: [phone] Reason: EXAMS: CPT CODE: [id number] CTA HEART W CN ART/GRAFTS 17495 (Continued) Clinical indication: Pain; Other: * TECHNIQUE: Imaging protocol: CTA heart, coronary arteries and bypass grafts (when present) with contrast material including 3D image postprocessing (including evaluation of cardiac structureand morphology, assessment of cardiac function, and evaluation [...] and/or kV adjustment per patient size (includes targetedexams where dose is matched to clinical indication); or iterative reconstruction. Contrast material:ISO; Contrast volume: 100 ml; Contrast route: INTRAVENOUS [...] (to Left main takeoff): 1.5 cm Estimated aorticdiameters are as follows: Mid ascending aorta: 3.4 cm Mid transverse arch: 2.7 cm Descending thoracic aorta at the level of the pulmonary arteries: 2.7 cm IMPRESSION: Aortic root measurements as above. PROCEDURE INFORMATION: Exam: CTA Abdomen and Pelvis With Contrast PAGE 2 Signed Report (CONTINUED) Name: MARCIE PAUL [facility] : 1945 Age/S: 75 / F [address] [place] [address] Blvd Unit #: [id number] Loc: [place] [address] Phys: Brina Corrigan [employer] Acct: [id number] Date: Status: REG CLI PHONE #: [phone] Exam Date: 09/13/2021 1138 FAX #: [phone] Reason: EXAMS: CPT CODE: [id number] CTA HEART W CN ART/GRAFTS 26328 (Continued) Exam date and time: 09/13/2021 11:16 AM Age: 75 years old Clinical indication: Pain; Other: * TECHNIQUE: Imaging protocol: Computed tomographic angiography of the abdomen and pelvis with contrast material. 3D rendering (Not supervised by radiologist): MIP and/or 3D reconstructed images were created by the technologist. Radiation optimization: All CT scans at this facility use at least one of these dose optimization techniques:automated exposure control; mA and/or kV adjustment per patient size (includes targeted exams where dose is matched to clinical indication); or iterative reconstruction. Contrast material: ISO; Contrast volume: 100 ml; Contrast route: INTRAVENOUS (IV); COMPARISON: CR XR CHEST V 01/12/2015 5:59 AM FINDINGS: Estimated aortoiliac/iliofemoral arterial diameters are as follows: Abdominal aorta just belowthe renal arteries: 2.2 cm Distal abdominal aorta at iliac bifurcation: 2.5 cm Right common iliac artery: 1.6 cm Left common iliac artery: 1.3 cm Right common femoral artery: 0.8 cm Left common femoral artery: 1 cm There is atherosclerotic calcification of the aorta. Aneurysmal infrarenal abdominal aorta is seen measuring 3.2 cm. Ddeu-ue-yaucwasb atherosclerotic calcifications are seen involving themajor pelvic arteries. There appears to be moderate atherosclerotic narrowing at the origin of the left common iliac artery and cies-ew-slnpigzr atherosclerotic narrowing at the origin of the [...] appendicitis. PAGE 3 Signed Report (CONTINUED) Name: MARCIE PAUL [facility] Alberto : 1945 Age/S: 75 / F [address] [place] [address] Blvd Unit #: [id number] Loc: [place] [address] Phys: Brina Corrigan [facility] Acct: [id number] Dis Date: Status: REG CLI PHONE #: [phone] Exam Date: 09/13/2021 1138 FAX #: [phone] Reason: EXAMS: CPT CODE: [id number] CTA HEART W CN ART/GRAFTS 24392 (Continued) Intraperitoneal space: Trace pelvic free fluid [...] infrarenal abdominalaorta is seen measuring 3.2 cm. Rwws-tv-ptjowgqw atherosclerotic calcifications are seen involving the major pelvic arteries without occlusion. There appears to be moderate atherosclerotic narrowing atthe origin of the left common iliac artery and srqo-nf-ijqesgbl atherosclerotic narrowing at the origin of the [...] Perrin, RT(R)(CT) CTDI: DLP: Trnscb Date/Time: 09/13/2021 (1533) [email or web address] Orig Print D/T: S: 09/13/2021 (9975) PAGE 4 Signed Report Notes Date/Time Note Provider Source 2022-05-18 16:02:00-00:00 [id number] [place] [address] PATIENT NAME: MARCIE PAUL ADMIT DATE: 04/27/22 ACCOUNT NO: [id number] ROOM NO: AGE: 76 REPORT TYPE: eTRANSESOPHAGEAL ECHO REPORT SEX: F ADMITTING PHYSICIAN: ATTENDING PHYSICIAN:Joaquim Chavez MD *[place] [address] Transesophageal Echocardiogram Patient: Marcie Paul Study Date: 04/27/2022 BP: 120 / 69 Location: [facility] URN: [id number] : 1945 Age: 76 Height: 67 in / 170.2 cm Gender: F Weight: 159 .7 lb / 72.6 kg BMI/BSA: 25.1 kg/m 2 / 1.84 m 2 *Ordering Physician: * Joaquim Chavez *Interpreting Physician: * Kathy March MD *Business Intern: * Rylee Floyd Indications: POST WATCHMAN. Study data: Consent: The risks, benefits, and al ternatives to the procedure were explained to the patient and info rmed consent was obtained. Procedure: Initial setup: The patient was brought to the laboratory in the fasting state.Intravenous acce ss was obtained. Surface ECG leads and pulse oximetric signals were monit ored. Sedation. Moderate sedation was administered by cardiology staff. T ransesophageal echocardiography was performed. Topical anesthes ia was obtained using benzocaine spray. A transesophageal probe (SN: [id number]) was inserted by the attending blend plant operator without difficulty. P atient status: Outpatient. Patient room number: CVPREP 17. Stud y status: Routine. Study completion: The patient tolerated the proc edure well. There were no complications. PATIENT NAME: MARCIE PAUL ACCOUNT #: [id number] Findings Left ventricle: The cavity size is normal. Systo lic function is normal. Right ventricle: The cavity size is normal. Syst olic function is normal. Left atrium: The atrium is normal in size. Post Watchman: There is no evidence of residual flow around the Watchman oc cluder device. Follow-up Watchman: No evidence of thrombus in the atrial cavity or appendage. Right atrium: The atrium is normal in size. Ther e is no evidence of a thrombus in the atrial cavity or appendage. Atrial septum: No defect or patent foramen ovale is identified. Doppler and echo contrast study shows no right-t o-left atrial level shunt. Aorta: Aortic root: The aortic root is normal in size. There is no atheroma. There is no evidence for a neurysm. There is no evidence for dissection. Aortic valve: There is a bioprosthetic valve. Cu sp separation is normal. There is no evidence of stenosis. There is no regurgitation. Mitral valve: The valve is structurally normal. There is no evidence of a vegetation. There is mild regurgit ation. Tricuspid valve: The valve is structurally antony l. There is no evidence of a vegetation. There is mild regurgit ation. Pulmonic valve: No thickening. Cusp separation i s normal. There is no evidence of a vegetation. There is no regurgi tation. Systemic veins: Superior vena cava: The vessel is normal in size . Conclusions Summary: 1. Left ventricle: The cavity size is normal. Sy stolic function is normal. 2. Left atrium: Post Watchman: There is no evide nce of residual flow around the Watchman occluder device. Follow-up Watchman: No evidence of thrombus in the atrial cavity or appendage. 3. Right atrium: There is no evidence of a throm bus in the atrial cavity or appendage. 4. Atrial septum: No defect or patent foramen ov ankit is identified. Doppler and echo contrast study shows no right- to-left atrial level shunt. 5. Aortic valve: There is a bioprosthetic valve. 6. Mitral valve: There is no evidence of a veget ation. 7. Tricuspid valve: There is no evidence of a ve getation. 8. Pulmonic valve: There is no evidence of a veg etation. Prepared and electronically signed by Kathy March MD 05/18/2022 16:02 PATIENT NAME: MARCIE PAUL ACCOUNT #: [id number] Electronically Signed by Joaquim Chavez MD on at 1602 PATIENT NAME: MARCIE PAUL ACCOUNT #: [id number] 2022-03-16 13:23:00-00:00 [id number] [address] PATIENT NAME: MARCIE PAUL ADMIT DATE: ACCOUNT NO: [id number] ROOM NO: AGE: 76 REPORT TYPE: eTRANSESOPHAGEAL ECHO REPORT SEX: F ADMITTING PHYSICIAN: ATTENDING PHYSICIAN:Joaquim Chavez MD *[place] [address] Transesophageal Echocardiogram Patient: Marcie Paul Study Date: 02/23/2022 BP: 118 / 67 Location: [facility] URN: [id number] : 1945 Age: 76 Height: 64 in / 162.6 cm Gender: F Weight: 188 lb / 85.5 kg BMI/BSA: 32.3 kg/m 2 / 2 m 2 *Ordering Physician: * Joaquim Chavez *Interpreting Physician: * Kathy March MD *Business Intern: * Ly Felix Indications: Post Watchman. Study data: Consent: The risks, benefits, and al ternatives to the procedure were explained to the patient and info rmed consent was obtained. Procedure: Initial setup: The patient was brought to the laboratory in the fasting state.Intravenous acce ss was obtained. Surface ECG leads and pulse oximetric signals were monit ored. Sedation. Moderate sedation was administered by cardiology staff. T ransesophageal echocardiography was performed. Topical anesthes ia was obtained using benzocaine spray. A transesophageal probe (SN: [id number]) was inserted by the attending blend plant operator without difficulty. I mages were obtained using a [employer] cardiac ultrasound machine. Image narayan lity was adequate. The transesophageal probe was removed. Limited 2D, 3 D, and color Doppler. Location: CVPREP. Patient status: Outpatient. Marcelino brooks room number: 11. Study status: Routine. Study completion: The patient tolerated the procedure well. There were no complications. Rhythm: Tachycardia. PATIENT NAME: MARCIE PAUL ACCOUNT #: [id number] Findings Left ventricle: The cavity size is normal. Systo lic function is normal. Right ventricle: The cavity size is normal. Syst olic function is normal. Left atrium: The atrium is normal in size. The a ppendage is of normal size. Emptying velocity is normal. Post Watchman : The 27 mm Watchman MARC occluder device is well seated. There is no evid ence of residual flow around the Watchman occluder device. Follow-up W atchman: There is evidence of thrombus measuring approximately 3 m m attached to the Watchman occluder device. Right atrium: The atrium is normal in size. Ther e is no evidence of a thrombus in the atrial cavity or appendage. Atrial septum: No defect or patent foramen ovale is identified. Doppler and echo contrast study shows no right-t o-left atrial level shunt. Aorta: Aortic root: The aortic root is normal in size. There is no atheroma. There is no evidence for a neurysm. There is no evidence for dissection. Aortic valve: There is a bioprosthetic valve. Cu sp separation is normal. There is no evidence of stenosis. There is no regurgitation. Mitral valve: The valve is structurally normal. There is no evidence of a vegetation. There is mild regurgit ation. Tricuspid valve: The valve is structurally antony l. There is no evidence of a vegetation. There is no regurgitat ion. Pulmonic valve: No thickening. Cusp separation i s normal. There is no evidence of a vegetation. There is no regurgi tation. Systemic veins: Superior vena cava: The vessel is normal in size . Conclusions Summary: 1. Left ventricle: The cavity size is normal. Sy stolic function is normal. 2. Left atrium: The appendage is of normal size. Emptying velocity is normal. Post Watchman: The 27 mm Watchman MARC o ccluder device is well seated. There is no evidence of residual flow a round the Watchman occluder device. Follow-up Watchman: There is e vidence of thrombus measuring approximately 3 mm attached to the Wa tchman occluder device. 3. Right atrium: There is no evidence of a throm bus in the atrial cavity or appendage. 4. Atrial septum: No defect or patent foramen ov ankit is identified. Doppler and echo contrast study shows no right- to-left atrial level shunt. 5. Aortic valve: There is a bioprosthetic valve. 6. Mitral valve: There is no evidence of a veget ation. There is mild regurgitation. 7. Tricuspid valve: There is no evidence of a ve getation. PATIENT NAME: MARCIE PAUL ACCOUNT #: [id number] 8. Pulmonic valve: There is no evidence of a veg etation. Prepared and electronically signed by Kathy March MD 03/16/2022 13:23 Electronically Signed by Joaquim Chavez MD on at 1323 PATIENT NAME: MARCIE PAUL ACCOUNT #: [id number] 2021-12-29 11:19:00-00:00 [id number] [place] [id number] PATIENT NAME: MARCIE PAUL ADMIT DATE: ACCOUNT NO: [id number] ROOM NO: CLAU AGE: 76 REPORT TYPE: eTRANSESOPHAGEAL ECHO REPORT SEX: F ADMITTING PHYSICIAN:Joaquim Chavez MD ATTENDING PHYSICIAN:Joaquim Chavez MD *[place] [address] Transesophageal Echocardiogram for Watchdoc Patient: Marcie Paul Study Date: 12/15/2021 BP: Location: [facility] URN: [id number] : 1945 Age: 76 Height: / Gender: F Weight: / BMI/BSA: / *Ordering Physician: Joaquim Rush *Interpreting Physician: Sarah March MD Indications: Watchman Procedure. Study data: Transesophageal Echocardiogram for Brenda cline. Consent: The risks, benefits, and alternatives to the procedu re and sedation were explained to the patient and informed consent wa s obtained. Procedure: Initial setup: The patient was brought to the [facility] in the fasting state.Intravenous access was obtained. Surface E CG leads, blood pressure measurements, and pulse oximetric signals were m onitored. Sedation. Sedation was administered by anesthesiology zain naranjo. Transesophageal echocardiography was performed. A transesophagea l probe was inserted by the anesthesiologist. Images were obtained using a [employer] cardiac ultrasound machine. Location: Catheterization la boratory. Patient status: Outpatient. Study status: Same day. y completion: The patient tolerated the procedure well. There were no complications. Findings Conclusions PATIENT NAME: MARCIE PAUL ACCOUNT #: [id number] Summary: 1. Study data: Transesophageal Echocardiogram fo r Watchdoc. The patient tolerated the procedure well. 2. Procedure narrative: Transesophageal echocard iography was performed. A transesophageal probe was inserted by the ane sthesiologist. Images were obtained using a Siemens cardiac ultrasoun d machine. Impressions: Patient with long standing persiste nt atrial fibrillation, CHADSVASC score of 5, and intolerance to long-te rm anticoagulation due to GI bleeding. Patient is s/p successful implantation of a 27mm Watchman device in the left atrial appendage. Patient tolerated the procedure without post-op complications. No thrombus was identified in the pre-/intra-op CELESTINA. Postoperatively, chest x-ray is negative for any acute process. Post-op echo did not show a pericardial effusion. Patient ambulated without any difficulty, and he art rate and blood pressure are stable. Right groin suture removed by this CERTIFIED DRIVER EXAMINER. No infect ion, bleeding, or hematoma. Dermabond applied and intact. Patient was provided with post-Watchman discharg e instructions. Patient is to follow up with PCP and blend plant operator in 1 t o 2 weeks post discharge. Patient is to follow up with blend plant operator for th e 45-day CELESTINA, and for anticoagulation recommendation. Patient is to continue Eliquis until the 45-day CELESTINA. If the 45-day CELESTINA shows a well-seated watchman d evice with no leaks or thrombus, then Eliquis will be discontinued and the patient will be initiated on aspirin and Plavix. Prepared and electronically signed by Kathy March MD 12/29/2021 11:19 Electronically Signed by Joaquim Chavez MD on at 1119 PATIENT NAME: MARCIE PAUL ACCOUNT #: [id number] 2021-12-21 07:21:00-00:00 [phone] [place] [address] PATIENT NAME: MARCIE PAUL ADMIT DATE: ACCOUNT NO: [id number] ROOM NO: [facility] AGE: 76 REPORT TYPE: OPERATIVE REPORT SEX: F ADMITTING PHYSICIAN:Joaquim Chavez MD ATTENDING PHYSICIAN:Joaquim Chavez MD OPERATION DATE: 12/15/2021 PREOPERATIVE DIAGNOSIS: POSTOPERATIVE DIAGNOSIS: PROCEDURE PERFORMED: Left atrial appendage closu re using a 27-mm Watchman FLX closure device. SURGEON: Joaquim Chavez MD [employer] MECHANICAL ENGINEER: ANESTHESIA: INDICATIONS: Atrial fibrilla tion with high risk of stroke and multiple episodes of GI bleed. ACCESS: Right femoral vein and closed with figur e-of-eight suture. COMPLICATIONS: None. BLOOD LOSS: Less than 50 mL. DESCRIPTION OF PROCEDURE: After risks, benefits, and alternatives were explained, the patient agreed to proceed and sig trent informed consent. The patient was brought into [facility] catheterization laboratory, prepped and draped in usual sterile fashion. General anesthesia and CELESTINA were done by anesthesia and then, I accessed right femoral vein with ult rasound guidance and micropuncture kit and placed an 8-Filipino sheath, subsequently upgraded to a 16-Filipino sheath. Partial dose of heparin was gi miguel and then SL1 sheath was advanced over the wire into the SVC with [place] needle inside and descended into the interatrial septum in the low mid position. Transseptal puncture was performed and LA pressure was measured. Then, I sent a ProTrack wire into the left atrium and exchanged SL1 sheath for the Tonya Floor64man double curve sheath. Then, I took a pigtail through the sheath into t he left atrium that was navigated into the appendage and then telescoped the sheath over it into the appendage and angiogram was done of the appendage and determined 27-mm Watchman FLX device will be suitable for closure. The device was prepped and de-aired in the usual sterile fashion introduced through the Watchman sheath after good bleed back and positive flus h and then device was deployed under fluoroscopy and CELESTINA guidance and PASS criteria were evaluated an d met, as such device was released in position and in stable condition and the Watchman sheath and the PATIENT NAME: MARCIE PAUL ACCOUNT #: [id number] 16-Filipino sheath was removed and placed a figure -of-eight suture with good hemostasis. Throughout the procedure, a full dos e of heparin was given to assure ACT level above 250 throughout the proced ure. CONCLUSION: Successful left atrial appendage keyanna sure using 27-mm Watchman FLX closure device. Dictated By: Joaquim Chavez MD WT: OP:AMRIK/IKE/NORIS Conf#: [id number]/DID#: [id number] Authenticated by Joaquim Chavez MD On 01/05/2022 12:29:55 PM Electronically Signed by Joaquim Chavez MD on at 1229 PATIENT NAME: MARCIE PAUL ACCOUNT #: [id number] 2021-12-15 17:08:00-00:00 [id number] [place] [address] PATIENT NAME: MARCIE PAUL ADMIT DATE: ACCOUNT NO: [id number] ROOM NO: CLAU AGE: 76 REPORT TYPE: eECHOCARDIOGRAM REPORT SEX: F ADMITTING PHYSICIAN:Joaquim Chavez MD ATTENDING PHYSICIAN:Joaquim Chavez MD *[place] [address] Transthoracic Echocardiogram Patient: Marcie Paul Study Date: 12/15/2021 BP: Location: [facility] URN: [id number] : 1945 Age: 76 Height: 67 in / 170.2 cm Gender: F Weight: 165 lb / 75 kg BMI/BSA: 25.9 kg/m 2 / 1.9 m 2 *Ordering Physician: * Manan Eastonp *Interpreting Physician: * Susan Engel MD *Business Intern: * Alisa Gamble [facility] Indications: R/O pericardial effusion. Study data: Transthoracic echocardiogram. Comple te 2D, complete spectral Doppler, and color Doppler. [facility] Patient status: Inpatient. Patient r oom number: [id number]. Study status: ANABEL. Findings Left ventricle: Wall thickness is mildly increas ed. The estimated ejection fraction is 55-59%. Aortic valve: There is a bioprosthetic valve. Mitral valve: The annulus is mildly calcified. T here is trivial regurgitation. Tricuspid valve: There is mild regurgitation. Pericardium: There is no pericardial effusion. PATIENT NAME: MARCIE PAUL ACCOUNT #: [id number] Measurements Left ventricle Value 10/13/2021 Ref TRINA, LAX 4.4 cm 3.8 3.8 - 5.2 ESD, LAX 3.3 cm 2.7 2.2 - 3.5 ESD/bsa, 1.7 cm/m 2 1.4 1.3 - 2.1 LAX FS, LAX 25 % 30 27 - 45 PW, ED 1.3 cm 1.3 0.6 - 0.9 IVS/PW, ED 1 1 --------- EF 50 % 58 54 - 74 Ventricular septum Value 10/13/2021 Ref IVS, ED 1.3 cm 1.3 0.6 - 0.9 Aortic valve Value 10/13/2021 Ref Peak v, S 3.35 m/sec 2.62 --------- Peak grad, 44.8 mm Hg 27.6 --------- S Tricuspid valve Value 10/13/2021 Ref TR peak v 2.53 m/sec 3.62 <=2.8 Peak RV-RA 26 mm Hg 52 --------- grad, S Conclusions Summary: 1. Left ventricle: Wall thickness is mildly incr eased. The estimated ejection fraction is 55-59%. 2. Aortic valve: There is a bioprosthetic valve. 3. Mitral valve: The annulus is mildly calcified . Prepared and electronically signed by Susan Engel MD 12/15/2021 17:08 Electronically Signed by Susan Engel MD on 0 12/15/21 at 1708 PATIENT NAME: MARCIE PAUL ACCOUNT #: [id number] 2021-12-15 15:34:00-00:00 [facility] Discharge Summary REPORT#:[id number] REPORT STATUS: Signed DATE:12/15/21 TIME: 1534 PATIENT: MARCIE PAUL UNIT #: [id number] ROOM/BED: [place] [address] : [birth year] AGE: 76 SEX: F ATTEND: Nahun Chavez MD ADM AUTHOR: Manan Easton * ALL edits or amendments must be made on the [employer]/computer document * PCP PCP Discharge to: home General Information Discharge date: 12/15/21 Hospital course: Patient with long standing p ersistent atrial fibrillation, CHADSVASC score of 5, and intolerance to long-term anticoagulation due to GI bleeding. Patient is s/p successful implantation of a 27mm Watchman device in the left atrial appendage. Patient tolerated the procedure without post-op complications. No thrombus was identified in the pre-/intra-op CELESTINA. Postoperatively, chest x-ray is negative for any acute process. Post-op echo did not show a pericardial effusion. Patient ambulated without an y difficulty, and heart rate and blood pressure are stable. Right groin suture removed by this CERTIFIED DRIVER EXAMINER. No infect ion, bleeding, or hematoma. Dermabond applied and intact. Patient was provided with post-Watchman discharg e instructions. Patient is to follow up with PCP and blend plant operator in 1 to 2 we eks post discharge. Patient is to follow up with blend plant operator for th e 45-day CELESTINA, and for anticoagulation recommendation. Patient is to continue Eliquis until the 45-day CELESTINA. If the 45-day CELESTINA shows a we ll-seated watchman device with no leaks or thrombus, then Eliquis will be discontinued and th e patient will be initiated on aspirin and Plavix. Duration of aspirin is lifelong. Duration of Plavix is 6 months post 45-day CELESTINA. Post-Watchman discharge instructions given to th e patient who verbalized understanding, and patient w as instructed to report any complaints of chest pain , shortness of breath, lightheadedness, or dizzi ness to the blend plant operator. Dispo: It is medically necessary that patients u ndergoing percutaneous left atrial appendage occlusion are admitted as an in patient. This patient had a recovery that was earlier than expected and can be discharged today. Med Rec PCP PCP: PCP: No Primary or Family Physician Med Rec Discharge meds: Continue taking these medications: metFORMIN (GLUCOPHAGE) 1,000 MG TAB 1,000 MILLIGRAM ORAL MORNING Instructions: 1000 MG IN AM metFORMIN (GLUCOPHAGE) 1,000 MG TAB 1,500 MILLIGRAM ORAL EVENING glipiZIDE (GLUCOTROL) 5 MG TAB 5 MILLIGRAM ORAL TWICE DAILY. ATORVASTATIN (LIPITOR) 20 MG TAB 20 MILLIGRAM ORAL BEDTIME. THYROID,PORK (ARMOUR THYROID) 300 MG TAB 360 MILLIGRAM ORAL DAILY. CLOPIDOGREL (PLAVIX) 75 MG TAB 75 MILLIGRAM ORAL DAILY. Qty = 30 AMIODARONE (CORDARONE) 200 MG TAB 200 MILLIGRAM ORAL TWICE DAILY. Days = 10 [NITROSTAT] 0.4 MILLIGRAM SUBLINGUAL EVERY 5 MINUT ES NEEDED. as needed for CHEST PAIN Qty = [address] (PROTONIX) 40 MG TAB.DR 40 MILLIGRAM ORAL BEFORE BREAKFAST. Days = 14 ALBUTEROL (VENTOLIN HFA 90 MCG/ACT 18 GM) 90 MCG INHALER 2 PUFF INHALATION RT - EVERY 4 HOURS NEEDED. as needed for Shortness of breath Qty = 1 ASPIRIN (ASPIRIN) 325 MG TAB 325 MILLIGRAM ORAL BEDTIME. METOPROLOL TARTRATE (LOPRESSOR) 25 MG TAB 5 MILLIGRAM ORAL BEDTIME. [VIT B COMPLEX] 1 TABLET ORAL DAILY. [KRILL OIL] 500 MILLIGRAM ORAL DAILY. ZINC GLUCONATE (ZINC GLUCONATE) 50 MG TAB 50 MILLIGRAM ORAL DAILY. PNV/FE FUM/FA ( MULTIVITAMIN) 28 MG IRON -800 MCG TAB 1 TABLET ORAL DAILY. Start taking the following new medications: RIVAROXABAN (XARELTO) 20 MG TAB 20 MILLIGRAM ORAL DAILY. Days = 30 Qty = 30 Refills = 3 APIXABAN (ELIQUIS) 2.5 MG TAB 2.5 MILLIGRAM ORAL TWICE DAILY. Days = 30 Qty = 60 Refills = 3 Objective VS/I O Last Documented: Result Date Time Pulse Ox 93 12/15 736 B/P 144/67 12/15 736 O2 Delivery Room air 12/15 736 Temp 36.3 12/15 736 Pulse 49 12/15 736 Resp 18 12/15 736 PATIENT WEIGHT: Weight (lb): 165 Weight (oz): 5.55 Weight (kg): 75.000 General appearance: alert, awake, oriented Respiratory: no distress, on oxygen GI: soft, non-tender Extremities: moves all Neuro/COLON AND RECTAL SURGEON: alert, oriented X 3 Skin: dry Wound/incision: Location: Right groin suture removed by this CERTIFIED DRIVER EXAMINER. No infect ion, bleeding, or hematoma. Dermabond applied and intact. Results Findings/Data: Laboratory Tests: 12/15 12/15 12/15 12/15 12/15 1134 1103 1028 0903 0828 Chemistry POC Glucose (70 - 110 MG/DL) 87 52 L 71 82 Coagulation Activated Coag Time (74 - 137 SEC) 374 H 12/15 12/15 0744 0736 Chemistry POC Glucose (70 - 110 MG/DL) 51 L 48 L Radiology data: Recent Impressions: RADIOLOGY - XR CHEST 1 V 12/15 1238 Report Impression - Status: SIGNED Entered: 12/15/2021 1356 IMPRESSION: 1. Increased right lower lobe consolidation and effusion. 2. Mild congestive change. Impression By: Favian Duggan M.D. Treatments Procedures Imaging: Recent Impressions: RADIOLOGY - XR CHEST 1 V 12/15 1238 Report Impression - Status: SIGNED Entered: 12/15/2021 1356 IMPRESSION: 1. Increased right lower lobe consolidation and effusion. 2. Mild congestive change. Impression By: Favian Duggan M.D. Discharge Instructions PCP PCP: PCP: No Primary or Family Physician )( Discharge to: Home/Self Care Discharge Instructions Additional Discharge Routines: Attending Follow- Up )( Diet: Cardiac )( Activity: As Tolerated Follow-up Appointments Attending Physician: Attending Physician: Joaquim Chavez MD Attending physician follow up timeframe: In 1-2 weeks Electronically Signed by Manan Easton 12/16/21 at 1200 Electronically Signed by Joaquim Chavez MD on 01/18 at 0946 RPT #:[id number] END OF REPORT 2021-12-13 12:03:00-00:00 [id number] [place] [address] PATIENT NAME: MARCIE PAUL ADMIT DATE: ACCOUNT NO: [id number] ROOM NO: AGE: 76 REPORT TYPE: eELECTROCARDIOGRAM REPORT SEX: F ADMITTING PHYSICIAN: ATTENDING PHYSICIAN:Joaquim Chavez MD Order: [id number] Test Reason : PREOP Test Date/Time Stamp: MonDec 13 2021 12:03:04 Blood Pressure : / mmHG Vent. Rate : 067 BPM Atrial Rate : 357 BPM P-R Int : 000 ms QRS Dur : 096 ms QT Int : 398 ms P-R-T Axes : 000 143 058 degree s QTc Int : 420 ms Atrial fibrillation Right axis deviation Right ventricular hypertrophy Septal infarct , age undetermined Abnormal ECG PRE_OP Confirmed by MARILUZ INTERIANO MD ([id number]) on 12/13/19 12:10:54 PM Referred By: Joaquim Chavez Confirmed by:MARILUZ GODINEZ MD at 1210 PATIENT NAME: MARCIE PAUL ACCOUNT #: [id number] 2021-10-13 12:01:00-00:00 [facility] Cardiology Progress Note REPORT#:[id number] REPORT STATUS: Signed DATE:10/13/21 TIME: 1201 PATIENT: MARCIE PAUL UNIT #: [id number] ROOM/BED: [place] [address] : [birth year] AGE: 75 SEX: F ATTEND: Aparna Walsh MD ADM AUTHOR: Susan Engel MD * ALL edits or amendments must be made on the [employer]/computer document * Subjective Free Text Subj Notes Free Text Subj Notes: Doing well, Objective General VS/I O: 24 hour I O ending at 0700: 10/13 0700 10/12 1900 Intake Total 480 360 Output Total 1100 Balance -620 360 Intake, Oral 480 360 Number Voids 4 2 Output, Urine 1100 Patient 75.8 kg 76.6 kg Weight Weight Bed scale Bed scale Measurement Method Vital Signs: Date Time Temp Pulse Resp B/P B/P Pulse O2 O2 F low FiO2 Mean Ox Delivery Rate 10/13 0801 65 23 139/67 92 98 10/13 0800 98.2 10/13 0730 Nasal 2 cannula 10/13 0700 62 33 106/66 80 83 10/13 0600 122/58 83 10/13 0559 63 47 100 10/13 0540 63 10/13 0501 64 65 125/60 86 100 10/13 0500 58 73 99 10/13 0404 125/49 73 10/13 0400 97.7 Nasal 3 cannula 10/13 0400 120 32 143/56 84 87 10/13 0301 120/45 68 10/13 0301 64 19 122/58 84 99 10/13 0300 60 20 124/45 69 99 10/13 0200 67 25 128/45 69 99 10/13 0101 63 19 99/46 67 99 10/13 0100 63 20 113/44 66 98 10/13 0000 97.7 100 Nasal 3 cannula 10/13 0000 65 29 118/59 84 100 10/12 2300 62 19 115/56 81 100 10/12 2236 Nasal 5 cannula 10/12 2200 78 37 137/53 80 92 10/12 2140 98.4 84 30 118/55 76 97 Nasal 5 cannula 10/12 2100 77 21 122/58 83 100 10/12 2045 80 21 118/40 64 100 10/12 2015 79 29 118/42 66 98 10/12 2000 153/59 89 10/12 2000 84 30 118/55 78 97 10/12 1900 118/40 62 10/12 1900 83 22 110/56 77 99 10/12 1800 83 24 130/60 87 97 10/12 1700 83 26 133/61 88 98 10/12 1645 87 27 112/56 72 93 10/12 1631 91 32 146/68 97 92 10/12 1615 90 36 118/59 82 84 10/12 1602 79 25 135/61 86 96 10/12 1600 97.9 84 21 120/57 78 98 Nasal 5 cannula 10/12 1600 84 21 120/57 82 98 10/12 1559 80 21 134/59 84 95 10/12 1545 80 19 125/58 84 93 10/12 1532 80 20 127/59 80 96 10/12 1530 81 24 127/58 84 95 10/12 1515 83 21 122/57 82 94 10/12 1500 82 22 110/57 81 95 10/12 1445 82 22 116/56 80 95 10/12 1435 97.7 82 22 116/56 76 95 Nasal 5 cannula 10/12 1432 Nasal 5 cannula 10/12 1353 Simple 6 mask PATIENT WEIGHT: Weight (lb): 167 Weight (oz): 1.77 Weight (kg): 75.800 Medications: Active Meds + DC'd Last 24 Hrs Aspirin (ASPIRIN) 81 MG DAILY PO Clopidogrel Bisulfate (Plavix) 75 MG DAILY PO Lisinopril (ZESTRIL) 5 MG DAILY PO Pantoprazole (PROTONIX) 40 MG AC BK PO Amiodarone HCl (CORDARONE) 200 MG BID PO Aspirin (ASPIRIN) 325 MG BEDTIME PO (DC) Atorvastatin Calcium (LIPITOR) 20 MG BEDTIME PO Metoprolol Tartrate (LOPRESSOR) 50 MG Q12HR PO ( DC) Mupirocin (BACTROBAN 2% 22 GM OINTMENT) 1 APPLIC BID NASAL Glipizide (GLUCOTROL) 5 MG BID AC PO Influenza Virus Vaccine (Fluzone High-Dose Quad ) 240 MCG ASDIR IM Pneumococcal Polyvalent Vaccine (PNEUMOVAX 23) 0 .5 ML ASDIR IM Insulin Human Lispro (HUMALOG) 0 Q6HR SUBQ Dextrose/Water (DEXTROSE 50% W SYRINGE) 25 ML DIR PRN IV (CKD) Dextrose/Water (DEXTROSE 50% W SYRINGE) 50 ML DIR PRN IV (CKD) Glucagon (GLUCAGON) 1 MG ASDIR PRN IM Acetaminophen (TYLENOL) 650 MG Q6H PRN PRN PO Albuterol Sulfate (PROVENTIL) 2.5 MG RTQ4H PRN P RN NEB Atropine Sulfate (ATROPINE SULFATE 0.1MG/ML SYR) 0.5 MG ASDIR PRN IV Docusate Sodium (COLACE) 100 MG BID PRN PO Hydralazine HCl (APRESOLINE) 10 MG Q6H PRN PRN I V Hydrocodone Bitart/Acetaminophen (NORCO 5/325) 2 TAB Q4H PRN PRN PO Morphine Sulfate (morphine SULFATE) 2 MG Q2H PRN PRN IV Ondansetron HCl (ZOFRAN) 4 MG Q6H PRN PRN IV Sodium Chloride (SODIUM CHLORIDE 0.9%) 500 ML DIR PRN IV Temazepam (RESTORIL) 15 MG BEDTIME PRN PRN PO Fentanyl Citrate (SUBLIMAZE) 100 MCG PACU Q10MIN PRN PRN IV (DC) Fentanyl Citrate (SUBLIMAZE) 50 MCG PACU Q10MIN PRN PRN IV (DC) Hydralazine HCl (APRESOLINE) 2 MG PACU Q10MIN MA N PRN IV (DC) Hydrocodone Bitart/Acetaminophen (NORCO 5/325) 1 TAB PACU ONCE PO (DC) Hydromorphone HCl (DILAUDID) 1 MG PACU Q10MIN MA N PRN IV (DC) Hydromorphone HCl (DILAUDID) 0.5 MG PACU Q5MIN P RN PRN IV (DC) Insulin Human Lispro (HUMALOG) 0 PACU ONCE PRN S UBQ (DC) Labetalol HCl (LABETALOL HCL) 5 MG PACU Q10MIN P RN PRN IV (DC) Meperidine HCl (DEMEROL 50MG/ML) 12.5 MG PACU ON CE PRN IV (DC) Morphine Sulfate (morphine SULFATE) 2 MG PACU Q1 0MIN PRN PRN IV (DC) Norepinephrine Bitartrate (NOREPINEPHRINE 8 MG/N S 250 ML) 250 ML PACU ONCE IV (DC) Ondansetron HCl (ZOFRAN) 4 MG PACU ONCE PRN IV ( DC) Ropivacaine (NAROPIN 0.5% 150 MG/30mL) 150 MG DIR PRN LOCAL (DC) Tramadol HCl (ULTRAM) 50 MG PACU ONCE PO (DC) Physical Exam General appearance: alert, awake, oriented, no a cute distress Head/Eyes: PERRLA ENT: normal nose Neck: no JVD Cardiovascular: CV assessment: irregularly irregular Respiratory: clear to auscultation, no distress Abdomen: soft Neuro/COLON AND RECTAL SURGEON: alert, oriented X 3, normal speech Psychiatry: normal affect, normal judgment/insig ht, normal mood Results Findings/Data: Laboratory Tests 10/13 10/12 10/12 10/12 0400 2358 1754 1230 Chemistry Sodium (134 - 147 mEq/L) 141 Potassium (3.4 - 5.0 mEq/L) 4.2 Chloride (100 - 108 mEq/L) 107 Carbon Dioxide (21 - 33 mEq/l) 29 Anion Gap (0 - 20) 9 BUN (7 - 18 mg/dL) 14 Creatinine (0.6 - 1.3 mg/dL) 0.5 L Glomerular Filtr Rate (70 - 80) 120.9 H Glucose (70 - 110 mg/dL) 127 H POC Glucose (70 - 110 MG/DL) 313 H 207 H 158 H Calcium (8.0 - 10.5 mg/dL) 9.8 Total Bilirubin (0.0 - 1.0 mg/dL) 0.40 AST (15 - 37 IUnit/L) 23 ALT (30 - 65 IUnit/L) 12 L Total Alk Phosphatase (20 - 125 IUnit/L) 63 Total Protein (6.4 - 8.2 g/dL) 6.2 L Albumin (3.4 - 5.0 g/dL) 3.40 Laboratory Tests 10/13 0400 Hematology WBC (4.5 - 11.0 x10 3/uL) 8.3 RBC (3.54 - 5.02 x10 6/uL) 4.17 Hgb (11.0 - 15.0 g/dL) 12.3 Hct (33.0 - 45.0 %) 39.4 MCV (81.0 - 99.0 fL) 94.5 MCH (27.0 - 33.0 pg) 29.5 MCHC (33.0 - 37.0 g/dL) 31.2 L RDW (11.5 - 14.5 %) 15.3 H Plt Count (150 - 400 x10 3/uL) 138 L MPV (7.0 - 9.0 fL) 11.0 H Neut % (Auto) (56.0 - 77.0 %) 79.9 H Lymph % (Auto) (14.0 - 32.0 %) 8.9 L [place] % (Auto) (4.8 - 9.0 %) 10.6 H Eos % (Auto) (0.3 - 3.7 %) 0.0 L Baso % (Auto) (0.0 - 2.0 %) 0.2 Neut # (Auto) (2.0 - 7.6 x10 3/uL) 6.65 Lymph # (Auto) (1.0 - 3.8 x10 3/uL) 0.74 L [place] # (Auto) (0.1 - 0.8 x10 3/uL) 0.88 H Eos # (Auto) (0.0 - 0.2 x10 3/uL) 0.00 Baso # (Auto) (0.0 - 0.2 x10 3/uL) 0.02 Abs Immat Gran (auto) (0.00 - 0.03 x10 3/uL) 0. 03 Add Manual Diff NO Immature Gran % (0.0 - 2.0 %) 0.4 Nucleated RBC % (0 - 0 %) 0.0 Nucleated RBCs # (Man) (0.0 - 0.1 x10 3/uL) 0.0 0 Diagnosis, Assessment Plan Free Text DxA P Notes Free Text DxA P Notes: 1. Severe aortic stenosis: Patient is here for T AVR, patient underwent TAVR with Wood 23 mm valve. Patient tolerated proc edure well. did well overnight, ECHO good, ok to d/c with close f/u [facility] blend plant operator. 2. A. fib: Rate was slow this AM, change Metoprolol from 50 mg BID to 50 mg QD starting tomorrow. Will follow up with [facility] primary blend plant operator for AC. on ASA and Plavix for TAVR Electronically Signed by Susan Engel MD on at 1205 RPT #:[id number] END OF REPORT 2021-10-13 11:46:00-00:00 [id number] [place] [address] PATIENT NAME: MARCIE PAUL ADMIT DATE: ACCOUNT NO: [id number] ROOM NO: G.3306 AGE: 75 REPORT TYPE: eECHOCARDIOGRAM REPORT SEX: F ADMITTING PHYSICIAN:Jose Cruz Walsh MD ATTENDING PHYSICIAN:Jose Cruz Walsh MD *[facility]* [address] [place] [address] Transthoracic Echocardiogram Patient: Marcie Paul Study Date: 10/13/2021 BP: 131 / 70 Location: [facility] URN: [id number] : 1945 Age: 75 Height: 67 in / 170.2 cm Gender: F Weight: 16 2.7 lb / 73.9 kg BMI/BSA: 25.5 kg/m 2 / 1.88 m 2 *Ordering Physician: * Brina Corrigan *Interpreting Physician: * Susan Engel MD *Business Intern: * Rylee Floyd Indications: Post tavr. Study data: Transthoracic echocardiogram. Proced ure: Transthoracic echocardiography was performed. Image quality wa s adequate. Complete 2D, complete spectral Doppler, and color Doppler . Location: Bedside. Patient status: Inpatient. Patient room number: 3306. Study status: Routine. Rhythm: Atrial fibrillation. Findings Left ventricle: The cavity size is normal. Wall thickness is mildly increased. Systolic function is normal. The jerald mated ejection fraction is 55-60%. Wall motion is normal; there are no r egional wall motion abnormalities. The study is not technically suff icient to allow evaluation of LV diastolic function. PATIENT NAME: MARCIE PAUL ACCOUNT #: [id number] Right ventricle: The cavity size is dilated. Sys tolic function is normal. Left atrium: The atrium is dilated. Right atrium: The atrium is dilated. Aorta: Aortic root: The aortic root is normal in size. Aortic valve: The valve is structurally normal. Post TAVR: There is a Wood KATEY 3, 23 mm tr anscatheter valve that is well seated in the aortic valve position. The re is no perivalular leak. There is no evidence of stenosis. There is no regurgitation. Mitral valve: The valve is structurally normal. There is no evidence of stenosis. There is mild regurgitatio n. Tricuspid valve: The valve is structurally norm al. There is moderate regurgitation. Pulmonic valve: The valve is structurally normal . There is no regurgitation. Pericardium: There is no pericardial effusion. Pulmonary arteries: Main pulmonary artery: The artery is of normal s ize. Systemic veins: Inferior vena cava: The vessel is normal in size . Measurements Left ventricle Value 10/12/2021 Ref TRINA, LAX 3.8 cm 4.0 3.8 - 5.2 ESD, LAX 2.7 cm 2.6 2.2 - 3.5 ESD/bsa, 1.4 cm/m 2 1.4 1.3 - 2.1 LAX FS, LAX 30 % 34 27 - 45 ESD/bsa 2.9 cm/m 2 3.2 --------- major ax, A4C TRINA/bsa 2.9 cm/m 2 3.2 --------- minor ax, A4C TRINA major 6.7 cm 6.7 --------- ax, A2C TRINA/bsa 3.6 cm/m 2 3.6 --------- major ax, A2C PW, ED 1.3 cm 1.1 0.6 - 0.9 IVS/PW, ED 1 1.02 --------- EF 58 % 63 54 - 74 LVOT Value 10/12/2021 Ref Diam, S 2.02 cm 1.98 --------- Area 3.2 cm 2 3.1 --------- Peak loreto, S 1.49 m/sec 0.82 --------- Mean loreto, S 1.09 m/sec 0.53 --------- VTI, S 34.2 cm 17.4 --------- Peak grad, 9 mm Hg 3 --------- S Mean grad, 5 mm Hg 1 --------- PATIENT NAME: MARCIE PAUL ACCOUNT #: [id number] S SV 111 ml 54 --------- SV/bsa 59 ml/m 2 29 --------- Ventricular septum Value 10/12/2021 Ref IVS, ED 1.3 cm 1.2 0.6 - 0.9 Right ventricle Value 10/12/2021 Ref TRINA, LAX 3.9 cm 3.5 --------- Pressure, S 62 mm Hg --------- RVOT Value 10/12/2021 Ref Peak v, S 0.97 m/sec 0.64 --------- Peak grad, 4 mm Hg 2 --------- S Left atrium Value 10/12/2021 Ref Vol/bsa, 84 ml/m 2 40 ES, 1-p A4C Vol/bsa, 89 ml/m 2 34 ES, A/L AP dim, ES 4.4 cm 5.0 2.7 - 3.8 MM LA/Ao root 1.33 2.08 --------- ratio, MM Aortic valve Value 10/12/2021 Ref Leaflet 1.69 cm 1.01 --------- sep, MM Peak v, S 2.62 m/sec 4.23 --------- Mean v, S 1.68 m/sec 3.05 --------- VTI, S 57.5 cm 46.3 --------- Mean grad, 13.1 mm Hg 43.4 --------- S Peak grad, 27.6 mm Hg 71.5 --------- S LVOT/AV, 0.59 0.38 --------- VTI ratio DAISY, VTI 1.91 cm 2 0.54 --------- LVOT/AV, 0.57 0.19 --------- Vpeak ratio DAISY, Vmax 1.92 cm 2 0.58 --------- Mitral valve Value 10/12/2021 Ref E-septal 0.6 cm --------- separation E-F slope 0.06 m/sec --------- Peak E 1.44 m/sec 1.16 --------- PHT 53 ms --------- Peak grad, 8.3 mm Hg 5.4 --------- D MVA, PHT 4.1 cm 2 --------- Tricuspid valve Value 10/12/2021 Ref PATIENT NAME: MARCIE PAUL ACCOUNT #: [id number] TR peak v 3.62 m/sec <=2.8 Peak RV-RA 52 mm Hg --------- grad, S Aortic root Value 10/12/2021 Ref Root diam, 3.34 cm 2.39 --------- ED MM Pulmonary artery Value 10/12/2021 Ref Pressure, S 58.7 mm Hg --------- Systemic veins Value 10/12/2021 Ref Estimated 10 mm Hg --------- CVP Conclusions Summary: 1. Left ventricle: The cavity size is normal. Wa ll thickness is mildly increased. Systolic function is normal. The est imated ejection fraction is 55-60%. Wall motion is normal; ther e are no regional wall motion abnormalities. The study is not technica lly sufficient to allow evaluation of LV diastolic function. 2. Right ventricle: The cavity size is dilated. The RV pressure during systole by Doppler is 62 mm Hg. 3. Left atrium: The atrium is dilated. 4. Right atrium: The atrium is dilated. 5. Aortic valve: There is a Wood KATEY 3, 23 mm transcatheter valve that is well seated in the aortic valve positio n. The peak systolic velocity is 2.62 m/sec. The mean systolic gradi ent is 13.1 mm Hg. The peak systolic gradient is 27.6 mm Hg. The valve area by the velocity-time integral method is 1.91 cm 2. 6. Mitral valve: There is mild regurgitation. 7. Tricuspid valve: There is moderate regurgitat ion. Prepared and electronically signed by Susan Engel MD 10/13/2021 11:46 at 1146 PATIENT NAME: MARCIE PAUL ACCOUNT #: [id number] 2021-10-13 10:51:00-00:00 [facility]ACL [facility] Discharge Summary REPORT#:[id number] REPORT STATUS: Signed DATE:10/13/21 TIME: 1051 PATIENT: MARCIE PAUL UNIT #: [id number] ROOM/BED: [place] [address] : 47 AGE: 75 SEX: F ATTEND: Aparna Walsh MD ADM AUTHOR: Brina Corrigan * ALL edits or amendments must be made on the [employer]/computer document * PCP PCP PCP: PCP: No Primary or Family Physician General Information Discharge date: 10/13/21 Hospital course: Marcie Paul is a 75-year-old female with a [facility] medical history that is significant for severe aorti c stenosis, coronary disease status post PCI, COPD, tobacco user, hypertension, atrial fibrillation, DM 2, who was admitted for elective transcatheter aortic valve repl acement. 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 Echo done on 2020 showed DAISY 0.48 cm , mean gradient 45 mmHg, with severe pulmonary hypertension, mild MR mild TR. EF 55 to 60%. Cor onary angiogram on 04/06/2021 showed occluded RCA with col laterals to the PDA and the posterolateral from the circumflex and lAD. LAD stents and circumflex st ent were all open. Due to severe symptomatic aortic stenosis, patient's pr ofile was discussed in the structural conference and patient was deemed a s uitable candidate for transcatheter aortic valve replacement. Patient STS score calculated at 8.5% with NYHA class III symptoms. Patient therefore underwent TAVR with the placement of a 23 mm Wood katey ultr a valve via transfemoral approach with MAC. Patient tolerated procedure without any postop complications. Patient did well overnight and remained hemodynamically stab le. Patient was bradycardic postoperatively with heart rate in the 4 0s to low 50s rang and per Dr engel, patient is to stop metoprolol 50 mg every 12 jaylyn rs and start metoprolol 25 mg daily. Patient has been seen this morning by CV surgery as well as cardiology and patient is stable to be discharged home for outpatient follow-up. Post TAVR discharge instructions and handout given to the patient who verbalized understanding of the instructions given Med Rec PCP PCP: PCP: No Primary or Family Physician Med Rec Discharge meds: Stop taking the following medications: METOPROLOL TARTRATE (LOPRESSOR) 50 MG TAB 50 MILLIGRAM ORAL EVERY 12 HOURS. Days = 30 Continue taking these medications: metFORMIN (GLUCOPHAGE) 1,000 MG TAB 1,000 MILLIGRAM ORAL MORNING Instructions: 1000 MG IN AM metFORMIN (GLUCOPHAGE) 1,000 MG TAB 1,500 MILLIGRAM ORAL EVENING glipiZIDE (GLUCOTROL) 5 MG TAB 5 MILLIGRAM ORAL TWICE DAILY. ATORVASTATIN (LIPITOR) 20 MG TAB 20 MILLIGRAM ORAL BEDTIME. THYROID,PORK (ARMOUR THYROID) 300 MG TAB 360 MILLIGRAM ORAL DAILY. CLOPIDOGREL (PLAVIX) 75 MG TAB 75 MILLIGRAM ORAL DAILY. Qty = 30 AMIODARONE (CORDARONE) 200 MG TAB 200 MILLIGRAM ORAL TWICE DAILY. Days = 10 LISINOPRIL (ZESTRIL) 2.5 MG TAB 5 MILLIGRAM ORAL DAILY. Days = 30 [NITROSTAT] 0.4 MILLIGRAM SUBLINGUAL EVERY 5 MINUTES NEE DED. as needed for CHEST PAIN Qty = [address] (PROTONIX) 40 MG TAB.DR 40 MILLIGRAM ORAL BEFORE BREAKFAST. Days = 14 ALBUTEROL (VENTOLIN HFA 90 MCG/ACT 18 GM) 90 MCG INHALER 2 PUFF INHALATION RT - EVERY 4 HOURS NEEDED. as needed for Shortness of breath Qty = 1 ASPIRIN (ASPIRIN) 325 MG TAB 325 MILLIGRAM ORAL BEDTIME. Start taking the following new medications: METOPROLOL TARTRATE (LOPRESSOR) 25 MG TAB 25 MILLIGRAM ORAL DAILY. Qty = 90 Refills = 3 Objective VS/I O Last Documented: Result Date Time Pulse Ox 95 10/13 1101 B/P 124/60 10/13 1101 B/P Mean 86 10/13 1101 Pulse 64 10/13 1101 Resp 28 10/13 1101 Temp 36.8 10/13 0800 O2 Delivery Nasal cannula 10/13 0730 O2 Flow Rate 2 10/13 0730 PATIENT WEIGHT: Weight (lb): 167 Weight (oz): 1.77 Weight (kg): 75.800 General appearance: alert, awake, oriented Cardiovascular: irregular rhythm, irregularly ir regular Respiratory: clear to auscultation, no distress, no tenderness GI: soft, non-tender, no guarding, no rebound Extremities: moves all, no edema-all extremities Skin: dry, intact Assess/Plan Free Text A P: Symptomatic severe aortic stenosis * Patient is status post transcatheter aortic va lve replacement with a 23mm [employer] sapein ultra valve via -trans femoral approach under MAC. * Patient tolerated procedure without any postop erative complications. * Patient is currently hemod ynamically stable and ambulated without difficulty. * Patients bilateral groin incision is soft with out hematoma, no signs of bleeding or infection and right groin incision c losed with dermabond. * Post op echo reviewed by Keypunch Operator today: S howed a normal-appearing bioprosthetic aortic valve * Dual antiplatelet therapy continued with aspir in and Plavix. * Patient instructed to follow-up with regular c ardiologist in 1-2 weeks. * Also instructed to follow-up in the valve clin ic in 30 days and 1 year for Medicare Registry Visit. * Post TAVR discharge instru ctions /handout given to the patient who verbalized understanding of the instructions given and valentin ent is notified to report any complaints of chest pain, shortness of breath li ghtheadedness or dizziness to her blend plant operator. Discharge Instructions PCP PCP: PCP: No Primary or Family Physician Discharge Instructions Additional Discharge Routines: PCP Follow-Up, Co nsultant Follow-Up at 1227 RPT #:[id number] END OF REPORT 2021-10-13 04:13:00-00:00 [id number] [place] [address] PATIENT NAME: MARCIE PAUL ADMIT DATE: ACCOUNT NO: [id number] [place]OM NO: [facility] [place] AGE: 76 REPORT TYPE: eELECTROCARDIOGRAM REPORT SEX: F ADMITTING PHYSICIAN:Jose Cruz Walsh MD ATTENDING PHYSICIAN:Jose Cruz Walsh MD Order: [id number] Test Reason : POST TAVR Test Date/Time Stamp: MonOct 13 2021 04:13:00 Blood Pressure : / mmHG Vent. Rate : 047 BPM Atrial Rate : 046 BPM P-R Int : 000 ms QRS Dur : 086 ms QT Int : 410 ms P-R-T Axes : 000 112 070 degree s QTc Int : 362 ms Atrial fibrillation with slow ventricular respon se Right axis deviation Abnormal ECG When compared with ECG of 12-OCT-2021 13:07, Significant changes have occurred Confirmed by MD ENGEL MOLHAM ([id number]) on 022 9:49:42 PM Referred By: Joaquim Chavez Confirmed by:SUSAN HOUGH MD at 1480 PATIENT NAME: MARCIE PAUL ACCOUNT #: [id number] 2021-10-12 21:59:00-00:00 [facility] Cardiology Consultation REPORT#:[id number] REPORT STATUS: Signed DATE:10/12/21 TIME: 2158 PATIENT: MARCIE PAUL UNIT #: [id number] ROOM/BED: [place] [address] : 47 AGE: 75 SEX: F ATTEND: Aparna Walsh MD ADM AUTHOR: Susan Engel MD * ALL edits or amendments must be made on the [employer]/computer document * History of Present Illness HPI Requesting Clinician: Dr. Walsh Reason for consult: severe Chief complaint: Patient is here for scheduled TAVR for severe HPI: This is a 75-year-old female with past medical h istory of severe symptomatic aortic stenosis who presented today for TAVR. Patient denies any chest pain or syncope. Patient has been having fatigue and tir ed. Patient still smokes and she is working on quitting tobacco. History - Adult longitudinal Additional medical history: Hypertension Hyperlipidemia Diabetes Thyroidism COPD GERD Additional surgical history: Hysterectomy Foot surgery Cholecystectomy Alcohol use: Denies EtOH use Smoking status: Smoking status for patients 13 years old or old er: Current every day smoker Date last smoked: 10/08/21 Packs per day: 0.5 Years smoked: 60 Pack years: 30.0 Home medications: Home Medications: THYROID,PORK (ARMOUR THYROID) 360 MG PO DAILY ASPIRIN 325 MG PO BEDTIME metFORMIN (GLUCOPHAGE) 1,000 MG PO MORNING metFORMIN (GLUCOPHAGE) 1,500 MG PO EVENING glipiZIDE (GLUCOTROL) 5 MG PO BID ATORVASTATIN (LIPITOR) 20 MG PO BEDTIME CLOPIDOGREL (PLAVIX) 75 MG PO DAILY AMIODARONE (CORDARONE) 200 MG PO BID LISINOPRIL (ZESTRIL) 5 MG PO DAILY METOPROLOL TARTRATE (LOPRESSOR) 50 MG PO Q12HR [NITROSTAT] 0.4 MG SL Q5M PRN PRN CHEST PAIN PANTOPRAZOLE DR (PROTONIX) 40 MG PO AC BK ALBUTEROL (VENTOLIN HFA 90 M CG/ACT 18 GM) 2 PUFF INH RTQ4H PRN PRN Shortness of breath Allergies: Coded Allergies: No Known Allergies (10/12/21) Review of Systems Additional notes: As per HPI neck otherwise negative 12 system poi nt Objective General VS/I O: Vital Signs: Date Time Temp Pulse Resp B/P B/P Pulse O2 O2 F low FiO2 Mean Ox Delivery Rate 10/12 2045 80 21 118/40 64 100 10/12 2015 79 29 118/42 66 98 10/12 2000 153/59 89 10/12 2000 84 30 118/55 78 97 10/12 1900 118/40 62 10/12 1900 83 22 110/56 77 99 10/12 1800 83 24 130/60 87 97 10/12 1700 83 26 133/61 88 98 10/12 1645 87 27 112/56 72 93 10/12 1631 91 32 146/68 97 92 10/12 1615 90 36 118/59 82 84 10/12 1602 79 25 135/61 86 96 10/12 1600 97.9 84 21 120/57 78 98 Nasal 5 cannula 10/12 1600 84 21 120/57 82 98 10/12 1559 80 21 134/59 84 95 10/12 1545 80 19 125/58 84 93 10/12 1532 80 20 127/59 80 96 10/12 1530 81 24 127/58 84 95 10/12 1515 83 21 122/57 82 94 10/12 1500 82 22 110/57 81 95 10/12 1445 82 22 116/56 80 95 10/12 1435 97.7 82 22 116/56 76 95 Nasal 5 cannula 10/12 1432 Nasal 5 cannula 10/12 1353 Simple 6 mask 10/12 0832 Nasal 3 cannula 10/12 0819 98.5 99 19 106/61 97 Room air PATIENT WEIGHT: Weight (lb): 168 Weight (oz): 13.99 Weight (kg): 76.600 Medications: Active Meds + DC'd Last 24 Hrs Aspirin (ASPIRIN) 81 MG DAILY PO (PEND) Clopidogrel Bisulfate (Plavix) 75 MG DAILY PO Lisinopril (ZESTRIL) 5 MG DAILY PO Pantoprazole (PROTONIX) 40 MG AC BK PO Amiodarone HCl (CORDARONE) 200 MG BID PO Aspirin (ASPIRIN) 325 MG BEDTIME PO Atorvastatin Calcium (LIPITOR) 20 MG BEDTIME PO Metoprolol Tartrate (LOPRESSOR) 50 MG Q12HR PO Mupirocin (BACTROBAN 2% 22 GM OINTMENT) 1 APPLIC BID NASAL Glipizide (GLUCOTROL) 5 MG BID AC PO Influenza Virus Vaccine (Fluzone High-Dose Quad ) 240 MCG ASDIR IM Pneumococcal Polyvalent Vaccine (PNEUMOVAX 23) 0 .5 ML ASDIR IM Insulin Human Lispro (HUMALOG) 0 Q6HR SUBQ Protamine Sulfate (PROTAMINE SULFATE) 0 .STK-MED ONE IV (DC) Dextrose/Water (DEXTROSE 50% W SYRINGE) 25 ML DIR PRN IV (CKD) Dextrose/Water (DEXTROSE 50% W SYRINGE) 50 ML DIR PRN IV (CKD) Glucagon (GLUCAGON) 1 MG ASDIR PRN IM Lidocaine HCl (XYLOCAINE) 0 .STK-MED ONE .ROUTE (DC) Acetaminophen (TYLENOL) 650 MG Q6H PRN PRN PO Albuterol Sulfate (PROVENTIL) 2.5 MG RTQ4H PRN P RN NEB Atropine Sulfate (ATROPINE SULFATE 0.1MG/ML SYR) 0.5 MG ASDIR PRN IV Docusate Sodium (COLACE) 100 MG BID PRN PO Hydralazine HCl (APRESOLINE) 10 MG Q6H PRN PRN I V Hydrocodone Bitart/Acetaminophen (NORCO 5/325) 2 TAB Q4H PRN PRN PO Morphine Sulfate (morphine SULFATE) 2 MG Q2H PRN PRN IV Ondansetron HCl (ZOFRAN) 4 MG Q6H PRN PRN IV Sodium Chloride (SODIUM CHLORIDE 0.9%) 500 ML DIR PRN IV Temazepam (RESTORIL) 15 MG BEDTIME PRN PRN PO Dexamethasone Sodium Phosphate (DECADRON) 0 .STK -MED ONE .ROUTE (DC) Heparin Sodium (HEPARIN SODIUM) 0 .STK-MED ONE . ROUTE (DC) Heparin Sodium (HEPARIN SODIUM) 0 .STK-MED ONE . ROUTE (DC) Norepinephrine Bitartrate (NOREPINEPHRINE 8 MG/N S 250 ML) 250 ML .STK-MED ONE IV (DC) Heparin Sodium/Sodium Chloride (HEPARIN 2,000 UN ITS/NS 1,000mL) 3,000 ML .STK-MED ONE IV (DC) Heparin Sodium/Sodium Chloride (HEPARIN 1,000 UN ITS/NS 500ML) 500 ML .STK- MED ONE IV (DC) Cefazolin Sodium (KEFZOL OR ANCEF) 0 .STK-MED ON E IV (DC) Lidocaine HCl (LIDOCAINE HCL/PF) 0 .STK-MED ONE .ROUTE (DC) Sodium Chloride (SODIUM CHLORIDE 0.9%) 100 ML .S TK-MED ONE IV (DC) Sodium Chloride (SODIUM CHLORIDE) 10 ML .STK-MED ONE IV (DC) Dexamethasone Sodium Phosphate (DECADRON) 0 .STK -MED ONE .ROUTE (DC) Dexmedetomidine HCl (PRECEDEX) 0 .STK-MED ONE IV (DC) Ephedrine Sulfate (ePHEDrine sulfate) 0 .STK-MED ONE .ROUTE (DC) Fentanyl Citrate (SUBLIMAZE) 0 .STK-MED ONE .ROU TE (DC) Lidocaine HCl (XYLOCAINE) 0 .STK-MED ONE .ROUTE (DC) Midazolam HCl (VERSED) 0 .STK-MED ONE .ROUTE (DC ) Ondansetron HCl (ZOFRAN) 0 .STK-MED ONE .ROUTE ( DC) Phenylephrine HCl (GINA-SYNEPHRINE 1000MCG/NS 10M L INJ) 0 .STK-MED ONE I- KRISTA (DC) Propofol (DIPRIVAN 200MG/20ML INJECTION) 20 ML . STK-MED ONE IV (DC) Fentanyl Citrate (SUBLIMAZE) 100 MCG PACU Q10MIN PRN PRN IV (DC) Fentanyl Citrate (SUBLIMAZE) 50 MCG PACU Q10MIN PRN PRN IV (DC) Hydralazine HCl (APRESOLINE) 2 MG PACU Q10MIN MA N PRN IV (DC) Hydrocodone Bitart/Acetaminophen (NORCO 5/325) 1 TAB PACU ONCE PO (DC) Hydromorphone HCl (DILAUDID) 1 MG PACU Q10MIN MA N PRN IV (DC) Hydromorphone HCl (DILAUDID) 0.5 MG PACU Q5MIN P RN PRN IV (DC) Insulin Human Lispro (HUMALOG) 0 PACU ONCE PRN S UBQ (DC) Labetalol HCl (LABETALOL HCL) 5 MG PACU Q10MIN P RN PRN IV (DC) Meperidine HCl (DEMEROL 50MG/ML) 12.5 MG PACU ON CE PRN IV (DC) Morphine Sulfate (morphine SULFATE) 2 MG PACU Q1 0MIN PRN PRN IV (DC) Norepinephrine Bitartrate (NOREPINEPHRINE 8 MG/N S 250 ML) 250 ML PACU ONCE IV (DC) Ondansetron HCl (ZOFRAN) 4 MG PACU ONCE PRN IV ( DC) Ropivacaine (NAROPIN 0.5% 150 MG/30mL) 150 MG DIR PRN LOCAL (DC) Tramadol HCl (ULTRAM) 50 MG PACU ONCE PO (DC) Lidocaine HCl (XYLOCAINE) 0 .STK-MED ONE .ROUTE (DC) Cefazolin Sodium (KEFZOL OR ANCEF) 2 GM PREOP PARTY BUS DRIVER IV (DC) Sodium Chloride (SODIUM CHLORIDE) 20 ML ASDIR IV (DC) Acetaminophen (TYLENOL EXTRA STRENGTH) 1,000 MG PREOP ONCALL PO (DC) Lactated Ringer's (LACTATED RINGERS) 1,000 ML MA EOP ONCALL IV (DC) Lidocaine HCl (LIDOCAINE HCL/PF) 2 ML PREOP ONCA LL LOCAL (DC) Lidocaine HCl (LIDOCAINE HCL/PF) 2 ML PREOP ONCA LL LOCAL (DC) Sodium Chloride (SODIUM CHLORIDE 0.9%) 500 ML MA EOP ONCALL IV (DC) Sodium Chloride (SODIUM CHLORIDE 0.9%) 500 ML MA EOP ONCALL IV (DC) Sodium Chloride (SODIUM CHLORIDE 0.9%) 1,000 ML PREOP ONCALL IV (DC) Sodium Chloride (SODIUM CHLORIDE) 5 ML ASDIR PRN IV (DC) Sodium Chloride (SODIUM CHLORIDE) 10 ML ASDIR MA N IV (DC) Sodium Chloride (SODIUM CHLORIDE 0.9%) 250 ML DIR PRN IV (DC) General appearance: alert, awake, oriented Head/Eyes: PERRLA ENT: normal nose Neck: no JVD Cardiovascular: CV assessment: Irregularly irregular rate and r hythm, severe murmur Respiratory: clear to auscultation, no distress Abdomen: soft Lower extremity: LE assessment: no cyanosis, no edema Neuro/COLON AND RECTAL SURGEON: alert, oriented X 3, normal speech Skin: dry, intact Psychiatry: normal affect, normal judgment/insig ht, normal mood, no hallucinations Physical Exam General appearance: alert, oriented, mental stat us normal, no respiratory distress Results Findings/Data: Laboratory Tests 10/12 10/12 10/12 1754 1230 0821 Chemistry POC Glucose (70 - 110 MG/DL) 207 H 158 H 86 Laboratory Tests 10/12 1114 Coagulation Activated Coag Time (74 - 137 SEC) 362 H Diagnosis, Assessment Plan Free Text DxA P Notes Free Text DxA P Notes: 1. Severe aortic stenosis: Patient is here for T AVR, patient underwent TAVR with Wood 23 mm valve. Patient tolerated proc edure well. Will monitor in CCU and plan for discharge tomorrow. 2. A. fib: Rate controlled. Electronically Signed by Susan Engel MD on at 2204 RPT #:[id number] END OF REPORT 2021-10-12 20:52:00-00:00 [id number] [place] [address] PATIENT NAME: MARCIE PAUL ADMIT DATE: ACCOUNT NO: [id number] ROOM NO: [facility] [place] AGE: 75 REPORT TYPE: eECHOCARDIOGRAM REPORT SEX: F ADMITTING PHYSICIAN:Jose Cruz Walsh MD ATTENDING PHYSICIAN:Jose Cruz Walsh MD *[place] [address] Limited Transthoracic Echocardiogram Patient: Marcie Paul Study Date: 10/12/2021 BP: 143 / 61 Location: [facility] URN: [id number] : 1945 Age: 75 Height: 67 in / 170.2 cm Gender: F Weight: 162 .7 lb / 73.9 kg BMI/BSA: 25.5 kg/m 2 / 1.88 m 2 *Ordering Physician: * Joaquim Chavez *Interpreting Physician: * Susan Engel MD *Business Intern: * Ly Felix Indications: TAVR. Study data: Transthoracic echocardiogram, limite d study. Procedure: Transthoracic echocardiography was performed. Im age quality was adequate. Limited 2D and limited spectral Dopple r. Location: [facility]atheter[facility]: [facility]. Study status: Routine. Rhythm: Normal sinus rhythm. Findings Left ventricle: The cavity size is normal. Wall thickness is mildly increased. Systolic function is normal. The jerald mated ejection fraction is 55-60%. Wall motion is normal; there are no r egional wall motion abnormalities. Right ventricle: The cavity size is dilated. Sys tolic function is PATIENT NAME: MARCIE PAUL ACCOUNT #: [id number] normal. Left atrium: The atrium is dilated. Right atrium: The atrium is normal in size. Aorta: Aortic root: The aortic root is normal in size. Aortic valve: The valve is structurally normal. Pre TAVR: The LVOT diameter is 2 cm. The peak gr adient is 71.5 mmHg. The mean gradient is 43.4 mmHg. The LVOT VTI is 17.4 cm. The AV VTI is 88.9 cm. The aortic valve area is 0.6 cm 2. Ther e is severe aortic stenosis. Post TAVR: There is a Wood KATEY 3, 23 mm tr anscatheter valve that is well seated in the aortic valve position. The LVOT diameter is 2 cm. The peak aortic gradient is 14 mmHg. The mean ao rtic gradient is 6.7 mmHg. The LVOT VTI is 18.1 cm. The aortic valve area is 3.2 cm 2. There is no perivalvular leak noted. There is no evide nce of stenosis. There is no regurgitation. Mitral valve: The valve is structurally normal. There is no evidence of stenosis. There is no regurgitation. Tricuspid valve: The valve is structurally antony l. There is trivial regurgitation. Pulmonic valve: The valve is structurally normal . There is no regurgitation. Pericardium: There is no pericardial effusion. Pulmonary arteries: The main pulmonary artery is normal-sized. Systemic veins: Inferior vena cava: The vessel is normal in size . Measurements Left ventricle Value Ref TRINA, LAX 4.0 cm 3.8 - 5.2 ESD, LAX 2.6 cm 2.2 - 3.5 ESD/bsa, LAX 1.4 cm/m 2 1.3 - 2.1 FS, LAX 34 % 27 - 45 ESD/bsa major ax, 3.2 cm/m 2 --------- A4C TRINA/bsa minor ax, 3.2 cm/m 2 --------- A4C TRINA major ax, A2C 6.7 cm --------- ESD major ax, A2C 5.8 cm --------- TRINA/bsa major ax, 3.6 cm/m 2 --------- A2C ESD/bsa major ax, 3.1 cm/m 2 --------- A2C PW, ED 1.1 cm 0.6 - 0.9 IVS/PW, ED 1.02 --------- EF 63 % 54 - 74 LVOT Value Ref Diam, S 1.98 cm --------- Area 3.1 cm 2 --------- Peak loreto, S 0.82 m/sec --------- Mean loreto, S 0.53 m/sec --------- PATIENT NAME: MARCIE PAUL ACCOUNT #: [id number] VTI, S 17.4 cm --------- Peak grad, S 3 mm Hg --------- Mean grad, S 1 mm Hg --------- SV 54 ml --------- SV/bsa 29 ml/m 2 --------- Ventricular septum Value Ref IVS, ED 1.2 cm 0.6 - 0.9 Right ventricle Value Ref TRINA, LAX 3.5 cm --------- RVOT Value Ref Peak v, S 0.64 m/sec --------- Peak grad, S 2 mm Hg --------- Left atrium Value Ref AP dim, ES 5.39 cm 2.70 - 3.80 AP dim, ES MM 5.0 cm 2.7 - 3.8 LA/Ao root ratio, MM 2.08 --------- Aortic valve Value Ref Leaflet sep, MM 1.01 cm --------- Peak v, S 4.23 m/sec --------- Mean v, S 3.05 m/sec --------- VTI, S 46.3 cm --------- Mean grad, S 43.4 mm Hg --------- Peak grad, S 71.5 mm Hg --------- LVOT/AV, VTI ratio 0.38 --------- DAISY, VTI 0.54 cm 2 --------- LVOT/AV, Vpeak ratio 0.19 --------- DAISY, Vmax 0.58 cm 2 --------- Mitral valve Value Ref Peak E 1.16 m/sec --------- Peak A 0.29 m/sec --------- Decel time 297 ms --------- Peak grad, D 5.4 mm Hg --------- Peak E/A ratio 3.96 --------- Aortic root Value Ref Root diam, ED MM 2.39 cm --------- Conclusions Summary: 1. Left ventricle: The cavity size is normal. Wa ll thickness is mildly increased. Systolic function is normal. The est imated ejection fraction is 55-60%. Wall motion is normal; ther e are no regional wall motion abnormalities. 2. Right ventricle: The cavity size is dilated. The end-diastolic PATIENT NAME: MARCIE PAUL ACCOUNT #: [id number] diameter (PLAX) is 3.5 cm. 3. Left atrium: The atrium is dilated. 4. Aortic valve: There is a Wood KATEY 3, 23 mm transcatheter valve that is well seated in the aortic valve positio n. The LVOT diameter is 2 cm. The peak aortic gradient is 14 mmHg. T he mean aortic gradient is 6.7 mmHg. The LVOT VTI is 18.1 cm. There is no perivalvular leak noted. 5. Tricuspid valve: There is trivial regurgitati on. Prepared and electronically signed by Susan Engel MD 10/12/2021 20:52 at 2052 PATIENT NAME: MARCIE PAUL ACCOUNT #: [id number] 2021-10-12 16:49:00-00:00 [id number] [place] [address] PATIENT NAME: MARCIE PAUL ADMIT DATE: ACCOUNT NO: [id number] ROOM NO: [id number] AGE: 75 REPORT TYPE: OPERATIVE REPORT SEX: F ADMITTING PHYSICIAN:Jose Cruz Walsh MD ATTENDING PHYSICIAN:Jose Cruz Walsh MD OPERATION DATE: 10/12/2021 PROCEDURES PERFORMED: Transc atheter aortic valve replacement using 23 mm Katey S3 Ultra valve via right femoral artery access. PREOPERATIVE DIAGNOSIS: POSTOPERATIVE DIAGNOSIS: INDICATIONS: Severe symptomatic aortic valve victor hugo nosis. PRIMARY OPERATORS: Joaquim Chavez MD. [employer] MECHANICAL ENGINEER: Susan Engel MD PRIMARY SURGEON: Jose Cruz Walsh MD COMPLICATIONS: None. BLEEDING: Less than 50 mL. ANESTHESIA: DESCRIPTION OF PROCEDURE: After risks, benefits, and alternatives were explained, the patient was b rought into the hybrid OR and prepped and draped in the usual sterile fashion and monitored anesthes ia care was applied by anesthesia team. I then took under ultrasound gu chelsynce, a micropuncture kit, accessed right femoral artery, right femoral vei n and left femoral artery and placed 6-Filipino [place] sheath in each location , then upgraded the right femoral sheath into 14-Filipino Wood sheath. He marga was given to assure ACT level above 250 throughout the procedure. I then took a balloon-tipped pacemaker wire through the v enous access into the RV and to the intraventricular septum and the pacemaker was tested and left in place. Then, I took a ____ pigtail through the left fem oral artery access into the aortic root and took an AL1 catheter into the aortic root over J-wire wi th a straight wire across the aortic valve and then advanced the AL1 catheter into the LV. Then, I took an exchange J-wire, removed the AL1 catheter and then took a pigtail catheter into the LV and simultaneous pressure was carmen sured and then I exchanged for Amplatz extra stiff wire that was pl aced in the LV, removed the pigtail and then took a 23-mm Katey S3 Ultra valve over the Amplatz wir e into the abdominal aorta. Valve was assembled and then was advanced across the aortic arch and then across the aortic valve and with th e deployment angle specified by CT scan, under rapid pacing, the valve was deploy ed successfully without complication and removed the PATIENT NAME: MARCIE PAUL ACCOUNT #: [id number] delivery system out and removed the Wood murri[place] th. There was a Perclose pre-deployed and then we put a 6-Filipino Angio-Seal on top that gave a good seal, groin angiogram showed no extravasation. Then, w mel removed the venous access, placed [id number] suture, removed the left femoral access and placed 6-Filipino Angio-Seal with good hemostasis. The pa cecilia tolerated the procedure very well and was sent to recovery in stable con dition. CONCLUSION: Successful transcatheter aortic valv e replacement using 23-mm Aktey S3 Ultra valve via right femoral artery a ccess. PLAN: Admit overnight and if stable, discharge w ithin the next 24 hours. Obtain echo in the morning. Dictated By: Joaquim Chavez MD WT: OP:AMRIK/IKE/NORIS Conf#: [id number]/DID#: [id number] Authenticated by Joaquim Chavez MD On 10/13/2021 08:39:40 AM Electronically Signed by Joaquim Chavez MD on at 0839 PATIENT NAME: MARCIE PAUL ACCOUNT #: [id number] 2021-10-12 13:07:00-00:00 [id number] [place] [address] PATIENT NAME: MARCIE PAUL ADMIT DATE: ACCOUNT NO: [id number] [place]OM NO: [facility] [place] AGE: 76 REPORT TYPE: eELECTROCARDIOGRAM REPORT SEX: F ADMITTING PHYSICIAN:Jose Cruz Walsh MD ATTENDING PHYSICIAN:Jose Cruz Walsh MD Order: [id number] Test Reason : S/P TAVR Test Date/Time Stamp: MonOct 12 2021 13:07:12 Blood Pressure : / mmHG Vent. Rate : 080 BPM Atrial Rate : 250 BPM P-R Int : 000 ms QRS Dur : 100 ms QT Int : 380 ms P-R-T Axes : 000 113 061 degree s QTc Int : 438 ms Atrial fibrillation Left posterior fascicular block Abnormal ECG When compared with ECG of 08-OCT-2021 09:24, Significant changes have occurred Confirmed by MARY ELLEN SIERRA MD ([id number]) on 12/01/2021 5:04:53 PM Referred By: Joaquim Chavez Confirmed by:BARBIE SIERRA MD at 1704 PATIENT NAME: MARCIE PAUL ACCOUNT #: [id number] 2021-10-12 12:27:00-00:00 HCACL [facility] ([facility]) DT Operative Note REPORT#:[id number] REPORT STATUS: Signed DATE:10/12/21 TIME: 1227 PATIENT: MARCIE PAUL UNIT #: [id number] ROOM/BED: [place] [address] : 47 AGE: 75 SEX: F ATTEND: Aparna Walsh MD ADM AUTHOR: Jose Cruz Walsh MD * ALL edits or amendments must be made on the [employer]/computer document * Operative Report Operative Note Note: Preoperative diagnosis: Severe symptomatic aorti c stenosis Postoperative diagnosis: Severe symptomatic aort ic stenosis Procedure: 1.Transcatheter a ortic valve replacement (TAVR) utilizing 23 Wodo 's Katey S3 Ultra pericardial valve via transfe moral approach with MAC. 2. Ascending aortogram 3. Placement of temporary pacing wire 4. Perclose x 2 closure of right common femoral artery 5. 6-Filipino Angioseal closure of the left femor al artery Surgeon: Ki Walsh MD Keypunch Operator: MD Valeria Jaquez MD Anaesthesia: MAC Estimated blood loss: 20 cc Indication: Ms Paul is a pleasant 75-year-old , female with severe symptomatic aortic stenosis. She was investigate d and was found to be a suitable candidate for TAVR. After do preop coun seling she was brought to the hybrid room today for TAVR Findings: 1. Severe calcification of aortic valv e 2. The delivery system was passed without diffi culty into the left ventricular outflow tract for deployment. 3. A 23 mm Katey S3 Ultra valve was required 4. Post replacement TTE revealed no paravalvula r leak 5. Patient had good Doppler signals in both low er extremities following the procedure. Procedure in detail: Further details will be dictated by Dr. Joaquim Chavez as he was the business specialist. The patient was brought into the hybrid room. A timeout procedure was performed which co nfirmed the patient's name medical record number and th e procedure to be performed. The patient was placed supine on the operating table. The chest, abdomen, and groins were prepped and draped in standard surgical fashion. 1% lidocaine was used to anesthetize th e area over the right femoral artery, and left femoral artery and vein. After placement of appropriate sheath patient was heparinized, to maint ain and a ACT more than 250 second. An aortic root shot was performed, noting t he optimal angle for deployment of the valve. This confirmed the position already deter mined by CT angiogram 3D reconstruction. Subsequently, the 23 mm Wood Katey S3 Ultra transcatheter valve was placed into the sheath in the right fe moral artery and brought up through the aortic valve and placed in the correct position. This was confirmed by the heart valve team. Subsequently the rapid ventricular pacing was performed and the valve was deployed in the aort ic annulus appropriately. The Cordis and sheath were pulled back. Postplacemen t transthoracic echo revealed good placement of the valve with no aortic insuf ficiency. A pigtail catheter was placed into the left miguel tricle and simultaneous LV and aortic pressures were obtained. The mean gradient was minimal. Subsequ ently, the sheaths were removed, the right common femoral artery was closed with a Perclose device x 2 and the left common femoral artery was closed us ing Angioseal device. The subcutaneous tissue in the r ight groin was approximated with 2-0 Vicryl and skin with 4-0 Vicryl. Sterile dressings were applied. I was present as co-surgeon in conjuncti on with Dr Chavez and Dr. Vazquez. Dr. Chavez will dictate his portion in detai l. The patient tolerated the procedure well and was taken to the coronary care unit in stable condition. Sponge, needle and instrument count were correct. at 1235 [facility] #:[id number] END OF REPORT 2021-10-12 07:56:00-00:00 [facility] Cardiothoracic Surgery Consult REPORT#:[id number] REPORT STATUS: Signed DATE:10/12/21 TIME: 0756 PATIENT: MARCIE PAUL UNIT #: [id number] [place]ED: [facility] [place] : [place] AGE: 75 SEX: F ATTEND: Aparna Walsh MD ADM AUTHOR: Tierney Barraza * ALL edits or amendments must be made on the [employer]/computer document * Micaela Bear 10/12/21 0756: History of Present Illness HPI Chief complaint: Severe aortic stenosis Admitted for TAVR PCP: PCP: No Primary or Family Physician HPI: Ms Paul is a very pleasant 75-year-old female with past medical history of hypertension, diabetes, hype rlipidemia, atrial fibrillation, COPD on home O2 who has been experiencing worsening shortness of merrill ath. Work-up revealed severe aortic stenosis with a mean gradient across the valve of 46 mmHg and aortic valve area 0.48 cm . 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 She was deemed high risk for surgical AV R because of her age and comorbidities and was evaluated for TAVR. Her case was present ed in the structural heart conference and she has been admitted to the hospital today for this procedure. History Additional Medical History: Pretension Hyperlipidemia Diabetes Thyroidism COPD GERD Additional Surgical History: Hysterectomy Foot surgery Cholecystectomy Alcohol Use Denies EtOH use Smoking status: Smoking status for patients 13 years old or old er: Current every day smoker Medications: Home Medications: Medication Dose/Rte/Freq Days Qty Entered Last Max Daily Dose Reviewed metFORMIN (GLUCOPHAGE) 1,000 MG PO 01/09/15 Strength: 1,000 MG TAB MORNING 0419 metFORMIN (GLUCOPHAGE) 1,500 MG PO EVENING 12/28 02/08 Strength: 1,000 MG TAB 0420 glipiZIDE (GLUCOTROL) 5 MG PO BID 01/09/15 Strength: 5 MG TAB 0421 ATORVASTATIN (LIPITOR) 20 MG PO BEDTIME 5 Strength: 20 MG TAB 0422 THYROID,PORK 375 MG PO DAILY 01/09/15 (ARMOUR THYROID) 0423 Strength: 300 MG TAB CLOPIDOGREL (PLAVIX) 75 MG PO DAILY 30 01/12/15 Strength: 75 MG TAB 1203 AMIODARONE (CORDARONE) 200 MG PO BID 10 5 Strength: 200 MG TAB 1203 LISINOPRIL (ZESTRIL) 5 MG PO DAILY 30 01/12/15 Strength: 2.5 MG TAB 1203 METOPROLOL TARTRATE 50 MG PO Q12HR 30 01/12/15 (LOPRESSOR) 1203 Strength: 50 MG TAB [NITROSTAT] 0.4 MG SL 14 01/12/15 Strength: Q5M PRN PRN CHEST 1203 PAIN ASPIRIN EC (ECOTRIN) 325 MG PO DAILY 30 5 Strength: 325 MG TAB.EC [address] 40 MG PO AC BK 14 01/12/15 (PROTONIX) 1203 Strength: 40 MG TAB. ALBUTEROL 2 PUFF INH 1 01/12/15 (VENTOLIN HFA 90 RTQ4H PRN PRN 1203 MCG/ACT 18 GM) Shortness of breath Strength: 90 MCG INHALER Current Hospital Medications: Anti-Infective Agents Sig/Tasia Start time Last Medication Dose Route Stop Time Status Admin Cefazolin Sodium 2 GM PREOP ONCALL 10/12 0500 C KD (KEFZOL OR ANCEF) IV 10/12 2359 Cardiovascular Drugs Sig/Tasia Start time Last Medication Dose Route Stop Time Status Admin Lidocaine HCl 0 .STK-MED ONE 10/12 0523 DC (XYLOCAINE) .ROUTE Lidocaine HCl 2 ML PREOP ONCALL 10/08 1015 AC (LIDOCAINE HCL/PF) LOCAL 11/07 2359 Lidocaine HCl 2 ML PREOP ONCALL 10/08 1015 AC (LIDOCAINE HCL/PF) LOCAL 11/07 2359 Central Nervous System Agents Sig/Tasia Start time Last Medication Dose Route Stop Time Status Admin Acetaminophen 1,000 MG PREOP ONCALL 10/08 1015 CKD (TYLENOL EXTRA PO 11/07 2359 STRENGTH) Electrolytic, Caloric, And Tonya Sig/Tasia Start time Last Medication Dose Route Stop Time Status Admin Sodium Chloride 20 ML ASDIR 10/08 1045 AC (SODIUM CHLORIDE) IV 11/07 1044 Lactated Ringer's 1,000 ML PREOP ONCALL 10/08 1 015 AC (LACTATED RINGERS) IV 11/07 2359 Sodium Chloride 500 ML PREOP ONCALL 10/08 1015 AC (SODIUM CHLORIDE IV 11/07 2359 0.9%) Sodium Chloride 500 ML PREOP ONCALL 10/08 1015 AC (SODIUM CHLORIDE IV 11/07 2359 0.9%) Sodium Chloride 1,000 ML PREOP ONCALL 10/08 101 5 AC (SODIUM CHLORIDE IV 11/07 2359 0.9%) Sodium Chloride 5 ML ASDIR PRN 10/08 1015 AC (SODIUM CHLORIDE) IV 11/07 1014 Sodium Chloride 10 ML ASDIR PRN 10/08 1015 AC (SODIUM CHLORIDE) IV 11/07 1014 Sodium Chloride 250 ML ASDIR PRN 10/08 1015 AC (SODIUM CHLORIDE IV 11/07 1014 0.9%) Review of Systems Review of Systems Constitutional: Denies: chills, fever, malaise. ENT: Denies: sore throat. Cardiovascular: Denies: chest pain, palpitations. GI: Denies: abdominal pain, nausea, vomiting. Heme: Denies: bleeding. Neuro: Denies: dizziness, headache, vision change. Objective Physical Exam VS/I O: PATIENT WEIGHT: Weight (lb): 163 Weight (oz): 9.33 Weight (kg): 74.200 General appearance: alert, oriented, mental stat us normal, no respiratory distress HEENT: anicteric Cardiovascular: normal heart sounds, regular rat e rhythm Murmur: Systolic 3/6 Respiratory: decreased breath sounds, symmetric expansion, no distress Abdomen: soft, non-tender Genitourinary: no abbott Extremities: edema, moves all Neuro/COLON AND RECTAL SURGEON: alert, oriented X 3, normal speech, n o motor deficits Psychiatry: normal affect, normal mood Diagnosis, Assessment Plan Free Text A P: Ms Paul is a very pleasant 75-year-old female with past medical history of hypertension, diabetes, hype rlipidemia, atrial fibrillation, COPD on home O2 who has been experiencing worsening shortness of merrill ath. Work-up revealed severe aortic stenosis with a mean gradient across the valve of 46 mmHg and aortic valve area 0.48 cm . 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 She was deemed high risk for surgical AV R because of her age and comorbidities and was evaluated for TAVR. Her case was present ed in the structural heart conference and she has been admitted to the hospital today for this procedure. PLAN Postop care Monitor hemodynamics and heart rhythm Monitor access site and peripheral pulses Echocardiogram in a.m. Discussed with Jose Cruz Rosales 10/18/21 1603: History Allergies: Coded Allergies: No Known Allergies (10/12/21) Attestations Physician Attestation Agree w/findings plan: I have seen and examined Ms. Paul. I agree wi th the findings and plan as documented by SUGAR Chinchilla. Briefly, 75-year-old female with severe aortic stenosis. She was worked up and presented in the structural heart conference and found to be a suitable candidate for TAVR. She is being admitted to the hospital today for the procedure. I had a long discussion with the valentin ent, explained to her the procedure, risk involved, benefit, alternative, STS risk score, and complications. Patient verbalized unders tanding the risk and wished to proceed with the procedure. at 2211 at 1604 RPT #:[id number] END OF REPORT 2021-10-08 09:24:00-00:00 [id number] [place] [address] PATIENT NAME: MARCIE PAUL ADMIT DATE: ACCOUNT NO: [id number] ROOM NO: AGE: 75 REPORT TYPE: eELECTROCARDIOGRAM REPORT SEX: F ADMITTING PHYSICIAN: ATTENDING PHYSICIAN:Joaquim Chavez MD Order: [id number] Test Reason : PREOP Test Date/Time Stamp: MonOct 08 2021 09:24:03 Blood Pressure : / mmHG Vent. Rate : 072 BPM Atrial Rate : 070 BPM P-R Int : 000 ms QRS Dur : 094 ms QT Int : 384 ms P-R-T Axes : 000 123 080 degree s QTc Int : 420 ms Atrial fibrillation Right axis deviation Septal infarct (cited on or before 12-JAN-2015) Abnormal ECG When compared with ECG of 12-JAN-2015 05:36, Significant changes have occurred Confirmed by XIANG HERNANDEZ MD ([id number]) on 021 5:24:49 PM Referred By: Joaquim Chavez Confirmed by:XIANG CARIAS MD at 2898 PATIENT NAME: MARCIE PAUL ACCOUNT #: [id number] 2021-09-14 08:40:00-00:00 [id number] [place] [address] PATIENT NAME: MARCIE PAUL ADMIT DATE: ACCOUNT NO: [id number] ROOM NO: AGE: 75 REPORT TYPE: PULMONARY FUNCTION REPORT SEX: F ADMITTING PHYSICIAN: ATTENDING PHYSICIAN:Brina Corrigan STUDY DATE: 09/13/2021 SPIROMETRY: FVC is 68% of predicted. FEV1 is 43% of predicted, no response to bronchodilator, ratio of 48. Total lung capacity 71%. Diffusion capacity 39%. FULL PULMONARY FUNCTION TEST: Mixed obst ructive and restrictive impairment, it is a combination of severe COPD, stage III, eduardo g with interstitial lung disease. Clinical correlation is recommended. Dictated By: Matthew Man MD WT: PFT:G.JEREMY/DE/NTS Conf#: [id number]/DID#: [id number] Authenticated by MATTHEW MAN MD On 09/27/2021 08:22:55 AM Electronically Signed by Matthew Man MD on 12/17 at 0822 PATIENT NAME: MARCIE PAUL [id number]
[2023-06-01 11:04] LABS: Absolute Lymphocytes (CBC) 0.6 K/uL (0.7-4.9); Hematocrit 34.6 % (36.0-45.0); Lymphocytes % 14.5 % (15.3-44.8); MCV 91.4 fL (80-100); MPV 8.1 fL (7.6-11.3); RBC Red Blood Cell Count 3.78 M/uL (3.86-4.86)
[2023-06-01 11:11] LABS: Protime INR 1.03
[2023-06-01 11:32] LABS: Albumin 3.2 g/dL (3.4-5.0); Bilirubin Direct 0.2 mg/dL (0-0.2); Bilirubin Indirect, Calculated 0.4 mg/dL (0.2-0.8); Bilirubin Total 0.6 mg/dL (0.2-1.0); Potassium 4.1 mEq/L (3.5-5.1); Protein, Total 6.7 g/dL (6.4-8.2); Troponin High Sensitivity 29.5 pg/mL (<58.9)
--- NOTE | 2023-06-01 11:59 | RAD REPORT ---
EXAM DESCRIPTION: RAD - Chest Single View - 06/01/2023 11:37 am CLINICAL HISTORY: DYSPNEA Chest pain. COMPARISON: Chest Pa And Lat (2 Views) dated 01/20/2023; Chest Single View dated 04/17/2022; Chest Sin gle View dated 04/15/2022; Chest Single View dated 09/06/2021 FINDINGS: Portable technique limits examination quality. Mild interstitial pulmonary edema suspected. The heart is moderately enlarged. Mild CHF versus volume overload is likely. Moderate right pleural effusion, increased in size since 01/20/2023.
[2023-06-01] MEDS ORDERED: FUROSEMIDE 20 MG/ 2ML VIAL ONE (12:05)
[2023-06-01] MEDS ORDERED: FUROSEMIDE 40 MG/4 ML VIAL ONE (12:05)
[2023-06-01] MEDS ORDERED: LEVALBUTEROL 1.25 MG/3 ML NEB ONE (12:05)
--- NOTE | 2023-06-01 12:10 | EDPHYS ---
Physician Documentation [facility] Name: Marcie Paul Age: 77 yrs Sex: Female : 1945 Arrival Date: 06/01/2023 Time: 10:05 Bed 13 Private MD: ED Physician Steven Kyle HPI: 06/01 12:04 This 77 yrs old Female presents to ER via Wheelchair with complaints of Breathing rn Difficulty, Wound Infection - leg. 12:04 The patient has shortness of breath at rest, with light activity. rn 12:04 Onset: The symptoms/episode began/occurred 2 day(s) ago. Duration: The symptoms are rn continuous. The patient's shortness of breath is aggravated by exertion, light activity, supine position, is alleviated by sitting up, application of supplemental oxygen. Associated signs and symptoms: Pertinent positives: non-productive cough, Pertinent negatives: chest pain, fever, hemoptysis. Severity of symptoms: At their worst the symptoms were moderate in the emergency department the symptoms have improved. The patient has experienced similar episodes in the past. Pt reports 2 days of worsening SOB, on 2L O2 at home, hx of COPD and CHF. NO fever. Doesn't feel ill. Reports increased swelling of both lower ext and compliant with medication. Also reports dropped pot on RLE, wound not healing, and draining clear fluid. . Historical: - Allergies: 10:12 Tape; aa5 10:12 Xarelto; aa5 - PMHx: 10:12 Atrial Fib; COPD; Diabetes - NIDDM; Hyperlipidemia; Hypertension; Hypothyroidism; aa5 Myocardial infarction; Home O2 via NC at 2 to 2.5L; - Immunization history:: Adult Immunizations unknown. - Social history:: Smoking status: Patient reports the use of cigarette tobacco products, 5-6 cigarettes a day . - Family history:: not pertinent. - Hospitalizations: : No recent hospitalization is reported. ROS: 12:04 Constitutional: Negative for fever, chills, and weight loss, Cardiovascular: Negative rn for chest pain, palpitations, and edema, Respiratory: + sob and cough Abdomen/GI: Negative for abdominal pain, nausea, vomiting, diarrhea, and constipation, Back: Negative for injury and pain, MS/Extremity: Negative for injury and deformity, Skin: + skin injury and wound Neuro: Negative for headache, numbness, tingling, and seizure. Exam: 12:04 Constitutional: This is a well developed, well nourished patient who is awake, alert, rn mild tachypnea Head/Face: Normocephalic, atraumatic. ENT: NO stridor Cardiovascular: Tachycardic, irregular Respiratory: Diminished breath sounds right lung base, no wheezing noted, + mild tachypnea Abdomen/GI: soft, non-tender Skin: Warm, dry, 2+ edema bilateral lowr ext. 2.5 cm open wound with fibrinous tissue and serous discharge, + blanching erythema and ecchymosis surrounding wound. MS/ Extremity: Pulses equal, no cyanosis Neuro: Awake and alert, GCS 15 13:47 ECG was reviewed by the Attending Physician. rn Vital Signs: 10:12 BP 140 / 97; Pulse 101; Resp 26 S; Temp 98(O); Pulse Ox 88% on 4 lpm NC; Weight 70.31 aa5 kg (R); Height 5 ft. 8 in. (R); 10:15 Pulse Ox 94% on 4 lpm NC; aa5 10:30 Pulse Ox 92% on 3 lpm NC; aa5 11:55 BP 146 / 83; Pulse 80; Resp 24 S; Pulse Ox 98% on 3 lpm NC; aa5 12:30 BP 144 / 80; Pulse 88; Resp 23 S; Pulse Ox 93% on 3 lpm NC; aa5 13:45 BP 145 / 82; Pulse 73; Resp 20 S; Temp 98.2(O); Pulse Ox 95% on 3 lpm NC; aa5 10:12 Body Mass Index 23.57 (70.31 kg, 172.72 cm) aa5 MDM: 10:11 Patient medically screened. rn 12:04 Differential diagnosis: Bronchitis CHF exacerbation, Chronic Obstructive Pulmonary rn Disease Myocardial Infarction pneumonia, Pneumothorax Psychogenic pulmonary edema. Data reviewed: vital signs, nurses notes, lab test result(s), radiologic studies, plain films, and as a result, I will admit patient. Consideration of Admission/Observation Patient was admitted/placed on observation. Escalation of care including admission/observation considered. Counseling: I had a detailed discussion with the patient and/or guardian regarding: the historical points, exam findings, and any diagnostic results supporting the discharge/admit diagnosis, lab results, radiology results, the need for further work-up and treatment in the hospital. Response to treatment: the patient's symptoms have mildly improved after treatment, and as a result, I will discharge patient. Special discussion:. 06/01 10:27 Order name: BMP; Complete Time: 11:39 rn 06/01 10:27 Order name: Blood Culture Adult (2) rn 06/01 10:27 Order name: CBC with Diff; Complete Time: 11:39 rn 06/01 10:27 Order name: Hepatic Function; Complete Time: 11:39 rn 06/01 10:27 Order name: NT PRO-BNP; Complete Time: 11:39 rn 06/01 10:27 Order name: PT-INR; Complete Time: 11:39 rn 06/01 10:27 Order name: Ptt, Activated; Complete Time: 11:39 rn 06/01 10:27 Order name: Troponin HS; Complete Time: 11:39 rn 06/01 12:33 Order name: Urinalysis w/ reflexes EDMS / 12:33 Order name: Basic Metabolic Panel EDMS 06/01 12:33 Order name: Basic Metabolic Panel EDMS 07 12:33 Order name: Basic Metabolic Panel EDMS 06/01 12:33 Order name: Basic Metabolic Panel EDMS / 12:33 Order name: CBC with Automated Diff EDMS 07/ 12:33 Order name: CBC with Automated Diff EDMS 07/ 12:33 Order name: CBC with Automated Diff EDMS 07/ 12:33 Order name: CBC with Automated Diff EDMS 07/ 12:33 Order name: Magnesium EDMS 07/ 12:33 Order name: Magnesium EDMS 07/ 12:33 Order name: Magnesium EDMS 07/ 12:33 Order name: Magnesium EDMS 07/ 12:33 Order name: NT PRO-BNP EDMS 07/ 12:33 Order name: NT PRO-BNP EDMS 07/ 12:33 Order name: NT PRO-BNP EDMS 07/ 12:33 Order name: NT PRO-BNP EDMS 07/ 12:33 Order name: Phosphorus EDMS 07/ 12:33 Order name: Phosphorus EDMS 07/ 12:33 Order name: Phosphorus EDMS 07/ 12:33 Order name: Phosphorus EDMS 07/ 10:27 Order name: XRAY CXR (1 view); Complete Time: 12:03 rn 06/01 10:27 Order name: EKG; Complete Time: 10:28 rn 06/01 12:33 Order name: Heart Healthy EDCO 06/01 10:27 Order name: Cardiac monitoring; Complete Time: 10:51 rn 06/01 10:27 Order name: EKG - Nurse/Tech; Complete Time: 11:28 rn 06/01 10:27 Order name: IV Saline Lock; Complete Time: 10:51 rn 06/01 10:27 Order name: Labs collected and sent; Complete Time: 10: rn 06/01 10:27 Order name: O2 Per Protocol; Complete Time: 10:51 rn 06/01 10:27 Order name: O2 Sat Monitoring; Complete Time: 10:51 rn EC:47 Rate is 85 beats/min. Rhythm is irregularly irregular. Right axis deviation noted. QRS rn is positive in lead aVF and negative in lead I. QRS interval is normal. QT interval is normal. No Q waves. T waves are Normal. No ST changes noted. Clinical impression: Atrial Fibrillation. Interpreted by me. Reviewed by me. Administered Medications: 11:55 Drug: Furosemide IVP 60 mg Route: IVP; Site: right forearm; aa5 12:15 Follow up: Response: No adverse reaction aa5 11:55 Drug: Levalbuterol Inhalation 1.25 mg Route: Inhalation; aa5 Disposition Summary: 06/01/23 12:10 Hospitalization Ordered Hospitalization Status: Inpatient Admission rn Provider: Jose Kyle rn Location: Telemetry/MedSurg (Inpatient) rn Condition: Stable rn Problem: an acute exacerbation rn Symptoms: have improved rn Bed/Room Type: Standard rn Room Assignment: 211(06/01/23 12:58) em1 Diagnosis - Unspecified combined systolic (congestive) and diastolic (congestive) heart failure rn - Cellulitis of right lower limb rn - Pleural effusion, not elsewhere classified rn - Dyspnea, unspecified rn Forms: - Medication Reconciliation Form rn - SBAR form rn Signatures: Dispatcher [employer] [facility] Steven Kyle MD MD rn Martinez, Eric em1 Maura Noland, RN RN aa5 Corrections: (The following items were deleted from the chart) 12:58 12:10 rn em1
--- NOTE | 2023-06-01 12:10 | ER ---
Nurse's Notes [facility] Name: Marcie Paul Age: 77 yrs Sex: Female : 1945 Arrival Date: 06/01/2023 Time: 10:05 Bed 13 Private MD: Diagnosis: Unspecified combined systolic (congestive) and diastolic (congestive) heart failure;Cellulitis of right lower limb;Pleural effusion, not elsewhere classified;Dyspnea, unspecified Presentation: 06/01 10:12 Chief complaint: Patient states: "I've been short of breath and it's been worse over aa5 the last 2 days". Pt reports slight cough with clear sputum. Pt also reports she dropped a pot on her right baltazar and has a wound. 10:12 Coronavirus screen: shortness of breath. Ebola Screen: Patient denies travel to an [facility] Ebola-affected area in the 21 days before illness onset. Initial Sepsis Screen: Does the patient meet any 2 criteria? RR > 20 per min. HR > 90 bpm. Does the patient have a suspected source of infection? No. Patient's initial sepsis screen is negative. Risk Assessment: Do you want to hurt yourself or someone else? Patient reports no desire to harm self or others. Onset of symptoms was May 2023. 10:12 Acuity: JOAQUINA 2 aa5 10:12 Method Of Arrival: Wheelchair aa5 Historical: - Allergies: 10:12 Tape; aa5 10:12 Xarelto; aa5 - PMHx: 10:12 Atrial Fib; COPD; Diabetes - NIDDM; Hyperlipidemia; Hypertension; Hypothyroidism; aa5 Myocardial infarction; Home O2 via NC at 2 to 2.5L; - Immunization history:: Adult Immunizations unknown. - Social history:: Smoking status: Patient reports the use of cigarette tobacco products, 5-6 cigarettes a day . - Family history:: not pertinent. - Hospitalizations: : No recent hospitalization is reported. Screenin:12 [facility] ED Fall Risk Assessment (Adult) History of falling in the last 3 months, aa5 including since admission No falls in past 3 months (0 pts) Confusion or Disorientation No (0 pts) Intoxicated or Sedated No (0 pts) Impaired Gait Yes (1 pt) Mobility Assist Device Used Yes (1 pt) Altered Elimination No (0 pt) Score/Fall Risk Level 0 - 2 = Low Risk Oriented to surroundings, Maintained a safe environment, Educated pt \\T\\ family on fall prevention, incl call for assistance when getting out of bed, Provided non-skid footwear. Abuse screen: Denies threats or abuse. Nutritional screening: No deficits noted. Tuberculosis screening: No symptoms or risk factors identified. Assessment: 10:12 General: Appears uncomfortable, Behavior is calm, cooperative. Pain: Denies pain. aa5 Neuro: Level of Consciousness is awake, alert, obeys commands, Oriented to person, place, time, situation. Cardiovascular: Heart tones S1 S2 present Edema 2+ pitting edema noted to joe lower extremities, pt reports swelling began 4-5 days ago. Rhythm is irregular. Respiratory: Reports shortness of breath cough that is productive, with clear sputum Airway is patent Respiratory effort is even, labored, Respiratory pattern is tachypnea Breath sounds are diminished bilaterally. GI: Abdomen is round distended, Bowel sounds present X 4 quads. Abd is soft and non tender X 4 quads. Patient currently denies abdominal pain, nausea, vomiting. : No signs and/or symptoms were reported regarding the genitourinary system. EENT: No signs and/or symptoms were reported regarding the EENT system. Derm: Skin is pink, warm \\T\\ dry. Bruising that is dark purple, to joe arms, multiple bruises noted, pt takes Plavix. . Wound noted to right baltazar that is approximately quater sized with surrounding redness noted. Musculoskeletal: Range of motion: intact in all extremities. 12:00 Reassessment: Pt to restroom via wheelchair, pt voided without complaints. Upon [facility] transferring from wheelchair to ER stretcher, increased SOB was noted, O2 sat decreased to 85% via 3 L NC upon transfer. Pt currently in bed with improvement of SOB noted and O2 sat 92% via 4 L NC.. 12:38 Reassessment: Pt to bedside commode, pt currently voiding. . aa5 13:45 Reassessment: Attempted to call report to the admitting nurse, nurse unavailable at [facility] this time. . 14:00 Reassessment: Patient is alert, oriented x 3, equal unlabored respirations, skin aa5 warm/dry/pink. 14:20 Reassessment: Patient is alert, oriented x 3, equal unlabored respirations, skin aa5 warm/dry/pink. Vital Signs: 10:12 BP 140 / 97; Pulse 101; Resp 26 S; Temp 98(O); Pulse Ox 88% on 4 lpm NC; Weight 70.31 aa5 kg (R); Height 5 ft. 8 in. (R); 10:15 Pulse Ox 94% on 4 lpm NC; aa5 10:30 Pulse Ox 92% on 3 lpm NC; aa5 11:55 BP 146 / 83; Pulse 80; Resp 24 S; Pulse Ox 98% on 3 lpm NC; aa5 12:30 BP 144 / 80; Pulse 88; Resp 23 S; Pulse Ox 93% on 3 lpm NC; aa5 13:45 BP 145 / 82; Pulse 73; Resp 20 S; Temp 98.2(O); Pulse Ox 95% on 3 lpm NC; aa5 10:12 Body Mass Index 23.57 (70.31 kg, 172.72 cm) aa5 ED Course: 10:05 Patient arrived in ED. am2 10:11 Steven Kyle MD is Attending Physician. rn 10:12 Arm band placed on Patient placed in an exam room, on a stretcher. aa5 10:12 Patient has correct armband on for positive identification. Bed in low position. Call aa5 light in reach. Side rails up X2. Client placed on continuous cardiac and pulse oximetry monitoring. NIBP monitoring applied. 10:26 Maura Noland, RN is Primary Nurse. aa5 10:30 Triage completed. aa5 10:45 Inserted saline lock: 22 gauge in right forearm, using aseptic technique. Blood aa5 collected. 10:45 Initial lab(s) drawn, by ny, sent to lab. First set of blood cultures drawn by ny. aa5 11:00 Second set of blood cultures drawn by me. aa5 11:00 Inserted saline lock: 22 gauge in right hand, using aseptic technique. aa5 11:02 EKG done, by ED staff, reviewed by Steven Kyle MD. aa5 11:39 XRAY CXR (1 view) In Process Unspecified. EDMS 12:09 Jose Kyle MD is Hospitalizing Provider. rn 14:20 No provider procedures requiring assistance completed. Patient admitted, IV remains in aa5 place. Administered Medications: 11:55 Drug: Furosemide IVP 60 mg Route: IVP; Site: right forearm; aa5 12:15 Follow up: Response: No adverse reaction aa5 11:55 Drug: Levalbuterol Inhalation 1.25 mg Route: Inhalation; aa5 Medication: 14:00 VIS not applicable for this client. aa5 Outcome: 12:10 Decision to Hospitalize by Provider. rn 14:20 Admitted to Tele accompanied by tech, via wheelchair, with oxygen, with chart, Report aa5 called to TIARA Quintero 14:20 Condition: stable 14:20 Instructed on the need for admit, Demonstrated understanding of instructions. 14:23 Patient left the ED. ko1 Signatures: Dispatcher [employer] EDMS Steven Kyle MD MD rn Calderon, Audri RN RN aa5 Kandy Tomlinson am2 Maia Santamaria RN RN ko1 Corrections: (The following items were deleted from the chart) 12:40 12:00 Reassessment: Pt to restroom via wheelchair, pt voided without complaints. . aa5 aa5 16:55 10:12 Derm: Skin is pink, warm \\T\\ dry. Bruising that is dark purple, to joe arms, aa5 multiple bruises noted, pt takes Plavix. . aa5
--- NOTE | 2023-06-01 12:20 | P.HP ---
Certification for Inpatient Patient admitted to: Inpatient With expected LOS: >2 Midnights Practitioner: I am a practitioner with admitting privileges, knowledge of patient current condition, hospital course, and medical plan of care. Services: Services provided to patient in accordance with Admission requirements found in Title 42 Section 412.3 of the Code of Federal Regulations Patient History Date of Service: 06/01/23 Reason for admission: CHF execerbation History of Present Illness: 77 yrs old Female presents to ER with past medical history of HTN,HLD, COPD, CHF, WI, AFib on Plavix/Asa, NIDDM, Hypothyroidism with complaints of Shortness of breath. She reports shortness of breath started 2 days ago. She reports shortness of breath is worse laying flat and with exertion. She reports cough non-productive. She reports breathing made better by sitting up and using home 02 2-2.5L, She reports daily tobacco use of 1-5 cigarettes per day. She reports Right baltazar wound, draining serous drainage, covered with bandaid. She reports both leg swelling with average of 5 lb weight gain. She denies productive cough, fever, chills, chest pain, dizziness, edema. is at bedside, she wishes to be a full Code at this time, she is AOX3. ER course Chest x-ray Mild interstitial pulmonary edema suspected. The heart is moderately enlarged. Mild CHF versus volume overload is likely. Moderate right pleural effusion, increased in size since 01/20/2023. Treated with Lasix 60 mg IV x1 lev albuterol inhalation Laboratory evaluation BNP elevated at 4694, troponin normal CO2 slightly elevated at 42, CBC WBC unremarkable, microcytic anemia 10.9, 34.6, early left shift at 78.3, EKG atrial fibrillation rate 85 Differential diagnosis acute on chronic heart failure, COPD, pneumonia, WI, acute bronchitis, very Allergies No Known Allergies Allergy (Verified 04/02/21 10:19) Home Medications: Amiodarone HCl [Cordarone*] 1 tab PO BID 11/16/20 Atorvastatin Calcium [Lipitor*] 1 tab PO BEDTIME 11/16/20 Clopidogrel Bisulfate [Plavix] 1 tab PO DAILY 11/16/20 Metformin HCl 2 tab PO DAILY 11/16/20 Metformin HCl 3 tab PO BEDTIME 11/16/20 Metoprolol Tartrate 1 tab PO BID 11/16/20 Montelukast [Singulair*] 1 tab PO DAILY 11/16/20 Thyroid,Pork [[place] Thyroid] 1 tab PO BEDTIME 11/16/20 Thyroid,Pork [[place] Thyroid] 2 tab PO DAILY 11/16/20 Tiotropium [place] [Spiriva] 1 puff IH DAILY 11/16/20 Tramadol HCl [Ultram] 1 tab PO DAILY PRN 11/16/20 acetaZOLAMIDE [Diamox*] 250 mg PO DAILY 30 Days #30 tab 11/18/20 Fluticasone/Salmeterol [Advair 250-50 Diskus] 1 each IH BID #60 disk.w.dev 09/06/21 Albuterol Inhaler [Ventolin Inhaler*] 2 puff IH Q6H PRN 06/01/23 Pioglitazone HCl [Actos] 15 mg PO BID 06/01/23 - Past Medical/Surgical History Diabetic: Yes -: Hypothyroidism -: Hyperlipedemia -: AFIB -: NIDDM -: [place] -: COPD -: heart stents -: Hysterectomy -: Ankle surg -: Cholecystectomy - Family History Mother -: Hypertension Notes: pt is adopted - Social History Smoking Status: Current some day smoker Smoking therapy provided: Yes Alcohol use: No CD- Drugs: No Caffeine use: No Review of Systems General: As per HPI Physical Examination - Physical Exam General: Alert, Oriented x3, Other (tachypneic) HEENT: Atraumatic, Normocephalic Neck: Supple, 2+ carotid pulse no bruit Respiratory: Diminished, Rhonchi/gurgles Cardiovascular: Edema Capillary refill: <2 Seconds Gastrointestinal: Normal bowel sounds, Non-distended Musculoskeletal: No clubbing, Swelling (+2) Integumentary: No cyanosis, Other (laceration Right baltazar ) Neurological: Normal speech, Cranial nerves 3-12 intact, Normal affect - Studies Laboratory Data (last 24 hrs) 06/01/23 10:45: PT 11.3, INR 1.03, APTT 27.7 06/01/23 10:45: WBC 4.10 L, Hgb 10.9 L, Hct 34.6 L, Plt Count 195 06/01/23 10:45: Sodium 139, Potassium 4.1, BUN 13, Creatinine 0.54 L, Glucose 218 H, Total Bilirubin 0.6, AST 15, ALT 19, Alkaline Phosphatase 72 Assessment and Plan - Problems (Diagnosis) (1) Acute on chronic diastolic heart failure Current Visit: No Status: Acute Plan: Card consult Diuresis, daily weight, I&O (2) Acute and chronic respiratory failure with hypoxia Current Visit: No Status: Acute Plan: 02 keep sats >92% nebs, budesonide, steroids IV ABX (3) Cellulitis of right leg Current Visit: Yes Status: Acute Plan: Wound care consult IV cefepime trend wbc (4) Pleural effusion Current Visit: No Status: Acute Plan: 02 keep sat>92% diuretics, daily wt, IO (5) Hyperlipidemia Onset Date: 02/10/17 Current Visit: No Status: Acute Plan: resume approp home meds (6) Non-insulin dependent type 2 diabetes mellitus Onset Date: 02/10/17 Current Visit: No Status: Acute Plan: Ac ACHS, SSI (7) Atrial fibrillation Onset Date: 02/10/17 Current Visit: No Status: Chronic Qualifiers: Atrial fibrillation type: persistent (8) Tobacco use Current Visit: No Status: Acute Discharge Plan: Home Plan to discharge in: 48 Hours - Advance Directives Does patient have a Living Will: No Does patient have a Durable POA for Healthcare: No - Code Status/Comfort Care Code Status Assessed: Yes Code Status: Full Code Physician Review: Patient Assessed, Agree with Above Assessment and Plan Critical Care: Yes Time Spent Managing Pts Care (In Minutes): 55
[2023-06-01] MEDS ORDERED: ACETAMINOPHEN 500 MG TAB PO PRN (12:26)
[2023-06-01] MEDS ORDERED: ALBUTEROL 2.5 MG/3 ML NEB SOL NEB PRN ×2 (12:26→14:00)
[2023-06-01] MEDS ORDERED: ONDANSETRON 4 MG/2 ML VIAL IV PRN (12:26)
[2023-06-01] MEDS ORDERED: IPRATROPIUM BROM 0.5MG/2.5ML NEB SCH (14:00)
[2023-06-01] MEDS ORDERED: GLUCAGON 1 MG/VIAL IM PRN (14:07)
[2023-06-01] MEDS ORDERED: D10W 250 ML BAG IV PRN (14:40)
[2023-06-01 15:15] VITALS: BMI 23.6
[2023-06-01] MEDS: INSULIN LISPRO 100 UNIT/1 ML SQ SCH (16:15)
[2023-06-01] MEDS: FUROSEMIDE 40 MG/4 ML VIAL IV SCH (16:32)
[2023-06-01] MEDS: CEFEPIME 2 GM in NA CHLORIDE 0.9% 100 ML IV SCH ×2 (16:34→21:16)
[2023-06-01] MEDS: IPRATROPIUM BROM 0.5MG/2.5ML NEB PRN (21:20)
[2023-06-01] MEDS: BUDESONIDE 0.5 MG/2 ML NEB NEB SCH (21:20)
[2023-06-01] MEDS ORDERED: INSULIN -REGULAR HUMAN 50 UNIT/0.5 ML ML SQ ONE (21:26)
[2023-06-02 02:52] LABS: Absolute Lymphocytes (CBC) 0.7 K/uL (0.7-4.9); Hematocrit 31.2 % (36.0-45.0); Lymphocytes % 13.8 % (15.3-44.8); MCV 90.2 fL (80-100); RBC Red Blood Cell Count 3.46 M/uL (3.86-4.86)
[2023-06-02 03:17] LABS: BUN Blood Urea Nitrogen 15 mg/dL (7-18); Glomerular Filtration Rate 99 ml/min (=/>90); Glucose Level 71 mg/dL (74-106); Magnesium 1.7 mg/dL (1.6-2.4); Phosphorus 3.4 mg/dL (2.5-4.9); Potassium 3.1 mEq/L (3.5-5.1); Sodium Level 139 mEq/L (136-145)
[2023-06-02 03:18] LABS: Bicarbonate > 45 mEq/L (21-32)
[2023-06-02] MEDS ORDERED: POTASSIUM 25 MEQ EFFERV TAB PO ONE ×2 (06:21→15:53)
[2023-06-02] MEDS ORDERED: Magnesium Sulfate 2gm IVPB 2 G/50 ML BAG IV ONE (06:24)
[2023-06-02] MEDS: THYROID 30 MG TAB PO SCH ×2 (07:00→20:44)
--- NOTE | 2023-06-02 07:05 | P.PN ---
Date of Service: 06/02/23 Subjective: "not doing well today" remains short of breath ~unchanged, +non-productive cough Right baltazar wound draining clearish-orange drainage yesterday ROS: 10 point ROS as noted above, otherwise negative Physical Exam: GEN: Alert, oriented, NAD HEENT: Normal conjunctiva, sclera anicteric CV: Regular rate and rhythm, no edema Pulm: mild labored respirations on 4L NC at rest, absent breath sounds at R lung base ABD: Soft, nontender, nondistended Integumentary: 2cm superfical ulceration Neuro: Normal speech, normal affect vitals reviewed Problem List: Acute on chronic diastolic heart failure Acute and chronic respiratory failure with hypoxia secondary to large R pleural effusion Recurrent large R Pleural effusion R anterior tibial superficial wound / ulcer CAD s/p stents L1 compression fracture NIDDM2 A-fib, chronic Hyperlipidemia Hypothyroidism Hypertension Acute on chronic diastolic heart failure Acute and chronic respiratory failure with hypoxia secondary to large R pleural effusion Recurrent large R Pleural effusion CXR (06/01): Mild interstitial pulmonary edema suspected. The heart is moderately enlarged. Mild CHF versus volume overload is likely. Moderate right pleural effusion CT chest (06/02): Moderate right pleural effusion which does not appear loculated. Right middle and right lower lobe consolidation could reflect a combination of atelectasis and/or pneumonia. Thoracentesis u/s (06/02): ordered pt with alkalosis, secondary to respirations and possibly medication Pulmonology consulted Lasix changed to spironolactone and Diamox twice a day continue cefepime for empiric coverage (06/01-) nebs, budesonide, steroids Cardiology consulted echo pending BNP elevated (4170) monitor on telemetry R anterior tibial superficial wound / ulcer reports clearish-red drainage does not describe purulent drainage started as injury from galvan mild erythema, no added warmth wound care consulted do not suspect infection at this time L1 compression fracture seen on CT chest - Age indeterminate L1 compression fracture. There is approximately 30% loss of height anteriorly NIDDM2 Ac ACHS, SSI A-fib, chronic Hypothyroidism Hypertension Hyperlipidemia Continue home meds Code: Full Dispo: Home ~3 days
[2023-06-02] MEDS: INSULIN LISPRO 100 UNIT/1 ML SQ SCH ×3 (07:44→16:14)
[2023-06-02] MEDS: BUDESONIDE 0.5 MG/2 ML NEB NEB SCH ×2 (07:45→20:05)
[2023-06-02] MEDS: AMIODARONE HCL 200 MG TAB PO SCH ×2 (08:40→20:44)
[2023-06-02] MEDS: FUROSEMIDE 40 MG/4 ML VIAL IV SCH (08:41)
[2023-06-02] MEDS: MONTELUKAST 10 MG TAB PO SCH (08:41)
[2023-06-02] MEDS: CEFEPIME 2 GM in NA CHLORIDE 0.9% 100 ML IV SCH ×2 (08:41→20:44)
[2023-06-02] MEDS: DULERA 200/5 (MOMETASONE/FORMOTEROL) INHALER IH SCH ×2 (08:42→20:45)
[2023-06-02] MEDS: TIOTROPIUM 5 SPRAYS/INHALER IH SCH (08:43)
[2023-06-02] MEDS ORDERED: acetaZOLAMIDE 250 MG TAB PO SCH (09:00)
[2023-06-02] MEDS ORDERED: HOME MED 1 EA UNK (Fluticasone/Salmeterol [Advair 250-50 Diskus] Blst.W.Dev) IH SCH (09:00)
--- NOTE | 2023-06-02 10:22 | RAD REPORT ---
EXAM DESCRIPTION: CT - Thorax Wo Con - 06/02/2023 9:49 am CLINICAL HISTORY: eval effusion, r/o loculation COMPARISON: Chest For Pe Angio dated 11/15/2020; Ct Low Dose Chest Screening dated 01/19/2018; Thorax Wo Con dated 01/06/2017 FINDINGS: Chest Wall: No suspicious thyroid nodules or pathologic lymphadenopathy. Lungs: Partial consolidation of the right lower lobe. Probable scarring at the left lung base. Pleura: Moderate right pleural effusion. Mediastinum/micah: No pathologic lymphadenopathy. Pulmonary arteries/Aorta: Limited evaluation without contrast. No aortic aneurysm. Heart: No significant pericardial effusion. Mild cardiomegaly. Multi-vessel coronary artery disease. Aortic valve prosthesis. Atrial septal occluder. Multi-vessel coronary artery disease. Upper abdomen: Bilateral adrenal nodules/thickening consistent with a benign etiology. Cholecystectom y Bones: No acute abnormality. Age indeterminate L1 compression fracture. There is approximately 30% lo ss of height anteriorly. All CT scans are performed using dose optimization technique as appropriate and may include automated exposure control or mA/KV adjustment according to patient size. IMPRESSION: Moderate right pleural effusion which does not appear loculated. Right middle and right lower lobe consolidation could reflect a combination of atelectasis and/or pneumonia. Thoracentesis w ith fluid analysis could better assess. Age indeterminate L1 compression fracture. There is approximately 30% loss of height anteriorly.
--- NOTE | 2023-06-02 11:05 | P.CNS ---
Date of Consult: 06/02/23 Reason for Consult: Pleural effusion Chief Complaint: CHF execerbation History of Present Illness: Patient is 77 years of age with a history of hypertension COPD metabolic syndrome admitted with worsening dyspnea she is got worse over the past 2 weeks ending as of off-and-on orthopnea has a significant effusion on the right side/patient has had thoracentesis x3 eyes any fever or chills pliant with her therapy active smoker 77 yrs old Female presents to ER with past medical history of HTN,HLD, COPD, CHF, [place], AFib on Plavix/Asa, NIDDM, Hypothyroidism with complaints of S Allergies No Known Allergies Allergy (Verified 04/02/21 10:19) Home Medications: Amiodarone HCl [Cordarone*] 1 tab PO BID 11/16/20 Atorvastatin Calcium [Lipitor*] 1 tab PO BEDTIME 11/16/20 Clopidogrel Bisulfate [Plavix] 1 tab PO DAILY 11/16/20 Metformin HCl 2 tab PO DAILY 11/16/20 Metformin HCl 3 tab PO BEDTIME 11/16/20 Metoprolol Tartrate 1 tab PO BID 11/16/20 Montelukast [Singulair*] 1 tab PO DAILY 11/16/20 Thyroid,Pork [[place] Thyroid] 1 tab PO BEDTIME 11/16/20 Thyroid,Pork [[place] Thyroid] 2 tab PO DAILY 11/16/20 Tiotropium [place] [Spiriva] 1 puff IH DAILY 11/16/20 Tramadol HCl [Ultram] 1 tab PO DAILY PRN 11/16/20 acetaZOLAMIDE [Diamox*] 250 mg PO DAILY 30 Days #30 tab 11/18/20 Fluticasone/Salmeterol [Advair 250-50 Diskus] 1 each IH BID #60 disk.w.dev 09/06/21 Albuterol Inhaler [Ventolin Inhaler*] 2 puff IH Q6H PRN 06/01/23 Pioglitazone HCl [Actos] 15 mg PO BID 06/01/23 - Past Medical/Surgical History Diabetic: Yes -: Hypothyroidism -: Hyperlipedemia -: AFIB -: NIDDM -: [place] -: COPD -: Diastolic heart failure -: Aortic stenosis -: heart stents -: Hysterectomy -: Ankle surg -: Cholecystectomy -: Watchman placement -: valve replacement - Family History Mother Medical History: Hypertension Notes: pt is adopted - Social History Smoking Status: Current every day smoker Alcohol use: No CD- Drugs: No Caffeine use: No Place of Residence: Home Review of Systems 10-point ROS is otherwise unremarkable General: Weakness Respiratory: Cough, Shortness of Breath Physical Examination Temp Pulse Resp BP Pulse Ox 97.5 F 76 20 162/75 H 88 L 06/02/23 08:00 06/02/23 08:00 06/02/23 08:00 06/02/23 08:00 06/02/23 08:00 General: Alert, Oriented x3 Respiratory: Diminished (The right side) Cardiovascular: No edema, Regular rate/rhythm, Normal S1 S2 Gastrointestinal: Normal bowel sounds, Soft and benign Laboratory Data (last 24 hrs) 06/01/23 10:45: PT 11.3, INR 1.03, APTT 27.7 06/01/23 10:45: WBC 4.10 L, Hgb 10.9 L, Hct 34.6 L, Plt Count 195 06/01/23 10:45: Sodium 139, Potassium 4.1, BUN 13, Creatinine 0.54 L, Glucose 218 H, Total Bilirubin 0.6, AST 15, ALT 19, Alkaline Phosphatase 72 - Problems (1) Pleural effusion Current Visit: Yes Status: Acute Plan: Patient is 77 years of age with a history of COPD metabolic syndrome admitted with worsening dyspnea and she has significant recurrence of pleural effusion on the right side paracentesis x3 the last one was at [facility] patient has diastolic heart failure moderate aortic stenosis patient has mild anemia hypokalemia elevated BNP T scan chest x-ray reviewed patient is hypoxic has O2 at home compliant with her inhalers agree with thoracentesis for now do Pleurx catheter I ordered an arterial blood gas his bicarbonate is significantly elevated avoid Lasix changed to spironolactone and Diamox twice a day we will consider for a Pleurx catheter CT scan reviewed stable for thoracentesis
--- NOTE | 2023-06-02 12:41 | RAD REPORT ---
EXAM DESCRIPTION: RAD - Chest Single View - 06/02/2023 12:25 pm CLINICAL HISTORY: Status Post Thorocentesis COMPARISON: Chest Single View dated 06/01/2023; Chest Pa And Lat (2 Views) dated 01/20/2023; Chest Sing le View dated 04/17/2022; Chest Single View dated 04/15/2022; Thorax Wo Con dated 06/02/2023 FINDINGS: Status post right-sided thoracentesis with decreased pleural fluid. No pneumothorax. Impro hilda aeration of the right lung however there is still some residual effusion that is small. IMPRESSION: No pneumothorax fine right-sided thoracentesis.
[2023-06-02] MEDS: SPIRONOLACTONE 25 MG TABLET PO SCH ×2 (12:50→20:44)
[2023-06-02 13:55] LABS: Magnesium 2.1 mg/dL (1.6-2.4); Potassium 3.6 mEq/L (3.5-5.1)
--- NOTE | 2023-06-02 15:45 | RAD REPORT ---
EXAM DESCRIPTION: US - Thoracentesis w/ US Guide - 06/02/2023 12:37 pm CLINICAL HISTORY: Pleural effusion. R thoracentesis, R effusion COMPARISON: Thoracentesis w/ US Guide dated 09/06/2021 FINDINGS: Preoperative diagnosis: Right effusion Post operative diagnosis: Same Conscious Sedation: None. Estimated blood loss: Minimal Specimens:A small volume of fluid was sent for requested lab studies. The patient was placed in the upright recumbent position and the right chest was prepped and draped i n the usual sterile fashion. 1% Lidocaine was infiltrated into the soft tissues for local anesthesia . Under sonographic guidance, a thoracentesis needle and 6 Italian catheter was advanced into the rig ht pleural space. 1.5 liter of fluid was aspirated. IMPRESSION: Successful ultrasound-guided thoracentesis as detailed. 1.5 liter of fluid was aspirated . A sample was sent to the lab.
[2023-06-02 16:27] LABS: Arterial Blood Carboxyhemoglob 1.9 % (0-1.5); Blood Gas Oxyhemoglobin 81.8 % (94-97); Blood O2 Saturation 84.5 % (92-98.5)
--- NOTE | 2023-06-02 17:10 | CON ---
Date of Consultation: 06/02/2023 Reason For Consultation: CHF exacerbation. History Of Present Illness: A 77-year-old female with history of congestive heart failure, atrial fi brillation, aortic valve stenosis status post TAVR, dyslipidemia, COPD, diabetes, hypothyroidism, pre sented with worsening shortness of breath, orthopnea, and lower extremity edema. She continues to sm tish despite the fact she has COPD, smokes about 1-5 cigarettes a day. Denies having any chest pain. Does have a chronic wound on her right leg and erythema has increased and it has been painful. Past Medical History: As outlined above in the HPI. Medications: Refer to reconciliation sheet for detailed list. Allergies: NO KNOWN DRUG ALLERGIES. Family History: No premature coronary artery disease or cancer. Social History: She is an active smoker as outlined above. Does not drink. Does not use any drugs. Review of Systems: All systems were reviewed and they were negative except what is mentioned in the HPI. Physical Examination: Vital Signs: Reviewed. Head and Neck: Pupils are equal, reactive to light. Intact eye movements. Positive JVD. No cervic al lymphadenopathy. Neck is supple. Thyroid is not enlarged. Lungs: Decreased breathing sounds bilaterally with scattered wheezing. No accessory muscle use or m uscle retraction. Heart: Regular. No extra sounds. Abdomen: Soft, nontender. Bowel sounds positive. No organomegaly. No masses or hernia. No rigidi ty or rebound. Extremities: 1+ pedal edema. No clubbing or cyanosis. Skin: Open wound of the right leg with erythema surrounding it suggestive of cellulitis. Neurologic: Alert, awake, oriented x3. No acute focal deficits appreciated. Lymph nodes: No cervical or axillary lymphadenopathy. Investigations: Chest x-ray showed pulmonary edema. Assessment And Recommendations: 1.Acute on chronic diastolic heart failure exacerbation. Agree with Lasix. Recommend to continue 4 0 mg IV q.12 hours. Carefully monitor BUN, creatinine, electrolytes, and due to the increased level of carbon dioxide, add acetazolamide 250 mg IV q.12 hours and I will continue the Lasix as well daily at least once a day while on acetazolamide and then switch back to Lasix. 2.Aortic valve stenosis, status post transcatheter aortic valve replacement. Exam is unremarkable. 3.Dyslipidemia. Continue statin. 4.Chronic obstructive pulmonary disease with mild exacerbation. Should improve with further diuresi s. 5.Cellulitis of lower extremities, on antibiotics. /BENTLEY Voice ID: [id number] Report ID: [id number]
[2023-06-02 17:53] LABS: Body Fluid WBC 90 /mm^3
[2023-06-02 18:15] LABS: Appearance CLEAR (CLEAR); Body Fluid Source PLEURAL; Color of fluid Yellow (COLORLESS)
[2023-06-02] MEDS: acetaZOLAMIDE 250 MG TAB PO SCH (20:41)
[2023-06-02] MEDS: ATORVASTATIN 20 MG TAB PO SCH (20:44)
[2023-06-03 03:04] LABS: Absolute Lymphocytes (CBC) 0.7 K/uL (0.7-4.9); Hematocrit 34.9 % (36.0-45.0); Lymphocytes % 12.3 % (15.3-44.8); MCV 89.7 fL (80-100); MPV 7.9 fL (7.6-11.3); RBC Red Blood Cell Count 3.89 M/uL (3.86-4.86)
[2023-06-03 03:20] LABS: Magnesium 2.2 mg/dL (1.6-2.4); Phosphorus 2.7 mg/dL (2.5-4.9)
[2023-06-03 04:58] LABS: Platelet Estimate ADEQ; White Blood Cell Scan OK (OK)
[2023-06-03 04:59] LABS: Blood Morphology Comment NOT SEEN (NOT SEEN)
[2023-06-03] MEDS: THYROID 30 MG TAB PO SCH ×2 (06:16→20:35)
--- NOTE | 2023-06-03 07:05 | P.PN ---
Date of Service: 06/03/23 Subjective: Doing okay, +afebrile breathing feels better today, +wheeze 1.5 liter taken off via thoracentesis no new / worsening problems RLE with slight pain near skin wound ROS: 10 point ROS as noted above, otherwise negative Physical Exam: GEN: Alert, oriented, NAD HEENT: Normal conjunctiva, sclera anicteric CV: Regular rate and rhythm, trace edema bilaterally, R>L Pulm: mild labored respirations on 4L NC at rest, diminished at bases b/l ABD: Soft, nontender, nondistended Integumentary: 2cm superfical ulceration, slight erythema, no purulent drainage Neuro: Normal speech, normal affect vitals reviewed Problem List: Acute on chronic diastolic heart failure Acute and chronic respiratory failure with hypoxia secondary to large R pleural effusion Recurrent large R Pleural effusion R anterior tibial superficial wound / ulcer CAD s/p stents L1 compression fracture NIDDM2 A-fib, chronic Hyperlipidemia Hypothyroidism Hypertension Acute on chronic diastolic heart failure Acute and chronic respiratory failure with hypoxia secondary to large R pleural effusion Recurrent large R Pleural effusion CXR (06/01): Mild interstitial pulmonary edema suspected. The heart is moderately enlarged. Mild CHF versus volume overload is likely. Moderate right pleural effusion CXR (06/02): No pneumothorax fine right-sided thoracentesis; Repeat CXR (06/03): stable, +Right basilar atelectasis CT chest (06/02): Moderate right pleural effusion which does not appear loculated. Right middle and right lower lobe consolidation could reflect a combination of atelectasis and/or pneumonia. Thoracentesis u/s (06/02): 1.5 liter of fluid was aspirated Fluid samples/cultures(06/02): pending pt with alkalosis, secondary to respirations and possibly medication Pulmonology consulted Lasix changed to spironolactone and Diamox twice a day received cefepime (06/01-06/03), now DCd remains afebrile, no leukocytosis, no source of infection nebs, budesonide, steroids PT consult Cardiology consulted echo pending BNP elevated (4170) monitor on telemetry R anterior tibial superficial wound / ulcer reports clearish-red drainage prior to admission, ongoing for >1 week does not describe purulent drainage started as injury from galvan mild erythema, no added warmth wound care consulted do not suspect infection at this time healing impaired due to lower extremity edema L1 compression fracture seen on CT chest - Age indeterminate L1 compression fracture. There is approximately 30% loss of height anteriorly NIDDM2 Ac ACHS, SSI A-fib, chronic Hypothyroidism Hypertension Hyperlipidemia Continue home meds Code: Full Dispo: Home ~1-2 days
[2023-06-03] MEDS: INSULIN LISPRO 100 UNIT/1 ML SQ SCH ×3 (08:00→16:45)
[2023-06-03] MEDS: DULERA 200/5 (MOMETASONE/FORMOTEROL) INHALER IH SCH ×2 (08:00→20:34)
--- NOTE | 2023-06-03 08:13 | RAD REPORT ---
EXAM DESCRIPTION: [place] Single View06/03/2023 6:42 am CLINICAL HISTORY: Thoracentesis COMPARISON: June 02, 2023 FINDINGS: No change in the appearance of the right pleural effusion status post thoracentesis. A pne umothorax is not seen. Right basilar atelectasis is present. Left lung appears clear. Heart remains enlarged
[2023-06-03] MEDS: BUDESONIDE 0.5 MG/2 ML NEB NEB SCH ×2 (08:25→20:28)
[2023-06-03] MEDS: TIOTROPIUM 5 SPRAYS/INHALER IH SCH (08:45)
[2023-06-03] MEDS: AMIODARONE HCL 200 MG TAB PO SCH ×2 (08:46→20:34)
[2023-06-03] MEDS: SPIRONOLACTONE 25 MG TABLET PO SCH ×2 (08:47→20:32)
[2023-06-03] MEDS: MONTELUKAST 10 MG TAB PO SCH (08:47)
[2023-06-03] MEDS: acetaZOLAMIDE 250 MG TAB PO SCH ×2 (08:47→20:32)
[2023-06-03] MEDS: CEFEPIME 2 GM in NA CHLORIDE 0.9% 100 ML IV SCH (08:48)
--- NOTE | 2023-06-03 10:16 | P.PN ---
Subjective Date of Service: 06/03/23 Chief Complaint: This postthoracentesis right-sided pleural effusion It is improving still feeling weak postthoracentesis Review of Systems Respiratory: Shortness of Breath Physical Examination - Vital Signs Temperature: 96.8 F Blood Pressure: 134/65 Pulse: 72 Respirations: 18 Pulse Ox (%): 100 - Physical Exam General: Alert, Oriented x3 Respiratory: Clear to auscultation bilaterally, Diminished Cardiovascular: No edema, Normal S1 S2 Assessment And Plan - Current Problems (Diagnosis) (1) Pleural effusion Current Visit: Yes Status: Acute Plan: Patient is s/p thoracentesis ascitic predominant effusion ability of underlying malignancy cytology is pending has a wound in her right baltazar signs oxygenation satisfactory DC cefepime there is no evidence of sepsis currently she patient has a superficial wound in her right tibia related Physician Review: Patient Assessed, Agree with Above Assessment and Plan
[2023-06-03] MEDS ORDERED: CEFEPIME 2 GM in NA CHLORIDE 0.9% 100 ML IV SCH ×2 (12:00→17:00)
[2023-06-03 16:18] LABS: Specific Gravity 1.011 (1.005-1.030); Urine Bacteria None Seen /HPF (<20); Urine Bilirubin NEGATIVE (Negative); Urine Blood Negative (Negative); Urine Clarity Turbid (Clear); Urine Color Light-Yellow (Yellow); Urine Glucose NEGATIVE (Negative); Urine Protein NEGATIVE (Negative); Urine RBC <5 /HPF (None Seen); Urine Urobilinogen Normal (Normal); Urine WBC Clump Rare /HPF (None Seen)
--- NOTE | 2023-06-03 16:24 | EKG ---
Test Date: 2023-06-01 Test Time: 10:59:48 [place] Tender: HINA MEASUREMENT RESULTS: Intervals: Rate: 85 ME: QRSD: 92 QT: 344 QTc: 409 [place]: P: ME: QRS: 140 T: 70 INTERPRETIVE STATEMENTS: Atrial fibrillation Right axis deviation Incomplete right bundle branch block Right ventricular hypertrophy Abnormal ECG Compared to ECG 04/15/2022 14:36:46 Incomplete right bundle-branch block now present Right ventricular hypertrophy now present Ventricular premature complex(es) no longer present Myocardial infarct finding no longer present T-wave abnormality no longer present Possible ischemia no longer present Electronically Signed On 06-03-23 16:20:55 CDT by Joaquim Chavez
--- NOTE | 2023-06-03 17:06 | P.CNS ---
Date of Consult: 06/03/23 PC: I was asked to see this 77-year-old female in regards to a open wound on her right baltazar that she sustained about 2 weeks ago. HPC: Patient was apparently at home, large pot fell striking her on the baltazar. It opened it quite deeply, and has been slow to heal. PSHx: No operations on her leg PMH history of CHF Social Hx: No known allergies O/E: Awake alert vital signs are stable HEENT: Not jaundiced Chest: Chest movement appears equal bilaterally Abd: NAD [place]: On the right baltazar, there is a 2 cm full-thickness skin loss. There seems to be some granulation tissue trying to form. There is still some necrotic debris in the wound, and it does have a considerable amount of exudate mixed with granulation tissue. Impression: This patient is being treated for some medical issues at the time. However this wound needs to be addressed. It appears to be a full-thickness skin loss on the right lower baltazar in a patient with CHF and a history of varicose veins. Plan: The wound was inspected today. Tomorrow I will treat with some silver nitrate, and some viscous lidocaine. We will address that at that time. We [place] l give her some wound care instructions for when she is discharged. She will be able to follow-up with us in the wound care center should she decide or my office which ever is more convenient for her. She is content with this.
--- NOTE | 2023-06-03 20:13 | PN ---
Date of Progress Note: 06/03/2023 Subjective: Seen by bedside. She is doing much better. Review of Systems: There is no chest pain. Has mild shortness of breath on exertion. No nausea, vomiting, diarrhea. N o abdominal pain. No dysuria, polyuria, or urinary urgency. No skin rash or headache. All other sy stems reviewed and they were negative. Physical Examination: Vital signs: Reviewed. Head and Neck: Pupils are equal, reactive to light. Intact eye movements. No JVD. No cervical lym phadenopathy. Neck is supple. Thyroid is not enlarged. Lungs: Clear to auscultation bilaterally. No rhonchi, wheezing, or crackles. No accessory muscle u se. Heart: Irregularly irregular. No extra sounds. Abdomen: Soft, nontender. Bowel sounds positive. No organomegaly. No masses or hernia. No rigidi ty or rebound. Extremities: There is 1+ edema bilaterally. No clubbing or cyanosis. Skin: Has open wound to the right leg with cellulitis. Neurologic: Alert, awake, oriented x3. No acute focal deficits appreciated. Investigations: BUN 19, creatinine 0.68, and hemoglobin is 11.3. Assessment And Recommendations: 1.Acute on chronic diastolic heart failure exacerbation. Remarkable improvement with diuretics. Co ntinue current therapy. Monitor BUN, creatinine, electrolytes. 2.Atrial fibrillation. Rate is controlled, status post appendage closure. Continue current treatme nt. Patient's fluid status is stabilizing. 3.Aortic valve stenosis, status post transcatheter aortic valve replacement about 2 years ago and the aortic valve bioprosthesis functioned very well. SR/MODL Voice ID: [id number] Report ID: [id number]
[2023-06-03] MEDS: ATORVASTATIN 20 MG TAB PO SCH (20:34)
[2023-06-04] MEDS: THYROID 30 MG TAB PO SCH ×2 (05:52→20:52)
[2023-06-04 06:10] LABS: Absolute Lymphocytes (CBC) 0.7 K/uL (0.7-4.9); Hematocrit 36.7 % (36.0-45.0); Lymphocytes % 15.7 % (15.3-44.8); MCV 89.4 fL (80-100); MPV 8.1 fL (7.6-11.3)
[2023-06-04 06:19] LABS: Magnesium 2.2 mg/dL (1.6-2.4); Potassium 3.6 mEq/L (3.5-5.1)
--- NOTE | 2023-06-04 07:20 | P.PN ---
Date of Service: 06/04/23 Subjective: feeling better today, remains afebrile able to ambulate to restroom (with walker, minimal assistance), showered breathing continues to improve daily otherwise no new / worsening problems ROS: 10 point ROS as noted above, otherwise negative Physical Exam: GEN: Alert, oriented, NAD HEENT: Normal conjunctiva, sclera anicteric CV: Regular rate and rhythm, trace edema bilaterally, R>L Pulm: mild labored respirations on 2L NC at rest, diminished at bases b/l ABD: Soft, nontender, nondistended Integumentary: 2cm superfical ulceration, minimal erythema, no purulent drainage Neuro: Normal speech, normal affect vitals reviewed Problem List: Acute on chronic diastolic heart failure Acute and chronic respiratory failure with hypoxia secondary to large R pleural effusion Recurrent large R Pleural effusion R anterior tibial superficial wound / ulcer CAD s/p stents L1 compression fracture NIDDM2 A-fib, chronic Hyperlipidemia Hypothyroidism Hypertension Acute on chronic diastolic heart failure Acute and chronic respiratory failure with hypoxia secondary to large R pleural effusion Recurrent large R Pleural effusion CXR (06/01): Mild interstitial pulm edema suspected. heart is moderately enlarged. Mild CHF vs volume overload is likely. Moderate R pleural effusion CXR (06/02): No pneumothorax fine right-sided thoracentesis; Repeat CXR (06/03): stable, +Right basilar atelectasis CT chest (06/02): Moderate right pleural effusion which does not appear loculated. RML and RLL consolidation could reflect a combination of atelectasis and/or pneumonia. Thoracentesis u/s (06/02): 1.5 liter of fluid was aspirated Fluid samples/cultures(06/02): pending pt with alkalosis, secondary to respirations and possibly medication; improving Pulmonology consulted Lasix changed to spironolactone and Diamox twice a day received cefepime (06/01-06/03), now DCd remains afebrile, no leukocytosis, no source of infection nebs, budesonide, steroids PT consult Cardiology consulted echo pending BNP elevated (4170) monitor on telemetry R anterior tibial superficial wound / ulcer reports clearish-red drainage prior to admission, ongoing for >1 week does not describe purulent drainage started as injury from galvan mild erythema, no added warmth General surgery - Dr. Brito consulted silver nitrate, and some viscous lidocaine will give her some wound care instructions for after discharge wound culture (06/01): Enterobacter Cloacae less reliable as it is a superficial culture however growing enterobacter, resistant will discuss with Dr. Brito afebrile, no leukocytosis L1 compression fracture seen on CT chest - Age indeterminate L1 compression fracture. There is approximately 30% loss of height anteriorly NIDDM2 Ac ACHS, SSI A-fib, chronic Hypothyroidism Hypertension Hyperlipidemia Continue home meds Code: Full Dispo: Home ~1-2 days Pending culture results, possible PICC line needed if needing IV abx
[2023-06-04] MEDS: INSULIN LISPRO 100 UNIT/1 ML SQ SCH ×4 (08:00→20:53)
[2023-06-04] MEDS: BUDESONIDE 0.5 MG/2 ML NEB NEB SCH ×2 (08:27→20:10)
[2023-06-04] MEDS: DULERA 200/5 (MOMETASONE/FORMOTEROL) INHALER IH SCH ×2 (08:45→20:00)
[2023-06-04] MEDS: TIOTROPIUM 5 SPRAYS/INHALER IH SCH (08:45)
[2023-06-04] MEDS: SPIRONOLACTONE 25 MG TABLET PO SCH ×2 (08:46→20:51)
[2023-06-04] MEDS: MONTELUKAST 10 MG TAB PO SCH (08:47)
[2023-06-04] MEDS: AMIODARONE HCL 200 MG TAB PO SCH ×2 (08:47→20:51)
[2023-06-04] MEDS: acetaZOLAMIDE 250 MG TAB PO SCH ×2 (08:47→20:51)
[2023-06-04] MEDS ORDERED: SILVER NITRATE 1 APPL TOP ONE ×2 (11:00→15:00)
[2023-06-04] MEDS ORDERED: LIDOCAINE VISCOUS 2% SOLN 15 ML UDC MM ONE (11:00)
[2023-06-04] MEDS ORDERED: LIDOCAINE HCL JELLY 2% 6 ML SYRINGE TOP ONE (12:00)
--- NOTE | 2023-06-04 18:30 | P.PN ---
Date of Service: 06/04/23 S: Patient has no specific complaints today. O: Wound on right baltazar looks pretty clean today. Does have some exudate. No evidence of any inflammation or infection around it. A: Open wound on the right baltazar. I filled it would benefit from being treated with silver nitrate to that wound. P: After discussing the patient what the lesion was, the area was treated with topical lidocaine. Silver nitrate was then used to cauterize this wound which measures approximately 2.5 x 1.75 x 0.5. The patient tolerated the procedure well and a dressing was applied. She may be discharged when the medical service is happy, and she is more than welcome to follow-up with me at my office or at wound care. I did see the cultures, I do not feel this wound is infected, and that is most likely a contaminant.
[2023-06-04] MEDS: ALBUTEROL 2.5 MG/3 ML NEB SOL NEB PRN (20:10)
[2023-06-04] MEDS: ATORVASTATIN 20 MG TAB PO SCH (20:51)
[2023-06-05] MEDS: THYROID 30 MG TAB PO SCH (05:52)
--- NOTE | 2023-06-05 06:52 | P.PN ---
Date of Service: 06/05/23 Subjective: ROS: 10 point ROS as noted above, otherwise negative Physical Exam: GEN: Alert, oriented, NAD HEENT: Normal conjunctiva, sclera anicteric CV: Regular rate and rhythm, trace edema bilaterally, R>L Pulm: mild labored respirations on 2L NC at rest, diminished at bases b/l ABD: Soft, nontender, nondistended Integumentary: 2cm superfical ulceration, minimal erythema, no purulent drainage Neuro: Normal speech, normal affect vitals reviewed Problem List: Acute on chronic diastolic heart failure Acute and chronic respiratory failure with hypoxia secondary to large R pleural effusion Recurrent large R Pleural effusion R anterior tibial superficial wound / ulcer CAD s/p stents L1 compression fracture NIDDM2 A-fib, chronic Hyperlipidemia Hypothyroidism Hypertension Acute on chronic diastolic heart failure Acute and chronic respiratory failure with hypoxia secondary to large R pleural effusion Recurrent large R Pleural effusion CXR (06/01): Mild interstitial pulm edema suspected. heart is moderately enlarged. Mild CHF vs volume overload is likely. Moderate R pleural effusion CXR (06/02): No pneumothorax fine right-sided thoracentesis; Repeat CXR (06/03): stable, +Right basilar atelectasis CT chest (06/02): Moderate right pleural effusion which does not appear loculated. RML and RLL consolidation could reflect a combination of atelectasis and/or pneumonia. Thoracentesis u/s (06/02): 1.5 liter of fluid was aspirated Fluid samples/cultures(06/02): pending pt with alkalosis, secondary to respirations and possibly medication; improving Pulmonology consulted Lasix changed to spironolactone and Diamox twice a day received cefepime (06/01-06/03), now DCd remains afebrile, no leukocytosis, no source of infection nebs, budesonide, steroids PT consult Cardiology consulted echo pending BNP elevated (4170) monitor on telemetry R anterior tibial superficial wound / ulcer reports clearish-red drainage prior to admission, ongoing for >1 week does not describe purulent drainage started as injury from galvan mild erythema, no added warmth General surgery - Dr. Brito consulted silver nitrate, and some viscous lidocaine will give her some wound care instructions for after discharge wound culture (06/01): Enterobacter Cloacae less reliable as it is a superficial culture however growing enterobacter, resistant will discuss with Dr. Brito afebrile, no leukocytosis L1 compression fracture seen on CT chest - Age indeterminate L1 compression fracture. There is approximately 30% loss of height anteriorly NIDDM2 Ac ACHS, SSI A-fib, chronic Hypothyroidism Hypertension Hyperlipidemia Continue home meds Code: Full Dispo: Home ~1-2 days Pending culture results, possible PICC line needed if needing IV abx
--- NOTE | 2023-06-05 07:22 | ECHO ---
HEIGHT: 5 ft 8 in WEIGHT: 155 lb 0 oz DATE OF STUDY: 06/02/[address]: Jose Kyle MD 2-DIMENSIONAL: YES M.MODE: YES DOPPLER: YES COLOR FLOW: YES TDS: PORTABLE: DEFINITY: BUBBLE STUDY: DIAGNOSIS: EVALUTE FUNCTION/ AORTIC VALVE REPAIR CARDIAC HISTORY: CATHERIZATION: SURGERY: AORTIC VALVE REPAIR PROSTHETIC VALVE: PACEMAKER: MEASUREMENTS (cm) DIASTOLIC (NORMALS) SYSTOLIC (NORMALS) IVSd 1.2 (0.6-1.2) LA Diam 4.2 (1.9-4.0) LVEF 71% LVIDd 3.9 (3.5-5.7) LVIDs 2.3 (2.0-3.5) %FS 40% LVPWd 1.2 (0.6-1.2) Ao Diam 2.5 (2.0-3.7) 2 DIMENSIONAL ASSESSMENT: RIGHT ATRIUM: NORMAL LEFT ATRIUM: ENLARGED RIGHT VENTRICLE: NORMAL LEFT VENTRICLE: LEFT VENTRICULAR HYPERTENSION TRICUSPID VALVE: MILD TRICUSPID REGURGITATION MITRAL VALVE: MILD MITRAL REGURGITATION PULMONIC VALVE: NORMAL AORTIC VALVE: BIOPROSTHESIS IS PRESENT PERICARDIAL EFFUSION: NONE AORTIC ROOT: NORMAL LEFT VENTRICULAR WALL MOTION: NORMAL DOPPLER/COLOR FLOW: SEE BELOW COMMENTS: 1. NORMAL LEFT VENTRICULAR EJECTION FRACTION 60-65% WITH NORMAL WALL MOTION 2. MILD CONCENTRIC LEFT VENTRICULAR HYPERTROPHY 3. DIASTOLIC DYSFUNCTION 4. AORTIC VALVE BIOPROSTHESIS IS PRESENT AND FUNCTIONING WELL 5. MILD MITRAL REGURGITATION 6. MILD TRICUSPID REGURGITATION 7. LEFT ATRIAL ENLARGEMENT TECHNOLOGIST: AMEE SEAMAN
[2023-06-05] MEDS: BUDESONIDE 0.5 MG/2 ML NEB NEB SCH (08:00)
[2023-06-05] MEDS: INSULIN LISPRO 100 UNIT/1 ML SQ SCH ×2 (08:00→11:46)
[2023-06-05 08:09] LABS: Magnesium 2.1 mg/dL (1.6-2.4); Potassium 4.2 mEq/L (3.5-5.1)
[2023-06-05] MEDS: TIOTROPIUM 5 SPRAYS/INHALER IH SCH (08:20)
[2023-06-05] MEDS: SPIRONOLACTONE 25 MG TABLET PO SCH (08:20)
[2023-06-05] MEDS: acetaZOLAMIDE 250 MG TAB PO SCH (08:20)
[2023-06-05] MEDS: MONTELUKAST 10 MG TAB PO SCH (08:20)
[2023-06-05] MEDS: DULERA 200/5 (MOMETASONE/FORMOTEROL) INHALER IH SCH (08:21)
[2023-06-05] MEDS: AMIODARONE HCL 200 MG TAB PO SCH (08:25)
[2023-06-05] MEDS: IPRATROPIUM BROM 0.5MG/2.5ML NEB PRN (08:50)
[2023-06-05] MEDS: ALBUTEROL 2.5 MG/3 ML NEB SOL NEB PRN (08:50)
[2023-06-05 08:52] VITALS: O2SAT 100
--- NOTE | 2023-06-05 10:04 | P.DS ---
Admission Date: 06/01/23 Discharge Date: 06/05/23 Disposition: ROUTINE DISCHARGE Discharge Condition: GOOD Reason for Admission: This postthoracentesis right-sided pleural effusion Consultations: Cardiology - Dr. Chavez Pulmonology - Dr. Borden General Surgery - Dr. Brito Brief History of Present Illness: 77yo F, PMH: HTN,HLD, COPD, CHF, CA, AFib on Plavix/Asa, NIDDM, Hypothyroidism Patient presents to ER with complaints of Shortness of breath. She reports shortness of breath started 2 days ago. She reports shortness of breath is worse laying flat and with exertion. She reports cough non-productive. She reports breathing made better by sitting up and using home 02 2-2.5L, She reports daily tobacco use of 1-5 cigarettes per day. She reports Right baltazar wound, draining serous drainage, covered with bandaid. She reports both leg swelling with average of 5 lb weight gain. She denies productive cough, fever, chills, chest pain, dizziness, edema. Chest x-ray Mild interstitial pulmonary edema suspected. The heart is moderately enlarged. Mild CHF versus volume overload is likely. Moderate right pleural effusion, increased in size since 01/20/2023. Hospital Course: Problem List: Acute on chronic diastolic heart failure Acute and chronic respiratory failure with hypoxia secondary to large R pleural effusion Recurrent large R Pleural effusion R anterior tibial superficial wound / ulcer CAD s/p stents Incidental finding CT chest: L1 compression fracture, age indeterminate NIDDM2 A-fib, chronic Hyperlipidemia Hypothyroidism Hypertension Patient presented with worsening shortness of breath. Troponin was negative. Echo was okay. She was found large right pleural effusion seen on CT chest. Pulmonology and Cardiology was consulted. She had a thoracentesis that removed 1.5 liter of fluid. She was given empiric cefepime for a few days however was discontinued as there was no source of infection and patient remained afebrile without leukocytosis. Patient was given Diamox and Spironolactone in lieu of lasix, along with nebs, budesonide, steroids and had significant improvement of her breathing. During her hospitalization, she was noted to have a right anterior tibial superficial wound. A wound culture was obtained and was seen to be growing Enterobacter Cloacae and Staph Aureus. These results however are not as reliable as it was obtained from a superficial swab, and no purulent drainage or other evidence of infection were noted. Dr. Brito (General Surgery) was consulted who also felt the wound was not infected. The area was treated with topical lidocaine and then silver nitrate used to cauterize the wound. Patient was given wound care instructions by Dr. Brito. No further antibiotics are needed. Recommend patient to follow up at the wound care clinic for further management. new / change in prescriptions: Diamox Spironolactone Stop Lasix Continue other home medications as previously prescribed Follow Up: PCP 3-5 days Pulmonology within 1-2 weeks Cardiology within a few weeks Wound care clinic with Dr. Brito for continuation of wound care Monitor weight, urine output and color. Discussed spironolactone and diamox (acetazolamide) can lower blood pressure and act as diuretics. Reviewed symptoms and signs to look for that would indicate dehydration. Physical Exam: GEN: Alert, oriented, NAD HEENT: Normal conjunctiva, sclera anicteric CV: Regular rate and rhythm, trace edema bilaterally, R>L Pulm: mild labored respirations on 2L NC at rest, diminished at bases b/l ABD: Soft, nontender, nondistended MSK: No joint tenderness Integumentary: 2cm superfical ulceration, minimal erythema, no purulent drainage Neuro: Normal speech, normal affect Vital Signs/Physical Exam: Temp Pulse Resp BP Pulse Ox 97.3 F 72 16 115/60 100 06/05/23 08:00 06/05/23 08:20 06/05/23 08:00 06/05/23 08:20 06/05/23 08:00 Laboratory Data at Discharge: WBC 4.70 thou/uL (4.3-10.9) 06/04/23 05:25 Hgb 12.0 g/dL (12.0-15.0) 06/04/23 05:25 Hct 36.7 % (36.0-45.0) 06/04/23 05:25 Plt Count 199 thou/uL (152-406) 06/04/23 05:25 PT 11.3 SECONDS (9.5-12.5) 06/01/23 10:45 INR 1.03 06/01/23 10:45 APTT 27.7 SECONDS (24.3-36.9) 06/01/23 10:45 Sodium 135 mEq/L (136-145) L 06/05/23 07:34 Potassium 4.2 mEq/L (3.5-5.1) D 06/05/23 07:34 BUN 30 mg/dL (7-18) H 06/05/23 07:34 Creatinine 0.67 mg/dL (0.55-1.02) 06/05/23 07:34 Glucose 182 mg/dL (74-106) H 06/05/23 07:34 Phosphorus 3.0 mg/dL (2.5-4.9) 06/04/23 05:25 Magnesium 2.1 mg/dL (1.6-2.4) 06/05/23 07:34 Total Bilirubin 0.6 mg/dL (0.2-1.0) 06/01/23 10:45 AST 15 U/L (15-37) 06/01/23 10:45 ALT 19 U/L (13-56) 06/01/23 10:45 Alkaline Phosphatase 72 U/L (45-117) 06/01/23 10:45 Home Medications: Amiodarone HCl [Cordarone*] 1 tab PO BID 11/16/20 Atorvastatin Calcium [Lipitor*] 1 tab PO BEDTIME 11/16/20 Clopidogrel Bisulfate [Plavix] 1 tab PO DAILY 11/16/20 Metformin HCl 2 tab PO DAILY 11/16/20 Metformin HCl 3 tab PO BEDTIME 11/16/20 Metoprolol Tartrate 1 tab PO BID 11/16/20 Montelukast [Singulair*] 1 tab PO DAILY 11/16/20 Thyroid,Pork [[place] Thyroid] 1 tab PO BEDTIME 11/16/20 Thyroid,Pork [[place] Thyroid] 2 tab PO DAILY 11/16/20 Tiotropium [place] [Spiriva] 1 puff IH DAILY 11/16/20 Tramadol HCl [Ultram] 1 tab PO DAILY PRN 11/16/20 Fluticasone/Salmeterol [Advair 250-50 Diskus] 1 each IH BID #60 disk.w.dev 09/06/21 Albuterol Inhaler [Ventolin Inhaler*] 2 puff IH Q6H PRN 06/01/23 Pioglitazone HCl [Actos] 15 mg PO BID 06/01/23 Spironolactone [Aldactone*] 25 mg PO BID 30 Days #60 tab 06/05/23 acetaZOLAMIDE [Diamox*] 250 mg PO BID 30 Days #60 tab 06/05/23 New Medications: Spironolactone [Aldactone*] 25 mg PO BID 30 Days #60 tab acetaZOLAMIDE [Diamox*] 250 mg PO BID 30 Days #60 tab Physician Discharge Instructions: Patient presented with worsening shortness of breath. Troponin was negative. Echo was okay. She was found large right pleural effusion seen on CT chest. Pulmonology and Cardiology was consulted. She had a thoracentesis that removed 1.5 liter of fluid. She was given empiric cefepime for a few days however was discontinued as there was no source of infection and patient remained afebrile without leukocytosis. Patient was given Diamox and Spironolactone in lieu of lasix, along with nebs, budesonide, steroids and had significant improvement of her breathing. During her hospitalization, she was noted to have a right anterior tibial superficial wound. A wound culture was obtained and was seen to be growing Enterobacter Cloacae and Staph Aureus. These results however are not as reliable as it was obtained from a superficial swab, and no purulent drainage or other evidence of infection were noted. Dr. Brito (General Surgery) was consulted who also felt the wound was not infected. The area was treated with topical lidocaine and then silver nitrate used to cauterize the wound. Patient was given wound care instructions by Dr. Brito. No further antibiotics are needed. Recommend patient to follow up at the wound care clinic for further management. new / change in prescriptions: Diamox Spironolactone Stop Lasix Continue other home medications as previously prescribed Follow Up: PCP 3-5 days Pulmonology within 1-2 weeks Cardiology within a few weeks Wound care clinic with Dr. Brito for continuation of wound care Monitor weight, urine output and color. Discussed spironolactone and diamox (acetazolamide) can lower blood pressure and act as diuretics. Reviewed symptoms and signs to look for that would indicate dehydration. Followup: Trey Raman MD [Primary Care Provider] - Time spent managing pt's care (in minutes): 45
[2023-06-05 12:28] VITALS: BP 116/59; TEMP 97.7
--- NOTE | 2023-06-05 17:51 | PN ---
Date of Progress Note: 06/05/2023 Subjective: Seen by bedside. Doing clinically well. Denies any shortness of breath or chest pain o r orthopnea. Review of Systems: No chest pain, shortness of breath, orthopnea, cough. No nausea, vomiting, diarrhea. All other syst ems reviewed and they were negative. Physical Examination: Vital Signs: Reviewed. Head and Neck: Pupils are equal, reactive to light. Intact eye movements. No JVD. No cervical lym phadenopathy. Neck is supple. Thyroid is not enlarged. Lungs: Clear to auscultation bilaterally. No rhonchi, wheezing, or crackles. No accessory muscle u se. Heart: Irregular. No extra sounds. Abdomen: Soft, nontender. Bowel sounds positive. No organomegaly. No masses or hernia. No rigidi ty or rebound. Extremities: No edema, clubbing, or cyanosis. Intact pulses. Skin: Erythema of the right leg with open wound with dressing on. Neurologic: Alert, awake, oriented x3. No acute focal deficits appreciated. Investigations: BUN 30, creatinine 0.67, and hemoglobin is 12. Assessment And Recommendations: 1.Acute on chronic diastolic heart failure exacerbation. She appears to be euvolemic. Switch oral Lasix and the patient can be released to follow up as outpatient. 2.Atrial fibrillation, controlled. Continue current therapy. She is status post appendage closure. 3.Aortic valve stenosis, status post transcatheter aortic valve replacement 3 years ago and the valv e prosthesis is functioning very well. The patient can be released from cardiac standpoint and follow up as an outpatient. SR/MODL Voice ID: [id number] Report ID: [id number]
[2023-06-06 03:46] LABS: CHOLESTEROL, PLEURAL FLUID 29 mg/dL; LD, PLEURAL FLUID 80 U/L; TOTAL PROTEIN, PLEURAL FLUID <3.0 g/dL
== END 2023-06-05 12:44 | disposition home or self-care (01) | DRG 291 ==
LOC: ER 10:05 → ERHOLD 12:26 → 2ND 14:11
PROVIDERS: ADMIT Hospitalist; ATTEND Hospitalist
DX: I11.0 Hypertensive heart disease with heart failure (principal); I50.33 Acute on chronic diastolic (congestive) heart failure; J96.21 Acute and chronic respiratory failure with hypoxia; L03.115 Cellulitis of right lower limb; I48.19 Other persistent atrial fibrillation; L97.819 Non-pressure chronic ulcer of other part of right lower leg with unspecified severity; J44.1 Chronic obstructive pulmonary disease with (acute) exacerbation; E11.9 Type 2 diabetes mellitus without complications; E03.9 Hypothyroidism, unspecified; E78.5 Hyperlipidemia, unspecified; I35.0 Nonrheumatic aortic (valve) stenosis; E87.6 Hypokalemia; I25.10 Atherosclerotic heart disease of native coronary artery without angina pectoris; M48.56XD Collapsed vertebra, not elsewhere classified, lumbar region, subsequent encounter for fracture with routine healing; F17.210 Nicotine dependence, cigarettes, uncomplicated; I25.2 Old myocardial infarction; B95.61 Methicillin susceptible Staphylococcus aureus infection as the cause of diseases classified elsewhere; B96.89 Other specified bacterial agents as the cause of diseases classified elsewhere; Z88.8 Allergy status to other drugs, medicaments and biological substances; Z95.2 Presence of prosthetic heart valve; Z95.5 Presence of coronary angioplasty implant and graft; Z99.81 Dependence on supplemental oxygen; Z79.02 Long term (current) use of antithrombotics/antiplatelets; Z79.82 Long term (current) use of aspirin; Z90.49 Acquired absence of other specified parts of digestive tract; Z79.84 Long term (current) use of oral hypoglycemic drugs; Z79.899 Other long term (current) drug therapy; Z90.710 Acquired absence of both cervix and uterus; Z91.048 Other nonmedicinal substance allergy status
CPT/HCPCS: 32555; 36415; 36600; 71045; 71250; 80048; 80076; 81001; 82805; 82945; 82947; 83615; 83735; 83880; 84100; 84132; 84157; 84311; 84484; 85025; 85610; 85730; 87015; 87040; 87070; 87077; 87102; 87116; 87186; 87205; 87206; 88108; 88305; 89050; 93005; 93306; 94640; 96374; 97161; 99285; J0692; J1815; J1940; J3475; J3535; J7613; J7614; J7626; J7644

== ENCOUNTER 2023-07-10 07:00 | Day surgery (SDC) | payer OTHER ==
[2023-07-07 13:43] LABS: Hematocrit 32.9 % (36.0-45.0); Lymphocytes % 19.9 % (15.3-44.8); MCV 90.2 fL (80-100); MPV 8.5 fL (7.6-11.3); Platelets 185 thou/uL (152-406); RBC Red Blood Cell Count 3.65 M/uL (3.86-4.86)
[2023-07-07 13:48] LABS: Protime INR 1.06
[2023-07-07 13:54] LABS: Potassium 3.4 mEq/L (3.5-5.1)
--- NOTE | 2023-07-07 14:04 | RAD REPORT ---
EXAM DESCRIPTION: RAD - Chest Pa And Lat (2 Views) - 07/07/2023 1:44 pm CLINICAL HISTORY: pre op pending heart catheterization Chest pain. COMPARISON: Chest Single View dated 06/03/2023; Chest Single View dated 06/02/2023; Chest Single View da nayan 06/01/2023; Chest Pa And Lat (2 Views) dated 01/20/2023 FINDINGS: Mild diffuse emphysema is seen. Right pleural and parenchymal lower lobe opacity appears r elatively chronic and similar to 06/03/2023. The heart is moderately enlarged. Aortic atherosclerosis .
[2023-07-10] MEDS ORDERED: NA CHLORIDE 0.9% 500 ML ONE (07:40)
[2023-07-10] MEDS ORDERED: HEPA 1000U/500MLS 2,000 UNIT/1,000 ML BAG IV ONE (07:45)
[2023-07-10] MEDS ORDERED: HEPARIN 5000 UNIT/ML 1 ML VIAL ONE (07:45)
[2023-07-10] MEDS ORDERED: VERAPAMIL HCL 10 MG/4 ML VIAL IV ONE (07:45)
[2023-07-10] MEDS ORDERED: MIDAZOLAM HCL 2 MG/2 ML INJ ONE (07:45)
[2023-07-10] MEDS ORDERED: LIDOCAINE 1% 20 ML MDV ONE (07:45)
[2023-07-10] MEDS ORDERED: FENTANYL CITR 100 MCG/2 ML ONE (07:45)
[2023-07-10] MEDS ORDERED: TICAGRELOR 90 MG TABLET PO ONE (07:46)
[2023-07-10] MEDS ORDERED: CLOPIDOGREL 75 MG TABLET ONE (07:46)
[2023-07-10] MEDS ORDERED: ASPIRIN 325 MG TAB ONE (07:46)
[2023-07-10] MEDS ORDERED: HEPARIN 10,000 UNIT/10 ML VIAL IV ONE (07:46)
[2023-07-10] MEDS ORDERED: ATROPINE SULF 1 MG/10 ML SYR IV ONE (07:47)
[2023-07-10] MEDS ORDERED: NITROGLYCERIN/D5W 25 MG/250 ML BTL IV ONE (07:47)
[2023-07-10] MEDS ORDERED: NITROGLYCERIN 100 MCG/ML SYR (for cath lab use only) IV ONE (07:47)
--- NOTE | 2023-07-10 09:03 | OP ---
Date of Procedure: 07/10/2023 Surgeon: JEFFREY KYLE Procedures Performed: 1.Selective coronary angiogram. 2.Left heart catheterization. Indication: Abnormal stress test with dyspnea on exertion. Access: Right radial artery 6-Salvadorean closed with TR band. Complications: None. Bleeding: Less than 20 mL. Description Of Procedure: After risks, benefits, alternatives were explained, the patient agreed to procedure and signed informal consent. Patient was brought into cardiac catheterization laboratory, prepped and draped in the usual sterile fashion. Then I accessed right radial artery using pediatric micropuncture kit and took 5-Sal[place] 4 catheter into the aortic root, engaged the left main and took standard views and then the RCA and took standard views and then the catheter was pushed over t he wire into the LV, measured the LVEDP and pullback did not record any gradient and then removed the catheter and the sheath, placed TR band with good hemostasis. Findings: 1.Left main; large and normal. 2.LAD; large vessel with proximal LAD stent that is widely patent. Diagonal branches are without si gnificant disease and then the LAD has diffuse 30% to 40% stenosis and there is a focal 50% stenosis in the mid to distal portion. LAD is very large, wraps around the apex and gives collaterals to the RCA. 3.Left circumflex; large vessel with widely patent stent. 4.RCA, proximally occluded with the large left to right collaterals. 5.Normal LVEDP at 5 mmHg. Conclusion: 1.Totally occluded RCA with good collaterals from left to right. 2.Moderate coronary artery disease elsewhere. Plan: Medical management. SR/MODL Voice ID: [id number] Report ID: [id number]
[2023-07-10 10:00] VITALS: TEMP 97.5
[2023-07-10 10:33] VITALS: O2SAT 98
[2023-07-10 12:32] VITALS: BP 110/62
--- NOTE | 2023-07-10 13:14 | EKG ---
Test Date: 2023-07-07 Test Time: 13:18:08 [place] Operator: JOSIAS MEASUREMENT RESULTS: Intervals: Rate: 78 NC: QRSD: 92 QT: 378 QTc: 430 [place]: P: NC: QRS: 98 T: 65 INTERPRETIVE STATEMENTS: Atrial fibrillation Rightward axis Incomplete right bundle branch block Abnormal ECG Compared to ECG 06/01/2023 10:59:48 Right ventricular hypertrophy no longer present Electronically Signed On 07-10-23 13:11:40 CDT by Joaquim Chavez
== END 2023-07-10 11:00 | disposition home or self-care (01) ==
LOC: CCL 07:00
PROVIDERS: ATTEND Internal Medicine
DX: I25.10 Atherosclerotic heart disease of native coronary artery without angina pectoris (principal); I25.82 Chronic total occlusion of coronary artery; I34.0 Nonrheumatic mitral (valve) insufficiency; I35.0 Nonrheumatic aortic (valve) stenosis; I48.91 Unspecified atrial fibrillation; I11.0 Hypertensive heart disease with heart failure; I50.32 Chronic diastolic (congestive) heart failure; I51.7 Cardiomegaly; I45.10 Unspecified right bundle-branch block; I65.21 Occlusion and stenosis of right carotid artery; E78.5 Hyperlipidemia, unspecified; E11.9 Type 2 diabetes mellitus without complications; J44.9 Chronic obstructive pulmonary disease, unspecified; Z95.5 Presence of coronary angioplasty implant and graft; Z79.01 Long term (current) use of anticoagulants; Z79.84 Long term (current) use of oral hypoglycemic drugs; Z79.02 Long term (current) use of antithrombotics/antiplatelets; Z79.899 Other long term (current) drug therapy
CPT/HCPCS: 36415; 71046; 76937; 80048; 82947; 85025; 85610; 85730; 93005; 93458; C1893; J0461; J1644; J2001; J2250; J3010; J7040; Q9966

== ENCOUNTER 2023-09-12 17:21 | Emergency (ER) | payer OTHER ==
--- OUTSIDE RECORDS SUMMARY | 2023-09-12 17:25 | XMS REPORT | Continuity of Care Document ---
:1945 Author Organization [facility] t Address [address] [facility] [place] [address] Care Team Providers Name Role Phone Trey Raman MD Primary Care Physician ZOYA WILSON Attending Clinician Unavailable Kelsey Anderson Attending Clinician ESTEPHANIA SUE Attending Clinician Unavailable ALFREDO TORO Attending Clinician Unavailable Joaquim Chavez Attending Clinician Unavailable Jose Cruz Walsh Attending Clinician Unavailable Brina Corrigan Attending Clinician Unavailable JAYMIE HARVEY Attending Clinician Unavailable Madison Noble RN Attending Clinician Unavailable Eze Almanzar RN Attending Clinician Unavailable MELISSA KINGSTON Attending Clinician Unavailable Lab, Adc Fam Pob I Attending Clinician Unavailable Melissa Clayton Attending Clinician ESTEPHANIA SUE Admitting Clinician Unavailable Physician, No Primary or Family Admitting Clinician UnavailTrey Monique Admitting Clinician Unavailable Joaquim Chavez Admitting Clinician Unavailable Jose Cruz Walsh Admitting Clinician Unavailable Payers Payer Name Policy Type Policy Number Effective Date Expiration Date S jennifer [employer]IC[employer] PPO [id number] 2021 00:00:00 [employer] MEDICARE ADV [id number] 2015 00:00:00 Problems This patient has no known problems. Allergies, Adverse Reactions, Alerts Allergy Allergy Status Severity Reaction(s) Onset Inactive Treating Comm ents Source Name Type Date Date Clinician Ryan Propensi Active [place] ban ty to 12-05 Health adverse 00:00: reaction 00 s rivaroxa DA Active U ORGAN [facility] ban FAILURE/INTE 02-21 Graciela r RNAL 00:00: Matthews BLEEDING 00 [facility] No Known DA Active U 2020-11 [facility] Allergie 1-16 Clear s 00:00: Matthews 00 [facility] No Known DA Active U [facility] Allergie 2-13 Clear s 00:00: Matthews 00 [facility] NO KNOWN Drug Active Univers ALLERGIE Class ity of S [facility] Social History Social Habit Start Date Stop Date Quantity Comments Source Exposure to SARS-CoV-2 2022-12-23 2023-01-02 Not sure [facility] (event) 00:00:00 11:20:00 Sex Assigned At [birth year] [facility] 00:00:00 00:00:00 Smoking Status Start Date Stop Date Source Tobacco smoking consumption unknown [facility] Medications Ordered Filled Start Stop Current Ordering Indication Dosage Frequency Signature Comments Components Source Medication Medication Date Date Medication? Clinician (SIG) Name Name yeni 2022- No [id number] 1{tbl} Q6H Take 1 UT en-codeine 12-05 tablet by [facility] (TYLENOL/CO 00:00: 05:59 mouth DEINE #3) 00 :00 every 6 300-30 MG (six) tablet hours if needed for severe pain for up to 10 days. Procedures Procedure Date / Time Performed Performing Clinician Steve hill [id number] 2021-12-15 00:00:00 IKE [facility] [id number] 2021-12-15 00:00:00 IKE [facility] [id number] 2021-12-15 00:00:00 IKE [facility]KEON [facility] [id number] 2021-10-12 00:00:[address] [facility] Encounters Start End Encounter Admission Attending Care Care Encounter Source Date/Time Date/Time Type Type Clinicians Facility Department ID 2023-02-21 Outpatient [facility] [id number] [place] 14:06:55 [id number] [facility] 2022-12-21 Outpatient [facility] [id number] [place] 08:16:53 [id number] [facility] 2022-12-05 Outpatient [facility] [id number] [place] 11:06:31 [id number] [facility] 2022-12-04 Outpatient [facility] [id number] [place] 20:59:57 [id number] [facility] 2022-11-29 Outpatient [facility] [id number] [place] 10:32:10 [id number] [facility] 2023-02-27 2023-02-27 Outpatient SHEBA [facility] [id number] [place] 10:30:00 10:30:00 [facility] 2023-02-27 2023-02-27 Outpatient [facility] [id number] [place] 10:30:00 10:30:00 [facility] 2023-01-02 2023-01-02 Office Wilson [facility] [id number] [id number] [place] 10:30:00 12:38:[address] 350.1.13.58 Health 9.2.7.2.686 [id number] 1 2023-01-02 2023-01-02 Outpatient [facility] [id number] [place] 10:30:00 10:30:00 [facility] 2022-12-05 2022-12-05 Office TIFFANIE Cronin 6414 [id number] [id number] [place] 10:30:00 11:54:[address] 350.1.13.58 Health 9.2.7.2.686 [id number] 1 2022-11-20 2022-11-25 Inpatient Mel SUE [facility] MED [id number] [facility] 22:32:00 16:55:00 ESTEPHANIA 2022-11-22 2022-11-22 Outpatient CORTEZ [facility] [id number] [place] 09:00:00 [facility]-04[facility]27 2022-04-27 Outpatient VLAD Chavez [facility] OUTD [id number] [facility] 05:08:00 05:08:00 Joaquim 99 [facility] 2022-04-27 2022-04-27 Outpatient MIKE WardCL [facility] [id number] [facility] 05:08:00 05:08:00 Joaquim [id number] [facility] 2022-02-23 2022-02-23 Inpatient VLAD Chavez, [facility] OUTD [id number] [facility] 05:22:00 05:22:00 Joaquim 18 [facility] 2021-12-15 2021-12-15 Inpatient VLAD Chavez, [facility] INTE.02 [id number] [facility] 13:49:00 17:00:00 Joaquim 97 [facility] 2021-10-12 2021-10-13 Inpatient VLAD Walsh [facility] INTE [id number] [facility] 11:11:00 13:26:00 Linh 22 [facility] 2021-10-08 2021-10-08 Outpatient VLAD Walsh, [facility] 3DAY [id number] [facility] 09:00:00 23:00:00 Linh 23 [facility] 2021-09-13 2021-09-13 Outpatient MIKE GrubbsCL [facility] [id number] [facility] 10:27:00 10:27:00 Brina 88 [facility] 2021-01-27 2021-01-27 [facility] [id number] Univers 14:30:00 14:30:00 JAYMIE [facility] 2021-01-06 2021-01-06 [facility] [id number] Univers 13:10:00 13:10:00 JAYMIE [facility] 2020-07-27 2020-07-27 Letter MEENAKSHI Noble [id number] [id number] 00:00:00 00:00:00 (Out) Madison HENDERSON 350.1.13.10 [facility] 4.2.7.2.686 [id number] 2020-07-27 2020-07-27 Letter MEENAKSHI Noble 1.2.840.114 [id number] Univers 00:00:00 00:00:00 (Out) Madison HENDERSON 350.1.13.10 it y of [facility] 4.2.7.2.686 Jameel as [id number] [address] 2020-07-26 2020-07-26 Telephone MEENAKSHI Almanzar 1.2.840.114 [id number] 00:00:00 00:00:00 Eze HENDERSON 350.1.13.10 [facility] 42.7.2.686 [id number] [facility] 2020-07-26 2020-07-26 Telephone MEENAKSHI Almanzar 1.2.840.114 [id number] Univers 00:00:00 00:00:00 Eze HENDERSON 350.1.13.10 it y [facility] 4.2.7.2.686 Jameel as [id number] [address] 2020-07-24 2020-07-24 Outpatient R ELIDA [facility] [id number] Univers 16:40:00 16:40:00 MELISSA oscardenise [facility] 2020-07-24 2020-07-24 Laboratory Lab, [facility] 1.2.840.114 [id number] 14:48:41 15:08:41 Only Fam Pob I Health 350.1.13.10 [place] 4.2.7.2.686 Professio [id number] [place] [address] Office [facility] 2020-07-24 2020-07-24 Laboratory Lab, [facility] Fam Pob I [facility] 1.2. [id number] [facility] 14:48:41 15:08:41 Only Melissa [place] Tammie 350.1.13.10 ity [facility] 4.2.7.2.686 Jameel as Professio [id number] [place] dical [address] Office Building One Results Test Description Test Time Test Comments Results Result Comments Source Novel Coronavirus 2019 Inhouse 2022-04-23 02:30:00 Test Item Value Reference Range Interpretation Comme nts Novel Coronavirus 2018 Negative Negative Posit yolis results are indicative of the Inhouse (test code = presenc e rjOXGE-IvX-5 RNA, clinical COVNONPUI) correlation wit h patient [...] qualitative detection of nucleic acid s from lzsAYET-HrJ-2 virus and diagn osis of SARS-CoV-2 virusinfection. It is an Emergency Use Authorization ( EUA) testauthorized by the U.S. FDA. BASIC METABOLIC [id number] 15:17:00 Test Item Value Reference Range Interpretation [...] 10.2 mg/dL 8.0-10.5 N CA) CBC W/AUTO [id number] 15:14:00 Test Item Value Reference Range Interpretation [...] REQUIRED (test code NO = MDIFF) PROTHROMBIN [id number] 15:14:00 Test Item Value Reference Range Interpretation [...] Infarction (to prevent recurrent infar ct). 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 It is an Emergency Use Authorization ( EUA) testauthorized by the U.S. FDA. BASIC METABOLIC [id number] 14:18:00 Test Item Value Reference Range Interpretation [...] = 9.8 mg/dL 8.0-10.5 N CA) PROTHROMBIN [id number] 14:09:00 Test Item Value Reference Range Interpretation [...] (to prevent recurrent infar ct). 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 [facility] [id number] 10:33:00 Test Item Value Reference Range Interpretation Comments ACT-ISTAT (test code 374 SEC 74-137 H Perform ed by certified = ACTI) 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 [facility] GLUCOSE [id number] 09:14:00 Test Item Value Reference Range Interpretation Comments GLUCOSE BEDSIDE (test 71 MG/DL 70-110 N Perfor med by certified code = GLUBED) 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 [facility] GLUCOSE [id number] 08:39:00 Test Item Value Reference Range Interpretation Comments GLUCOSE BEDSIDE (test 82 MG/DL 70-110 N Perfor med by certified code = GLUBED) 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 [facility] GLUCOSE [id number] 07:55:00 Test Item Value Reference Range Interpretation Comments GLUCOSE BEDSIDE (test 51 MG/DL 70-110 L Perfor med by certified code = GLUBED) 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 [facility] GLUCOSE [id number] 07:48:00 Test Item Value Reference Range Interpretation Comments GLUCOSE BEDSIDE (test 48 MG/DL 70-110 L Perfor med by certified code = GLUBED) 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 [facility] - XR CHEST 1 [id number] 00:00:00 [facility] AVERY : 1945 Sex: F FAX: Joaquim Sainz MD [phone] [place]: St: ADM Name: MIKAEL PAUL [facility] : 1945 Age/S: 76/F [address] [place] [address] Unit #: [id number] Loc: [place] [address] Phys: [facility]aqu[facility] [id number] Dis Date: Status: ADM IN PHONE #: [phone] Exam Date: 12/15/2021 1238 FAX #: Reason: S/P WATCHMAN EXAMS: CPT CODE: [id number] XR CHEST 1 V 14500 PROCEDURE INFORMATION: Exam: XR Chest Exam date and time: 12/15/2021 11:48 AM Age: 76 years old Clinical indication: Condition or disease; Other: Watchman; Additional info: S/P watchman TECHNIQUE: Imaging protocol: XR of [facility]. Views: 1 view. COMPARISON: DX XR CHEST 2 V 12/13/2021 12:38 PM FINDINGS: Lungs: Increased right lower lobe consolidation and effusion. Pleural spaces: Unremarkable. No pleural effusion. No pneumothorax. Heart/Mediastinum: Cardiomegaly. Bones/joints: No acute osseous abnormality. Other findings:Mild congestive change. IMPRESSION: 1. Increased right lower lobe consolidation and effusion. 2. Mild congestive change. at 4301 Reported and signed by: Richmond Duggan M.D. CC: Joaquim Chavez MD Technologist: Denise Santana RT(R) Trnscrd Date/Time/By: 12/15/2021 (3842) : By: [email or web address] Orig Print D/T: S: 12/15/2021 (8499) PAGE1 Signed ReportNovel Coronavirus 2019 [id number] 08:49:00 Test Item Value Reference Range Interpretation [...] det ection of nucleic acids f rom onbBOLR-ZpX-1 v irus and diagnosis of SA RS-CoV-2 virusinfection. It is an Emergency Use Authorization ( EUA) testauthorized by the U.S. FDA. BASIC METABOLIC [id number] 12:48:00 Test Item Value Reference Range Interpretation [...] code = 9.9 mg/dL 8.0-10.5 N CA) [id number] 12:48:00 Test Item Value Reference Range Interpretation Comments PREALBUMIN (test code = PREALB) 18.0 mg/dL 16.0-40.0 N PROTHROMBIN [id number] 12:32:00 Test Item Value Reference Range Interpretation [...] (to prevent recurrent infar ct). CBC W/AUTO [id number] 12:26:00 Test Item Value Reference Range Interpretation [...] NO = MDIFF) - XR CHEST 2 [id number] 00:00:00 [facility] RAFAEL MIKAEL VARELA : 1945 Sex: F FAX: Joaquim Sainz MD [phone] [place]: St: PRE Name: MIKAEL PAUL [facility] : 1945 Age/S: 76/F [address] [place] [address] Unit #: [id number] Loc: [place] [address] Phys: Joaquim Chavez MD Acct: [id number] Dis Date: Status: PRE SDC PHONE #: [phone] Exam Date: 12/13/2021 4537 FAX #: Reason: PREOP EXAMS: CPT CODE: [id number] XR CHEST 2 V 01596 PROCEDURE INFORMATION: Exam:XR Chest Exam date and time: 12/13/2021 12:38 [...] at 1423 Reported and signed by: Jens Maxewll D.O. 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 [facility] COMPREHENSIVE METABOLIC [id number] 04:34:00 Test Item Value Reference Range Interpretation [...] TOTAL (test code = ALKP) CBC W/AUTO [id number] 04:17:00 Test Item Value Reference Range Interpretation [...] REQUIRED (test code NO = MDIFF) GLUCOSE [id number] 00:10:00 Test Item Value Reference Range Interpretation Comments GLUCOSE BEDSIDE (test 313 MG/DL 70-110 H Perfor med by certified code = GLUBED) 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 [facility] GLUCOSE [id number] 18:05:00 Test Item Value Reference Range Interpretation Comments GLUCOSE BEDSIDE (test 207 MG/DL 70-110 H Perfor med by certified code = GLUBED) 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 [facility] GLUCOSE [id number] 12:42:00 Test Item Value Reference Range Interpretation Comments GLUCOSE BEDSIDE (test 158 MG/DL 70-110 H Perfor med by certified code = GLUBED) 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 [facility] [id number] 11:19:00 Test Item Value Reference Range Interpretation Comments ACT-ISTAT (test code 362 SEC 74-137 H Perform ed by certified = ACTI) 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 [facility] [place] [facility] GLUCOSE [id number] 08:33:00 Test Item Value Reference Range Interpretation Comments GLUCOSE BEDSIDE (test 86 MG/DL 70-110 [facility] by certified code = GLUBED) 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 The testing is perf ormed by personneltraine d in the procedures for the Fitzgerald M2000 molecular diagnostic SARS-CoV-2 assa y in vitro. B-TYPE NATRIURETIC [id number] 11:08:00 Test Item Value Reference Range Interpretation Comments B-TYPE NATRIURETIC PEPTIDE (test 260.0 PG/ML 0-100 H code = BNP) BASIC METABOLIC [id number] 10:45:00 Test Item Value Reference Range Interpretation [...] code = 9.9 mg/dL 8.0-10.5 N CA) [id number] 10:45:00 Test Item Value Reference Range Interpretation Comments ALBUMIN (test code = ALB) 3.70 g/dL 3.4-5.0 N PROTHROMBIN [id number] 10:37:00 Test Item Value Reference Range Interpretation [...] (to prevent recurrent infar ct). CBC W/AUTO [id number] 10:29:00 Test Item Value Reference Range Interpretation [...] NO = MDIFF) - XR CHEST 2 [id number] 00:00:00 [facility] : 1945 Sex: F FAX: Joaquim Sainz MD [phone] [place]: St: PRE Name: RAFAELMKIAEL AVERY [facility] : 1945 Age/S:75/F [address] [place] [address] Unit #: [id number] Loc: [place] [address] Phys: Joaquim Chavez MD Acct: [id number] Dis Date: Status: PRE [facility] PHONE #: [phone] Exam Date: 10/08/2021 1027 FAX #: [phone] Reason: PREOP EXAMS: CPT CODE: [id number] XR CHEST 2 V 44155 PROCEDURE INFORMATION: Exam:XR Chest Exam date and [...] MD Technologist: RT Mildred(R) Trnscrd Date/Time/By: 10/08/2021 (6020) : By: [email or web address] Orig Print D/T: S: 10/08/2021 (5370) PAGE 1 Signed ReportCOVID 19 Asymptomatic IH [id number] 12:58:00 Test Item Value Reference Range Interpretation [...] or waivedcomplexit y tests. CREATININE W ESTIMATED [id number] 11:18:00 Test Item Value Reference Range Interpretation Comments BEDSIDE CREATININE 0.9 MG/DL 0.6-1.3 N Performed by certified (test code = 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 [facility]) Med Ctr GLOMERULAR FILTRATION 65 ML/MIN Perfor med by certified RATE POC (test code = operat or at [facility]) Med CtrPrevious ly reported result : 65 ML/MINEdited by : JOS on 09/13/21:844062 1118: GFRBED previously repo rted as: 65 ML/MIN - CT ANGIO [id number] 00:00:00 [facility] : 1945 Sex: F Name: MIKAEL PAUL [facility] : 1945 Age/S: 75 / F [address] [place] [address] Blvd Unit #: [id number] Loc: [place] [address] Phys: Brina Corrigan [facility] Acct: [id number] Dis Date: Status: REG CLI PHONE #: [phone] Exam Date: 09/13/2021 1138 FAX #: [phone] Reason: AORTIC VALVE STENOSIS EXAMS: CPT CODE: [id number] CT ANGIO CHEST 77753 PROCEDURE INFORMATION: Exam: CTA Chest With Contrast [...] arteries. Aorta: Moderate aortic root calcification with yroe-tc-frpxypfr thoracic aortic calcifications is seen. Lungs: Mild bilateral pulmonary emphysema with mild atelectatic changes in the middle lobe and the right lower lobe. Minimal atelectatic changes in theleft lower lobe. Pleural spaces: Awgn-vp-efsryavy layering right pleural effusion. Heart: There is at herosclerotic calcification of the coronary arteries. Mild mitral annular calcification is seen. Lymph nodes: Small mediastinal nodes. Bones/joints: Age related degenerative changes. No acute fracture.Soft tissues: Unremarkable. IMPRESSION: 1. Mild cardiomegaly with pulmonary hypertension. 2. Coronary artery disease. 3. Moderate aortic root calcification with ttje-gp-eanrwwus thoracic aortic. 4. Khiv-ao-azbjcscg layering right pleural effusion. PROCEDURE INFORMATION: Exam: CTA Heart and Coronary Arteries; TAVR Planning Exam date and time: 09/13/2021 11:16 AM Age: 75 years old PAGE 1 Signed Report (CONTINUED) Name: MIKAEL PAUL [facility] : 1945 Age/S: 75 / F [address] [place], [place] [address]vd Unit #: [id number] Loc: [place] [address] Phys: Brina Corrigan SOFTWARE ENGINEERING SUPERVISOR Acct: [id number] Dis Date: Status: REG CLI PHONE #: [phone] Exam Date: 09/13/2021 1136 FAX #: [phone] Reason: AORTIC VALVE STENOSIS EXAMS: CPT CODE: [id number] CT ANGIO CHEST 61378 (Continued) Clinical indication: Pain; Other: * TECHNIQUE: [...] slice or greater coverage CT scanner was usedaccording to site location. Radiation optimization: All CT scans at this facility use at least one of these dose optimization techniques: automated exposure control; mA and/or kV adjustment per patientsize (includes targeted exams where dose is matched to clinical indication); or iterative reconstruct ion. Contrast material: ISO; Contrast volume: 100 ml; Contrast route: INTRAVENOUS (IV); Pharmacological intervention: None. Other technique: 3D renderinD reconstructed images were created, reviewedand saved. COMPARISON: CR XR CHEST 1V 01/12/2015 [...] the pulmonary arteries: 2.7 cm IMPRESSION: Aortic rootmeasurements as above. PROCEDURE INFORMATION: Exam: CTA Abdomen and PelvisWith Contrast PAGE 2 Signed Report (CONTINUED) Name: MIKAEL PAUL [facility] : 1945ge/S: 75 / F [address] [place] [address] Unit #: [id number] Loc: [place] [address] Phys: Brina CorriganLORRAINE Acct: [id number] Dis Date: Status: REG CLI PHONE #: [phone] Exam Date: 09/13/2021 1138 FAX #: [phone] Reason: AORTIC VALVE STENOSIS EXAMS: CPT CODE: [id number] CT ANGIO CHEST 59489 (Continued) Exam date and time: 09/13/2021 11:16 [...] There is atherosclerotic calcification of the aorta. A neurysmal infrarenal abdominal aorta is seen measuring 3.2 cm. Fjjk-xo-fawgxqmu atherosclerotic calcifications are seen involving the major pelvic arteries. There appears to be moderate atheroscleroticnarrowing at the origin of the left common iliac artery and mhai-nt-jnjdrdws atherosclerotic narrowing at the origin of the [...] 3 Signed Report (CONTINUED) Name: MIKAEL PAUL [facility] : 1945 Age/S: 75 / F [address] [place] [address] Unit #: [id number] Loc: [place] [address] Phys: Brina Corrigan [facility] Acct: [id number] Dis Date: Status: REG CLI PHONE #: [phone] Exam Date: 09/13/2021 1138 FAX #: [phone] Reason: AORTIC VALVE STENOSISEXAMS: CPT CODE: [id number] CT ANGIO CHEST 30851 (Continued) Intraperitoneal space: Trace pelvic free fluid from unknown etiology. Lymph nodes: No enlarged lymph nodes. Urinary bladder: Bladder is notwell distended limiting its evaluation. Reproductive: Prior hysterectomy. Bones/joints: Age related degenerative changes. No acute fracture. Mild anterolisthesis at L5-S1 with bilateral pars defect. Soft tissues: Upper anterior abdominal wall prior hernia mesh repair changes. Mild body wall edema. IMPRESSION: 1. Aneurysmal infrarenal abdominal aorta is seen measuring 3.2 cm. Gtgy-wb-zikhoibm atherosclerotic calcifications are seen involving the major pelvic arteries without occlusion. There appears to be moderate atherosclerotic narrowing at the origin of the left common iliac artery and biuo-jq-dyasdret atherosclerotic narrowing at the origin of the [...] (1533) t.SDR.MP37 Orig Print D/T: S: 09/13/2021 (9087) PAGE 4 Signed Report- CTA ABD PEL W [id number] 00:00:00 [facility] : 1945 Sex: F Name: MIKAEL PAUL [facility] : 1945 Age/S: 75 / F [address] [place] [address] Bl Unit #: [id number] Loc: [place] [address] Phys: Brina Corrigan Acct: [id number] Dis Date: Status: REG CLI PHONE #: [phone] Exam Date: 09/13/2021 1138 FAX #: [phone] Reason: AORTIC VALVE STENOSIS EXAMS: CPT CODE: [id number] CTA ABD PEL W CONT 48856 PROCEDURE INFORMATION: Exam: CTA Chest With ContrastExam date and time: 09/13/2021 11:16 AM Age: [...] exposure control; mA and/or kV adjustment per patientsize (includes targeted exams where dose is matched to clinical indication); or iterative reconstruct ion. Contrast material: ISO; Contrast volume: 100 ml; Contrast route: INTRAVENOUS (IV); CT RadiationDose: DLP = 1626.4 mGy-cm COMPARISON: CR XR CHEST 1V 01/12/2015 5:59 AM FINDINGS: Pulmonary arteries:Mild cardiomegaly with ectatic pulmonary arteries. Aorta: Moderate aortic root calcification with mi yv-aj-pchrfzom thoracic aortic calcifications is seen. Lungs: Mild bilateral pulmonary emphysema with mild atelectatic changes in the middle lobe and the right lower lobe. Minimal atelectatic changes in the left lower lobe. Pleural spaces: Jwdw-ku-jdqvuvkw layering right pleural effusion. Heart: Thereis atherosclerotic calcification of the coronary arteries. Mild mitral annular calcification is seen. Lymph nodes: Small mediastinal nodes. Bones/joints: Age related degenerative changes. No acute fracture. Soft tissues: Unremarkable. IMPRESSION: 1. Mild cardiomegaly with pulmonary hypertension. 2. Coronary artery disease. 3. Moderate aortic root calcification with ccel-qv-issdyrmm thoracic aortic. 4. Smfl-xe-ltfavsib layering right pleural effusion. PROCEDURE INFORMATION: Exam: CTA Heart and Coronary Arteries; TAVR Planning Exam date and time: 09/13/2021 11:16 AM Age: 75 years old PAGE 1 Signed Report (CONTINUED) Name: MIKAEL PAUL [facility] : 1945 Age/S: 75 / F [address] [place] [address] Unit #: [id number] Loc: [place] [address] Phys: Brina Corrigan SOFTWARE ENGINEERING SUPERVISOR Acct: [id number] Dis Date: Status: REG CLI PHONE #: [phone] Exam Date: 09/13/2021 113 FAX #:[phone] Reason: AORTIC VALVE STENOSIS EXAMS: CPT CODE: [id number] CTA ABD PEL W CONT 73417 (Continued) Clinical indication: Pain; Other: * TECHNIQUE: Imaging protocol: CTA heart, coronary arteriesand bypass grafts (when present) with contrast material including 3D image postprocessing (includingevaluation of cardiac structure and morphology, assessment of [...] cm Sinus of Valsalva diameter: 3.7 cm Sinotubularjunction diameter: 3 cm Right cusp height (to [...] 2 Signed Report (CONTINUED) Name: MIKAEL PAUL [facility] Hickman : 1945 Age/S: 75 / F [address] [place] [address] Blvd Unit #: [id number] Loc: [place] [address] Phys: Brina Corrigan SOFTWARE ENGINEERING SUPERVISOR Acct: [id number] Dis Date: Status: REG CLI PHONE #: [phone] Exam Date: 09/13/2021 1133 FAX #: [phone] Reason: AORTIC VALVE STENOSIS EXAMS: CPT CODE: [id number] CTA ABD PEL W CONT 06584 (Continued) Exam date and time: 09/13/2021 11:16 AM Age: 75 years old Clinical indication: Pain; Other: * TECHNIQUE: Imaging protocol: Computed tomographic angiography of the abdomen and pelviswith contrast material. 3D rendering (Not supervised by [...] abdominal aorta is seen measuring 3.2 cm. Rjzn-yw-coarebhs atherosclerotic calcifications are seen involving the major pelvic arteries. There appears to be moderate atherosclerotic narrowing at the origin of the left common iliac artery and wccw-bf-fhwwudrk atherosclerotic narrowing at the origin of the right common iliac artery. No vascular occlusion is seen. Celiactrunk and mesenteric arteries: No occlusion or significant stenosis. Renal arteries: No occlusion. Mild right and moderate left atherosclerotic changes. Liver: Slightly irregular liver margin is seen, no discrete mass. Gallbladder and bile ducts: Prior cholecystectomy. Pancreas: No mass. Spleen: Unremarkable. Adrenal glands: Moderate thickening of bilateral adrenal glands. Kidneys and ureters: Unrema rkable. Stomach and bowel: No obstruction. Appendix: No evidence of appendicitis. PAGE 3 Signed Report (CONTINUED) Name: MIKAEL PAUL [facility] Atul Matthews : 1945 Age/S: 75 / F [address] [place] [address] Unit #: [id number] Loc: HANH [place] [address] Phys: Brina Corrigan Acct: [id number] Dis Date: S tatus: REG CLI PHONE #: [phone] Exam Date: 09/13/2021 1138 FAX #: [phone] Reason: AORTIC VALVE STENOSIS EXAMS: CPT CODE: [id number] CTA ABD PEL W CONT 15010 (Continued) Intraperitoneal space:Trace pelvic free fluid from unknown etiology. Lymph [...] abdominal aorta is seen measuring 3.2 cm. Hjzk-ai-xrdbzgvg atherosclerotic calcifications are seen involving the major pelvic arteries without occlusion. There appears to be moderate atherosclerotic narrowing at the origin of the left common iliac artery and pfum-le-bwviruoy atherosclerotic narrowing at the origin of the [...] Trnscb Date/Time: 09/13/2021 (1533) Susan.[email or web address] Orig Print D/T:S: 09/13/2021 (1534) PAGE 4 Signed Report- CTA HEART W CN [id number] 00:00:00 [facility] ATUL LOMAXName: MIKAEL PAUL : 1945 Sex: F Name: MIKAEL PAUL [facility] Hickman : 1945 Age/S: 75 / F [address] [place] [address] Blvd Unit #: [id number] Loc: Jay HANH [address] Phys: Brina Corrigan SOFTWARE ENGINEERING SUPERVISOR Acct: [id number] Dis Date: Status: REG CLI PHONE #: [phone] Exam Date: 09/13/2021 1138 FAX #: [phone] Reason: EXAMS: CPT CODE: [id number] HEART W CN ART/GRAFTS 88880 PROCEDURE INFORMATION: Exam: CTA Chest With Contrast Exam date and time: 09/13/2021 11:16 AM Age: 75 years old Clinical indication: Pain; Other: * chest pain, shortnessof breath TECHNIQUE: Imaging protocol: Computed tomographic angiography of the chest with contrast. 3D rendering (Not supervised by radiologist): MIP and/or 3D reconstructed images were created by the t echnologist. Radiation optimization: All CT scans at this [...] arteries. Aorta: Moderate aortic root calcification with rorn-wl-iphjhzmafcwzfmwz aortic calcifications is seen. Lungs: Mild bilateral pulmonary emphysema with mild atelectatic changes in the middle lobe and the right lower lobe. Minimal atelectatic changes in the left lower lobe. Pleural spaces: Lola-ov-plfocjpa layering right pleural effusion. Heart: There is atherosclerotic calcification of the coronary arteries. Mild mitral annular calcification is seen. Lymph nodes: Small mediastinal nodes. Bones/joints: Age related degenerative changes. No acute fracture. Soft tissues: Unremarkable. IMPRESSION: 1. Mild cardiomegaly with pulmonary hypertension. 2. Coronary artery disease. 3. Moderate aortic root calcification with rfsc-ge-hhccnulg thoracic aortic. 4. Sbjq-vq-ygslimfm layering right pleural effusion. PROCEDURE INFORMATION: Exam: CTA Heart and Coronary Arteries; TAVR Planning Exam date and time: 09/13/2021 11:16 AM Age: 75 years old PAGE1 Signed Report (CONTINUED) Name: MIKAEL PAUL [facility] : 1945 Age/S: 75 / F [address] [place] [address] Blvd Unit #: [id number] Loc: [place] [address] Phys: Brina Corrigan SOFTWARE ENGINEERING SUPERVISOR Acct: [id number] Dis Date: Status: REG CLI PHONE #: [phone] Exam Date: 09/13/2021 1138 FAX #: [phone] Reason: EXAMS: CPT CODE: [id number] CTA HEART W CN ART/GRAFTS 59813 (Continued) Clinical indication: Pain; Other: * TECHNIQUE: [...] FINDINGS: Estimated root/annulus diameters are as follows: Aorticannulus diameter: 2.5 cm Sinus of Valsalva diameter: [...] CTA Abdomen and Pelvis With Contrast PAGE 2Signed Report (CONTINUED) Name: MIKAEL PAUL [facility] : 1945 Age/S: 75 / F [address] [place] [address] Unit #: [id number] Loc: [place] [address] Phys: Brina Corrigan SOFTWARE ENGINEERING SUPERVISOR Acct: [id number] Dis Date: Status: REG CLI PHONE #: [phone] Exam Date: 09/13/2021 1138 FAX #: [phone] Reason: EXAMS: CPT CODE: [id number] CTA HEART W CN ART/GRAFTS 64522 (Continued) Exam date and time: 09/13/2021 11:16 [...] abdominal aorta is seen measuring 3.2 cm. Zclv-tw-unelcjkf atherosclerotic calcifications are seen involving the major pelvic arteries. There appears to be moderate atherosclerotic narrowing at the origin of the left common iliac artery and dkom-up-axvlkone atherosclerotic narrowing at the origin of the [...] 3 Signed Report (CONTINUED) Name: MIKAEL PAUL [facility] : 1945 Age/S: 75 / F [address] [place] [address] Unit #: [id number] Loc: [place], [place] [address]Vzcq: Brina Corrigan [facility] Acct: [id number] Dis Date: Status: REG CLI PHONE #: [phone] Exam Date: 09/13/2021 1138 FAX #: [phone] Reason: EXAMS: CPT CODE: [id number] CTA HEART W CN ART/[id number] (Continued) Intraperitoneal space: Trace pelvic free fluid [...] infrarenal abdominalaorta is seen measuring 3.2 cm. Mdjk-lx-otpujmoo atherosclerotic calcifications are seen involving the major pelvic arteries without occlusion. There appears to be moderate atherosclerotic narrowing at the origin of the left common iliac artery and qyby-as-mllyliii atherosclerotic narrowing at the origin of the right common iliac artery. No vascular occlusion is seen. 2. Slightly irregular liver margin is seen, which may represent early cirrhosis. 3. Moderate thickening of bilateral adrenal glands,suggestive of adrenal hyperplasia. 4. Trace pelvic free fluid from unknown etiology. at 1533 Reported and signed by: Jens Maxwell D.O. CC: Brina Corrigan Technologist:Willy Perrin RT(R)(CT) CTDI: DLP: Trnscb Date/Time: 09/13/2021 (1533) Susan.[email or web address] Orig Print D/T: S: 09/13/2021 (0444) PAGE 4 Signed Report
[2023-09-12] MEDS ORDERED: FENTANYL CITR 100 MCG/2 ML ONE (19:11)
--- NOTE | 2023-09-12 21:00 | RAD REPORT ---
EXAM DESCRIPTION: RAD - Knee Right 3 View - 09/12/2023 8:12 pm CLINICAL HISTORY: PAIN COMPARISON: No comparisons TECHNIQUE: Right knee, 3 views. FINDINGS: No fracture, dislocation or periosteal reaction.Large joint effusion seen. Moderate patell ofemoral degenerative changes with marginal spurring. Mild degenerative changes along the weight-bear ing articulations. No soft tissue abnormality. Vascular calcifications. IMPRESSION: No acute osseous abnormality. Large joint effusion. Degenerative changes as above.
--- NOTE | 2023-09-12 22:07 | RAD REPORT ---
EXAM DESCRIPTION: CT - Knee Right Wo Cont - 09/12/2023 8:47 pm CLINICAL HISTORY: Knee pain COMPARISON: Knee Right 3 View dated 09/12/2023 TECHNIQUE: Thin cut axial CT imaging of the right knee was performed without IV contrast. Multiplana r reformats were generated and reviewed. All CT scans are performed using dose optimization technique as appropriate and may include automated exposure control or mA/KV adjustment according to patient size. FINDINGS: Mildly displaced fracture along the posterior peripheral corner of the lateral tibial plat eau. A small depressed component more anteriorly along the articular surface of the lateral tibial pl ateau, with some underlying trabecular compaction, see sagittal image 52 series 204. No evidence of dislocation. Patella is normally situated. Incidentally noted fabella. Large amount of joint fluid accumulation with fluid fluid level, suggesting hemarthrosis. Moderate tricompartmental osteoarthritic changes with marginal spurring. Dense atherosclerotic calcifications along the popliteal artery. IMPRESSION: Mildly displaced peripheral posterolateral tibial plateau fracture. Small depressed comp onent more anteriorly along the lateral tibial plateau articular surface. Large volume hemarthrosis.
[2023-09-12] MEDS ORDERED: dexAMETHasone 10 MG/ML VIAL ONE (22:36)
[2023-09-12] MEDS ORDERED: KETOROLAC 30 MG/ML INJ ONE (22:36)
--- NOTE | 2023-09-12 23:01 | ER ---
Nurse's Notes [facility] Name: Marcie Paul Age: 77 yrs Sex: Female : 1945 Arrival Date: 09/12/2023 Time: 17:21 Bed 17 Private MD: Diagnosis: Mildly Displaced Posterolateral Tibial Plateau Fracture of Right Knee;Lateral Tibial Plateau Fracture of Right Knee Presentation: 09/12 17:43 Chief complaint: Patient states: she stood up a few hours ago, heard a "pop" in her ap3 right knee and had immediate pain in the right knee. patient complains of pain 10/10 on the pain scale in the right knee at this time. Coronavirus screen: At this time, the client does not indicate any symptoms associated with coronavirus-19. Ebola Screen: No symptoms or risks identified at this time. Initial Sepsis Screen: Does the patient meet any 2 criteria? No. Patient's initial sepsis screen is negative. Does the patient have a suspected source of infection? No. Patient's initial sepsis screen is negative. Risk Assessment: Do you want to hurt yourself or someone else? Patient reports no desire to harm self or others. Onset of symptoms was September 12, 2023. 17:43 Method Of Arrival: Wheelchair ap3 17:45 Acuity: JOAQUINA 4 ap3 Triage Assessment: 17:46 General: Appears uncomfortable, Behavior is calm, cooperative, appropriate for age. ap3 Pain: Complains of pain in right knee Pain currently is 10 out of 10 on a pain scale. Pain began suddenly. Neuro: Level of Consciousness is awake, alert, obeys commands, Oriented to person, place, time, situation. Cardiovascular: Patient's skin is warm and dry. Respiratory: Airway is patent Respiratory effort is even, unlabored, Respiratory pattern is regular, symmetrical, patient on home oxygen concentrator wearing 3 liters at this time. Musculoskeletal: Reports pain in right knee. Historical: - Allergies: 17:45 Tape; ap3 17:45 Xarelto; ap3 - PMHx: 17:45 Atrial Fib; Atrial Fib; COPD; COPD; Diabetes - NIDDM; Home O2 via NC at 2 to 2.5L; ap3 Hyperlipidemia; Hypertension; Hypothyroidism; Myocardial infarction; - Immunization history:: Client reports receiving the 2nd dose of the Covid vaccine. - Social history:: Smoking status: Patient reports the use of cigarette tobacco products, smokes one-half pack cigarettes per day. Screenin:46 Abuse screen: Denies threats or abuse. Nutritional screening: No deficits noted. ap3 Tuberculosis screening: No symptoms or risk factors identified. 18:52 [facility] ED Fall Risk Assessment (Adult) Score/Fall Risk Level 0 - 2 = Low Risk nj1 Oriented to surroundings, Maintained a safe environment, Hourly rounding (assess needs \\T\\ fall precautionary measures) done, Used ambulatory aids as needed (educated on \\T\\ assisted with), Used gait belt as appropriate. Assessment: 18:15 Reassessment: See triage assessment. nj1 20:00 Reassessment: Patient appears in no apparent distress at this time. Patient and/or nj1 family updated on plan of care and expected duration. Pain level reassessed. Patient is alert, oriented x 3, equal unlabored respirations, skin warm/dry/pink. 21:09 Reassessment: Patient appears in no apparent distress at this time. Patient and/or nj1 family updated on plan of care and expected duration. Pain level reassessed. Patient is alert, oriented x 3, equal unlabored respirations, skin warm/dry/pink. 22:00 Reassessment: Patient appears in no apparent distress at this time. Patient and/or jb4 family updated on plan of care and expected duration. Pain level reassessed. Patient is alert, oriented x 3, equal unlabored respirations, skin warm/dry/pink. 23:00 Reassessment: Patient appears in no apparent distress at this time. Patient and/or jb4 family updated on plan of care and expected duration. Pain level reassessed. Patient is alert, oriented x 3, equal unlabored respirations, skin warm/dry/pink. Vital Signs: 17:43 Pulse 86; Resp 21; Temp 98.8; Pulse Ox 92% on 3 lpm patient wears home oxygen; Weight ap3 68.04 kg; Pain 10/10; 17:45 BP 111 / 76; ap3 20:00 BP 177 / 87; Pulse 69; Resp 18; Pulse Ox 96% ; nj1 21:00 BP 167 / 92; Pulse 68; Resp 18; Pulse Ox 98% ; nj1 22:00 BP 163 / 78; Pulse 60; Resp 16; Pulse Ox 98% on R/A; jb4 17:43 Pain Scale: Adult ap3 ED Course: 17:22 Patient arrived in ED. kj1 17:24 Eze Zhu PA is PHCP. cp 17:24 Steven Kyle MD is Attending Physician. cp 17:25 Wes Phelps DO is Attending Physician. cp 17:46 Triage completed. ap3 17:47 Arm band placed on left wrist. ap3 18:50 Megan Souza, TIARA is Primary Nurse. nj1 18:51 Patient has correct armband on for positive identification. Bed in low position. Call nj1 light in reach. Adult w/ patient. Provided Education on: Call light, fall precautions. 20:13 XRAY Knee RIGHT 3 view In Process Unspecified. EDMS 20:15 Notified Nurse Practitioner and/or Physician Railway Signalling Engineer of Patient requesting pain nj1 medication. 20:48 Knee Right Wo Cont In Process Unspecified. EDMS 22:56 James Farooq MD is Referral Physician. cp 23:47 No provider procedures requiring assistance completed. Patient did not have IV access jb4 during this emergency room visit. Administered Medications: 18:36 CANCELLED (Physician Discretion): fentanyl (pf)25 mcg IM once cp 19:01 Drug: fentaNYL (PF) IM 50 mcg IM once Route: IM; Site: right deltoid; ko1 22:47 Not Given (Physician Discretion): mg IM once cp 22:47 Not Given (Physician Discretion): dexamethasone 10 mg IM once cp 22:47 CANCELLED (Physician Discretion): morphine4 mg IM once cp 23:15 Drug: morphine IM 6 mg IM once Route: IM; Site: left vastus lateralis; jb4 Outcome: 23:00 Discharge ordered by . cp 23:47 Discharged to home via wheelchair, jb4 23:47 Condition: stable 23:47 Discharge instructions given to patient, Instructed on discharge instructions, follow up and referral plans. Demonstrated understanding of instructions, follow-up care, 23:50 Patient left the ED. jb4 Signatures: Dispatcher [employer] EDMS Eze Zhu PA PA cp Bryson, James, RN RN jb4 Kandy Jerome RN RN ap3 Anita Her kj1 Maia Santamaria RN RN ko1 Megan Souza, TIARA RN nj1 Corrections: (The following items were deleted from the chart) 21:08 20:00 BP 177 / 87; Pulse 39bpm; Resp 18bpm; Pulse Ox 96%; nj1 nj1
--- NOTE | 2023-09-12 23:01 | EDPHYS ---
Physician Documentation [facility] Name: Marcie Paul Age: 77 yrs Sex: Female : 1945 Arrival Date: 09/12/2023 Time: 17:21 Bed 17 Private MD: ED Physician Wes Phelps HPI: 09/12 18:00 This 77 yrs old Female presents to ER via Wheelchair with complaints of Knee Injury, cp Knee Pain. 18:00 The patient presents with pain, that is acute. The complaints affect the right knee. cp Context: started suddenly after standing to walk, patient denies direct trauma, denies fall. HX of right hip surgery. 18:00 Onset: The symptoms/episode began/occurred today. Associated signs and symptoms: cp Pertinent negatives fever, rash, warmth. Treatment prior to arrival includes: no previous treatment. Historical: - Allergies: 17:45 Tape; ap3 17:45 Xarelto; ap3 - PMHx: 17:45 Atrial Fib; Atrial Fib; COPD; COPD; Diabetes - NIDDM; Home O2 via NC at 2 to 2.5L; ap3 Hyperlipidemia; Hypertension; Hypothyroidism; Myocardial infarction; - Immunization history:: Client reports receiving the 2nd dose of the Covid vaccine. - Social history:: Smoking status: Patient reports the use of cigarette tobacco products, smokes one-half pack cigarettes per day. ROS: 18:05 Constitutional: Negative for body aches, chills, fever, poor PO intake, cp 18:05 Eyes: Negative for injury, pain, redness, and discharge, cp 18:05 Cardiovascular: Negative for chest pain, palpitations, 18:05 Respiratory: Negative for cough, shortness of breath, wheezing, 18:05 Abdomen/GI: Negative for abdominal pain, vomiting, diarrhea, constipation, 18:05 Back: Negative for pain at rest, pain with movement, 18:05 MS/extremity: Positive for decreased range of motion, pain, swelling, tenderness, of the right knee, Negative for deformity, 18:05 Neuro: Negative for altered mental status, dizziness, headache, numbness, syncope, weakness, 18:05 All other systems are negative, Exam: 18:10 Constitutional: The patient appears in no acute distress, alert, awake, cp non-diaphoretic, non-toxic, well developed, in obvious pain, uncomfortable, 18:10 Head/Face: Normocephalic, atraumatic. cp 18:10 Eyes: Periorbital structures: appear normal, Conjunctiva: normal, no exudate, no injection, Sclera: no appreciated abnormality, Lids and lashes: appear normal, bilaterally, 18:10 ENT: External ear(s): are unremarkable, Nose: is normal, Mouth: Lips: moist, Oral mucosa: pink and intact, moist, Posterior pharynx: Airway: no evidence of obstruction, patent, 18:10 Neck: ROM/movement: is normal, is supple, without pain, no range of motions limitations, 18:10 Chest/axilla: Inspection: normal, 18:10 Cardiovascular: Rate: normal, Edema: is not appreciated, JVD: is not appreciated, 18:10 Respiratory: the patient does not display signs of respiratory distress, Respirations: normal, no use of accessory muscles, no retractions, labored breathing, is not present, Breath sounds: are clear throughout, no decreased breath sounds, no stridor, no wheezing, 18:10 Abdomen/GI: Inspection: abdomen appears normal, Palpation: abdomen is soft and non-tender, in all quadrants, 18:10 Back: pain, is absent, ROM is normal, 18:10 Musculoskeletal/extremity: ROM: limited passive range of motion, in the right knee, Joints: the right knee displays limited range of motion, pain at rest, swelling, tenderness, overlying skin intact w/o erythema. 18:10 Neuro: Orientation: to person, place \T\ time. Mentation: is normal, Vital Signs: 17:43 Pulse 86; Resp 21; Temp 98.8; Pulse Ox 92% on 3 lpm patient wears home oxygen; Weight ap3 68.04 kg; Pain 10/10; 17:45 BP 111 / 76; ap3 20:00 BP 177 / 87; Pulse 69; Resp 18; Pulse Ox 96% ; nj1 21:00 BP 167 / 92; Pulse 68; Resp 18; Pulse Ox 98% ; nj1 22:00 BP 163 / 78; Pulse 60; Resp 16; Pulse Ox 98% on R/A; jb4 17:43 Pain Scale: Adult ap3 MDM: 17:49 Patient medically screened. cp 23:00 Data reviewed: vital signs, nurses notes, radiologic studies, CT scan, plain films. cp 23:00 Differential diagnosis: dislocation, contusion, septic joint, fracture. Consideration cp of Admission/Observation Escalation of care including admission/observation considered. I considered the following discharge prescriptions or medication management in the emergency department Medications were administered in the Emergency Department. See MAR. Care significantly affected by the following chronic conditions: Diabetes, Hypertension, Chronic Obstructive Pulmonary Disease. Counseling: I had a detailed discussion with the patient and/or guardian regarding the historical points, exam findings, and any diagnostic results supporting the discharge/admit diagnosis, lab results, radiology results, the need for outpatient follow up, for definitive care, a orthopedic surgeon, to return to the emergency department if symptoms worsen or persist or if there are any questions or concerns that arise at home. Response to treatment: the patient's symptoms have markedly improved after treatment, Pain markedly improved. Right knee placed in immobilizer. Review of pharmacy screen shows patient receives prescribed tylenol #4 from family physician. Will discharge to home to f/u with ortho and family physician. 09/12 17:56 Order name: XRAY Knee RIGHT 3 view; Complete Time: 21:14 cp 09/12 21:15 Interpretation: Report reviewed. cp 09/12 20:48 Order name: Knee Right Wo Cont; Complete Time: 22:23 EDMS 09/12 19:50 Order name: Knee Immobilizer; Complete Time: 20:31 cp Administered Medications: 18:36 CANCELLED (Physician Discretion): fentanyl (pf)25 mcg IM once cp 19:01 Drug: fentaNYL (PF) IM 50 mcg IM once Route: IM; Site: right deltoid; ko1 22:47 Not Given (Physician Discretion): [id number] mg IM once cp 22:47 Not Given (Physician Discretion): dexamethasone 10 mg IM once cp 22:47 CANCELLED (Physician Discretion): morphine4 mg IM once cp 23:15 Drug: morphine IM 6 mg IM once Route: IM; Site: left vastus lateralis; jb4 Disposition Summary: 09/12/23 23:00 Discharge Ordered Notes: Location: Home cp Problem: new cp Symptoms: have improved cp Condition: Stable cp Diagnosis - Mildly Displaced Posterolateral Tibial Plateau Fracture of Right Knee cp - Lateral Tibial Plateau Fracture of Right Knee cp Followup: cp - With: James Farooq MD - When: 2 - 3 days - Reason: right tibial plateau fracture Discharge Instructions: - Discharge Summary Sheet cp - Displaced Tibial Plateau Fracture cp - Tibial Plateau Fracture Rehab cp Forms: - Medication Reconciliation Form cp - Thank You Letter cp - Antibiotic Education cp - Prescription Opioid Use cp - Patient Portal Instructions cp - Leadership Thank You Letter cp Signatures: Dispatcher [employer] EDMS Eze Zhu PA PA cp Britton Souza RN RN jb4 Kandy Jerome RN RN ap3 Maia Santamaria RN RN ko1 Corrections: (The following items were deleted from the chart) 18:36 17:56 fentaNYL (PF) IM 25 mcg IM once ordered. cp cp 20:47 19:56 CT RIGHT KNEE WO CONTRAST ordered. EDMS EDMS 22:47 22:43 morphine IM 4 mg IM once ordered. cp cp
[2023-09-12] MEDS ORDERED: MORPHINE 4 MG/ML SYR ONE (23:18)
[2023-09-12] MEDS ORDERED: MORPHINE 2 MG/ML SYR ONE (23:18)
[2023-09-13 00:54] VITALS: TEMP 98.8
[2023-09-13 00:58] VITALS: O2SAT 98
[2023-09-13 00:59] VITALS: BP 163/78
== END 2023-09-12 23:50 | disposition home or self-care (01) ==
LOC: ER 17:21
DX: S82.141A Displaced bicondylar fracture of right tibia, initial encounter for closed fracture (principal); F17.210 Nicotine dependence, cigarettes, uncomplicated; Z88.8 Allergy status to other drugs, medicaments and biological substances; Z91.048 Other nonmedicinal substance allergy status
CPT/HCPCS: 73700; 73562; 96372; 99284; J3010; J2270; J1100